=== PATIENT | male | born 1930 | race Caucasian/White ===

== ENCOUNTER → 2016-08-22 | Outpatient (CLI) | payer BC ==
[~2016-08-22] MED LIST: AMLO-114 PO; ANT25 PO; ASPCH81 PO; CARB0.5D28 OPB; CHOL100010 PO; HYDUNK PO; LPT40 PO; METO25TA56 PO; MULT-506 PO; NAPR1TAB9 PO; OMEG10007 PO; ONDA4TAB7 SL; SYNUNK PO
== END | disposition home or self-care (01) ==
LOC: C.LABSPEC 11:11
PROVIDERS: ATTEND Nurse Practitioner Family
DX: R39.9 Unspecified symptoms and signs involving the genitourinary system (principal)

== ENCOUNTER → 2016-10-19 | Outpatient (CLI) | payer BC ==
--- NOTE | 2016-10-19 15:29 | DIAGNOSTIC IMAGING REPORT ---
CHEST 2 VIEWS ROUTINE CLINICAL HISTORY: R05 COUGH COMPARISON STUDY: 12/14/2014 FINDINGS: The heart is enlarged. There is no failure. There is no focal pulmonary consolidation. There are no pleural effusions.[ IMPRESSION: Cardiomegaly. No acute findings. Electronically signed by: Eagle Gandara M.D. 10/19/2016 3:28 PM Dictated Date/Time: 10/19/2016 3:27 PM
== END | disposition home or self-care (01) ==
LOC: C.RAD 15:06
PROVIDERS: ATTEND Internal Medicine Cardiovascular Disease
DX: R05 Cough (principal); I51.7 Cardiomegaly

== ENCOUNTER → 2017-05-09 | Outpatient (CLI) | payer BC ==
--- NOTE | 2017-05-09 13:55 | DIAGNOSTIC IMAGING REPORT ---
R KNEE 3 VIEWS CLINICAL HISTORY: 87 years-old Male presenting with RIGHT KNEE INSTABILITY. TECHNIQUE: Bilateral frontal views of the knees in standing position as well as crosstable lateral and sunrise views of the right knee were obtained. COMPARISON: Plain radiographs of the left knee from 04/22/2007. FINDINGS: Degenerative changes of the bilateral knees, left greater than right. The left knee demonstrates interval increase in osteophytosis, chondrocalcinosis, and medial joint space loss. Subchondral sclerosis noted in the medial compartment. The right knee demonstrates less severe medial joint space loss and less severe osteophytosis. The right knee demonstrates primarily medial and patellofemoral compartment degenerative change. Small knee joint effusion present. Minimal lateral subluxation of the patella. No acute fracture. IMPRESSION: 1. Medial joint space loss in the bilateral knees, left greater than right. 2. Medial and patellofemoral compartment degenerative change in the right knee with effusion. Electronically signed by: Tree Cisse M.D. 05/09/2017 1:54 PM Dictated Date/Time: 05/09/2017 1:51 PM
== END | disposition home or self-care (01) ==
LOC: C.RDSM 13:25
PROVIDERS: ATTEND Family Medicine
DX: M25.361 Other instability, right knee (principal)

== ENCOUNTER 2017-06-12 09:39 | Emergency (ER) | payer BC ==
[~2017-06-12] VITALS: Ht 177.8 cm; Wt 93.0 kg
[2017-06-12 09:48] VITALS: TEMP 36.9; Ht 177.8 cm; Wt 93.0 kg
--- NOTE | 2017-06-12 10:23 | DIAGNOSTIC IMAGING REPORT ---
CT HEAD WITHOUT CONTRAST (CT) CLINICAL HISTORY: Head pain status post trauma COMPARISON STUDY: 12/14/2014 TECHNIQUE: Axial CT of the brain is performed from the vertex to the skull base. IV contrast was not administered for this examination. A dose lowering technique was utilized adhering to the principles of ALARA. CT DOSE: 614.27 mGy.cm FINDINGS: There is a focus of subtle increased attenuation along the posterior falx adjacent to the cerebellar vermis. This finding was reviewed with a fellow radiologist. It was felt that this finding was unlikely to be secondary to acute hemorrhage. A mass is a meningioma cannot be excluded. There is no evidence of acute intraparenchymal hemorrhage. There is no evidence of subarachnoid hemorrhage. There is no midline shift. There are patchy white matter hypodensities likely on a small vessel basis. There is no evidence of pathologic ventricular dilatation. There is no evidence of acute sinusitis. There is a right frontal scalp hematoma. IMPRESSION: 1. Right frontal scalp hematoma 2. White matter hypodensities, likely a small vessel basis 3. Subtle focus of increased attenuation along the posterior falx adjacent the cerebellar vermis. As stated above, it is felt that this finding is unlikely to be secondary to acute hemorrhage Electronically signed by: Eagle Gandara M.D. 06/12/2017 10:22 AM Dictated Date/Time: 06/12/2017 10:16 AM
[2017-06-12] MEDS ORDERED: NRV/5 PO (10:32)
[2017-06-12] MEDS ORDERED: ISOS30TA35 PO (10:32)
[2017-06-12] MEDS ORDERED: PRVC/20 PO (10:32)
[2017-06-12] MEDS ORDERED: SYN75 PO (10:32)
[2017-06-12] MEDS ORDERED: CHOL1000 PO (10:32)
[2017-06-12] MEDS ORDERED: ASPI81TA28 PO (10:32)
[2017-06-12] MEDS ORDERED: POTA20TA13 PO (10:32)
[2017-06-12] MEDS ORDERED: HYDR25TA4 PO (10:32)
[2017-06-12] MEDS ORDERED: VALS-59 PO (10:32)
--- NOTE | 2017-06-12 10:43 | EMERGENCY ROOM VISIT NOTE ---
History Report prepared by Trey: Anne Mendoza Under the Supervision of: Dr. Henrique Mendez D.O. First contact with patient: 09:56 Chief Complaint: FALL Stated Complaint: FELL ONTO CEMENT FLOOR/BACKWARDS-LACERATION History of Present Illness The patient is an 87 year old male who presents to the Emergency Room with complaints of a sudden fall that occurred just prior to arrival. He currently rates his discomfort as a 2/10 in severity. The patient states that he was working on a step ladder and states that he fell backwards somewhat slowly injuring his head. He states that he is unsure why he fell. The patient states that he does not feel like he broke any bones. He denies any back pain or pain to his buttocks. The patient states that he feels his teeth are all intact. Source of History: patient Onset: prior to arrival Position: other (global) Symptom Intensity: 2/10 Quality: other (fall) Timing: other (sudden) Associated Symptoms: No back pain Note: Associated Symptoms: head injury Review of Systems See HPI for pertinent positives & negatives. A total of 10 systems reviewed and were otherwise negative.+ Past Medical & Surgical Medical Problems: (1) Hypertension Nos (2) Hypothyroidism Nos (3) Myoclonus (4) Pure Hypercholesterolem (5) Silent myocardial infarction Surgical Problems: (1) History of appendectomy (2) History of hip replacement Family History FH: alcoholism Social History Smoking Status: Former Smoker Drug Use: none Marital Status: Housing Status: lives with significant other Occupation Status: retired Current/Historical Medications Scheduled Amlodipine Besylate (Amlodipine Besylate), 1 TAB PO DAILY Aspirin (Aspirin Ec), 81 MG PO DAILY Carboxymethylcellulose Sodium (Refresh Tears), 1-2 DROP OPB PRN Cholecalciferol (Vitamin D3), 1 TAB PO DAILY Fish Oil ([place]-3), 1 CAP PO DAILY Hydrochlorothiazide (Hctz), 25 MG PO DAILY Isosorbide Mononitrate Ext Rel (Imdur Ext Rel), 1 TAB PO QAM Levothyroxine Sodium (Synthroid), 1 TAB PO DAILYBB Multivitamin (Multivitamin), 1 TAB PO DAILY Naproxen (Aleve), 440 MG PO HS Potassium Chloride Microencaps (Potassium Chloride Er), 1 TAB PO DAILY Pravastatin Sod (Pravastatin Sodium), 1 TAB PO QPM Valsartan (Valsartan), 1 TAB PO DAILY Allergies Coded Allergies: Latex1 -Allergic Contact Dermititis (Verified Allergy, Unknown, HIVES - red itchy skin, 06/12/17) Morphine (Verified Allergy, Unknown, UNKNOWN, 06/12/17) Penicillins (Verified Allergy, Unknown, OK TO GIVE ANCEF PER SHANITA, ) Physical Exam Vital Signs Date Time Temp Pulse Resp B/P (MAP) Pulse Ox O2 Delivery O2 Flow Rate FiO2 06/12/17 09:48 36.9 59 20 155/68 98 Room Air Physical Exam CONSTITUTIONAL/VITAL SIGNS: Reviewed / noted above. GENERAL: Non-toxic in appearance. INTEGUMENTARY: Warm, dry, and [place]. HEAD: Hematoma and a skin tear/abrasion to the right forehead. EYES: without scleral icterus or trauma. ENT/OROPHARYNX: small laceration to the right lower lip LYMPHADENOPATHY/NECK: Is supple without lymphadenopathy or meningismus. RESPIRATORY: Lungs clear and equal. CARDIOVASCULAR: Regular rate and rhythm. GI/ABDOMEN: Soft and nontender. No organomegaly or pulsatile mass. No rebound or guarding. Normal bowel sounds. EXTREMITIES: Warm and well perfused. BACK: No CVA tenderness. NEUROLOGICAL: Intact without focal deficits. PSYCHIATRIC: normal affect. MUSCULOSKELETAL: Normally developed with good muscle tone. Medical Decision & Procedures ER Provider Diagnostic Interpretation: CT results as stated below per my review and radiologist interpretation: CT HEAD WITHOUT CONTRAST (CT) CLINICAL HISTORY: Head pain status post trauma COMPARISON STUDY: 12/14/2014 TECHNIQUE: Axial CT of the brain is performed from the vertex to the skull base. IV contrast was not administered for this examination. A dose lowering technique was utilized adhering to the principles of ALARA. CT DOSE: 614.27 mGy.cm FINDINGS: There is a focus of subtle increased attenuation along the posterior falx adjacent to the cerebellar vermis. This finding was reviewed with a fellow radiologist. It was felt that this finding was unlikely to be secondary to acute hemorrhage. A mass is a meningioma cannot be excluded. There is no evidence of acute intraparenchymal hemorrhage. There is no evidence of subarachnoid hemorrhage. There is no midline shift. There are patchy white matter hypodensities likely on a small vessel basis. There is no evidence of pathologic ventricular dilatation. There is no evidence of acute sinusitis. There is a right frontal scalp hematoma. IMPRESSION: 1. Right frontal scalp hematoma 2. White matter hypodensities, likely a small vessel basis 3. Subtle focus of increased attenuation along the posterior falx adjacent the cerebellar vermis. As stated above, it is felt that this finding is unlikely to be secondary to acute hemorrhage. Electronically signed by: Eagle Gandara M.D. 06/12/2017 10:22 AM Dictated Date/Time: 06/12/2017 10:16 AM ED Course 0958: Previous medical records were reviewed. The patient was evaluated in room A2. A complete history and physical examination was performed. 1045: I reevaluated the patient and he is resting comfortably. I discussed the exam findings with him and I discussed the treatment plan. He verbalized complete understanding and agreement. He is ready for discharge. Medical Decision Differentials include: Close head injury, intracranial bleed, facial trauma, cervical spine trauma, chest and thoracic trauma, abdominal and intra-abdominal trauma, spine neurologic trauma, and extremity trauma. This is an 87-year-old male who presents to the ED with a chief complaint of a fall and head injury. The patient states that he was stepping onto a stepladder when he lost his balance and fell backwards. He took several steps backwards and then fell landing on his buttocks and then fell striking the right side of his head. He came in for evaluation of this. He has a hematoma/ abrasion/skin tear to the right temporal region. There is also a small laceration/abrasion to his right lower lip. There was bleeding initially but he is currently not bleeding. There is no contamination to the wounds. Skin was replaced over the right temporal wound and there is no need for approximation as the wound/skin tear comes together nicely. The laceration the lip is very small and will not require suture as it is approximated well. The CT scan of the brain did not show acute process. The patient was felt to be stable for discharge and outpatient follow-up. He denied any neck or back pain. No buttock pain. No extremity pain. He is able to relate without difficulty. Denies other injuries or symptoms. Medication Reconcilliation Current Medication List: was personally reviewed by me Blood Pressure Screening Patient's blood pressure: Elevated blood pressure Blood pressure disposition: Elevated BP felt to be situational, Did not require urgent referral Impression Primary Impression: Fall Additional Impressions: Contusion of multiple sites Multiple abrasions Scribe Attestation The scribe's documentation has been prepared under my direction and personally reviewed by me in its entirety. I confirm that the note above accurately reflects all work, treatment, procedures, and medical decision making performed by me. Departure Information Dispostion Home / Self-Care Referrals Bud España M.D. (PCP) Forms HOME CARE DOCUMENTATION FORM, IMPORTANT VISIT INFORMATION Patient Instructions My [facility] Additional Instructions The head scan did not show any acute brain injury. Watch wounds for infection (redness, increasing swelling, increasing pain, fevers). Follow-up with your doctor for further care and evaluation in 5 -7 days for recheck. Return to the emergency department for worsening or new symptoms or any concerns. You have been examined and treated today on an emergency basis only. This is not a substitute for, or an effort to provide, complete comprehensive medical care. It is impossible to recognize and treat all injuries or illnesses in a single emergency department visit. It is therefore important that you follow up closely with your doctor. Call as soon as possible for an appointment. Problem Qualifiers
[2017-06-12 11:09] VITALS: BP 170/70; PULSE 50; O2SAT 98
== END 2017-06-12 11:10 | disposition home or self-care (01) ==
LOC: C.EDB 09:42 → C.EDA 11:10
DX: T14.8XXA Other injury of unspecified body region, initial encounter (principal); W11.XXXA Fall on and from ladder, initial encounter; I10 Essential (primary) hypertension; E03.9 Hypothyroidism, unspecified; G25.3 Myoclonus; E78.00 Pure hypercholesterolemia, unspecified; Z87.891 Personal history of nicotine dependence; Z79.82 Long term (current) use of aspirin

== ENCOUNTER → 2017-08-08 | Outpatient (CLI) | payer BC ==
[~2017-08-08] MED LIST changes: -AMLO-114 PO; -ANT25 PO; -ASPCH81 PO; +ASPI81TA28 PO; +CHOL1000 PO; -CHOL100010 PO; +HYDR25TA4 PO; -HYDUNK PO; +ISOS30TA35 PO; -LPT40 PO; -METO25TA56 PO; +NRV/5 PO; -ONDA4TAB7 SL; +POTA20TA13 PO; +PRVC/20 PO; +SYN75 PO; -SYNUNK PO; +VALS-59 PO
--- NOTE | 2017-08-08 10:08 | DIAGNOSTIC IMAGING REPORT ---
HEAD WITHOUT CONTRAST (CT) CT DOSE: 823.94 mGycm HISTORY: Mental status change IMPAIRED MOTOR CONTROL TECHNIQUE: Multiaxial CT images of the head were performed without the use of intravenous contrast. A dose lowering technique was utilized adhering to the principles of ALARA. Comparison: 06/12/2017 Findings: The paranasal sinuses and mastoid air cells are clear. Interval development of a left posterior frontal mixed density subdural hematoma. This measures 9 mm maximum thickness. Bulk of the subdural is of low density with a linear focus of hyperdensity. This may indicate a partial re-bleed with all findings not present on the prior exam. No significant midline shift. No evidence for a true parenchymal hemorrhage. Ventricular system is midline. Impression: 1. Interval development of a 9 mm thick mixed density left subdural hematoma. 2. No significant mass effect or midline shift although there is mild impact upon the left posterior frontal lobe sulci. 3. The mixed density indicates the majority of the subdural is subacute with only a small linear focus of acute hemorrhage within the subcutaneous component. 4. This finding was not present on the prior study dated 06/12/2017 The above report was generated using voice recognition software. It may contain grammatical, syntax or spelling errors. Electronically signed by: Micah Lincoln M.D. 08/08/2017 10:07 AM Dictated Date/Time: 08/08/2017 10:00 AM
== END | disposition home or self-care (01) ==
LOC: C.CTS 09:36
PROVIDERS: ATTEND Family Medicine
DX: Z78.9 Other specified health status (principal); I62.00 Nontraumatic subdural hemorrhage, unspecified

== ENCOUNTER → 2017-08-27 | Outpatient (CLI) | payer BC ==
--- NOTE | 2017-08-27 09:26 | DIAGNOSTIC IMAGING REPORT ---
CT OF THE HEAD WITHOUT CONTRAST CLINICAL HISTORY: Impaired motor control. Follow-up subdural hematoma. COMPARISON STUDY: Head CT August 08, 2017. CT DOSE: 614.27 mGy.cm TECHNIQUE: Helical axial images of the head were obtained without IV contrast. Automated exposure control was utilized for the study. A dose lowering technique was utilized adhering to the principles of ALARA. FINDINGS: A small mixed attenuation left subdural hematoma overlying the left frontal lobe has slightly decreased in size and attenuation since exam of July 31, 2017. The subdural hematoma measures 1 cm in thickness. Minimal associated mass effect is noted. There is no significant midline shift. Ventricular system is stable. Basilar cisterns are patent. White matter hypodensity suggests small vessel disease. There is an old lacunar infarct within the right external capsule. There are no findings to suggest acute dural sinus thrombosis or acute territorial infarct. There is no calvarial fracture. There is trace fluid within the left mastoid air cells. IMPRESSION: Slight decrease in size and attenuation of the left subdural hematoma since head CT of August 08, 2017. This represents expected evolution of a subacute left subdural hematoma. Electronically signed by: Butch Souza M.D. 08/27/2017 9:25 AM Dictated Date/Time: 08/27/2017 9:18 AM
== END | disposition home or self-care (01) ==
LOC: C.CTS 08:58
PROVIDERS: ATTEND Family Medicine
DX: I62.02 Nontraumatic subacute subdural hemorrhage (principal); Z78.9 Other specified health status

== ENCOUNTER 2018-07-18 17:15 | Inpatient (IN) ==
[2018-07-18] MEDS ORDERED: POLYETHYLENE (MIRALAX) 17 GM PACK PO PRN (18:04)
[2018-07-18] MEDS ORDERED: PATIENT'S HEIGHT AND/OR WEIGHT NEEDED SCH (18:30)
--- NOTE | 2018-07-18 18:59 | History & Physical Report ---
Date of Service July 18, 2018 Assessment & Plan (1) Leg edema, right: 88-year-old male was a direct admit from his family medicine clinic on 18 July 2018 with concerns for right lower leg cellulitis and a failure of outpatient treatment for the same. Right lower extremity edema and erythema: Apparently began around mid June and has been progressively worsening. Has not responded to multiple courses of different antibiotics. Is not painful, no known fevers, and no known rashes elsewhere. Atraumatic as far as patient knows. No focal deficits on leg/ankle/ toe movement. Differential includes cellulitis, DVT, superficial vein thrombosis, abscess, and undifferentiated dermopathy. - We will check an admission a CBC with differential, BMP, superficial ultrasound of the local tissue, ultrasound looking for DVT, as well as a CT of his lower leg. - Given history of some CKD, will hydrate with 1 L normal saline prior to CT scan with contrast. - We will not start any antibiotics as it is unclear if this is an ongoing bacterial process. Ongoing medical history: - Hypertension: Continue home Coreg. Lasix as needed. - Hyperlipidemia: Continue home rosuvastatin. - Hypothyroidism: TSH on 27 June was 1.23. On home levothyroxine. - Chronic systolic CHF: TTE on 26 June 2018 noted moderate to severe reduced systolic function with EF of 30-35% and associated akinesis. - CAD and PMH NSTEMI: See discharge summary on 29 June 2018 for specific recent details. On last admission, recommend spironolactone, Coreg, Entresto, Lasix as needed, and aspirin. Consider AICD placement in the future. - GERD: Does not take anything for this at home. - Anemia: Hemoglobin trended around 11 in June 2018. - Left bundle branch block: Seen on previous EKG, likely related to NSTEMI. - CKD stage III: Last recorded creatinine was 1.37, though previous was around 1.07. Code status: DO NOT RESUSCITATE Diet: Heart healthy DVT prophy: Lovenox PT/OT: Deferred Disbo: Admit for observation to MedSur floor. (2) Leg erythema: (3) Hypertension: (4) Hyperlipidemia: (5) Hypothyroidism: (6) Chronic systolic CHF (congestive heart failure): (7) CAD (coronary artery disease): (8) GERD (gastroesophageal reflux disease): (9) Anemia: (10) LBBB (left bundle branch block): (11) CKD (chronic kidney disease) stage 3, GFR 30-59 ml/min: History of Present Illness Primary Care Provider: Bud España MD 80-year-old male was transferred from his primary care office with concerns for ongoing cellulitis. Patient says he first noticed a small rash on his right lower leg around mid June during his hospitalization for an IN. Since that time he says the area has slowly and progressively increased in size and erythema. He also says the underlying edema has similarly slowly increased. He does not think the area is particularly painful, including with directly touching or movement of his ankle. He denies any previous history of the same. He denies any known fevers, bites, numbness or tingling in the area, similar rashes elsewhere, or requiring any gsgp-yje-rjjyupk meds to treat it. He says that he routinely sees dermatology about every 6 months, last similar visit 6 months ago, due to his family history of melanoma. Says that last visit was unremarkable. Of note, during his mid June 2018 hospitalization he is found to have pansensitive group G strep in his blood. Since that time he has been on multiple antibiotics to include Keflex, ceftriaxone, doxycycline, and possibly most recently clindamycin. The patient is unsure which antibiotics and over time he has been on them. He also had a right lower extremity venous Doppler study in July was noted no DVT. A 15 July right ankle x-ray noted some mild soft tissue edema without acute bony abnormalities. Allergies Allergy/AdvReac Type Severity Reaction Status Date / Time latex Allergy Intermediate HIVES - Verified 06/25/18 16:07 red itchy skin morphine Allergy Intermediate Itchiness Verified 07/15/18 16:20 Penicillins Allergy Unknown Unknown Verified 07/15/18 16:20 Home Medications Home Medications Medication Instructions Recorded Confirmed Type Nigella Sativa Oil 2,000 mg PO DIRECTED 06/25/18 07/15/18 History Pectasol Detox Formula 1 dose PO DIRECTED 06/25/18 07/15/18 History isosorbide mononitrate 30 mg PO QAM 06/25/18 07/15/18 History levothyroxine 75 mcg PO QAM 06/25/18 07/15/18 History aspirin 81 mg PO QAM #30 tab 06/29/18 07/15/18 Rx carvedilol 6.25 mg PO BID #60 tab 06/29/18 07/15/18 Rx clopidogrel 75 mg PO QAM #30 tab 06/29/18 07/15/18 Rx rosuvastatin [Crestor] 10 mg PO QAM #30 tab 06/29/18 07/15/18 Rx sacubitril-valsartan [Entresto] 1 tab PO BID #60 tab 06/29/18 07/15/18 Rx clindamycin HCl 300 mg PO TID 10 Days #30 cap 07/15/18 Rx doxycycline hyclate 100 mg PO BID 07/15/18 07/15/18 History furosemide [Lasix] 20 mg PO DAILY PRN 07/15/18 07/15/18 History spironolactone 12.5 mg PO 3XWK 07/15/18 07/15/18 History Past Med/Surg History Social History Current Living Situation: Spouse Current Living Situation Comment: [facility] for home care. Other Information That Helps Us Care for You: No Feels Safe at Home: Yes Safety Concerns: Feels Safe At This Time Smoking Status: Former smoker Tobacco Type: cigarettes Do You Dip or Chew Tobacco: No Second Hand Exposure: No Tobacco Cessation Education Requested by Patient: No Hx Alcohol Use: Yes Alcohol type: beer Alcohol Intake Frequency: 0-2 drinks per day Hx Substance Use: No Beliefs That Will Affect Care: None Preferred Language: [place] Communication Ability: Effective Boarding House Cook Required: No Review of Systems Past medical history includes allergic rhinitis, arthritis, NSTEMI, hypertension , hyperlipidemia, hypothyroidism, myoclonus, leg edema, chronic systolic congestive heart failure, bilateral rotator cuff tears, biceps tendon repair, GERD. Past surgical history includes left total hip replacement in October 2012, lumbar discectomy, appendectomy, and tonsil and adenoidectomy. Allergies: Latex, tape, morphine, penicillin Family history: Brother had a heart attack as well as CAD and melanoma. Mother with history of hypertension and stroke. Father with history of hypertension. Social history: Quit smoking over 50 years ago. Drinks a single 12 ounce of beer with lunch for years. 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 Lives at home with his spouse. Review of systems Constitutional: Denies fevers, chills, focal weakness Eyes: Denies any visual loss or diplopia ENT: Denies any ear/nose/throat pain or difficulty speaking or swallowing Respiratory: Denies any dyspnea, cough, hemoptysis Cardiovascular: Denies any chest pain. Positive edema only around the rash on his leg. Gastrointestinal: Denies any abdominal pain, nausea/vomiting/diarrhea Musculoskeletal: Denies any acute extremity pains, myalgias, or focal weakness Skin: See HPI. Neuro: Denies any headache, acute focal weakness or numbness, or difficulties with speech or swallow. Psych: Denies any recent depression or anxiety Endocrine: Denies any heat or cold intolerance, changes in urination. Hematologic: Denies any easy bleeding or bruising Physical Exam 2 Vital Signs (Past 24 Hours): Last Vital Signs Temp 36.4 C L 07/18/18 17:55 Pulse 70 07/18/18 17:55 Resp 20 07/18/18 17:55 BP 161/70 H 07/18/18 17:55 Pulse Ox 100 07/18/18 17:55 Physical Exam: General Appearance: Awake, alert & oriented, comfortable in general, NAD. CV: +S1S2 RRR, no murmur. 2+ dorsalis pedis and posterior tibial pulse on the right. Pulm: Clear to auscultation throughout. Abdomen: +BS, soft, non-tender, non-distended. Extremities: Moving all extremities naturally and easily, including his right ankle. There is an approximately 21 x 14 x 15 cm area of uneven erythema over the distal right mast and wrapping medially towards the calf. It is not circumferential. The area easily blanches. It is not tender but the underlying tissue is notably 2+ edematous. No obvious breaks in the skin or weeping. Neuro: No gross neuro deficits. Code Status & VTE Plan Code Status DO NOT RESUSCITATE VTE Prophylaxis Plan VTE Prophylaxis will be ordered: Yes Supervising Physician Co-Signing Physician Notes Patient seen and examined with Dr. Poe. Agree with exam findings, assessment and plan of care as outlined by Dr. Mcallister. In brief, Mr. Munson is an 88 year old male with history if CAD, hypothyroidism , CKD and previous group G strep bacteremia who presents as a direct admission from the [facility] family medicine office for erythematous and spreading right leg lesion unresponsive to multiple outpatient antibiotic courses. The leg is becoming more erythematous and the redness is spreading to the posterior distal calf from the anterior distal mast. It is swollen compared to the left. No fevers, chills malaise, drainage or weeping from the area. Prior dopplers negative for DVT. Xray negative for osteomyelitis. On exam, he is well appearing. Afbrile. Hemodynamically stable. There is a blanching well demarcated erythematous area of the distal mast to the posterior calf. Minimal warmth. Mildly tender, especially in the posterior calf. Negative Nicolette's. No palpable cord. +2 pitting edema of the erythematous area only. +2 pedal pulses. 1. Leg lesion, ddx cellulitis with abscess (failed outpatient therapy) vs superficial thrombophlebitis vs subQ fat necrosis. No systemic symptoms. Check CBC with diff. Check Doppler again to rule out new DVT formation. Check CT leg with contrast to assess for any underlying bony or soft tissue pathology. Hold off abx for now. Other chronic conditions stable. Continue home medications. Dispo: pending clinical improvement. Resident Activity Tracking Resident Involvement: Resident Care Provided Care Provided: [facility] _ (1) Hypertension Hypertension type: essential hypertension Qualified Code(s): I10 - Essential (primary) hypertension
[2018-07-18] MEDS: SODIUM CHLORIDE 0.9% 1000ML 1,000 ML IV SCH (19:35)
[2018-07-18] MEDS: ENOXAPARIN INJ 30 MG/0.3 ML SYR SQ SCH (20:15)
[2018-07-18] MEDS: CARVEDILOL 12.5 MG TAB PO SCH (20:15)
[2018-07-18] MEDS: SACUBITRIL-VALSARTAN 24-26 MG TAB PO SCH (20:15)
--- NOTE | 2018-07-18 22:12 | Ultrasound Report ---
VENOUS DOPPLER ULTRASOUND THE RIGHT LOWER EXTREMITY CLINICAL HISTORY: Right lower extremity edema COMPARISON STUDY: 07/14/2018 FINDINGS: Real-time and color flow Doppler imaging were performed. Flow was seen within the femoral, popliteal and calf veins with no intraluminal thrombus demonstrated. The saphenous vein is patent. IMPRESSION: No evidence of right lower extremity DVT Electronically signed by: Eagle Gandara M.D. 07/18/2018 10:11 PM
--- NOTE | 2018-07-18 22:13 | Ultrasound Report ---
RIGHT LOWER EXTREMITY SOFT TISSUE ULTRASOUND CLINICAL HISTORY: Right lower extremity edema and swelling. Evaluate for abscess. COMPARISON STUDY: None FINDINGS: There is prominent soft tissue edema involving the right medial calf. There are no focal fl uid collections to indicate an abscess. IMPRESSION: 1. Prominent soft tissue edema 2. No ultrasonographic evidence of an abscess Electronically signed by: Eagle Gandara M.D. 07/18/2018 10:12 PM
[2018-07-19] MEDS: ACETAMINOPHEN 325 MG TAB PO PRN ×2 (01:44→21:24)
[2018-07-19] MEDS ORDERED: IOVERSOL 100ml IV PRN (04:21)
[2018-07-19] MEDS: SODIUM CHLORIDE 0.9% 1000ML 1,000 ML IV SCH ×3 (04:40→20:25)
[2018-07-19] MEDS: LEVOTHYROXINE SODIUM 75 MCG TABLET PO SCH (05:41)
--- NOTE | 2018-07-19 06:14 | CT Scan Report ---
CT lower leg RT w con CLINICAL HISTORY: Eval for mass vs abscess pain. Edema. TECHNIQUE: Transaxial CT acquisition with multi axial reformatted images. COMPARISON STUDY: None FINDINGS: Generalized soft tissue edematous change. Degenerative change of the knee with evidence for a small joint effusion. Moderate reactive osteophytic changes throughout. Generalized soft tissue edematous change primarily involving the subcutaneous fat through the lower l eg. No well-defined acute bony abnormality. No drainable abscess or collection. No evidence for significant myositis. IMPRESSION: 1. Generalized soft tissue edema primarily involving the subcutaneous fat throughout the right lower leg. 2. Degenerative change right knee with a small joint effusion. 3. No evidence for drainable abscess or collection. The above report was generated using voice recognition software. It may contain grammatical, syntax or spelling errors. Electronically signed by: Micah Lincoln M.D. 07/19/2018 6:13 AM
[2018-07-19 07:49] LABS: Basophils # (auto) 0.03 K/uL (0-0.2); Basophils % (auto) 0.6 %; Eosinophils # (auto) 0.24 K/uL (0-0.5); Eosinophils % (auto) 4.7 %; Hemoglobin 10.1 g/dL (14.0-18.0); Immature Granulocytes # (auto) 0.02 K/uL (0.00-0.02); Immature Granulocytes % (auto) 0.4 %; Lymphocytes # (auto) 1.42 K/uL (1.2-3.4); Mean Corpuscular Hgb Conc 31.6 g/dL (32-36); Mean Corpuscular Volume 88.6 fL (80-100); Mean Platelet Volume 10.2 fL (7.4-10.4); Monocytes # (auto) 0.42 K/uL (0.11-0.59); Monocytes % (auto) 8.3 %; Neutrophils # (auto) 2.95 K/uL (1.4-6.5); Platelet Count 126 K/uL (130-400); RDW Coefficient of Variation 14.7 % (11.5-14.5); RDW Standard Deviation 47.7 fL (36.4-46.3); Red Blood Count 3.61 M/uL (4.7-6.1); White Blood Count 5.08 K/uL (4.8-10.8)
[2018-07-19 08:15] LABS: BUN Creatinine Ratio 17.9 (10-20); Calcium 7.8 mg/dl (8.5-10.1); Creatinine Clr Calc Pharmacy 40.2 ml/min; Est GFR (African American) 55.9; Est GFR (Non-African American) 48.3; Potassium 4.2 mmol/L (3.5-5.1)
[2018-07-19] MEDS: CLOPIDOGREL BISULFATE 75 MG TAB PO SCH (08:58)
[2018-07-19] MEDS: CARVEDILOL 12.5 MG TAB PO SCH ×2 (08:58→20:30)
[2018-07-19] MEDS: ROSUVASTATIN CALCIUM 10 MG TAB PO SCH (08:59)
[2018-07-19] MEDS: ASPIRIN 81 MG ECTAB PO SCH (08:59)
[2018-07-19] MEDS: ISOSORBIDE MONO EXTENDED REL 30 MG TABCR PO SCH (08:59)
[2018-07-19] MEDS: SACUBITRIL-VALSARTAN 24-26 MG TAB PO SCH ×2 (09:55→20:30)
[2018-07-19] MEDS ORDERED: PIPERACILL/TAZOBAC CONSULT ACTIVE PRN (13:12)
[2018-07-19] MEDS ORDERED: VANCOMYCIN CONSULT ACTIVE PRN (13:12)
[2018-07-19] MEDS ORDERED: VANCOMYCIN HCL 2,000 MG in SODIUM CHLORIDE 0.9% 500 ML IV ONE (14:00)
[2018-07-19] MEDS ORDERED: PIPERACILLIN/TAZOBACTAM 3.375 GM in DEXTROSE 5% 100 ML IV ONE (14:00)
--- NOTE | 2018-07-19 15:12 | Pharmacy Report ---
Pharmacy Abx Initial Consult - Date of Service July 19, 2018 - Pharmacy Dosing Scope Date of Consult: 07/19/18 Consultation requested by: Dr. Kenney Pharmacy is consulted to initiate Vancomycin and Zosyn IV dosing therapy, order appropriate labs and adjust drug dose/frequency. - Subjective The patient is a 88 year old M admitted on 07/18/18 17:52. - Objective Height: 5 ft 10 in Weight: 86.4 kg Vital Signs (Past 12hrs): Vital Signs Temp Pulse Resp BP Pulse Ox 07/19/18 07:47 36.4 C L 61 17 131/68 97 Lab Results (24hrs): Laboratory Tests (24 Hours) 07/19/18 07/19/18 07:21 07:21 WBC 5.08 Neut # (Auto) 2.95 Creatinine 1.31 Est Cr Clr Drug Dosing 40.2 - Risk Factors for Resistance * Hospitalization for 48 hours or more within the past 90 days (06/25 - for acute resp. failure with hypoxia) * History of infection with a multidrug-resistant organism: 06/29 blood cultures babb sensitive group G beta strep * Antimicrobial use within the last 90 days; doses and durations unknown but therapies include: Keflex, Rocephin, Doxy, and Clindamycin. - Assessment & Plan Assessment 88 year old M direct admit from [facility] medicine clinic with concerns for right lower leg cellulitis. Several oupt regimens have been implemented with no improvement. However, duration of these courses is unknown. Plan Vancomycin and Zosyn for treatment of right lower leg cellulitis. Vancomycin IV * Estimated PK Parameters: Vd 0.7 L/kg, Josef 0.04 hr-1, t1/2 18 hr * Loading dose: 2000 mg (25 mg/kg) * Maintenance dose: 1250 mg IV (~15 mg/kg) every 24 hours * Goal trough level : 10 to 15 mcg/mL * Trough/Random level not currently ordered; will a obtained at appropriate time if patient is still using this therapy. Piperacillin/tazobactam * 3.375 g bolus administered over 30 minutes, then 3.375 g IV extended infusion every 8 hours for CrCl greater than 20 mL/min. Pharmacy will continue to follow and will adjust dose/frequency as necessary. Thank you.
[2018-07-19] MEDS: PIPERACILLIN/TAZOBACTAM 3.375 GM in DEXTROSE 5% 100 ML IV SCH (20:25)
[2018-07-19] MEDS: ENOXAPARIN INJ 30 MG/0.3 ML SYR SQ SCH (20:26)
--- NOTE | 2018-07-19 20:44 | Family Medicine Progress Note ---
Date of Service July 19, 2018 Assessment & Plan (1) Leg edema, right: 88-year-old male was a direct admit from his family medicine clinic on 18 July 2018 with concerns for right lower leg cellulitis and a failure of outpatient treatment for the same. Right lower extremity edema and erythema: Apparently began around mid June and has been progressively worsening. Has not responded to multiple courses of different antibiotics. Is not painful, no known fevers, and no known rashes elsewhere. Atraumatic as far as patient knows. No focal deficits on leg/ankle/ toe movement. Differential includes cellulitis, DVT, superficial vein thrombosis, abscess, and undifferentiated dermopathy. - CBC- no significant leukocytosis - LE US and Doppler: No Abscess or DVT - CT RLE: Soft tissue eded of subcutaneous fat, no abscess - Based on longstanding erythema and above imaging will treat as cellulitis with failure of outpatient antibiotics (Keflex, Rocephin, Doxycyclin, Clindamycin) - Start IV Vancomycin and Zosyn - Discontinue IV NS at this time, tolerating PO Intake Ongoing medical history: - Hypertension: Continue home Coreg. Lasix as needed. - Hyperlipidemia: Continue home rosuvastatin. - Hypothyroidism: TSH on 27 June was 1.23. On home levothyroxine. - Chronic systolic CHF: TTE on 26 June 2018 noted moderate to severe reduced systolic function with EF of 30-35% and associated akinesis. - CAD and PMH NSTEMI: See discharge summary on 29 June 2018 for specific recent details. On last admission, recommend spironolactone, Coreg, Entresto, Lasix as needed, and aspirin. Consider AICD placement in the future. - GERD: Does not take anything for this at home. - Anemia: Hemoglobin trended around 11 in June 2018. - Left bundle branch block: Seen on previous EKG, likely related to NSTEMI. - CKD stage III: Last recorded creatinine was 1.37, though previous was around 1.07. Code status: DO NOT RESUSCITATE Diet: Heart healthy DVT prophy: Lovenox PT/OT: Deferred Disbo: Admit for observation to MedSur floor. (2) Leg erythema: (3) Hypertension: (4) Hyperlipidemia: (5) Hypothyroidism: (6) Chronic systolic CHF (congestive heart failure): (7) CAD (coronary artery disease): (8) GERD (gastroesophageal reflux disease): (9) Anemia: (10) LBBB (left bundle branch block): (11) CKD (chronic kidney disease) stage 3, GFR 30-59 ml/min: Supervising Physician Co-Signing Physician Notes Patient seen and examined with Dr. Kenney. Agree with exam findings, assessment and plan of care as outlined by Dr. Kenney. In brief, Mr. Munson is an 88 year old male with history if CAD, hypothyroidism , CKD and previous group G strep bacteremia who presented as a direct admission from the [facility] family medicine office for erythematous and spreading right leg lesion unresponsive to multiple outpatient antibiotic courses. No fevers, chills malaise, drainage or weeping from the area. Prior dopplers negative for DVT. Xray negative for osteomyelitis. On exam, he is well appearing. Afebrile. Hemodynamically stable. There is a blanching well demarcated erythematous area of the distal mast to the posterior calf. Minimal warmth. Mildly tender, especially in the posterior calf. Negative Nicolette's. No palpable cord. +2 pitting edema of the erythematous area only. +2 pedal pulses. 1. Leg lesion, ddx cellulitis with abscess (failed outpatient therapy) vs superficial thrombophlebitis vs subQ fat necrosis. No systemic symptoms. Doppler negative for DVT. CT with subcutaneous fat inflammation. No absces. Start vanc and zosyn. If no improvement in erythema with abx, consider ID consult. Other chronic conditions stable. Continue home medications. Dispo: pending clinical improvement. Subjective Patient resting comfortably in bed this morning in no acute distress. Denies any pain in his leg, numbness, tingling, fevers, chills, sweats, or any other acute complaints. Review of Systems All systems reviewed & are unremarkable except as noted in HPI & below Physical Exam 2 Vital Signs (Past 24 Hours): Last Vital Signs Temp 36.3 C L 07/19/18 15:20 Pulse 70 07/19/18 20:22 Resp 18 07/19/18 15:20 BP 129/53 L 07/19/18 20:22 Pulse Ox 95 07/19/18 20:22 Constitutional: WD/WN, vitals as above Eyes: + anicteric sclerae Neck: trachea midline, no thyromegaly Respiratory: normal respiratory effort, lungs clear to auscultation Cardiovascular: RRR, no murmur, no edema Gastrointestinal (Abdomen): normal bowel sounds, soft, nontender, no hepatosplenomegaly Skin: RLE Erythema with 2+ Pitting edema up to the right knee. Erythema has not extended beyond the margins drawn on admission. Erythema extends from the distal right lower extremity above the foot to the mid mast. No significant tenderness to palpation. 1+ PT and DP pulses. Sensation over the lower extremity grossly intact. No discharge, bleeding, or ceeping from the wound. Results & Data Laboratory Results Abnormal lab results 07/19/18 07/19/18 Range/Units 07:21 07:21 RBC 3.61 L (4.7-6.1) M/uL Hgb 10.1 L (14.0-18.0) g/dL Hct 32.0 L (42-52) % MCHC 31.6 L (32-36) g/dL RDW Std Deviation 47.7 H (36.4-46.3) fL RDW Coeff of Jeremiah 14.7 H (11.5-14.5) % Plt Count 126 L (130-400) K/uL Chloride 112 H (98-107) mmol/L BUN 24 H (7-18) mg/dl Calcium 7.8 L (8.5-10.1) mg/dl Resident Activity Tracking Resident Involvement: Resident Care Provided Care Provided: Adult [facility] _ (1) Hypertension Hypertension type: essential hypertension Qualified Code(s): I10 - Essential (primary) hypertension
[2018-07-20] MEDS: PIPERACILLIN/TAZOBACTAM 3.375 GM in DEXTROSE 5% 100 ML IV SCH ×3 (03:17→19:40)
[2018-07-20] MEDS: LEVOTHYROXINE SODIUM 75 MCG TABLET PO SCH (05:43)
[2018-07-20 06:30] LABS: Creatinine Clr Calc Pharmacy 41.8 ml/min; Est GFR (African American) 58.6; Est GFR (Non-African American) 50.6
[2018-07-20] MEDS: SACUBITRIL-VALSARTAN 24-26 MG TAB PO SCH ×2 (08:16→21:18)
[2018-07-20] MEDS: ROSUVASTATIN CALCIUM 10 MG TAB PO SCH (08:16)
[2018-07-20] MEDS: ISOSORBIDE MONO EXTENDED REL 30 MG TABCR PO SCH (08:16)
[2018-07-20] MEDS: CLOPIDOGREL BISULFATE 75 MG TAB PO SCH (08:16)
[2018-07-20] MEDS: ASPIRIN 81 MG ECTAB PO SCH (08:16)
[2018-07-20] MEDS: CARVEDILOL 12.5 MG TAB PO SCH ×2 (08:16→21:18)
[2018-07-20 08:40] LABS: Basophils # (auto) 0.03 K/uL (0-0.2); Basophils % (auto) 0.7 %; Eosinophils % (auto) 4.7 %; Hematocrit (blood only) 28.8 % (42-52); Hemoglobin 9.4 g/dL (14.0-18.0); Immature Granulocytes # (auto) 0.01 K/uL (0.00-0.02); Immature Granulocytes % (auto) 0.2 %; Lymphocytes # (auto) 1.11 K/uL (1.2-3.4); Lymphocytes % (auto) 26.1 %; Mean Corpuscular Volume 88.9 fL (80-100); Mean Platelet Volume 10.1 fL (7.4-10.4); Monocytes # (auto) 0.39 K/uL (0.11-0.59); Monocytes % (auto) 9.2 %; Neutrophils # (auto) 2.51 K/uL (1.4-6.5); Neutrophils % (auto) 59.1 %; Platelet Count 115 K/uL (130-400); RDW Coefficient of Variation 14.8 % (11.5-14.5); RDW Standard Deviation 48.1 fL (36.4-46.3); Red Blood Count 3.24 M/uL (4.7-6.1); White Blood Count 4.25 K/uL (4.8-10.8)
[2018-07-20 08:48] LABS: Mean Corpuscular Hgb Conc 32.6 g/dL (32-36)
[2018-07-20 08:53] LABS: BUN Creatinine Ratio 13.8 (10-20); Calcium 7.1 mg/dl (8.5-10.1); Creatinine Clr Calc Pharmacy 39.6 ml/min; Est GFR (African American) 54.9; Est GFR (Non-African American) 47.4; Potassium 3.9 mmol/L (3.5-5.1)
[2018-07-20] MEDS: VANCOMYCIN HCL 1,250 MG in SODIUM CHLORIDE 0.9% 250 ML IV SCH (14:00)
--- NOTE | 2018-07-20 16:21 | Family Medicine Progress Note ---
Date of Service July 20, 2018 Assessment & Plan (1) Leg edema, right: 88-year-old male was a direct admit from his family medicine clinic on 18 July 2018 with concerns for right lower leg cellulitis and a failure of outpatient treatment for the same. Right lower extremity edema and erythema: Apparently began around mid June and has been progressively worsening. Has not responded to multiple courses of different antibiotics. Is not painful, no known fevers, and no known rashes elsewhere. Atraumatic as far as patient knows. No focal deficits on leg/ankle/ toe movement. Differential includes cellulitis, DVT, superficial vein thrombosis, abscess, and undifferentiated dermopathy. - CBC- no significant leukocytosis - LE US and Doppler: No Abscess or DVT - CT RLE: Soft tissue edema of subcutaneous fat, no abscess - Based on longstanding erythema and above imaging will treat as cellulitis with failure of outpatient antibiotics (Keflex, Rocephin, Doxycyclin, Clindamycin) - Day 2 IV Vancomycin and Zosyn - Discontinue IV NS at this time, tolerating PO Intake - Due to limited improvement in erythema and tenderness, will consult ID Ongoing medical history: - Hypertension: Continue home Coreg. Lasix as needed. - Hyperlipidemia: Continue home rosuvastatin. - Hypothyroidism: TSH on 27 June was 1.23. On home levothyroxine. - Chronic systolic CHF: TTE on 26 June 2018 noted moderate to severe reduced systolic function with EF of 30-35% and associated akinesis. - CAD and PMH NSTEMI: See discharge summary on 29 June 2018 for specific recent details. On last admission, recommend spironolactone, Coreg, Entresto, Lasix as needed, and aspirin. Consider AICD placement in the future. - GERD: Does not take anything for this at home. - Anemia: Hemoglobin trended around 11 in June 2018. - Left bundle branch block: Seen on previous EKG, likely related to NSTEMI. - CKD stage III: Last recorded creatinine was 1.37, though previous was around 1.07. Code status: DO NOT RESUSCITATE Diet: Heart healthy DVT prophy: Lovenox PT/OT: Deferred Disbo: Admit for observation to Medr floor. (2) Leg erythema: (3) Hypertension: (4) Hyperlipidemia: (5) Hypothyroidism: (6) Chronic systolic CHF (congestive heart failure): (7) CAD (coronary artery disease): (8) GERD (gastroesophageal reflux disease): (9) Anemia: (10) LBBB (left bundle branch block): (11) CKD (chronic kidney disease) stage 3, GFR 30-59 ml/min: Supervising Physician Co-Signing Physician Notes Patient seen and examined independently of Dr. Kenney. Agree with exam findings , assessment and plan of care as outlined by Dr. Kenney. In brief, Mr. Munson is an 88 year old male with history if CAD, hypothyroidism , CKD and previous group G strep bacteremia who presented as a direct admission from the [facility] family medicine office for erythematous and spreading right leg lesion unresponsive to multiple outpatient antibiotic courses. No fevers, chills malaise, drainage or weeping from the area. Prior dopplers negative for DVT. Xray negative for osteomyelitis. On exam, he is well appearing. Afebrile. Hemodynamically stable. There is a blanching well demarcated erythematous area of the distal mast to the posterior calf with erythema of the anterior mast improving, but no improvement on the posterior aspect. Minimal warmth. Very tender, especially in the posterior calf. Negative Nicolette's. No palpable cord. +2 pitting edema of the erythematous area only. +2 pedal pulses. 1. Leg lesion, ddx cellulitis vs subQ fat necrosis vs vasculitis. No systemic symptoms. Doppler negative for DVT. CT with subcutaneous fat inflammation. No absces. Started vanc and zosyn yesterday with minimal improvement. Consult ID for assistance. Other chronic conditions stable. Continue home medications. Dispo: pending clinical improvement. Subjective Patient is renting comfortably in bed this morning in no acute distress. He states that he has not noticed any significant changes in the appearance of his leg and continues to have mild pain in the leg. Denies any fevers, chills, sweats, loss of sensation, or any other acute complaints. Review of Systems All systems reviewed & are unremarkable except as noted in HPI & below Physical Exam 2 Vital Signs (Past 24 Hours): Last Vital Signs Temp 36.4 C L 07/20/18 15:29 Pulse 68 07/20/18 15:29 Resp 17 07/20/18 15:29 BP 133/64 07/20/18 15:29 Pulse Ox 99 07/20/18 15:29 Constitutional: WD/WN, vitals as above Eyes: + anicteric sclerae Neck: trachea midline, no thyromegaly Respiratory: normal respiratory effort, lungs clear to auscultation Cardiovascular: RRR, no murmur, no edema Gastrointestinal (Abdomen): normal bowel sounds, soft, nontender, no hepatosplenomegaly Skin: RLE Erythema with 2+ Pitting edema up to the right knee. Erythema over the anterior mast appears to have improved mildly from yesterday. Erythema continues to extend from the distal right lower extremity above the foot to the mid mast. Patient today complains of mild tenderness to palpation over the posterior calf. 1+ PT and DP pulses. Sensation over the lower extremity grossly intact. No discharge, bleeding, or ceeping from the wound. Resident Activity Tracking Resident Involvement: Resident Care Provided Care Provided: [facility] Medicine _ (1) Hypertension Hypertension type: essential hypertension Qualified Code(s): I10 - Essential (primary) hypertension
[2018-07-20] MEDS: ACETAMINOPHEN 325 MG TAB PO PRN (16:47)
[2018-07-20] MEDS: ENOXAPARIN INJ 30 MG/0.3 ML SYR SQ SCH (19:45)
[2018-07-21] MEDS: PIPERACILLIN/TAZOBACTAM 3.375 GM in DEXTROSE 5% 100 ML IV SCH ×3 (03:02→13:50)
[2018-07-21] MEDS: ACETAMINOPHEN 325 MG TAB PO PRN (03:29)
[2018-07-21] MEDS: LEVOTHYROXINE SODIUM 75 MCG TABLET PO SCH (05:36)
[2018-07-21 05:40] LABS: Basophils # (auto) 0.03 K/uL (0-0.2); Basophils % (auto) 0.6 %; Eosinophils # (auto) 0.25 K/uL (0-0.5); Eosinophils % (auto) 5.2 %; Hematocrit (blood only) 30.1 % (42-52); Hemoglobin 9.5 g/dL (14.0-18.0); Immature Granulocytes # (auto) 0.01 K/uL (0.00-0.02); Immature Granulocytes % (auto) 0.2 %; Lymphocytes # (auto) 1.23 K/uL (1.2-3.4); Lymphocytes % (auto) 25.6 %; Mean Corpuscular Hgb Conc 31.6 g/dL (32-36); Mean Corpuscular Volume 88.3 fL (80-100); Mean Platelet Volume 9.6 fL (7.4-10.4); Monocytes # (auto) 0.35 K/uL (0.11-0.59); Monocytes % (auto) 7.3 %; Neutrophils # (auto) 2.94 K/uL (1.4-6.5); Neutrophils % (auto) 61.1 %; Platelet Count 116 K/uL (130-400); RDW Standard Deviation 48.3 fL (36.4-46.3); Red Blood Count 3.41 M/uL (4.7-6.1); White Blood Count 4.81 K/uL (4.8-10.8)
[2018-07-21 06:13] LABS: BUN Creatinine Ratio 10.1 (10-20); Calcium 7.1 mg/dl (8.5-10.1); Creatinine Clr Calc Pharmacy 37.7 ml/min; Est GFR (African American) 51.6; Est GFR (Non-African American) 44.5; Potassium 3.9 mmol/L (3.5-5.1)
[2018-07-21] MEDS: CLOPIDOGREL BISULFATE 75 MG TAB PO SCH (08:33)
[2018-07-21] MEDS: ROSUVASTATIN CALCIUM 10 MG TAB PO SCH (08:34)
[2018-07-21] MEDS: SACUBITRIL-VALSARTAN 24-26 MG TAB PO SCH ×2 (08:34→22:09)
[2018-07-21] MEDS: ISOSORBIDE MONO EXTENDED REL 30 MG TABCR PO SCH (08:34)
[2018-07-21] MEDS: ASPIRIN 81 MG ECTAB PO SCH (08:35)
[2018-07-21] MEDS: CARVEDILOL 12.5 MG TAB PO SCH ×2 (08:35→21:56)
[2018-07-21] MEDS ORDERED: SPIRONOLACTONE 25 MG TAB PO SCH (09:00)
--- NOTE | 2018-07-21 10:41 | Infectious Disease Consult ---
Date of Consultation July 21, 2018 Assessment & Plan (1) Cellulitis: appears to be improving. can continue IV abx. would suggest transition to po abx upon d/c. states he has been on several - may require prolonged course. would suggest zyvox 600mg po bid x 4 weeks. alternative would be keflex if zyvox too expensive. If no improvment would suggest derm eval/biopsy. no contraindication to d/c when otherwise stable. History of Present Illness Attending Physician: Bladimir Bar DO pt admitted from pcp office due to right ankle cellulitis. was seen in June for ggs bsi (pansensitive) was treated with abx. since d/c he states erythema has remained with occansional pain, no f/c at home. no open wounds, drainage or trauma to area. able to ambulate without difficulty. now on vanco and zoysn, ID consulted to do limitied improvement. blood cultures done on 07/15 - negative and final. tolerating abx. no n/v/d/abd pain, still with swelling in leg, ct and dopplers negative this admission. wbc nml. no fevers or leukocytosis this admission. no cp, sob,cough. Allergies Allergy/AdvReac Type Severity Reaction Status Date / Time latex Allergy Intermediate HIVES - Verified 06/25/18 16:07 red itchy skin morphine Allergy Intermediate Itchiness Verified 07/15/18 16:20 Penicillins Allergy Unknown Unknown Verified 07/15/18 16:20 Home Medications Home Medications Medication Instructions Recorded Confirmed Type Nigella Sativa Oil 2,000 mg PO DIRECTED 06/25/18 07/15/18 History Pectasol Detox Formula 1 dose PO DIRECTED 06/25/18 07/15/18 History isosorbide mononitrate 30 mg PO QAM 06/25/18 07/15/18 History levothyroxine 75 mcg PO QAM 06/25/18 07/15/18 History aspirin 81 mg PO QAM #30 tab 06/29/18 07/15/18 Rx carvedilol 6.25 mg PO BID #60 tab 06/29/18 07/15/18 Rx clopidogrel 75 mg PO QAM #30 tab 06/29/18 07/15/18 Rx rosuvastatin [Crestor] 10 mg PO QAM #30 tab 06/29/18 07/15/18 Rx sacubitril-valsartan [Entresto] 1 tab PO BID #60 tab 06/29/18 07/15/18 Rx clindamycin HCl 300 mg PO TID 10 Days #30 cap 07/15/18 Rx doxycycline hyclate 100 mg PO BID 07/15/18 07/15/18 History furosemide [Lasix] 20 mg PO DAILY PRN 07/15/18 07/15/18 History spironolactone 12.5 mg PO 3XWK 07/15/18 07/15/18 History Patient History Medical History Acid reflux (Acute 07/20/14) Hypothyroidism LV dysfunction Silent myocardial infarction Systolic CHF Surgical History History of appendectomy History of hip replacement Social History Current Living Situation: Spouse Current Living Situation Comment: [facility] and [facility] for home care. Other Information That Helps Us Care for You: No Feels Safe at Home: Yes Safety Concerns: Feels Safe At This Time Smoking Status: Former smoker Tobacco Type: cigarettes Do You Dip or Chew Tobacco: No Second Hand Exposure: No Tobacco Cessation Education Requested by Patient: No Hx Alcohol Use: Yes Alcohol type: beer Alcohol Intake Frequency: 0-2 drinks per day Hx Substance Use: No Beliefs That Will Affect Care: None Preferred Language: Georgian Communication Ability: Effective Community Engagement Manager Required: No Review of Systems all remaining ros reviewed and are negative Physical Exam 2 Vital Signs (Past 24 Hours): Last Vital Signs Temp 36.7 C 07/21/18 07:20 Pulse 79 07/21/18 07:20 Resp 20 07/21/18 07:20 BP 167/66 H 07/21/18 07:20 Pulse Ox 90 07/21/18 07:20 Constitutional: WD/WN, vitals as above Eyes: PERRL, conjunctivae normal, anicteric sclerae ENMT: external ear and nose normal, oropharynx normal Neck: normal visual inspection Respiratory: normal respiratory effort, lungs clear to auscultation Cardiovascular: RRR, no murmur, no edema Gastrointestinal (Abdomen): normal bowel sounds, soft, nontender, no hepatosplenomegaly Musculoskeletal: no cyanosis or clubbing, extremities motor strength 5/5 Skin: no rashes, warm and dry right posterior ankle with min eryhtema, nontendern, no warmth, min edema, improved from line drawn on leg. no open wounds Psychiatric: A+Ox3, euthymic affect
[2018-07-21] MEDS: VANCOMYCIN HCL 1,250 MG in SODIUM CHLORIDE 0.9% 250 ML IV SCH (14:14)
--- NOTE | 2018-07-21 14:21 | Discharge Summary ---
Date of Service July 21, 2018 Admission HPI Per Admitting Provider 80-year-old male was transferred from his primary care office with concerns for ongoing cellulitis. Patient says he first noticed a small rash on his right lower leg around mid June during his hospitalization for an VT. Since that time he says the area has slowly and progressively increased in size and erythema. He also says the underlying edema has similarly slowly increased. He does not think the area is particularly painful, including with directly touching or movement of his ankle. He denies any previous history of the same. He denies any known fevers, bites, numbness or tingling in the area, similar rashes elsewhere, or requiring any itvt-khl-zptodjy meds to treat it. He says that he routinely sees dermatology about every 6 months, last similar visit 6 months ago, due to his family history of melanoma. Says that last visit was unremarkable. Of note, during his June 2018 hospitalization he is found to have pansensitive group G strep in his blood. Since that time he has been on multiple antibiotics to include Keflex, ceftriaxone, doxycycline, and possibly most recently clindamycin. The patient is unsure which antibiotics and over time he has been on them. He also had a right lower extremity venous Doppler study in July was noted no DVT. A 15 July right ankle x-ray noted some mild soft tissue edema without acute bony abnormalities. Admission Exam Per Admitting Provider General Appearance: Awake, alert & oriented, comfortable in general, NAD. CV: +S1S2 RRR, no murmur. 2+ dorsalis pedis and posterior tibial pulse on the right. Pulm: Clear to auscultation throughout. Abdomen: +BS, soft, non-tender, non-distended. Extremities: Moving all extremities naturally and easily, including his right ankle. There is an approximately 21 x 14 x 15 cm area of uneven erythema over the distal right mast and wrapping medially towards the calf. It is not circumferential. The area easily blanches. It is not tender but the underlying tissue is notably 2+ edematous. No obvious breaks in the skin or weeping. Neuro: No gross neuro deficits. Principal Diagnosis Right leg erythema and edema Discharge Exam General Appearance: Awake, alert & oriented, comfortable in general, NAD. CV: +S1S2 RRR, no murmur. 2+ dorsalis pedis and posterior tibial pulse on the right. Pulm: Clear to auscultation throughout. Abdomen: +BS, soft, non-tender, non-distended. Extremities: Moving all extremities naturally and easily, including his right ankle. There is an approximately 21 x 14 x 15 cm area of uneven erythema over the distal right mast and wrapping medially towards the calf. It is not circumferential. The area easily blanches. Overall it has not spread outside of the pen marker line placed on admission. It is currenly tender distally and warm to touch. The underlying tissue is notably 2+ edematous. No obvious breaks in the skin or weeping. Neuro: No gross neuro deficits. Discharge Data Allergies Allergy/AdvReac Type Severity Reaction Status Date / Time latex Allergy Intermediate HIVES - Verified 06/25/18 16:07 red itchy skin morphine Allergy Intermediate Itchiness Verified 07/15/18 16:20 Penicillins Allergy Unknown Unknown Verified 07/15/18 16:20 Consultations Infectious disease assessment and plan on 21 July 2018 (1) Cellulitis: appears to be improving. can continue IV abx. would suggest transition to po abx upon d/c. states he has been on several - may require prolonged course. would suggest zyvox 600mg po bid x 4 weeks. alternative would be keflex if zyvox too expensive. If no improvement would suggest derm eval/biopsy. no contraindication to d/c when otherwise stable. Ordered Studies Right lower extremity soft tissue ultrasound on 18 July 2018 IMPRESSION: 1. Prominent soft tissue edema 2. No ultrasonographic evidence of an abscess CT scan of the right lower leg with contrast on 18 July 2018 IMPRESSION: 1. Generalized soft tissue edema primarily involving the subcutaneous fat throughout the right lower leg. 2. Degenerative change right knee with a small joint effusion. 3. No evidence for drainable abscess or collection. Venous Doppler of the right lower extremity on 18 July 2018 IMPRESSION: No evidence of right lower extremity DVT Hospital Course (1) Leg edema, right: Discharge summary on 21 July 2018 88-year-old male was a direct admit from his family medicine clinic on 18 July 2018 with concerns for right lower leg cellulitis and a failure of outpatient treatment for the same. Right lower extremity edema and erythema: Apparently began around mid June and has been progressively worsening. Has not responded to multiple courses of different antibiotics. Atraumatic as far as patient knows. Can be painful to palpation. No known fevers throughout this time and he denies rashes elsewhere. Can ambulate unassisted but with his walker. Denies difficulty with movement of his ankle/foot or distal neurovascular deficits. Differential includes an ongoing cellulitis, venous thrombosis, or an undifferentiated dermopathy. His lack of leukocytosis and fever is somewhat reassuring against ongoing infectious issue. Infectious disease was consulted as a precaution ( see related discussion). Multiple local imaging tests revealed soft tissue edema without other evidence of source. - We will send home on Keflex for a 4-week course. - Recommended he follow-up with dermatology for further evaluation and possible biopsy. - Recommend he follow-up with his primary care provider as well for ongoing continuity of care. Ongoing medical history (no acute changes made during this hospitalization): - Hypertension: Continue home Coreg. Lasix as needed. - Hyperlipidemia: Continue home rosuvastatin. - Hypothyroidism: TSH on 27 June was 1.23. On home levothyroxine. - Chronic systolic CHF: TTE on 26 June 2018 noted moderate to severe reduced systolic function with EF of 30-35% and associated akinesis. - CAD and PMH NSTEMI: See discharge summary on 29 June 2018 for specific recent details. On last admission, recommend spironolactone, Coreg, Entresto, Lasix as needed, and aspirin. Consider AICD placement in the future. - GERD: Does not take anything for this at home. - Anemia: Hemoglobin trended around 11 in June 2018. As inpatient, around 9.4-10.5. - Left bundle branch block: Seen on previous EKG, likely related to history of NSTEMI. - CKD stage III: Last recorded creatinine was 1.37, though previous was around 1.07. Here was between 1.26-1.40. Code status: DO NOT RESUSCITATE (2) Leg erythema: (3) Hypertension: (4) Hyperlipidemia: (5) Hypothyroidism: (6) Chronic systolic CHF (congestive heart failure): (7) CAD (coronary artery disease): (8) GERD (gastroesophageal reflux disease): (9) Anemia: (10) LBBB (left bundle branch block): (11) CKD (chronic kidney disease) stage 3, GFR 30-59 ml/min: Total Time Total Time Spent Total Time Spent (In Minutes): > 30 min Discharge Plan Discharge Items Reason For Visit: RT LEG CELLULITIS Discharge Diagnosis: Right leg erythema and edema Discharge Goals: Decrease discomfort and Improve function Activity: Resume your previous activity Non-emergency contact: Primary Care Provider Call non-emergency contact if: you have any medication questions and your symptoms worsen Follow-up/Referrals: Bud España MD [Primary Care Provider] - Diet: Heart Healthy Addtl Provider Instructions: You were admitted to the hospital on 18 July 2018 for evaluation of your swelling and redness. While in the hospital we evaluated the following issues: Right lower extremity edema and erythema: It is unclear if the ongoing cause of your leg swelling and redness is related to cellulitis or another skin bacterial infection. We had the infectious disease doctors speak with you and they mentioned that may be improving on strong IV antibiotics. The recommended to go home on a prolonged course of antibiotics. Both the infectious disease doctors and your hospital doctors recommended that you be seen by a hide trimmer as soon as possible for their evaluation and possible skin biopsy. - We ordered a prescription for an antibiotic called Keflex that you take twice a day for the next 4 weeks. You have a history of multiple other medical issues. No these were acutely changed were addressed while you are in the hospital. We do not recommend any change in your ongoing home medications other than the addition of the Keflex antibiotic as above. Please follow-up with both dermatology and your primary care provider for ongoing evaluation of your leg. Please return to the nearest emergency department if you develop any fever, chills, uncontrolled pain, if you can no longer walk or bear weight on that leg, or with any other emergent concerns. Prescriptions: New carvedilol 12.5 mg Tablet 12.5 mg PO BID 30 Days Qty: 60 RF: 0 cephalexin 500 mg capsule 500 mg PO BID 28 Days Qty: 56 RF: 0 cephalexin 500 mg Capsule 500 mg PO BID 28 Days Qty: 56 RF: 0 Continue isosorbide mononitrate 30 mg Tablet Extended Release 24 Hr 30 mg PO QAM RF: 0 levothyroxine 75 mcg Tablet 75 mcg PO QAM RF: 0 Nigella Sativa Oil 2,000 mg PO DIRECTED RF: 0 Pectasol Detox Formula 1 dose PO DIRECTED RF: 0 clopidogrel 75 mg Tablet 75 mg PO QAM Qty: 30 RF: 0 rosuvastatin [Crestor] 10 mg Tablet 10 mg PO QAM Qty: 30 RF: 0 sacubitril-valsartan [Entresto] 24-26 mg Tablet 1 tab PO BID Qty: 60 RF: 0 aspirin 81 mg Tablet,Chewable 81 mg PO QAM Qty: 30 RF: 0 spironolactone 25 mg tablet 12.5 mg PO 3XWK RF: 0 furosemide [Lasix] 20 mg tablet 20 mg PO DAILY PRN (Reason: Fluid Retention) RF: 0 Discontinued carvedilol 6.25 mg Tablet 6.25 mg PO BID Qty: 60 RF: 0 doxycycline hyclate 100 mg capsule 100 mg PO BID RF: 0 clindamycin HCl 300 mg capsule 300 mg PO TID 10 Days Qty: 30 RF: 0 Visit Report Forms: [facility] Portal Admission Data Admit Date/Time: 07/21/18 17:26 Attending Provider: Bladimir Bar Admit Provider: Ruthie Hare Primary Care Provider: Bud España Other Providers: Ruthie Hare ; Gregorio Fairchild ; Leana Post ; Bud Salas ; Huber Flaherty Service: Telemetry Resident Activity Tracking Resident Involvement: Resident Care Provided Care Provided: Adult Hospital Medicine
[2018-07-21] MEDS ORDERED: MoRPHine SULFATE 2 MG/ML CARP ONE (16:08)
[2018-07-21] MEDS ORDERED: NITROGLYCERIN 2% OINTMENT 30GM TUBE EXT ONE (16:10)
--- NOTE | 2018-07-21 16:49 | XRay Report ---
XR chest 1V portable CLINICAL HISTORY: hypoxia COMPARISON STUDY: 06/26/2018 FINDINGS: The heart is enlarged. There are bilateral pulmonary airspace opacities, likely secondary t o pulmonary edema. A bilateral pneumonitis could appear similar but is statistically less likely. The re are no cystic or pleural effusions.[ IMPRESSION: Worsening pulmonary edema pattern. Electronically signed by: Eagle Gandara M.D. 07/21/2018 4:47 PM
--- NOTE | 2018-07-21 17:09 | Family Medicine Progress Note ---
Date of Service July 21, 2018 Assessment & Plan (1) Flash pulmonary edema: 88-year-old male was a direct admit from his family medicine clinic on 18 July 2018 with concerns for right lower leg cellulitis and a failure of outpatient treatment for the same. Right lower extremity edema and erythema: Apparently began around mid June and has been progressively worsening. Has not responded to multiple courses of different antibiotics. Atraumatic as far as patient knows. Can be painful to palpation. No known fevers throughout this time and he denies rashes elsewhere. Can ambulate unassisted but with his walker. Denies difficulty with movement of his ankle/foot or distal neurovascular deficits. Differential includes an ongoing cellulitis, venous thrombosis, or an undifferentiated dermopathy. His lack of leukocytosis and fever is somewhat reassuring against ongoing infectious issue. Infectious disease was consulted as a precaution ( see related discussion). Multiple local imaging tests revealed soft tissue edema without other evidence of source. - We will send home on Keflex for a 4-week course. - Recommended he follow-up with dermatology for further evaluation and possible biopsy. - Recommend he follow-up with his primary care provider as well for ongoing continuity of care. Flash pulmonary edema: As suggested by his acute shortness of breath, diffuse rales, hypoxia, and diffuse edema seen on portable chest x-ray. Was acutely treated with Lasix 40 mg IV x2, nitroglycerin paste 1/2 inch to chest, and BiPAP. Winslow catheter placed. We will transfer to ICU for further care. Patient remains DNR/DNI. This may have been caused by some increased salt load from his Zosyn, though exact cause is unclear acutely. Ongoing medical history: - Hypertension: Continue home Coreg. Lasix as needed. - Hyperlipidemia: Continue home rosuvastatin. - Hypothyroidism: TSH on 27 June was 1.23. On home levothyroxine. - Chronic systolic CHF: TTE on 26 June 2018 noted moderate to severe reduced systolic function with EF of 30-35% and associated akinesis. - CAD and PMH NSTEMI: See discharge summary on 29 June 2018 for specific recent details. On last admission, recommend spironolactone, Coreg, Entresto, Lasix as needed, and aspirin. Consider AICD placement in the future. - GERD: Does not take anything for this at home. - Anemia: Hemoglobin trended around 11 in June 2018. As inpatient, around 9.4-10.5. - Left bundle branch block: Seen on previous EKG, likely related to history of NSTEMI. - CKD stage III: Last recorded creatinine was 1.37, though previous was around 1.07. Here was between 1.26-1.40. Code status: DO NOT RESUSCITATE Diet: Heart healthy DVT prophy: Lovenox PT/OT: Deferred Disbo: Discharged home held. Transferred to the ICU. (2) Leg edema, right: (3) Leg erythema: (4) Hypertension: (5) Hyperlipidemia: (6) Hypothyroidism: (7) Chronic systolic CHF (congestive heart failure): (8) CAD (coronary artery disease): (9) GERD (gastroesophageal reflux disease): (10) Anemia: (11) LBBB (left bundle branch block): (12) CKD (chronic kidney disease) stage 3, GFR 30-59 ml/min: Supervising Physician Co-Signing Physician Notes I personally examined the patient and verified all no points of history and exam, discussed case, and agree with decision making with Dr Mcallister. First seen earlier today, he was feeling good overall, wanted to go home, and noted no change better or worse in his right lower extremity. Of note he had 0 respiratory symptoms at the time. Later he became a code purple due to rapid and severe oxygen desaturation and severe dyspnea. As outlined in Dr. Mcallister' s notes his situation appeared consistent with flash pulmonary edema. After he was stabilized and transferred to the ICU, I have updated his family as well. Vitals noted his lungs were very coarse on the second visit his breathing was unlabored on the first. On the second visit he was very anxious and dyspneic on the first he was very calm pleasant and talkative. His right lower extremity showed a small area of erythema that was moderately tender, but he noted almost entirely unchanged since weeks ago. Pulmonary edemathis occurred suddenly and without any clear provocation or warning. While it may have been due to the salt load and Zosyn, certainly with his coronary disease and recent track record, we do need to rule out new ischemia. He is being transferred to the ICU will have serial EKGs, exams, and troponins. He has been given 80 of Lasix, half inch of Nitropaste, BiPAP, and supportive care to allow him to relax and breathe with the BiPAP more. Leg erythemait is really not clear if there is some sort of inflammatory process that is noninfectious, versus residual inflammation or prior infection. Certainly with no fevers no proximal tracking of the erythema, no white count , no subcutaneous abscess, and the fact that he is been on about 4 different courses of antibiotics including the current Zosyn and vancomycin, it seems exceedingly unlikely that there is still active infection at play. Prior to the sudden onset of the pulmonary edema, the plan was to discharge him to home on Keflex with close PCP and dermatology follow-up. He may need a biopsy of the area if it continues to be diagnostically uncertain DVT prophylaxisLovenox Greater than 30 minutes spent in critical care time during his episode of pulmonary edema, at this point the time in the room was about 4:05 PM, time out of the room about 4:45 PM. This was separate from his visit earlier when he had no such symptoms or process at play Subjective Initially met with patient earlier this morning. He stated that his leg felt no better no worse than prior. He says that at times it is tender but not overtly painful. Continues to deny any acute concerns. We discussed on re-rounding that he would benefit from ongoing outpatient management to include a dermatology evaluation and possible skin biopsy. He was to be transitioned to p.o. antibiotics and discharged home. Lee ozuna was called roughly around 1600 today. Patient was found to be in acute respiratory distress. He denies any chest pain but said it was hard for him to breathe. Physical Exam 2 Vital Signs (Past 24 Hours): Last Vital Signs Temp 36.7 C 07/21/18 15:45 Pulse 112 H 07/21/18 16:50 Resp 40 H 07/21/18 16:50 BP 144/63 H 07/21/18 15:45 Pulse Ox 86 L 07/21/18 16:50 Physical Exam: Exam at time of lee ozuna: General Appearance: Awake, alert, in acute respiratory distress, speaking 1-2 words at a time. CV: +S1S2 RRR, no murmur. Pulm: CDiffuse rales and rhonchi throughout. Abdomen: +BS, soft, non-tender, non-distended. Extremities (from this morning's exam): Moving all extremities naturally and easily, including his right ankle. There is an approximately 21 x 14 x 15 cm area of uneven erythema over the distal right mast and wrapping medially towards the calf. It is not circumferential. The area easily blanches. Overall it has not spread outside of the pen marker line placed on admission. It is currenly tender distally and warm to touch. The underlying tissue is notably 2+ edematous. No obvious breaks in the skin or weeping. Neuro: No gross neuro deficits. Results & Data Laboratory Results 07/21/18 07/21/18 07/21/18 Range/Units 16:22 05:29 05:29 WBC 4.81 (4.8-10.8) K/uL RBC 3.41 L (4.7-6.1) M/uL Hgb 9.5 L (14.0-18.0) g/dL Hct 30.1 L (42-52) % MCV 88.3 (80-100) fL MCH 27.9 (25-34) pg MCHC 31.6 L (32-36) g/dL RDW Std Deviation 48.3 H (36.4-46.3) fL RDW Coeff of Jeremiah 15.0 H (11.5-14.5) % Plt Count 116 L (130-400) K/uL MPV 9.6 (7.4-10.4) fL Immature Gran % (Auto) 0.2 % Neut % (Auto) 61.1 % Lymph % (Auto) 25.6 % [place] % (Auto) 7.3 % Eos % (Auto) 5.2 % Baso % (Auto) 0.6 % Immature Gran # (Auto) 0.01 (0.00-0.02) K/uL Neut # (Auto) 2.94 (1.4-6.5) K/uL Lymph # (Auto) 1.23 (1.2-3.4) K/uL [place] # (Auto) 0.35 (0.11-0.59) K/uL Eos # (Auto) 0.25 (0-0.5) K/uL Baso # (Auto) 0.03 (0-0.2) K/uL Sodium 146 H (136-145) mmol/L Potassium 3.9 (3.5-5.1) mmol/L Chloride 114 H (98-107) mmol/L Carbon Dioxide 24 (21-32) mmol/L Anion Gap 8.0 (3-11) BUN 14 (7-18) mg/dl Creatinine 1.40 (0.6-1.4) mg/dl Est Cr Clr Drug Dosing 37.7 ml/min Est GFR ( Amer) 51.6 Est GFR (Non-Af Amer) 44.5 BUN/Creatinine Ratio 10.1 (10-20) Glucose 88 (70-99) mg/dl Calcium 7.1 L (8.5-10.1) mg/dl Troponin I 0.050 H* (0-0.045) ng/ml Medications Administered Current Inpatient Medications Acetaminophen (Tylenol) 650 mg PO Q4H PRN PRN Reason: pain/fever Stop: 08/17/18 18:03 Last Admin: 07/21/18 03:29 Dose: 650 mg Aspirin (Ecotrin) 81 mg PO [facility] Stop: 08/18/18 08:59 Last Admin: 07/21/18 08:35 Dose: 81 mg Carvedilol (Coreg) 12.5 mg PO BID [facility] Stop: 08/17/18 20:59 Last Admin: 07/21/18 08:35 Dose: 12.5 mg Clopidogrel Bisulfate (Plavix) 75 mg PO [facility] Stop: 08/18/18 08:59 Last Admin: 07/21/18 08:33 Dose: 75 mg Enoxaparin Sodium (Lovenox) 30 mg SQ Q24H [facility] Stop: 08/17/18 19:59 Last Admin: 07/20/18 19:45 Dose: 30 mg Isosorbide Mononitrate (Imdur Extended Rel) 30 mg PO [facility] Stop: 08/18/18 08:59 Last Admin: 07/21/18 08:34 Dose: 30 mg Levothyroxine [facility] ([facility]) [facility] Stop: 08/18/18 06:29 Last Admin: 07/21/18 05:36 Dose: 75 mcg Polyethylene Glycol (Miralax Powder Packet) 17 gm PO DAILY PRN PRN Reason: Constipation Stop: 08/17/18 18:03 Rosuvastatin Calcium (Crestor) 10 mg PO [facility] Stop: 08/18/18 08:59 Last Admin: 07/21/18 08:34 Dose: 10 mg Sacubitril/Valsartan (Entresto 24/26mg) 1 tab PO BID [facility] Stop: 08/17/18 20:59 Last Admin: 07/21/18 08:34 Dose: 1 tab Spironolactone (Aldactone) 12.5 mg PO DAILY [facility] Stop: 08/20/18 08:59 Last Admin: 07/21/18 08:35 Dose: 12.5 mg Resident Activity Tracking Resident Involvement: Resident Care Provided Care Provided: [facility] Medicine _ (1) Hypothyroidism Hypothyroidism type: acquired Qualified Code(s): E03.9 - Hypothyroidism, unspecified (2) Hypertension Hypertension type: essential hypertension Qualified Code(s): I10 - Essential (primary) hypertension
[2018-07-21] MEDS: DEXMEDETOMIDINE HCL 200 MCG in SODIUM CHLORIDE 0.9% 48 ML IV SCH ×2 (17:22→19:52)
--- NOTE | 2018-07-21 18:46 | Critical Care Consultation ---
Date of Consultation July 21, 2018 Assessment & Plan (1) Flash pulmonary edema: 88-year-old male with hx of HTN, HLD, chronic diastolic CHF (EF 30-35% 06/2018) , CAD and NSTEMI, CKDIII, anemia, GERD, hypothyroidism who was a direct admit PCP on 18 July 2018 with concerns of right lower leg cellulitis and failure of outpatient treatment. Admitted to the ICU for concern of flash pulmonary edema likely in the setting of Diastolic CHF with EF of 230-35% and receiving a salt load from zosyn. NEURO: Agitated in the setting of severe respiratory distress 2/2 flash pulmonary edema CAM ICU: positive Started on Precedex CARDIAC/PULM: HD stable Hx of HTN, HLD, chronic diastolic CHF (EF 30-35% 06/2018), CAD and hx of NSTEMI EKG during respiratory failure episode: Sinus tach 112 with PVCs, LBBB (chronic ) QTc 556 ECHO in Jun 2018: moderate to severe reduced systolic function with EF of 30-35 % and associated akinesis. Troponin 0.050 likely due to demand ischemia during acute hypoxic episode Continue home aspirin, plavix, Imdur, Entresto, Aldactone, Coreg and Crestor Trend troponin x 3 PULM: Acute respiratory distress from flash pulmonary edema likely secondary to salt load from Zosyn in the setting of diastolic CHF On Bipap with peep of 6 ISTAT: Ph 7.16, CO2 59.5, pO2 54, HCO3 21.5 CXR: Bilateral pulmonary edema GI: NPO while on bipap RENAL/LYTES: Hx of CKD 3 baseline Cr 1.26-1.40. Received Lasix 40mg IV x 2 UOP 725cc today Is/Os: net +4L Mild hypernatremia 146 Continue to monitor BMP : Has earl ENDO: Hx of hypothyroidism On Synthroid HEME: Hx of anemia likely anemia of chronic disease H/H stable at 9.5. Around 11 in June 2018. As inpatient, around 9.4-10.5. Mild thrombocytopenia 116 Monitor CBC ID: RLE inflammation vs. prior infection Per ID recommendation on Keflex x 4 week BCX x 2 on / NGTD LINES: PIVx2 DVT prop: Lovenox Code: DNR/DNI Dispo: pending clinical improvement (2) Cellulitis: (3) GERD (gastroesophageal reflux disease): (4) Chronic systolic CHF (congestive heart failure): (5) CAD (coronary artery disease): (6) Hypothyroidism: (7) Hyperlipidemia: (8) CKD (chronic kidney disease) stage 3, GFR 30-59 ml/min: (9) Anemia: (10) Hypertension: Supervising Physician Co-Signing Physician Notes I saw and evalated the patient with Dr. Daniels and I agree with the stated findings and plan History of Present Illness Attending Physician: Bladimir Bar DO 88-year-old male with hx of HTN, HLD, chronic diastolic CHF (EF 30-35% 06/2018) , CAD and NSTEMI, CKDIII, anemia, GERD, hypothyroidism who was a direct admit PCP on 18 July 2018 with concerns of right lower leg cellulitis and failure of outpatient treatment. Right lower extremity edema and erythema: started around mid June and has been progressively worsening. Has not responded to multiple courses of different antibiotics. Atraumatic as far as patient knows. Can be painful to palpation. No known fevers throughout this time and he denies rashes elsewhere. Can ambulate unassisted but with his walker. Denies difficulty with movement of his ankle/foot or distal neurovascular deficits. Differential includes an ongoing cellulitis, venous thrombosis, or an undifferentiated dermopathy. His lack of leukocytosis and fever is somewhat reassuring against ongoing infectious issue. Infectious disease was consulted as a precaution ( see related discussion). Multiple local imaging tests revealed soft tissue edema without other evidence of source. Plan was to send him home on Keflex for a 4-week course today with dermatology follow up for biopsy and PCP follow up. Prior to discharge, pt had flash pulmonary edema which triggered code purple: Acute shortness of breath, diffuse crackles, hypoxia, and edema seen on portable chest x-ray. Was acutely treated with Lasix 40 mg IV x2, nitroglycerin paste 1/2 inch to chest, and BiPAP. Winslow catheter placed and transfered to ICU for further care. Patient remains DNR/DNI. This may have been caused by some increased salt load from his Zosyn, though exact cause is unclear acutely. Allergies Allergy/AdvReac Type Severity Reaction Status Date / Time latex Allergy Intermediate HIVES - Verified 06/25/18 16:07 red itchy skin morphine Allergy Intermediate Itchiness Verified 07/15/18 16:20 Penicillins Allergy Unknown Unknown Verified 07/15/18 16:20 Home Medications Home Medications Medication Instructions Recorded Confirmed Type Nigella Sativa Oil 2,000 mg PO DIRECTED 06/25/18 07/15/18 History Pectasol Detox Formula 1 dose PO DIRECTED 06/25/18 07/15/18 History isosorbide mononitrate 30 mg PO QAM 06/25/18 07/15/18 History levothyroxine 75 mcg PO QAM 06/25/18 07/15/18 History aspirin 81 mg PO QAM #30 tab 06/29/18 07/15/18 Rx clopidogrel 75 mg PO QAM #30 tab 06/29/18 07/15/18 Rx rosuvastatin [Crestor] 10 mg PO QAM #30 tab 06/29/18 07/15/18 Rx sacubitril-valsartan [Entresto] 1 tab PO BID #60 tab 06/29/18 07/15/18 Rx furosemide [Lasix] 20 mg PO DAILY PRN 07/15/18 07/15/18 History spironolactone 12.5 mg PO 3XWK 07/15/18 07/15/18 History carvedilol 12.5 mg PO BID 30 Days #60 tab 07/21/18 Rx cephalexin 500 mg PO BID 28 Days #56 cap 07/21/18 Rx Patient History Medical History Acid reflux (Acute 07/20/14) Hypothyroidism LV dysfunction Silent myocardial infarction Systolic CHF Surgical History History of appendectomy History of hip replacement Social History Current Living Situation: Spouse Current Living Situation Comment: Home and [facility] for home care. Other Information That Helps Us Care for You: No Feels Safe at Home: Yes Safety Concerns: Feels Safe At This Time Smoking Status: Former smoker Tobacco Type: cigarettes Do You Dip or Chew Tobacco: No Second Hand Exposure: No Tobacco Cessation Education Requested by Patient: No Hx Alcohol Use: Yes Alcohol type: beer Alcohol Intake Frequency: 0-2 drinks per day Hx Substance Use: No Beliefs That Will Affect Care: None Communication Ability: Effective Review of Systems Limited due to patient agitation in the setting of respiratory distress and being on Bipap Physical Exam 2 Vital Signs (Past 24 Hours): Last Vital Signs Temp 36.7 C 07/21/18 15:45 Pulse 111 H 07/21/18 18:07 Resp 25 H 07/21/18 18:07 BP 158/87 H 07/21/18 18:01 Pulse Ox 85 L 07/21/18 18:07 Physical Exam: General: Pt on Bipap when examined and agitated Neuro: alert but disoriented and agitated CV: RRR, no m/r/g Pulm: Diffuse crackles with coarse but equal breath sounds bilaterally on bipap Abdomen: +BS, non-distended, nontender to palpation in all quadrants Extremities: 2+ RLE edema with mild pretibial erythema, 1+LLE edema Results & Data Laboratory Results Abnormal lab results 07/21/18 07/21/18 07/21/18 Range/Units 05:29 05:29 16:22 RBC 3.41 L (4.7-6.1) M/uL Hgb 9.5 L (14.0-18.0) g/dL Hct 30.1 L (42-52) % MCHC 31.6 L (32-36) g/dL RDW Std Deviation 48.3 H (36.4-46.3) fL RDW Coeff of Jeremiah 15.0 H (11.5-14.5) % Plt Count 116 L (130-400) K/uL Sodium 146 H (136-145) mmol/L Chloride 114 H (98-107) mmol/L POC Glucose (70-99) Calcium 7.1 L (8.5-10.1) mg/dl Troponin I 0.050 H* (0-0.045) ng/ml 07/21/18 Range/Units 17:57 RBC (4.7-6.1) M/uL Hgb (14.0-18.0) g/dL Hct (42-52) % MCHC (32-36) g/dL RDW Std Deviation (36.4-46.3) fL RDW Coeff of Jeremiah (11.5-14.5) % Plt Count (130-400) K/uL Sodium (136-145) mmol/L Chloride (98-107) mmol/L POC Glucose 166 H (70-99) Calcium (8.5-10.1) mg/dl Troponin I (0-0.045) ng/ml Diagnostic Findings XR chest 1V portable CLINICAL HISTORY: hypoxia COMPARISON STUDY: 06/26/2018 FINDINGS: The heart is enlarged. There are bilateral pulmonary airspace opacities, likely secondary to pulmonary edema. A bilateral pneumonitis could appear similar but is statistically less likely. There are no cystic or pleural effusions.[ IMPRESSION: Worsening pulmonary edema pattern. Medications Administered Current Inpatient Medications Acetaminophen (Tylenol) 650 mg PO Q4H PRN PRN Reason: pain/fever Stop: 08/17/18 18:03 Last Admin: 07/21/18 03:29 Dose: 650 mg Aspirin (Ecotrin) 81 mg PO [facility] Stop: 08/18/18 08:59 Last Admin: 07/21/18 08:35 Dose: 81 mg Carvedilol (Coreg) 12.5 mg PO BID [facility] Stop: 08/17/18 20:59 Last Admin: 07/21/18 08:35 Dose: 12.5 mg Clopidogrel Bisulfate (Plavix) 75 mg PO [facility] Stop: 08/18/18 08:59 Last Admin: 07/21/18 08:33 Dose: 75 mg Enoxaparin Sodium (Lovenox) 30 mg SQ Q24H [facility] Stop: 08/17/18 19:59 Last Admin: 07/20/18 19:45 Dose: 30 mg Dexmedetomidine HCl 200 mcg/ (Sodium Chloride) 50 mls @ 17.28 mls/hr IV .Q2H54M [facility]; Protocol Stop: 07/25/18 17:14 Last Titration: 07/21/18 18:20 Dose: 0.8 mcg/kg/hr, 17.3 mls/hr Isosorbide Mononitrate (Imdur Extended Rel) 30 mg PO [facility] Stop: 08/18/18 08:59 Last Admin: 07/21/18 08:34 Dose: 30 mg [facility]othyroxine [facility]) [facility] Stop: 08/18/18 06:29 Last Admin: 07/21/18 05:36 Dose: 75 mcg Polyethylene Glycol (Miralax Powder Packet) 17 gm PO DAILY PRN PRN Reason: Constipation Stop: 08/17/18 18:03 Rosuvastatin Calcium (Crestor) 10 mg PO [facility] Stop: 08/18/18 08:59 Last Admin: 07/21/18 08:34 Dose: 10 mg Sacubitril/Valsartan (Entresto 24/26mg) 1 tab PO BID [facility] Stop: 08/17/18 20:59 Last Admin: 07/21/18 08:34 Dose: 1 tab Spironolactone (Aldactone) 12.5 mg PO DAILY [facility] Stop: 08/20/18 08:59 Last Admin: 07/21/18 08:35 Dose: 12.5 mg Resident Activity Tracking Resident Involvement: Resident Care Provided Care Provided: [facility] Medicine _ (1) Hypertension Hypertension type: essential hypertension Qualified Code(s): I10 - Essential (primary) hypertension
[2018-07-21] MEDS: ENOXAPARIN INJ 30 MG/0.3 ML SYR SQ SCH (21:55)
[2018-07-21] MEDS: cephALEXin 500 MG CAP PO SCH ×2 (22:06→22:18)
[2018-07-22] MEDS: DEXMEDETOMIDINE HCL 200 MCG in SODIUM CHLORIDE 0.9% 48 ML IV SCH ×2 (01:23→08:28)
[2018-07-22 04:40] LABS: Basophils # (auto) 0.02 K/uL (0-0.2); Basophils % (auto) 0.2 %; Eosinophils # (auto) 0.04 K/uL (0-0.5); Eosinophils % (auto) 0.5 %; Hematocrit (blood only) 35.2 % (42-52); Hemoglobin 11.3 g/dL (14.0-18.0); Immature Granulocytes # (auto) 0.02 K/uL (0.00-0.02); Immature Granulocytes % (auto) 0.2 %; Lymphocytes # (auto) 1.05 K/uL (1.2-3.4); Lymphocytes % (auto) 12.6 %; Mean Corpuscular Hgb Conc 32.1 g/dL (32-36); Mean Corpuscular Volume 89.3 fL (80-100); Mean Platelet Volume 10.5 fL (7.4-10.4); Monocytes # (auto) 0.56 K/uL (0.11-0.59); Monocytes % (auto) 6.7 %; Neutrophils # (auto) 6.67 K/uL (1.4-6.5); Neutrophils % (auto) 79.8 %; Platelet Count 124 K/uL (130-400); RDW Coefficient of Variation 14.9 % (11.5-14.5); RDW Standard Deviation 48.7 fL (36.4-46.3); Red Blood Count 3.94 M/uL (4.7-6.1); White Blood Count 8.36 K/uL (4.8-10.8)
[2018-07-22 05:05] LABS: Calcium 7.6 mg/dl (8.5-10.1); Creatinine Clr Calc Pharmacy 30.8 ml/min; Est GFR (African American) 40.5; Magnesium 2.2 mg/dl (1.8-2.4); Potassium 4.1 mmol/L (3.5-5.1)
[2018-07-22 05:17] LABS: Phosphorus 3.2 mg/dl (2.5-4.9); Troponin I 10.5 ng/ml (0-0.045)
[2018-07-22] MEDS: LEVOTHYROXINE SODIUM 75 MCG TABLET PO SCH (07:16)
[2018-07-22] MEDS: ROSUVASTATIN CALCIUM 10 MG TAB PO SCH (08:35)
[2018-07-22] MEDS: SACUBITRIL-VALSARTAN 24-26 MG TAB PO SCH ×2 (08:35→21:17)
[2018-07-22] MEDS: ISOSORBIDE MONO EXTENDED REL 30 MG TABCR PO SCH (08:35)
[2018-07-22] MEDS: cephALEXin 500 MG CAP PO SCH ×2 (08:35→21:18)
[2018-07-22] MEDS: CLOPIDOGREL BISULFATE 75 MG TAB PO SCH (08:35)
[2018-07-22] MEDS: ASPIRIN 81 MG ECTAB PO SCH (08:35)
[2018-07-22] MEDS: CARVEDILOL 12.5 MG TAB PO SCH ×3 (08:36→21:20)
--- NOTE | 2018-07-22 08:42 | XRay Report ---
XR chest 1V portable HISTORY: 88 years-old Male Flash Pulmonary edema/respiratory insufficiency acute shortness of breath with pulmonary edema COMPARISON: Chest radiograph 07/21/2018 TECHNIQUE: Portable AP view of the chest FINDINGS: Cardiac silhouette is enlarged, unchanged. Calcification of the thoracic aortic. Trace left pleural e ffusion. No pneumothorax. Pulmonary vascular congestion with interstitial coarsening. Asymmetric alve olar opacities within the left upper lung and left perihilar distribution. There is otherwise slightl y improved aeration of the lungs from comparison study. Degenerative changes of the shoulders and spi ne. IMPRESSION: Alveolar opacities of the left upper lung suggest asymmetric pulmonary edema or pneumonitis. The lung s otherwise demonstrate slightly improved aeration from comparison. The above report was generated using voice recognition software. It may contain grammatical, syntax o r spelling errors. Electronically signed by: Shorty Celaya M.D. 07/22/2018 8:40 AM
--- NOTE | 2018-07-22 09:06 | Clinical Documentation Query ---
CLINICAL DOCUMENTATION QUERY 88 yo male admitted with lower extremity cellulitis is documented as experiencing "flash pulmonary edema in the setting of diastolic CHF and severe respiratory distress". Patient was treated acutely with Lasix IV x2 and BiPap In your clinical opinion is this patient being managed for: ( ) Acute pulmonary edema in the setting of acute diastolic CHF and receiving a salt load from Zosyn and acute respiratory failure ( X ) Not Agree - updated note, more likely related to an acute ischemic event ( ) Other explanation of clinical findings (No explanation is considered a No Response) ( ) Unable to determine ( ) Need to Discuss (Phone CDS or qliq) (No discussion is considered a No Response) The medical record reflects the following clinical findings, treatment, and risk factors. Clinical Indicators:As above Treatment: As above, ICU, I&O, serial BMP, CXR Risk Factors: Age, chronic diastolic CHF, Zosyn IV Please clarify and document your clinical opinion in the progress notes and discharge summary. Terms such as "probable", "suspected", "likely", "questionable", "possible", or "still to be ruled out" are acceptable. IF IN AGREEMENT, YOU MUST DOCUMENT ABOVE DIAGNOSTIC STATEMENT IN DAILY PROGRESS NOTES AND DISCHARGE SUMMARY. This document is not part of the patient' s record. Thank You, Yoon Blanchard RN, MSN [id number] [facility]
[2018-07-22] MEDS ORDERED: VANCOMYCIN TROUGH ONE (13:30)
--- NOTE | 2018-07-22 16:37 | Family Medicine Progress Note ---
Date of Service July 22, 2018 Assessment & Plan (1) Leg edema, right: 88-year-old male was a direct admit from his family medicine clinic on 18 July 2018 with concerns for right lower leg cellulitis and a failure of outpatient treatment for the same. Right lower extremity edema and erythema: Apparently began around mid June and has been progressively worsening. Has not responded to multiple courses of different antibiotics. Atraumatic as far as patient knows. Can be painful to palpation. No known fevers throughout this time and he denies rashes elsewhere. Can ambulate unassisted but with his walker. Denies difficulty with movement of his ankle/foot or distal neurovascular deficits. Differential includes an ongoing cellulitis, venous thrombosis, or an undifferentiated dermopathy. His lack of leukocytosis and fever is somewhat reassuring against ongoing infectious issue. Infectious disease was consulted as a precaution ( see related discussion). Multiple local imaging tests revealed soft tissue edema without other evidence of source. - Started on (plan for home on) Keflex for a 4-week course. Prescription to his pharmacy already sent. - Recommended he follow-up with dermatology for further evaluation and possible biopsy. - Recommend he follow-up with his primary care provider as well for ongoing continuity of care. Flash pulmonary edema: As suggested by his acute shortness of breath, diffuse rales, hypoxia, and diffuse edema seen on portable chest x-ray the evening of 10Dec. Was acutely treated with Lasix 40 mg IV x2, nitroglycerin paste 1/2 inch to chest, and BiPAP. Winslow catheter placed. In the ICU overnight with resolution of symptoms. CXR notes improved aeration. - May have been caused by relative salt load from zosyn, since discontinued. NSTEMI: Around time of his flash pulmonary edema, his TnI acutely karen to 10.5. Since improved to 5.9. - Cardiology consulted. CKD stage III: Last recorded creatinine was 1.37, though previous was around 1.07. Here s/p flash pulm edema Cr increased to 1.7, likely related to required lasix dosing. Monitoring. Ongoing medical history: - Hypertension: Continue home Coreg. Lasix as needed. - Hyperlipidemia: Continue home rosuvastatin. - Hypothyroidism: TSH on 27 June was 1.23. On home levothyroxine. - Chronic systolic CHF: TTE on 26 June 2018 noted moderate to severe reduced systolic function with EF of 30-35% and associated akinesis. - CAD and PMH NSTEMI: See discharge summary on 29 June 2018 for specific recent details. On last admission, recommend spironolactone, Coreg, Entresto, Lasix as needed, and aspirin. Consider AICD placement in the future. - GERD: Does not take anything for this at home. - Anemia: Hemoglobin trended around 11 in June 2018. As inpatient, around 9.4-10.5. - Left bundle branch block: Seen on previous EKG, likely related to history of NSTEMI. Code status: DO NOT RESUSCITATE Diet: Heart healthy DVT prophy: Lovenox PT/OT: Ordered. Disbo: Stable for transfer out of the ICU to telemetry. (2) Leg erythema: (3) Flash pulmonary edema: (4) NSTEMI (non-ST elevated myocardial infarction): (5) CKD (chronic kidney disease) stage 3, GFR 30-59 ml/min: (6) Hypertension: (7) Hyperlipidemia: (8) Hypothyroidism: (9) Chronic systolic CHF (congestive heart failure): (10) CAD (coronary artery disease): (11) GERD (gastroesophageal reflux disease): (12) Anemia: (13) LBBB (left bundle branch block): Supervising Physician Co-Signing Physician Notes I personally examined the patient and verified all no points of history and exam, discussed case, and agree with decision making with Dr Mcallister. No new problems, case discussed with ICU, case discussed with family Vitals noted lungs clear no rales rhonchi or wheezes with good effort. No distress Pulmonary edemathis occurred suddenly and without any clear provocation or warning. While it may have been due to the salt load and Zosyn, certainly with his coronary disease and recent track record, we do need to rule out new ischemia. His troponin elevation is a bit unclear, as he does appear to heartburn of coronary disease this could be severe demand ischemia from the pulmonary edema, however it could also be that new ischemia led to a depressed EF that created the pulmonary edema. Awaiting cardiology input on this NSTEMI-as above, given that he had a rather large MD last month and now this event, it does open revisiting the question of risks and benefits of a more invasive approach versus ongoing med management. Leg erythemanot clear if it is resolving inflammation from infection or noninfectious etiology altogether, but simply continue Keflex for now, outpatient Derm follow-up. DVT prophylaxisLovenox Subjective Met with patient earlier this morning in ICU. He says that his breathing difficulties have completely resolved at present. I asked him many times if he had any chest pain or discomfort. He never directly answered, instead stating, "I need to listen to my body". 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 He says that his right lower leg is sore a bit this morning but overall he denied any particular pains or acute concerns. Physical Exam 2 Vital Signs (Past 24 Hours): Last Vital Signs Temp 37.0 C 07/22/18 15:31 Pulse 93 H 07/22/18 15:31 Resp 20 07/22/18 15:31 BP 155/69 H 07/22/18 15:31 Pulse Ox 98 07/22/18 15:31 Physical Exam: General Appearance: Awake, alert & oriented, comfortable in general, NAD. CV: +S1S2 RRR, no murmur. 2+ dorsalis pedis and posterior tibial pulse on the right. Pulm: Clear to auscultation throughout. Abdomen: +BS, soft, non-tender, non-distended. Extremities: Moving all extremities naturally and easily, including his right ankle. There is an approximately 21 x 14 x 15 cm area of uneven erythema over the distal right mast and wrapping medially towards the calf. It is not circumferential. The area easily blanches. Overall it has not spread outside of the pen marker line placed on admission. It is currenly still operator brandy distally and warm to touch. The underlying tissue is notably 2+ edematous. No obvious breaks in the skin or weeping. Neuro: No gross neuro deficits. Results & Data Laboratory Results 07/22/18 07/22/18 07/22/18 Range/Units 09:58 04:18 04:18 WBC 8.36 (4.8-10.8) K/uL RBC 3.94 L (4.7-6.1) M/uL Hgb 11.3 L (14.0-18.0) g/dL Hct 35.2 L (42-52) % MCV 89.3 (80-100) fL MCH 28.7 (25-34) pg MCHC 32.1 (32-36) g/dL RDW Std Deviation 48.7 H (36.4-46.3) fL RDW Coeff of Jeremiah 14.9 H (11.5-14.5) % Plt Count 124 L (130-400) K/uL MPV 10.5 H (7.4-10.4) fL Immature Gran % (Auto) 0.2 % Neut % (Auto) 79.8 % Lymph % (Auto) 12.6 % Da[place]hin % (Auto) 6.7 % Eos % (Auto) 0.5 % Baso % (Auto) 0.2 % Immature Gran # (Auto) 0.02 (0.00-0.02) K/uL Neut # (Auto) 6.67 H (1.4-6.5) K/uL Lymph # (Auto) 1.05 L (1.2-3.4) K/uL [place]hin # (Auto) 0.56 (0.11-0.59) K/uL Eos # (Auto) 0.04 (0-0.5) K/uL Baso # (Auto) 0.02 (0-0.2) K/uL Sodium 144 (136-145) mmol/L Potassium 4.1 (3.5-5.1) mmol/L Chloride 113 H (98-107) mmol/L Carbon Dioxide 25 (21-32) mmol/L Anion Gap 6.0 (3-11) BUN 17 (7-18) mg/dl Creatinine 1.71 H D (0.6-1.4) mg/dl Est Cr Clr Drug Dosing 30.8 ml/min Est GFR ( Amer) 40.5 Est GFR (Non-Af Amer) 35.0 BUN/Creatinine Ratio 10.0 (10-20) Glucose 116 H (70-99) mg/dl POC Glucose (70-99) Calcium 7.6 L (8.5-10.1) mg/dl Phosphorus 3.2 (2.5-4.9) mg/dl Magnesium 2.2 (1.8-2.4) mg/dl Troponin I 5.910 H* 10.500 H* (0-0.045) ng/ml 07/22/18 07/21/18 07/21/18 Range/Units 00:26 23:03 17:57 WBC (4.8-10.8) K/uL RBC (4.7-6.1) M/uL Hgb (14.0-18.0) g/dL Hct (42-52) % MCV (80-100) fL MCH (25-34) pg MCHC (32-36) g/dL RDW Std Deviation (36.4-46.3) fL RDW Coeff of Jeremiah (11.5-14.5) % Plt Count (130-400) K/uL MPV (7.4-10.4) fL Immature Gran % (Auto) % Neut % (Auto) % Lymph % (Auto) % [place] % (Auto) % Eos % (Auto) % Baso % (Auto) % Immature Gran # (Auto) (0.00-0.02) K/uL Neut # (Auto) (1.4-6.5) K/uL Lymph # (Auto) (1.2-3.4) K/uL [place]hin # (Auto) (0.11-0.59) K/uL Eos # (Auto) (0-0.5) K/uL Baso # (Auto) (0-0.2) K/uL Sodium (136-145) mmol/L Potassium (3.5-5.1) mmol/L Chloride (98-107) mmol/L Carbon Dioxide (21-32) mmol/L Anion Gap (3-11) BUN (7-18) mg/dl Creatinine (0.6-1.4) mg/dl Est Cr Clr Drug Dosing ml/min Est GFR ( Amer) Est GFR (Non-Af Amer) BUN/Creatinine Ratio (10-20) Glucose (70-99) mg/dl POC Glucose 117 H 166 H (70-99) Calcium (8.5-10.1) mg/dl Phosphorus (2.5-4.9) mg/dl Magnesium (1.8-2.4) mg/dl Troponin I 10.400 H* (0-0.045) ng/ml 07/21/18 Range/Units 16:22 WBC (4.8-10.8) K/uL RBC (4.7-6.1) M/uL Hgb (14.0-18.0) g/dL Hct (42-52) % MCV (80-100) fL MCH (25-34) pg MCHC (32-36) g/dL RDW Std Deviation (36.4-46.3) fL RDW Coeff of Jeremiah (11.5-14.5) % Plt Count (130-400) K/uL MPV (7.4-10.4) fL Immature Gran % (Auto) % Neut % (Auto) % Lymph % (Auto) % [place] % (Auto) % Eos % (Auto) % Baso % (Auto) % Immature Gran # (Auto) (0.00-0.02) K/uL Neut # (Auto) (1.4-6.5) K/uL Lymph # (Auto) (1.2-3.4) K/uL [place] # (Auto) (0.11-0.59) K/uL Eos # (Auto) (0-0.5) K/uL Baso # (Auto) (0-0.2) K/uL Sodium (136-145) mmol/L Potassium (3.5-5.1) mmol/L Chloride (98-107) mmol/L Carbon Dioxide (21-32) mmol/L Anion Gap (3-11) BUN (7-18) mg/dl Creatinine (0.6-1.4) mg/dl Est Cr Clr Drug Dosing ml/min Est GFR ( Amer) Est GFR (Non-Af Amer) BUN/Creatinine Ratio (10-20) Glucose (70-99) mg/dl POC Glucose (70-99) Calcium (8.5-10.1) mg/dl Phosphorus (2.5-4.9) mg/dl Magnesium (1.8-2.4) mg/dl Troponin I 0.050 H* (0-0.045) ng/ml Medications Administered Current Inpatient Medications Acetaminophen (Tylenol) 650 mg PO Q4H PRN PRN Reason: pain/fever Stop: 08/17/18 18:03 Last Admin: 07/21/18 03:29 Dose: 650 mg Aspirin (Ecotrin) 81 mg PO QAM [facility] Stop: 08/18/18 08:59 Last Admin: 07/22/18 08:35 Dose: 81 mg Carvedilol (Coreg) 12.5 mg PO BID [facility] Stop: 08/17/18 20:59 Last Admin: 07/22/18 08:57 Dose: 12.5 mg Cephalexin HCl (Keflex) 500 mg PO BID [facility] Stop: 07/31/18 20:59 Last Admin: 07/22/18 08:35 Dose: 500 mg Clopidogrel Bisulfate (Plavix) 75 mg PO QAM [facility] Stop: 08/18/18 08:59 Last Admin: 07/22/18 08:35 Dose: 75 mg Enoxaparin Sodium (Lovenox) 30 mg SQ Q24H [facility] Stop: 08/17/18 19:59 Last Admin: 07/21/18 21:55 Dose: 30 mg Isosorbide Mononitrate (Imdur Extended Rel) [facility] Stop: 08/18/18 08:59 Last Admin: 07/22/18 08:35 Dose: 30 mg Levothyroxine Sodium (Synthroid) 75 mcg PO DAILYBB [facility] Stop: 08/18/18 06:29 Last Admin: 07/22/18 07:16 Dose: 75 mcg Polyethylene Glycol (Miralax Powder Packet) 17 gm PO DAILY PRN PRN Reason: Constipation Stop: 08/17/18 18:03 Rosuvastatin Calcium (Crestor) 10 mg PO QAM [facility] Stop: 08/18/18 08:59 Last Admin: 07/22/18 08:35 Dose: 10 mg Sacubitril/Valsartan (Entresto 24/26mg) 1 tab PO BID [facility] Stop: 08/17/18 20:59 Last Admin: 07/22/18 08:35 Dose: 1 tab Spironolactone (Aldactone) 12.5 mg PO [id number] [facility] Stop: 08/22/18 08:59 Resident Activity Tracking Resident Involvement: Resident Care Provided Care Provided: [facility] _ (1) Hypothyroidism Hypothyroidism type: acquired Qualified Code(s): E03.9 - Hypothyroidism, unspecified (2) Hypertension Hypertension type: essential hypertension Qualified Code(s): I10 - Essential (primary) hypertension
[2018-07-22] MEDS: ENOXAPARIN INJ 30 MG/0.3 ML SYR SQ SCH (21:18)
[2018-07-23] MEDS ORDERED: ZOLPIDEM TARTRATE 5 MG TAB PO STA (01:41)
[2018-07-23] MEDS: LEVOTHYROXINE SODIUM 75 MCG TABLET PO SCH (06:01)
[2018-07-23 07:35] LABS: Basophils # (auto) 0.02 K/uL (0-0.2); Basophils % (auto) 0.2 %; Eosinophils # (auto) 0.06 K/uL (0-0.5); Eosinophils % (auto) 0.6 %; Hematocrit (blood only) 34.1 % (42-52); Hemoglobin 10.9 g/dL (14.0-18.0); Immature Granulocytes # (auto) 0.02 K/uL (0.00-0.02); Immature Granulocytes % (auto) 0.2 %; Lymphocytes # (auto) 1.08 K/uL (1.2-3.4); Lymphocytes % (auto) 10.9 %; Mean Corpuscular Volume 88.6 fL (80-100); Mean Platelet Volume 10.5 fL (7.4-10.4); Monocytes # (auto) 0.86 K/uL (0.11-0.59); Monocytes % (auto) 8.7 %; Neutrophils % (auto) 79.4 %; Platelet Count 151 K/uL (130-400); RDW Coefficient of Variation 15.5 % (11.5-14.5); RDW Standard Deviation 49.6 fL (36.4-46.3); Red Blood Count 3.85 M/uL (4.7-6.1); White Blood Count 9.94 K/uL (4.8-10.8)
[2018-07-23] MEDS ORDERED: FUROSEMIDE 40 MG in SYRINGE 0 ML IV ONE ×2 (07:45→09:15)
[2018-07-23] MEDS: cephALEXin 500 MG CAP PO SCH ×2 (08:03→20:47)
[2018-07-23] MEDS: ROSUVASTATIN CALCIUM 10 MG TAB PO SCH (08:03)
[2018-07-23] MEDS: ISOSORBIDE MONO EXTENDED REL 30 MG TABCR PO SCH ×2 (08:04→20:48)
[2018-07-23] MEDS: SACUBITRIL-VALSARTAN 24-26 MG TAB PO SCH (08:04)
[2018-07-23] MEDS: ASPIRIN 81 MG ECTAB PO SCH (08:04)
[2018-07-23] MEDS: CLOPIDOGREL BISULFATE 75 MG TAB PO SCH (08:04)
[2018-07-23] MEDS: CARVEDILOL 12.5 MG TAB PO SCH ×2 (08:04→20:47)
[2018-07-23 08:05] LABS: BUN Creatinine Ratio 14.5 (10-20); Creatinine Clr Calc Pharmacy 43.1 ml/min; Est GFR (African American) 53.9; Est GFR (Non-African American) 46.5; Potassium 3.7 mmol/L (3.5-5.1)
[2018-07-23 08:13] LABS: Troponin I 2.09 ng/ml (0-0.045)
--- NOTE | 2018-07-23 08:13 | XRay Report ---
XR chest 2V routine CLINICAL HISTORY: eval edema status pain. Dyspnea. COMPARISON STUDY: 07/22/2018 FINDINGS: Findings of mildly progressive components of pulmonary edema. The left perihilar infiltrati ve process is stable. Interstitial edematous change of both lung bases is somewhat progressive. IMPRESSION: Mildly progressive pulmonary edema. The above report was generated using voice recognition software. It may contain grammatical, syntax or spelling errors. Electronically signed by: Micah Lincoln M.D. 07/23/2018 8:12 AM
[2018-07-23] MEDS ORDERED: SODIUM CHLORIDE 0.9% 10ML FLUSH IV ONE (08:25)
[2018-07-23] MEDS ORDERED: FUROSEMIDE 10 MG/ML 10 ML VIAL IV ONE (08:25)
[2018-07-23] MEDS ORDERED: NITROGLYCERIN SL 0.4 MG/TAB TAB ONE (08:51)
[2018-07-23] MEDS ORDERED: SPIRONOLACTONE 25 MG TAB PO SCH (09:00)
--- NOTE | 2018-07-23 11:30 | Consultation Report ---
DATE OF CONSULTATION: 07/23/2018 REQUESTING PHYSICIAN: Bladimir Bar DO [employer] CLERK: Huber Flaherty DO, [facility]. REASON FOR CONSULTATION: Acute on chronic systolic heart failure and flash pulmonary edema. Dear Bladimir: Thank you for requesting a cardiology consultation on Christian. As you know, he was admitted with swelling of his right lower extremity and erythema concerning for a cellulitis. He had failed outpatient therapy and was brought in for IV antibiotics. He had done well until the evening of 07/21/2018 when he went into flash pulmonary edema and required BiPAP overnight. He was given 80 mg of diuretics and Lasix and diuresed very nicely. Of note as an outpatient, he had been relatively stable since his discharge on 06/29/2018. As an outpatient, he did not have any significant pulmonary edema nor anginal symptoms. This morning, he is again tachycardic and describes being short of breath. He describes some mild to moderate chest heaviness what he describes as a monkey jumping on his chest. He denies any lightheadedness or dizziness. He does appear dyspneic talking in sentences. He was lying flat at the time I first saw him, and with sitting him up, his dyspnea did improve. He denies any palpitations or fluttering, although we know, he is having PVCs on the patient monitor. He denies any increased abdominal distention. He notes his right lower extremity is much improved since he came into the hospital. He has no edema of the left leg. At home, he has been following a low salt diet and has had a significant help from his family. He has had no anginal symptoms at home that he is aware of. He denies any presyncope or syncope, cough, fevers, chills or night sweats. The rest of review of system is otherwise negative. PAST MEDICAL HISTORY: 1. Non-ST elevation myocardial infarction 06/2018 with an extensive LAD infarct. 2. Moderate to severe left ventricular dysfunction with an EF in the range of 30-35% with an extensive LAD wall motion abnormality. 3. History of a previous periop MA involving the inferior and inferolateral king in 2012. 4. Anemia. 5. Chronic kidney disease stage III. 6. Cellulitis of his right lower extremity. 7. Hypertension. 8. Hyperlipidemia. 9. Hypothyroidism. 10. Acute on chronic systolic heart failure. 11. Left bundle branch block. SOCIAL HISTORY: He lives with his who has significant medical problems. 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 He denies any tobacco use. He occasionally drinks alcohol. FAMILY HISTORY: Noncontributory. OUTPATIENT MEDICATIONS: Reviewed in detail. ALLERGIES: TO LATEX, MORPHINE AND PENICILLIN. PHYSICAL EXAMINATION: GENERAL: He is awake, alert, oriented x3. He does appear moderately dyspneic. VITAL SIGNS: His heart rate is 107, his blood pressure is 132/84, respirations 22, his sats 96% on 4 liters. Of note, his normal resting heart rate is in the 60s. HEENT: I could not appreciate his carotid upstrokes given his tachycardia. His sclerae are anicteric. There were no carotid bruits. His jugular venous pressure appeared elevated. LUNGS: Coarse breath sounds bilaterally, especially in the bottom half of each lung field. No rhonchi or wheezing. HEART: Regular, but tachycardic with occasional ectopy. I could not appreciate a murmur of mitral regurgitation. ABDOMEN: Soft, mildly distended. Positive bowel sounds, nontender. EXTREMITIES: No clubbing or cyanosis. No edema of the left leg. Mild lower tibial edema of the right leg. PSYCHIATRIC: Appeared normal for him. IMAGING DATA: EKG was reviewed. Chest x-ray this morning, mild worsening heart failure. LABORATORY STUDIES: Hemoglobin 10.9, platelet count of 151, BUN of 20, creatinine 1.35. Sodium of 143, potassium 3.7. His troponin was 10.4 at 2300 on 07/21 and has trended down to 2.09 this morning. IMPRESSION: 1. Acute on chronic systolic heart failure. 2. Acute respiratory distress with a history of flash pulmonary edema this admission. 3. Extensive LAD wall motion abnormality with anterior myocardial infarction 06/2018. 4. Prior inferior and inferolateral myocardial infarction. 5. Chronic kidney disease. 6. Left bundle-branch block. We did give him 1 sublingual nitroglycerin under his tongue this morning. In addition, his Imdur, we increased to 30 mg b.i.d. I also gave him an additional 40 mg of Lasix for a total of 80 mg of IV Lasix this morning. He will remain on the rest of his medications. I recommended an echocardiogram to assess whether his LV function has declined further or his right heart is starting to fail or he has significant mitral regurgitation. As was discussed with Christian with his heart attack in June, the plan at that point was medical therapy. I would not be surprised if he has left main or triple vessel disease given his previous infarcts many years ago. The challenge is at 88, he is not going to be a very good surgical candidate and the LAD territory at this point is infarcted. In addition, given his respiratory status, cardiac catheterization currently is difficult. I will discuss this further with you by phone. Hopefully, we can stabilize him as he was not having heart failure symptoms as an outpatient. I note that in your note, you had suggested possibly his antibiotics and volume of fluid he received may be contributing to his heart failure. His echo today will be helpful in determining his prospects for improvement.
--- NOTE | 2018-07-23 16:03 | Family Medicine Progress Note ---
Date of Service July 23, 2018 Assessment & Plan (1) Leg edema, right: 88-year-old male was a direct admit from his family medicine clinic on 18 July 2018 with concerns for right lower leg cellulitis and a failure of outpatient treatment for the same. Right lower extremity edema and erythema: Rather unchanged in past couple days. Infectious disease was consulted as a precaution (see related discussion). Remains on keflex with plan for outpatient derm eval. Flash pulmonary edema: Evening of 10Dec. Improved with lasix, but some acute worsening overnight (11-12Dec). Redosing lasix and NTG. Leading causes include cardiac ischemia vs relative salt load from Zosyn. NSTEMI: Around time of his flash pulmonary edema, his TnI acutely karen to 10.5 ( since improved). Cardiology consulted (see related notes). Repeat echo today ( 12Dec) notes worsening EF of 25-30% and multiple areas of akinesis. Overall recommends medical therapy. His home imdur was increased to 30 mg twice daily. CKD stage III: Last recorded creatinine was 1.37, though previous was around 1.07. Here s/p flash pulm edema Cr increased to 1.7, likely related to required lasix dosing. Ongoing monitoring. Ongoing medical history: - Hypertension: Continue home Coreg. - Hyperlipidemia: Continue home rosuvastatin. - Hypothyroidism: TSH on 27 June was 1.23. On home levothyroxine. - Chronic systolic CHF: TTE on 26 June 2018 noted moderate to severe reduced systolic function with EF of 30-35% and associated akinesis. See above discussion as well. - CAD and PMH NSTEMI: Including extensive LAD infarct. See discharge summary on 29 June 2018 for specific prior details. On last admission, recommend spironolactone, Coreg, Entresto, Lasix as needed, and aspirin. Consider AICD placement in the future. - GERD: Does not take anything for this at home. - Anemia: Hemoglobin trended around 11 in June 2018. As inpatient, around 9.4-10.9. - Left bundle branch block: Seen on previous EKG, likely related to history of NSTEMI. Code status: DO NOT RESUSCITATE Diet: Heart healthy DVT prophy: Lovenox PT/OT: In progress. Disbo: Admitted to telemetry. Lives at home with . (2) Leg erythema: (3) Flash pulmonary edema: (4) NSTEMI (non-ST elevated myocardial infarction): (5) CKD (chronic kidney disease) stage 3, GFR 30-59 ml/min: (6) Hypertension: (7) Hyperlipidemia: (8) Hypothyroidism: (9) Chronic systolic CHF (congestive heart failure): (10) CAD (coronary artery disease): (11) GERD (gastroesophageal reflux disease): (12) Anemia: (13) LBBB (left bundle branch block): Supervising Physician Co-Signing Physician Notes I personally examined the patient and verified all no points of history and exam, discussed case, and agree with decision making with Dr Mcallister. Patient seen multiple times today. This morning he was more short of breath sitting up and leaning forward. He noted it was not as severe as the other day , but felt like it was headed in that direction. Later I followed up and he was lying in bed comfortably reading a book noting his breathing felt much better. Case discussed with cardiology, input greatly appreciated. Vitals noted lungs this morning showed bibasilar rales, good air entry good effort Pulmonary edemarecurrent yet again this morning. Does beg the question if he has critical stenoses, and with any hypoxic or ischemic insult he loses some percentage of ejection fraction. Currently what his situation is temporized with more Lasix, and after discussion with cardiology increasing nitrates and Entresto, will have to discuss heart cath, especially if his creatinine allows. The problem would be more than likely we would see illness that it would only be surgical, for which he would be a fairly poor candidate. However if there was something amenable to percutaneous intervention, it could be helpful to NSTEMI-see above Leg erythema continue Keflex for now, outpatient Derm follow-up. DVT prophylaxisLovenox Subjective Spoke with patient early this morning after being notified by the nurse that the patient had some increased difficulty breathing. Patient said that overnight his breathing has progressively worsened. He also says that he has a "monkey" and not an "elephant" on his chest over the past couple hours. He denies any outright pain or nausea/vomiting. Otherwise he denies any other acute concerns. Physical Exam 2 Vital Signs (Past 24 Hours): Last Vital Signs Temp 36.7 C 07/23/18 15:04 Pulse 81 07/23/18 15:19 Resp 18 07/23/18 15:04 BP 153/69 H 07/23/18 15:04 Pulse Ox 94 07/23/18 15:04 Physical Exam: General Appearance: Awake, alert & oriented, some mild dyspnea but not in overt distress. CV: +S1S2 RRR, no murmur. Pulm: Mild rales at bases. Abdomen: +BS, soft, non-tender, non-distended. Extremities: Moving all extremities naturally and easily, including his right ankle. There is an approximately 21 x 14 x 15 cm area of uneven erythema over the distal right mast and wrapping medially towards the calf. It is not circumferential. The area easily blanches. Overall it has not spread outside of the pen marker line placed on admission. It is currenly finishing machine tender distally and warm to touch. The underlying tissue is notably 2+ edematous. No obvious breaks in the skin or weeping. Neuro: No gross neuro deficits. Results & Data Laboratory Results 07/23/18 07/23/18 Range/Units 07:11 07:11 WBC 9.94 (4.8-10.8) K/uL RBC 3.85 L (4.7-6.1) M/uL Hgb 10.9 L (14.0-18.0) g/dL Hct 34.1 L (42-52) % MCV 88.6 (80-100) fL MCH 28.3 (25-34) pg MCHC 32.0 (32-36) g/dL RDW Std Deviation 49.6 H (36.4-46.3) fL RDW Coeff of Jeremiah 15.5 H (11.5-14.5) % Plt Count 151 (130-400) K/uL MPV 10.5 H (7.4-10.4) fL Immature Gran % (Auto) 0.2 % Neut % (Auto) 79.4 % Lymph % (Auto) 10.9 % [place] % (Auto) 8.7 % Eos % (Auto) 0.6 % Baso % (Auto) 0.2 % Immature Gran # (Auto) 0.02 (0.00-0.02) K/uL Neut # (Auto) 7.90 H (1.4-6.5) K/uL Lymph # (Auto) 1.08 L (1.2-3.4) K/uL [place] # (Auto) 0.86 H (0.11-0.59) K/uL Eos # (Auto) 0.06 (0-0.5) K/uL Baso # (Auto) 0.02 (0-0.2) K/uL Sodium 143 (136-145) mmol/L Potassium 3.7 (3.5-5.1) mmol/L Chloride 112 H (98-107) mmol/L Carbon Dioxide 21 (21-32) mmol/L Anion Gap 11.0 (3-11) BUN 20 H (7-18) mg/dl Creatinine 1.35 D (0.6-1.4) mg/dl Est Cr Clr Drug Dosing 43.1 ml/min Est GFR ( Amer) 53.9 Est GFR (Non-Af Amer) 46.5 BUN/Creatinine Ratio 14.5 (10-20) Glucose 117 H (70-99) mg/dl Calcium 8.0 L (8.5-10.1) mg/dl Troponin I 2.090 H* (0-0.045) ng/ml Medications Administered Current Inpatient Medications Acetaminophen (Tylenol) 650 mg PO Q4H PRN PRN Reason: pain/fever Stop: 08/17/18 18:03 Last Admin: 07/21/18 03:29 Dose: 650 mg Aspirin (Ecotrin) 81 mg PO QAM [facility] Stop: 08/18/18 08:59 Last Admin: 07/23/18 08:04 Dose: 81 mg Carvedilol (Coreg) 12.5 mg PO BID [facility] Stop: 08/17/18 20:59 Last Admin: 07/23/18 08:04 Dose: 12.5 mg Cephalexin HCl (Keflex) 500 mg PO BID [facility] Stop: 07/31/18 20:59 Last Admin: 07/23/18 08:03 Dose: 500 mg Clopidogrel Bisulfate (Plavix) 75 mg PO QAM [facility] Stop: 08/18/18 08:59 Last Admin: 07/23/18 08:04 Dose: 75 mg Enoxaparin Sodium (Lovenox) 30 mg SQ Q24H [facility] Stop: 08/17/18 19:59 Last Admin: 07/22/18 21:18 Dose: 30 mg Isosorbide Mononitrate (Imdur Extended Rel) 30 mg PO BID [facility] Stop: 08/22/18 20:59 Levothyroxine Sodium (Synthroid) 75 mcg PO DAILYBB [facility] Stop: 08/18/18 06:29 Last Admin: 07/23/18 06:01 Dose: 75 mcg Polyethylene Glycol (Miralax Powder Packet) 17 gm PO DAILY PRN PRN Reason: Constipation Stop: 08/17/18 18:03 Rosuvastatin Calcium (Crestor) 10 mg PO QAM [facility] Stop: 08/18/18 08:59 Last Admin: 07/23/18 08:03 Dose: 10 mg Sacubitril/Valsartan (Entresto 24/26mg) 1 tab PO BID [facility] Stop: 08/17/18 20:59 Last Admin: 07/23/18 08:04 Dose: 1 tab Spironolactone (Aldactone) 12.5 mg PO [id number] [facility] Stop: 08/22/18 08:59 Last Admin: 07/23/18 08:04 Dose: 12.5 mg Resident Activity Tracking Resident Involvement: Resident Care Provided Care Provided: [facility] Medicine _ (1) Hypothyroidism Hypothyroidism type: acquired Qualified Code(s): E03.9 - Hypothyroidism, unspecified (2) Hypertension Hypertension type: essential hypertension Qualified Code(s): I10 - Essential (primary) hypertension
[2018-07-23] MEDS: ENOXAPARIN INJ 30 MG/0.3 ML SYR SQ SCH (20:47)
[2018-07-23] MEDS: SACUBITRIL-VALSARTAN 49/51 MG TAB PO SCH (20:48)
[2018-07-24 03:27] LABS: Basophils # (auto) 0.02 K/uL (0-0.2); Basophils % (auto) 0.3 %; Eosinophils # (auto) 0.21 K/uL (0-0.5); Eosinophils % (auto) 3.6 %; Hematocrit (blood only) 30.9 % (42-52); Hemoglobin 9.9 g/dL (14.0-18.0); Immature Granulocytes # (auto) 0.01 K/uL (0.00-0.02); Immature Granulocytes % (auto) 0.2 %; Lymphocytes # (auto) 1.34 K/uL (1.2-3.4); Lymphocytes % (auto) 23.1 %; Mean Corpuscular Volume 88.8 fL (80-100); Mean Platelet Volume 10.1 fL (7.4-10.4); Monocytes # (auto) 0.63 K/uL (0.11-0.59); Monocytes % (auto) 10.8 %; Platelet Count 119 K/uL (130-400); RDW Coefficient of Variation 15.3 % (11.5-14.5); RDW Standard Deviation 50.1 fL (36.4-46.3); Red Blood Count 3.48 M/uL (4.7-6.1); White Blood Count 5.81 K/uL (4.8-10.8)
[2018-07-24 03:34] LABS: BUN Creatinine Ratio 15.5 (10-20); Calcium 8.1 mg/dl (8.5-10.1); Creatinine Clr Calc Pharmacy 46.5 ml/min; Est GFR (African American) 59.2; Est GFR (Non-African American) 51.1; Potassium 3.3 mmol/L (3.5-5.1)
[2018-07-24] MEDS: LEVOTHYROXINE SODIUM 75 MCG TABLET PO SCH (06:16)
[2018-07-24] MEDS: CARVEDILOL 12.5 MG TAB PO SCH ×2 (07:53→21:06)
[2018-07-24] MEDS: cephALEXin 500 MG CAP PO SCH ×2 (07:53→21:07)
[2018-07-24] MEDS: SACUBITRIL-VALSARTAN 49/51 MG TAB PO SCH ×2 (07:54→21:08)
[2018-07-24] MEDS: ROSUVASTATIN CALCIUM 10 MG TAB PO SCH (07:54)
[2018-07-24] MEDS: ISOSORBIDE MONO EXTENDED REL 30 MG TABCR PO SCH ×2 (07:54→21:06)
[2018-07-24] MEDS: CLOPIDOGREL BISULFATE 75 MG TAB PO SCH (07:55)
[2018-07-24] MEDS: ASPIRIN 81 MG ECTAB PO SCH (07:55)
[2018-07-24] MEDS ORDERED: POTASSIUM CHLORIDE 20 MEQ TABCR PO STA (08:26)
--- NOTE | 2018-07-24 09:25 | Cardiology Progress Note ---
Date of Service July 24, 2018 He feels better this morning. He appears less short of breath. He denies any chest pain or chest pressure. He looks comfortable. Unfortunately last evening he became confused and pulled his Winslow catheter all the way out with the balloon up. He is having significant hematuria this morning. He denies any lightheadedness or dizziness presyncope or syncope. The erythema on his right leg continues to improve. We had a long discussion with regards to his options in addition to medical therapy. Ultimately he notes he does not wish to have surgery including bypass surgery and even cardiac catheterization. He does understand that if he has progressive symptoms he would consider a catheterization. Assessment & Plan (1) Flash pulmonary edema: (2) NSTEMI (non-ST elevated myocardial infarction): (3) Hypertension: (4) CAD (coronary artery disease): (5) LBBB (left bundle branch block): Physical Exam 2 Vital Signs (Past 24 Hours): Last Vital Signs Temp 36.4 C L 07/24/18 07:05 Pulse 76 07/24/18 07:05 Resp 18 07/24/18 07:05 BP 143/62 H 07/24/18 07:05 Pulse Ox 100 07/24/18 07:05 PHYSICAL EXAMINATION: GENERAL: He is awake, alert, oriented x3. He appears at his baseline. HEENT: Severely reduced carotid upstrokes His sclerae are anicteric. There were no carotid bruits. LUNGS: Clear to auscultation bilaterally no rales rhonchi or wheezing HEART: Regular, rate, and rhythm. No appreciable murmurs, rubs, or gallops ABDOMEN: Soft, mildly distended. Positive bowel sounds, nontender. EXTREMITIES: No clubbing or cyanosis. No edema of the left leg. Mild lower tibial edema of the right leg. PSYCHIATRIC: Appeared normal for him. IMPRESSION: 1. Acute on chronic systolic heart failure. 2. Acute respiratory distress with a history of flash pulmonary edema this admission. 3. Extensive LAD wall motion abnormality with anterior myocardial infarction 06/2018. 4. Prior inferior and inferolateral myocardial infarction. 5. Chronic kidney disease. 6. Left bundle-branch block. He looks much better this morning. I would continue to uptitrate his medications at this point. His echocardiogram was reviewed and his EF is unchanged from 3 weeks ago. In addition there is no significant RV dysfunction nor progression of his mitral regurgitation as a cause for his flash pulmonary edema. We had a long discussion with regards to options including medical therapy, cardiac catheterization, and even the potential need for open heart surgery. I also discussed the case with Dr. Eli of interventional cardiology today. Unfortunately given the extent of his wall motion abnormalities I would not be surprised if he has triple-vessel disease or left main disease. At I would not send him for bypass surgery. The only option from a percutaneous standpoint would be if he had a lesion that was easily amenable to angioplasty and stenting which is less likely given his advanced age. In addition he pulled his Winslow catheter out this morning and has gross hematuria which would limit our ability to use dual antiplatelet therapy currently. In light of that I would continue to up titrate his medications. His Entresto was doubled yesterday. I would increase his Imdur And up titrate his Coreg as his heart rate and blood pressure allow. We will continue to follow with you . _ (1) Hypertension Hypertension type: essential hypertension Qualified Code(s): I10 - Essential (primary) hypertension
[2018-07-24] MEDS ORDERED: ISOSORBIDE MONO EXTENDED REL 30 MG TABCR PO ONE (09:29)
[2018-07-24] MEDS ORDERED: FUROSEMIDE 40 MG in SYRINGE 0 ML IV SCH (09:30)
[2018-07-24] MEDS ORDERED: SACUBITRIL-VALSARTAN 49/51 MG TAB PO SCH (09:30)
[2018-07-24] MEDS: SPIRONOLACTONE 25 MG TAB PO SCH ×2 (09:51→10:16)
[2018-07-24] MEDS: FUROSEMIDE 40 MG in SYRINGE 0 ML IV SCH (09:55)
--- NOTE | 2018-07-24 13:53 | Family Medicine Progress Note ---
Date of Service July 24, 2018 Assessment & Plan (1) Leg edema, right: 88-year-old male was a direct admit from his family medicine clinic on 18 July 2018 with concerns for right lower leg cellulitis and a failure of outpatient treatment for the same. Right lower extremity edema and erythema: Appears like it is improving, perhaps in part to the relative constant elevation he has had spending more time in his bed. ID was consulted as a precaution (see related discussion). Remains on keflex with plan for outpatient derm eval. BCx showed no growth (final). Flash pulmonary edema: Evening of 10Dec. Improved with lasix, but some acute worsening overnight (11-12Dec). Redosing lasix and NTG. Leading causes include cardiac ischemia vs relative salt load from Zosyn. NSTEMI: Around time of his flash pulmonary edema, his TnI acutely karen to 10.5 ( since improved). Cardiology consulted (see related notes). 12Dec repeat echo notes worsening EF of 25-30% and multiple areas of akinesis. Ongoing discussions on management options. Likely has surgical-level disease but would not tolerate such an operation. May still benefit from a cath. - On increased doses of aldactone, imdur, crestor, and entresto. Continuing ASA , plavix, coreg as well. Hematuria: S/p pulling elliott 12-13Dec overnight during period of delirium. Elliott replaced, monitoring. Will watch for evidence of elliott clots that may require irrigation. CKD stage III: Last recorded creatinine was 1.37, though previous was around 1.07. Here s/p flash pulm edema Cr increased to 1.7, likely related to required lasix dosing. Improving again. Ongoing monitoring. Ongoing medical history: - Hypertension: Continue home Coreg. - Hyperlipidemia: Continue home rosuvastatin. - Hypothyroidism: TSH on 27 June was 1.23. On home levothyroxine. - Chronic systolic CHF: TTE on 26 June 2018 noted moderate to severe reduced systolic function with EF of 30-35% and associated akinesis. See above discussion as well. - CAD and PMH NSTEMI: Including extensive LAD infarct. See discharge summary on 29 June 2018 for specific prior details. Consider AICD placement in the future. - GERD: Does not take anything for this at home. - Anemia: Hemoglobin trended around 11 in June 2018. As inpatient, around 9.4-10.9. - Left bundle branch block: Seen on previous EKG, likely related to history of NSTEMI. Code status: DO NOT RESUSCITATE Diet: Heart healthy DVT prophy: Lovenox PT/OT: OT early on recommended skilled care at time of d/c. Disbo: Admitted to telemetry. Lives at home with . (2) Leg erythema: (3) Flash pulmonary edema: (4) NSTEMI (non-ST elevated myocardial infarction): (5) Hematuria: (6) CKD (chronic kidney disease) stage 3, GFR 30-59 ml/min: (7) Hypertension: (8) Hyperlipidemia: (9) Hypothyroidism: (10) Chronic systolic CHF (congestive heart failure): (11) CAD (coronary artery disease): (12) GERD (gastroesophageal reflux disease): (13) Anemia: (14) LBBB (left bundle branch block): Supervising Physician Co-Signing Physician Notes I personally examined the patient and verified all no points of history and exam, discussed case, and agree with decision making with Dr Mcallister. Patient seen multiple times today. breathing has been doing ok returned and discussed w family as well Vitals noted lungs unlabored no accessory muscles good effort. skin shows no pallor or icterus. Pulmonary edemarecurrent yet again this morning. Does beg the question if he has critical stenoses, and with any hypoxic or ischemic insult he loses some percentage of ejection fraction. pt considering cath now. NSTEMI-see above Leg erythema continue Keflex for now, outpatient Derm follow-up. hematuria - from elliott. unless severe, need to continue antiplatelets, can transiently hold lovenox DVT prophylaxisLovenox Subjective Found patient resting comfortably in his bed. He recounted how he felt a bit confused overnight, getting out of bed and forgetting that he had a elliott in. He says it "bled a lot" when it came out but isn't so painful after re- placement of another elliott. Overall says his breathing feels okay this morning. No CP or leg pain. Overall he also thinks his leg pain is improving as well. Says he would be interested in getting a cath at this point if it was advised. No other acute concerns. Physical Exam 2 Vital Signs (Past 24 Hours): Last Vital Signs Temp 36.6 C 07/24/18 11:35 Pulse 64 07/24/18 11:35 Resp 20 07/24/18 11:35 BP 116/61 07/24/18 11:35 Pulse Ox 98 07/24/18 11:35 Physical Exam: General Appearance: Awake, alert & oriented, no present dyspnea, in NAD. CV: +S1S2 RRR, no murmur. Pulm: Very mild rales at bases. On 5 liters humidified [place] oxygen. Abdomen: +BS, soft, non-tender, non-distended. Extremities: Moving all extremities naturally and easily, including his right ankle. There is an approximately 21 x 14 x 15 cm area of uneven erythema over the distal right mast and wrapping medially towards the calf. It is not circumferential. The area easily blanches. The underlying tissue is notably 2 + edematous. No obvious breaks in the skin or weeping. - Overall the intensity of the erythema has significantly improved. Neuro: No gross neuro deficits. Results & Data Laboratory Results 07/24/18 07/24/18 Range/Units 03:06 03:06 WBC 5.81 (4.8-10.8) K/uL RBC 3.48 L (4.7-6.1) M/uL Hgb 9.9 L (14.0-18.0) g/dL Hct 30.9 L (42-52) % MCV 88.8 (80-100) fL MCH 28.4 (25-34) pg MCHC 32.0 (32-36) g/dL RDW Std Deviation 50.1 H (36.4-46.3) fL RDW Coeff of Jeremiah 15.3 H (11.5-14.5) % Plt Count 119 L (130-400) K/uL MPV 10.1 (7.4-10.4) fL Immature Gran % (Auto) 0.2 % Neut % (Auto) 62.0 % Lymph % (Auto) 23.1 % [place] % (Auto) 10.8 % Eos % (Auto) 3.6 % Baso % (Auto) 0.3 % Immature Gran # (Auto) 0.01 (0.00-0.02) K/uL Neut # (Auto) 3.60 (1.4-6.5) K/uL Lymph # (Auto) 1.34 (1.2-3.4) K/uL [place] # (Auto) 0.63 H (0.11-0.59) K/uL Eos # (Auto) 0.21 (0-0.5) K/uL Baso # (Auto) 0.02 (0-0.2) K/uL Sodium 144 (136-145) mmol/L Potassium 3.3 L (3.5-5.1) mmol/L Chloride 111 H (98-107) mmol/L Carbon Dioxide 27 (21-32) mmol/L Anion Gap 6.0 (3-11) BUN 19 H (7-18) mg/dl Creatinine 1.25 (0.6-1.4) mg/dl Est Cr Clr Drug Dosing 46.5 ml/min Est GFR ( Amer) 59.2 Est GFR (Non-Af Amer) 51.1 BUN/Creatinine Ratio 15.5 (10-20) Glucose 110 H (70-99) mg/dl Calcium 8.1 L (8.5-10.1) mg/dl Medications Administered Current Inpatient Medications Acetaminophen (Tylenol) 650 mg PO Q4H PRN PRN Reason: pain/fever Stop: 08/17/18 18:03 Last Admin: 07/21/18 03:29 Dose: 650 mg Aspirin (Ecotrin) 81 mg PO QAM [facility] Stop: 08/18/18 08:59 Last Admin: 07/24/18 07:55 Dose: Not Given Carvedilol (Coreg) 12.5 mg PO BID [facility] Stop: 08/17/18 20:59 Last Admin: 07/24/18 07:53 Dose: 12.5 mg Cephalexin HCl (Keflex) 500 mg PO BID [facility] Stop: 07/31/18 20:59 Last Admin: 07/24/18 07:53 Dose: 500 mg Clopidogrel Bisulfate (Plavix) 75 mg PO QAM [facility] Stop: 08/18/18 08:59 Last Admin: 07/24/18 07:55 Dose: Not Given Enoxaparin Sodium (Lovenox) 30 mg SQ Q24H [facility] Stop: 08/17/18 19:59 Last Admin: 07/23/18 20:47 Dose: 30 mg Furosemide 40 mg/ Syringe 4 mls @ 4 mls/min IV DAILY [facility] Stop: 08/23/18 08:59 Last Admin: 07/24/18 09:55 Dose: 4 mls/min Isosorbide Mononitrate (Imdur Extended Rel) 30 mg PO QPM [facility] Stop: 08/23/18 20:59 Isosorbide Mononitrate (Imdur Extended Rel) 60 mg PO QAM [facility] Stop: 08/24/18 08:59 Levothyroxine Sodium (Synthroid) 75 mcg PO DAILYBB [facility] Stop: 08/18/18 06:29 Last Admin: 07/24/18 06:16 Dose: 75 mcg Polyethylene Glycol (Miralax Powder Packet) 17 gm PO DAILY PRN PRN Reason: Constipation Stop: 08/17/18 18:03 Rosuvastatin Calcium (Crestor) 20 mg PO QAM [facility] Stop: 08/24/18 08:59 Sacubitril/Valsartan (Entresto 49/51mg) 1 tab PO BID [facility] Stop: 08/22/18 20:59 Last Admin: 07/24/18 07:54 Dose: 1 tab Spironolactone (Aldactone) 25 mg PO DAILY [facility] Stop: 08/23/18 08:29 Last Admin: 07/24/18 10:16 Dose: 25 mg Resident Activity Tracking Resident Involvement: Resident Care Provided Care Provided: [facility] Medicine _ (1) Hypothyroidism Hypothyroidism type: acquired Qualified Code(s): E03.9 - Hypothyroidism, unspecified (2) Hypertension Hypertension type: essential hypertension Qualified Code(s): I10 - Essential (primary) hypertension
[2018-07-24] MEDS: ENOXAPARIN INJ 30 MG/0.3 ML SYR SQ SCH (15:22)
[2018-07-25] MEDS: ACETAMINOPHEN 325 MG TAB PO PRN (02:34)
[2018-07-25] MEDS ORDERED: IBUPROFEN 600 MG TAB PO STA (03:15)
[2018-07-25] MEDS: LEVOTHYROXINE SODIUM 75 MCG TABLET PO SCH (05:43)
[2018-07-25 07:24] LABS: BUN Creatinine Ratio 15.7 (10-20); Calcium 8.1 mg/dl (8.5-10.1); Creatinine Clr Calc Pharmacy 51.7 ml/min; Est GFR (African American) 67.6; Est GFR (Non-African American) 58.3; Potassium 3.7 mmol/L (3.5-5.1)
[2018-07-25] MEDS: FUROSEMIDE 40 MG in SYRINGE 0 ML IV SCH (07:38)
[2018-07-25] MEDS: ISOSORBIDE MONO EXTENDED REL 60 MG TABCR PO SCH (07:38)
[2018-07-25] MEDS: CARVEDILOL 12.5 MG TAB PO SCH ×2 (07:38→20:39)
[2018-07-25] MEDS: CLOPIDOGREL BISULFATE 75 MG TAB PO SCH (07:38)
[2018-07-25] MEDS: SACUBITRIL-VALSARTAN 49/51 MG TAB PO SCH ×2 (07:39→20:39)
[2018-07-25] MEDS: ASPIRIN 81 MG ECTAB PO SCH (07:39)
[2018-07-25] MEDS: cephALEXin 500 MG CAP PO SCH ×2 (07:39→20:39)
[2018-07-25] MEDS: ROSUVASTATIN CALCIUM 20 MG TAB PO SCH (07:40)
[2018-07-25] MEDS: SPIRONOLACTONE 25 MG TAB PO SCH (07:40)
--- NOTE | 2018-07-25 09:17 | Cardiology Progress Note ---
Date of Service July 25, 2018 He feels better this morning. He denies any chest pain or chest pressure. He does not appear short of breath talking in sentences or sitting up in bed. He has no lower extremity edema. Denies any palpitations. He denies any lightheadedness dizziness presyncope or syncope. He he feels better overall. He still has some hematuria Assessment & Plan (1) Flash pulmonary edema: (2) NSTEMI (non-ST elevated myocardial infarction): (3) Hypertension: (4) Hyperlipidemia: (5) LBBB (left bundle branch block): Physical Exam 2 Vital Signs (Past 24 Hours): Last Vital Signs Temp 36.6 C 07/25/18 07:29 Pulse 69 07/25/18 07:29 Resp 20 07/25/18 07:29 BP 145/78 H 07/25/18 07:29 Pulse Ox 98 07/25/18 07:29 PHYSICAL EXAMINATION: GENERAL: He is awake, alert, oriented x3. He appears at his baseline. HEENT: Severely reduced carotid upstrokes His sclerae are anicteric. There were no carotid bruits. LUNGS: Clear to auscultation bilaterally no rales rhonchi or wheezing HEART: Regular, rate, and rhythm. No appreciable murmurs, rubs, or gallops ABDOMEN: Soft, mildly distended. Positive bowel sounds, nontender. EXTREMITIES: No clubbing or cyanosis. No edema of the left leg. Mild lower tibial edema of the right leg. PSYCHIATRIC: Appeared normal for him. IMPRESSION: 1. Acute on chronic systolic heart failure. 2. Acute respiratory distress with a history of flash pulmonary edema this admission. 3. Extensive LAD wall motion abnormality with anterior myocardial infarction 06/2018. 4. Prior inferior and inferolateral myocardial infarction. 5. Chronic kidney disease. 6. Left bundle-branch block. 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 He is negative approximately 1 L yesterday. I would continue with IV furosemide. As his blood pressure allow we will up titrate his Imdur, Coreg, and Entresto. In discussion with Dr. Bar, the family and Christian wish to consider cardiac catheterization to define his coronary anatomy. They understand that he is at high risk for catheterization. They also understand that there is a good chance he will have left main disease or triple vessel disease that is not amenable to angioplasty and stenting. Given his age I would not consider him a candidate for bypass surgery. On the outside chance that he has a lesion that is easily amenable to angioplasty and stenting we could proceed. I also discussed with him if we find severe left main or triple vessel disease at that point he will know his only option is ongoing. From a social standpoint the challenge is with his advanced age and coronary disease and cardiomyopathy and heart failure is he capable of taking care of his who has advanced dementia at home. The plan over the weekend is to optimize his medical therapy and his volume status and proceed with catheterization on Saturday. Christian and his family understand that he is at higher risk and there is a possibility with contrast infusion that he could have flash pulmonary edema on the table which can even lead to cardiac . _ (1) Hypertension Hypertension type: essential hypertension Qualified Code(s): I10 - Essential (primary) hypertension
[2018-07-25 11:38] LABS: Hematocrit (blood only) 29.2 % (42-52); Hemoglobin 9.2 g/dL (14.0-18.0)
--- NOTE | 2018-07-25 13:49 | Family Medicine Progress Note ---
Date of Service July 25, 2018 Assessment & Plan (1) Leg edema, right: 88-year-old male was a direct admit from his family medicine clinic on 18 July 2018 with concerns for right lower leg cellulitis and a failure of outpatient treatment for the same. Right lower extremity edema and erythema: Continues to appear improved, perhaps in part to the relative constant elevation he has had spending more time in his bed. ID was consulted as a precaution (see related discussion). Remains on keflex with plan for outpatient derm eval. BCx showed no growth (final). Flash pulmonary edema: Evening of 10Dec. Improved with lasix, but some acute worsening overnight (11-12Dec). Redosing lasix and NTG as needed. Leading causes include cardiac ischemia vs relative salt load from Zosyn. NSTEMI: Around time of his flash pulmonary edema, his TnI acutely karen to 10.5 ( since improved). Cardiology consulted (see related notes). 12Dec repeat echo notes worsening EF of 25-30% and multiple areas of akinesis. Ongoing discussions on management options. Likely has surgical-level disease but would not tolerate such an operation. May still benefit from a cath. - On increased doses of aldactone, imdur, crestor, and entresto. Continuing ASA , plavix, coreg as well. - Overall plan for continued optimization of his medical management / volume status over the weekend and to undergo cath on 17Dec. - Rechecking TnI today due to reports of left arm pain discomfort. Hematuria: S/p pulling elliott 12-13Dec overnight during period of delirium. Elliott replaced, monitoring. Will watch for evidence of elliott clots that may require irrigation. Left arm petechiae: Noticed sometime overnight. No similar rash elsewhere on his body. Do not janet, non-tender, and no noted erythema/edema. Do not suspect a systemic source at present. Perhaps was related to repeated BP cuff measurements just superior to this last night. Monitoring. CKD stage III: Last recorded creatinine was 1.37, though previous was around 1.07. Here s/p flash pulm edema Cr increased to 1.7, likely related to required lasix dosing. Improving again. Ongoing monitoring. Ongoing medical history: - Hypertension: Continue home Coreg. - Hyperlipidemia: Continue rosuvastatin (higher dose). - Hypothyroidism: TSH on 27 June was 1.23. On home levothyroxine. - Chronic systolic CHF: See above discussion. - CAD and PMH NSTEMI: Including extensive LAD infarct. See discharge summary on 29 June 2018 for specific prior details. Consider AICD placement in the future. - GERD: Does not take anything for this at home. - Anemia: Hemoglobin trended around 11 in June 2018. As inpatient, around 9.4-10.9. - Left bundle branch block: Seen on previous EKG, likely related to history of NSTEMI. Code status: DO NOT RESUSCITATE Diet: Heart healthy DVT prophy: Lovenox PT/OT: OT early on recommended skilled care at time of d/c. Disbo: Admitted to telemetry. Lives at home with . (2) Leg erythema: (3) Flash pulmonary edema: (4) NSTEMI (non-ST elevated myocardial infarction): (5) Hematuria: (6) Petechiae: (7) CKD (chronic kidney disease) stage 3, GFR 30-59 ml/min: (8) Hypertension: (9) Hyperlipidemia: (10) Hypothyroidism: (11) Chronic systolic CHF (congestive heart failure): (12) CAD (coronary artery disease): (13) GERD (gastroesophageal reflux disease): (14) Anemia: (15) LBBB (left bundle branch block): Supervising Physician Co-Signing Physician Notes I personally examined the patient and verified all no points of history and exam, discussed case, and agree with decision making with Dr Mcallister. He had left shoulder pain through the night that radiated down the side of his arm. He notes it actually felt more like whenever he was throwing a ball too much in the past, and after discussion and exam he does note that he has a bad rotator cuff that obviously he is choosing to do nothing more than supportive care right now with. During the time that his arm was hurting he had no chest pain pressure or shortness of breath. His breathing feels stable Vitals noted lungs unlabored no accessory muscles good effort. skin shows no pallor or icterus. He does have a degree of petechiae a progressively more dense only on his left arm and only from the elbow down to the hand. Absolutely none anywhere else. He may be has a degree of palpable tenderness at the top and lateral margin of the shoulder, and has a lot of weakness with abduction and internal rotation. Pulmonary edemavery brittlemore than likely he has an ischemic focus leading to myocardial stunning. He will have a cath on Saturday, sooner if needed. NSTEMI-see above, his left arm pain does appear to be rotator cuff related, but obviously with his heart we will be checking troponins to be safe. His EKG was nondiagnostic last night. Leg erythema continue Keflex for now, outpatient Derm follow-up. His leg seems to be getting better. hematuria - from elliott. Clearing DVT prophylaxisLovenox Subjective Found patient resting comfortably earlier this morning, reading his newspaper. Initially said he had no particular acute chest pain, SOB, or other new concerns. However on questioning (after reading the overnight nursing notes) he said that the left upper portion of his left arm hurt a bit overnight. He described it as a soreness similar to his if he had been throwing a baseball. Says the soreness has improved since last night but has not completely resolved. He denies any known recent abnormal movements or potential causes. At present he also denies any chest pain, shortness of breath, or other acute concerns. Physical Exam 2 Vital Signs (Past 24 Hours): Last Vital Signs Temp 36.2 C L 07/25/18 11:04 Pulse 63 07/25/18 11:04 Resp 20 07/25/18 11:04 BP 114/62 07/25/18 11:04 Pulse Ox 97 07/25/18 11:04 Physical Exam: General Appearance: Awake, alert & oriented, no present dyspnea, in NAD. CV: +S1S2 RRR, no murmur. Pulm: CTA (B). On 4 liters humidified [place] oxygen. Abdomen: +BS, soft, non-tender, non-distended. Extremities: Moving all extremities naturally and easily, including his right ankle. He does have some weakness in the bilateral shoulder, though. Right lower leg: There is an approximately 21 x 14 x 15 cm area of uneven erythema over the distal right mast and wrapping medially towards the calf. It is not circumferential. The area easily blanches. The underlying tissue is notably 2+ edematous. No obvious breaks in the skin or weeping. - Overall the intensity of the erythema has significantly improved. Neuro: No gross neuro deficits. Skin: From just distal to the left forearm extending to the hand (dorsal side only) are multiple petechiae. No associated tenderness, blanching, erythema, or underlying edema. No gross difficulty with movement of the elbow or wrist. No similar petechiae seen on the left upper arm, right upper extremity, bilateral lower extremities, chest or abdomen. Results & Data Laboratory Results 07/25/18 07/25/18 07/25/18 Range/Units 11:05 11:05 06:34 Hgb 9.2 L (14.0-18.0) g/dL Hct 29.2 L (42-52) % Sodium 145 (136-145) mmol/L Potassium 3.7 (3.5-5.1) mmol/L Chloride 111 H (98-107) mmol/L Carbon Dioxide 27 (21-32) mmol/L Anion Gap 7.0 (3-11) BUN 18 (7-18) mg/dl Creatinine 1.12 (0.6-1.4) mg/dl Est Cr Clr Drug Dosing 51.7 ml/min Est GFR ( Amer) 67.6 Est GFR (Non-Af Amer) 58.3 BUN/Creatinine Ratio 15.7 (10-20) Glucose 99 (70-99) mg/dl Calcium 8.1 L (8.5-10.1) mg/dl Troponin I 1.610 H* (0-0.045) ng/ml Medications Administered Current Inpatient Medications Acetaminophen (Tylenol) 650 mg PO Q4H PRN PRN Reason: pain/fever Stop: 08/17/18 18:03 Last Admin: 07/25/18 02:34 Dose: 650 mg Aspirin (Ecotrin) 81 mg PO QAM [facility] Stop: 08/18/18 08:59 Last Admin: 07/25/18 07:39 Dose: 81 mg Carvedilol (Coreg) 12.5 mg PO BID [facility] Stop: 08/17/18 20:59 Last Admin: 07/25/18 07:38 Dose: 12.5 mg Cephalexin HCl (Keflex) 500 mg PO BID [facility] Stop: 07/31/18 20:59 Last Admin: 07/25/18 07:39 Dose: 500 mg Clopidogrel Bisulfate (Plavix) 75 mg PO QAM [facility] Stop: 08/18/18 08:59 Last Admin: 07/25/18 07:38 Dose: 75 mg Enoxaparin Sodium (Lovenox) 30 mg SQ Q24H [facility] Stop: 08/17/18 19:59 Last Admin: 07/24/18 15:22 Dose: Not Given Furosemide 40 mg/ Syringe 4 mls @ 4 mls/min IV DAILY [facility] Stop: 08/23/18 08:59 Last Admin: 07/25/18 07:38 Dose: 4 mls/min Isosorbide Mononitrate (Imdur Extended Rel) 30 mg PO QPM [facility] Stop: 08/23/18 20:59 Last Admin: 07/24/18 21:06 Dose: 30 mg Isosorbide Mononitrate (Imdur Extended Rel) 60 mg PO QAM [facility] Stop: 08/24/18 08:59 Last Admin: 07/25/18 07:38 Dose: 60 mg Levothyroxine Sodium (Synthroid) 75 mcg PO DAILYBB [facility] Stop: 08/18/18 06:29 Last Admin: 07/25/18 05:43 Dose: 75 mcg Polyethylene Glycol (Miralax Powder Packet) 17 gm PO DAILY PRN PRN Reason: Constipation Stop: 08/17/18 18:03 Rosuvastatin Calcium (Crestor) 20 mg PO QAM [facility] Stop: 08/24/18 08:59 Last Admin: 07/25/18 07:40 Dose: 20 mg Sacubitril/Valsartan (Entresto 49/51mg) 1 tab PO BID [facility] Stop: 08/22/18 20:59 Last Admin: 07/25/18 07:39 Dose: 1 tab Spironolactone (Aldactone) 25 mg PO DAILY [facility] Stop: 08/23/18 08:29 Last Admin: 07/25/18 07:40 Dose: 25 mg Resident Activity Tracking Resident Involvement: Resident Care Provided Care Provided: [facility] Medicine _ (1) Hypothyroidism Hypothyroidism type: acquired Qualified Code(s): E03.9 - Hypothyroidism, unspecified (2) Hypertension Hypertension type: essential hypertension Qualified Code(s): I10 - Essential (primary) hypertension
[2018-07-25] MEDS: ISOSORBIDE MONO EXTENDED REL 30 MG TABCR PO SCH (20:38)
[2018-07-26] MEDS: LEVOTHYROXINE SODIUM 75 MCG TABLET PO SCH (05:48)
[2018-07-26 06:46] LABS: Basophils # (auto) 0.03 K/uL (0-0.2); Basophils % (auto) 0.5 %; Eosinophils # (auto) 0.28 K/uL (0-0.5); Hematocrit (blood only) 29.6 % (42-52); Hemoglobin 9.3 g/dL (14.0-18.0); Immature Granulocytes # (auto) 0.02 K/uL (0.00-0.02); Immature Granulocytes % (auto) 0.4 %; Lymphocytes # (auto) 1.27 K/uL (1.2-3.4); Lymphocytes % (auto) 22.8 %; Mean Corpuscular Hgb Conc 31.4 g/dL (32-36); Mean Corpuscular Volume 89.2 fL (80-100); Mean Platelet Volume 10.2 fL (7.4-10.4); Monocytes # (auto) 0.49 K/uL (0.11-0.59); Monocytes % (auto) 8.8 %; Neutrophils # (auto) 3.49 K/uL (1.4-6.5); Neutrophils % (auto) 62.5 %; Platelet Count 120 K/uL (130-400); RDW Standard Deviation 49.2 fL (36.4-46.3); Red Blood Count 3.32 M/uL (4.7-6.1); White Blood Count 5.58 K/uL (4.8-10.8)
[2018-07-26 07:17] LABS: Creatinine Clr Calc Pharmacy 46.7 ml/min; Est GFR (African American) 66.9; Est GFR (Non-African American) 57.7; Potassium 3.6 mmol/L (3.5-5.1)
[2018-07-26] MEDS: SACUBITRIL-VALSARTAN 49/51 MG TAB PO SCH ×2 (08:20→20:18)
[2018-07-26] MEDS: CARVEDILOL 12.5 MG TAB PO SCH ×2 (08:23→20:18)
[2018-07-26] MEDS: cephALEXin 500 MG CAP PO SCH ×2 (08:23→20:18)
[2018-07-26] MEDS: ROSUVASTATIN CALCIUM 20 MG TAB PO SCH (08:24)
[2018-07-26] MEDS: ASPIRIN 81 MG ECTAB PO SCH (08:24)
[2018-07-26] MEDS: ISOSORBIDE MONO EXTENDED REL 60 MG TABCR PO SCH (08:24)
[2018-07-26] MEDS: CLOPIDOGREL BISULFATE 75 MG TAB PO SCH (08:24)
[2018-07-26] MEDS: SPIRONOLACTONE 25 MG TAB PO SCH (08:25)
[2018-07-26] MEDS: FUROSEMIDE 40 MG in SYRINGE 0 ML IV SCH (08:25)
[2018-07-26] MEDS ORDERED: ENOXAPARIN INJ 40 MG/0.4 ML SYR SQ ONE (10:27)
--- NOTE | 2018-07-26 10:50 | Family Medicine Progress Note ---
Date of Service July 26, 2018 Assessment & Plan (1) Leg erythema: 88yo M direct admit for Right LE cellulitis s/p failure of outpatient treatment, developing acute elevation in troponin with flash pulmonary edema, currently stablized with diuresis - RLE edema/erythema: possible secondary to cellulitis versus , venous stasis vs , dermatitis , appears to be improving per patient - Remains on Keflex x 4 weeks as recommended by ID - Blood cx NGTD - Dermatology outpatient evaluation on discharge for possible biopsy if needed (2) Flash pulmonary edema: acute decompensated HF /flash pulmonary edema occurring 07/21 - improved with IV Lasix, diuresing well, adequate UO - LE edema improved - Weight is lowest since arrival - Continue IV diuresis - Continue entresto Spironolactone - appreciate recommendation from Cardiology (3) NSTEMI (non-ST elevated myocardial infarction): history of NSTEMI with new LBBB seen 06/29, reduced EF 30-35%, pt declined cardiac catth at time denies chest pain, troponin peaked 08/02 and subsequently trended down 07/25 Per Cardiology, planning diagnostic cath on 07/28, patient agrees Continue aldactone, imdur, crestor, and entresto. Continuing ASA, plavix, coreg (4) CKD (chronic kidney disease) stage 3, GFR 30-59 ml/min: Cr at baseline peaked at 1.71 on 07/22 MERISSA on CKD improved with diuresis (5) Hypertension: Continue anti-hypertensives as above (6) Hyperlipidemia: Continue Crestor (7) Hypothyroidism: Continue Synthroid (8) Chronic systolic CHF (congestive heart failure): Management as above Continue IV Diuresis as above, Spironlactone, Coreg NItrate (9) CAD (coronary artery disease): Admitted 06/26- eith NSTEMI, LBBB, found to have LAD infarct, no cath performed Cardiology reccs appreciated Diagnostic Cath planned for Saturday 07/28 to evaluate extent of disease Continue antihypertensives , Continue statin, ASA, nitrate, Plavix (10) Anemia: chronic , though below baseline 9.4-12 Stable 9.2-->9.3 Continue to monitor no evidence of active bleed (11) DVT prophylaxis: Lovenox Supervising Physician Co-Signing Physician Notes I personally examined the patient and verified all no points of history and exam, discussed case, and agree with decision making with Dr Hutchinson. Seen twice today. His breathing is good, his right ankle erythema is fading, and the skin is thickening and hardening a little bit. I am asked to revisit to discuss a polst form, which we do in depth. Patient and family appreciates the efforts. Vitals noted lungs unlabored no accessory muscles good effort. skin shows no pallor or icterus. He does have a degree of petechiae a progressively more dense only on his left arm and only from the elbow down to the hand, this appears to be absolutely worse than yesterday in distribution, and appears to be fading in intensity/quality. Pulmonary edemavery brittlemore than likely he has an ischemic focus leading to myocardial stunning. He will have a cath on Saturday, sooner if needed. Fortunately is stable in this regard right now. NSTEMI-see above, he is now stable again, for cath on Saturday Leg erythema continue Keflex for now, outpatient Derm follow-up. His leg seems to be getting better. My biggest suspicion is this is mostly resolving inflammation that is slow to change due to his venous stasis. hematuria - from elliott. Cleared DVT prophylaxisLovenox He emphasized he wanted to be a DNR during this hospitalization, and we filled out a pulsed form in detail together with detailed discussions, as well as input /corroboration from his daughters. Subjective No acute events overnight, Patient reports improvement in RLE erythema. He denies chest pain,sob, palpitation Constitutional: no fever, no chills, no fatigue and no weakness Respiratory: no cough, no dyspnea and no wheezing Cardiovascular: no chest pain, no palpitations, no edema and no calf pain Gastrointestinal: no abdominal pain, no nausea, no vomiting and no change in stools Genitourinary (Male): no dysuria and no urinary frequency Integumentary: as per Subjective / HPI Neurologic: no localized weakness and no numbness Physical Exam 2 Vital Signs (Past 24 Hours): Last Vital Signs Temp 36.3 C L 07/26/18 07:00 Pulse 69 07/26/18 07:00 Resp 18 07/26/18 07:00 BP 152/61 H 07/26/18 07:00 Pulse Ox 99 07/26/18 07:00 Physical Exam: GENERAL APPEARANCE: alert and cooperative, and appears to be in no acute distress. HEAD: normocephalic. EYES: PERRL, EOMI. Fundi normal, vision is grossly intact. EARS: External auditory canals and tympanic membranes clear, hearing grossly intact. NOSE: No nasal discharge. NECK: Neck supple, non-tender without lymphadenopathy CARDIAC: Normal S1 and S2. No S3, S4 or murmurs. Rhythm is regular LUNGS: Clear to auscultation and percussion without rales, rhonchi, wheezing or diminished breath sounds. ABDOMEN: Positive bowel sounds. Soft, nondistended, nontender. No guarding or rebound. No masses. EXTREMITIES: RLE path of erythema medial , non-tender NEUROLOGICAL: CN II-XII intact grossly . Strength and sensation symmetric and intact throughout Results & Data Laboratory Results Laboratory Results WBC 5.58 K/uL (4.8-10.8) 07/26/18 06:16 RBC 3.32 M/uL (4.7-6.1) L 07/26/18 06:16 Hgb 9.3 g/dL (14.0-18.0) L 07/26/18 06:16 Hct 29.6 % (42-52) L 07/26/18 06:16 MCV 89.2 fL (80-100) 07/26/18 06:16 MCH 28.0 pg (25-34) 07/26/18 06:16 MCHC 31.4 g/dL (32-36) L 07/26/18 06:16 RDW Std Deviation 49.2 fL (36.4-46.3) H 07/26/18 06:16 RDW Coeff of Jeremiah 15.0 % (11.5-14.5) H 07/26/18 06:16 Plt Count 120 K/uL (130-400) L 07/26/18 06:16 MPV 10.2 fL (7.4-10.4) 07/26/18 06:16 Immature Gran % (Auto) 0.4 % 07/26/18 06:16 Neut % (Auto) 62.5 % 07/26/18 06:16 Lymph % (Auto) 22.8 % 07/26/18 06:16 [place] % (Auto) 8.8 % 07/26/18 06:16 Eos % (Auto) 5.0 % 07/26/18 06:16 Baso % (Auto) 0.5 % 07/26/18 06:16 Immature Gran # (Auto) 0.02 K/uL (0.00-0.02) 07/26/18 06:16 Neut # (Auto) 3.49 K/uL (1.4-6.5) 07/26/18 06:16 Lymph # (Auto) 1.27 K/uL (1.2-3.4) 07/26/18 06:16 [place] # (Auto) 0.49 K/uL (0.11-0.59) 07/26/18 06:16 Eos # (Auto) 0.28 K/uL (0-0.5) 07/26/18 06:16 Baso # (Auto) 0.03 K/uL (0-0.2) 07/26/18 06:16 Sodium 144 mmol/L (136-145) 07/26/18 06:16 Potassium 3.6 mmol/L (3.5-5.1) 07/26/18 06:16 Chloride 110 mmol/L (98-107) H 07/26/18 06:16 Carbon Dioxide 28 mmol/L (21-32) 07/26/18 06:16 Anion Gap 7.0 (3-11) 07/26/18 06:16 BUN 17 mg/dl (7-18) 07/26/18 06:16 Creatinine 1.13 mg/dl (0.6-1.4) 07/26/18 06:16 Est Cr Clr Drug Dosing 46.7 ml/min 07/26/18 06:16 Est GFR ( Amer) 66.9 07/26/18 06:16 Est GFR (Non-Af Amer) 57.7 07/26/18 06:16 BUN/Creatinine Ratio 15.0 (10-20) 07/26/18 06:16 Glucose 100 mg/dl (70-99) H 07/26/18 06:16 POC Glucose 117 (70-99) H 07/22/18 00:26 Calcium 8.0 mg/dl (8.5-10.1) L 07/26/18 06:16 Phosphorus 3.2 mg/dl (2.5-4.9) 07/22/18 04:18 Magnesium 2.2 mg/dl (1.8-2.4) 07/22/18 04:18 Troponin I 1.490 ng/ml (0-0.045) H* 07/25/18 16:56 Medications Administered Current Inpatient Medications Acetaminophen (Tylenol) 650 mg PO Q4H PRN PRN Reason: pain/fever Stop: 08/17/18 18:03 Last Admin: 07/26/18 17:43 Dose: 650 mg Aspirin (Ecotrin) 81 mg PO QAM [facility] Stop: 08/18/18 08:59 Last Admin: 07/26/18 08:24 Dose: 81 mg Carvedilol (Coreg) 12.5 mg PO BID [facility] Stop: 08/17/18 20:59 Last Admin: 07/26/18 08:23 Dose: 12.5 mg Cephalexin HCl (Keflex) 500 mg PO BID [facility] Stop: 07/31/18 20:59 Last Admin: 07/26/18 08:23 Dose: 500 mg Clopidogrel Bisulfate (Plavix) 75 mg PO QAM [facility] Stop: 08/18/18 08:59 Last Admin: 07/26/18 08:24 Dose: 75 mg Enoxaparin Sodium (Lovenox) 30 mg SQ Q24H [facility] Stop: 08/17/18 19:59 Last Admin: 07/24/18 15:22 Dose: Not Given Furosemide 40 mg/ Syringe 4 mls @ 4 mls/min IV DAILY [facility] Stop: 08/23/18 08:59 Last Admin: 07/26/18 08:25 Dose: 4 mls/min Isosorbide Mononitrate (Imdur Extended Rel) 30 mg PO QPM [facility] Stop: 08/23/18 20:59 Last Admin: 07/25/18 20:38 Dose: 30 mg Isosorbide Mononitrate (Imdur Extended Rel) 60 mg PO QAM [facility] Stop: 08/24/18 08:59 Last Admin: 07/26/18 08:24 Dose: 60 mg Levothyroxine Sodium (Synthroid) 75 mcg PO DAILYBB [facility] Stop: 08/18/18 06:29 Last Admin: 07/26/18 05:48 Dose: 75 mcg Polyethylene Glycol (Miralax Powder Packet) 17 gm PO DAILY PRN PRN Reason: Constipation Stop: 08/17/18 18:03 Rosuvastatin Calcium (Crestor) 20 mg PO QAM [facility] Stop: 08/24/18 08:59 Last Admin: 07/26/18 08:24 Dose: 20 mg Sacubitril/Valsartan (Entresto 49/51mg) 1 tab PO BID [facility] Stop: 08/22/18 20:59 Last Admin: 07/26/18 08:20 Dose: 1 tab Spironolactone (Aldactone) 25 mg PO DAILY [facility] Stop: 08/23/18 08:29 Last Admin: 07/26/18 08:25 Dose: 25 mg Resident Activity Tracking Resident Involvement: Resident Care Provided Care Provided: Adult [facility] Medicine _ (1) Hypertension Hypertension type: essential hypertension Qualified Code(s): I10 - Essential (primary) hypertension
--- NOTE | 2018-07-26 11:11 | Cardiology Progress Note ---
Date of Service July 26, 2018 He is feeling well this morning. He denies any chest pain chest pressure chest heaviness. He denies any dyspnea this morning. He denies any light his dizziness presyncope syncope. His appetite has been good his weight is down he weighed 187 pounds today. His home weight is usually 189 pounds. His abdomen is less distended. He has no lower extremity edema. He denies any palpitations or fluttering. Assessment & Plan (1) Flash pulmonary edema: (2) NSTEMI (non-ST elevated myocardial infarction): (3) CKD (chronic kidney disease) stage 3, GFR 30-59 ml/min: (4) Hypertension: (5) Hyperlipidemia: (6) Chronic systolic CHF (congestive heart failure): (7) LBBB (left bundle branch block): Physical Exam 2 Vital Signs (Past 24 Hours): Last Vital Signs Temp 36.6 C 07/26/18 11:02 Pulse 67 07/26/18 11:02 Resp 19 07/26/18 11:02 BP 109/59 L 07/26/18 11:02 Pulse Ox 99 07/26/18 11:02 PHYSICAL EXAMINATION: GENERAL: He is awake, alert, oriented x3. He appears at his baseline. HEENT: Severely reduced carotid upstrokes His sclerae are anicteric. There were no carotid bruits. LUNGS: Clear to auscultation bilaterally no rales rhonchi or wheezing HEART: Regular, rate, and rhythm. No appreciable murmurs, rubs, or gallops ABDOMEN: Soft, mildly distended. Positive bowel sounds, nontender. EXTREMITIES: No clubbing or cyanosis. No edema of the left leg. Mild lower tibial edema of the right leg. PSYCHIATRIC: Appeared normal for him. IMPRESSION: 1. Acute on chronic systolic heart failure. 2. Acute respiratory distress with a history of flash pulmonary edema this admission. 3. Extensive LAD wall motion abnormality with anterior myocardial infarction 06/2018. 4. Prior inferior and inferolateral myocardial infarction. 5. Chronic kidney disease. 6. Left bundle-branch block.His heart rate and blood pressure well controlled. His creatinine has normalized. He is negative approximately 4-1/2 L since his admission. I would continue with IV diuretics until we see a bump in his creatinine. The plan is to proceed with cardiac catheterization on Saturday. At that point we can define his anatomy if he has left main or triple vessel disease at that point his only option is medical therapy. If he Has a lesion that is easily amenable to angioplasty and stenting in a territory that does not appear to be on his echocardiogram we would proceed with intervention. Depending on his blood pressure as an outpatient we can continue to increase his Entresto to the maximum dose especially given the reduction in heart failure admissions and cardiac . The risks and benefits of cardiac catheterization were discussed with the primary service as well as Christian. He is at higher risk given his severe cardiomyopathy and flash pulmonary edema. There is a concern with contrast he could have flash pulmonary edema on the table during the procedure. We will continue to follow him with you. _ (1) Hypertension Hypertension type: essential hypertension Qualified Code(s): I10 - Essential (primary) hypertension
[2018-07-26] MEDS: ACETAMINOPHEN 325 MG TAB PO PRN (17:43)
[2018-07-26] MEDS: ISOSORBIDE MONO EXTENDED REL 30 MG TABCR PO SCH (20:18)
[2018-07-27] MEDS: ACETAMINOPHEN 325 MG TAB PO PRN (04:43)
[2018-07-27] MEDS: LEVOTHYROXINE SODIUM 75 MCG TABLET PO SCH (05:37)
[2018-07-27 07:16] LABS: Basophils # (auto) 0.03 K/uL (0-0.2); Basophils % (auto) 0.5 %; Eosinophils # (auto) 0.28 K/uL (0-0.5); Eosinophils % (auto) 4.8 %; Immature Granulocytes # (auto) 0.01 K/uL (0.00-0.02); Immature Granulocytes % (auto) 0.2 %; Lymphocytes # (auto) 1.25 K/uL (1.2-3.4); Lymphocytes % (auto) 21.2 %; Mean Corpuscular Hgb Conc 32.3 g/dL (32-36); Mean Corpuscular Volume 87.6 fL (80-100); Mean Platelet Volume 9.6 fL (7.4-10.4); Monocytes # (auto) 0.58 K/uL (0.11-0.59); Monocytes % (auto) 9.8 %; Neutrophils # (auto) 3.74 K/uL (1.4-6.5); Neutrophils % (auto) 63.5 %; Platelet Count 125 K/uL (130-400); Red Blood Count 3.54 M/uL (4.7-6.1); White Blood Count 5.89 K/uL (4.8-10.8)
--- NOTE | 2018-07-27 07:38 | Family Medicine Progress Note ---
Date of Service July 27, 2018 Assessment & Plan (1) Leg erythema: 88yo M direct admit for Right LE cellulitis s/p failure of outpatient treatment, developing acute elevation in troponin with flash pulmonary edema, currently stablized with diuresis - RLE edema/erythema: possible secondary to cellulitis versus , venous stasis vs , dermatitis , appears to be improving per patient - Remains on Keflex x 4 weeks as recommended by ID - Blood cx NGTD - Dermatology outpatient evaluation on discharge for possible biopsy if needed (2) Flash pulmonary edema: acute decompensated HF /flash pulmonary edema occurring 07/21 - improved with IV Lasix, diuresing well, improved UO - LE edema improved - Weight continue to trend down - Continue IV diuresis - Continue entresto Spironolactone - appreciate recommendation from Cardiology (3) NSTEMI (non-ST elevated myocardial infarction): history of NSTEMI with new LBBB seen 06/29, reduced EF 30-35%, pt declined cardiac cath at time denies chest pain, troponin peaked 08/02 and subsequently trended down 07/25 Per Cardiology, planning diagnostic cath on 07/28, patient agrees Continue Aldactone, Imdur, Crestor, and Entresto. Continuing ASA, plavix, coreg (4) CKD (chronic kidney disease) stage 3, GFR 30-59 ml/min: Cr within baseline range peaked at 1.71 on 07/22 MERISSA on CKD improved with diuresis (5) Hypertension: Continue anti-hypertensives as above (6) Hyperlipidemia: Continue Crestor (7) Hypothyroidism: Continue Synthroid (8) Chronic systolic CHF (congestive heart failure): Management as above (9) CAD (coronary artery disease): Admitted 06/26- eith NSTEMI, LBBB, found to have LAD infarct, no cath performed Cardiology reccs appreciated Diagnostic Cath planned for Saturday 07/28 to evaluate extent of disease Continue antihypertensives , Continue statin, ASA, nitrate, Plavix (10) Anemia: chronic , within baseline 9.4-12 Stable Continue to monitor (11) DVT prophylaxis: Lovenox Supervising Physician Co-Signing Physician Notes I personally examined the patient and verified all no points of history and exam, discussed case, and agree with decision making with Dr Hutchinson. Feeling better. No shortness of breath. No new complaints at all. He is for heart cath tomorrow. Vitals noted lungs unlabored no accessory muscles good effort. skin shows no pallor or icterus. He does have a degree of petechiae a progressively more dense only on his left arm and only from the elbow down to the hand, identical in distribution to yesterday, fading in intensity. His right leg erythema is fading to a dull almost venous stasis dermatitis type of pattern Pulmonary edemavery brittlemore than likely he has an ischemic focus leading to myocardial stunning. Appears as optimized as possible for cath tomorrow NSTEMI-see above, cath tomorrow Leg erythema continue Keflex for now, outpatient Derm follow-up. My biggest suspicion is this is mostly resolving inflammation that is slow to change due to his venous stasis. Continue to follow hematuria - from [facility]. Cleared DVT prophylaxisLovenox DNR, polst completed yesterday Subjective No acute events overnight, Patient denies Right lower extremity pain, pruritus, worsening edema. She denies chest pain, sob , Constitutional: no fever, no chills, no fatigue and no weakness Respiratory: no cough, no dyspnea and no wheezing Cardiovascular: no chest pain, no palpitations, no edema and no calf pain Gastrointestinal: no abdominal pain, no nausea, no vomiting and no change in stools Genitourinary (Male): no dysuria and no urinary frequency Integumentary: no rash, no lesions and no change in skin color Neurologic: no localized weakness, no tingling and no numbness Physical Exam 2 Vital Signs (Past 24 Hours): Last Vital Signs Temp 36.8 C 07/27/18 04:07 Pulse 66 07/27/18 04:07 Resp 16 07/27/18 04:07 BP 142/64 H 07/27/18 04:07 Pulse Ox 95 07/27/18 04:07 Physical Exam: GENERAL APPEARANCE: alert and cooperative, and appears to be in no acute distress. HEAD: normocephalic. EYES: PERRL, EOMI. Fundi normal, vision is grossly intact. EARS: External auditory canals and tympanic membranes clear, hearing grossly intact. NOSE: No nasal discharge. NECK: Neck supple, non-tender without lymphadenopathy CARDIAC: Normal S1 and S2. No S3, S4 or murmurs. Rhythm is regular LUNGS: decreased breath sounds,Clear to auscultation and percussion without rales, rhonchi, wheezing ABDOMEN: Positive bowel sounds. Soft, nondistended, nontender. No guarding or rebound. No masses. EXTREMITIES: RLE path of erythema medial distal to knee , non-tender NEUROLOGICAL: CN II-XII intact grossly . Strength and sensation symmetric and intact throughout Results & Data Laboratory Results Laboratory Results WBC 5.89 K/uL (4.8-10.8) 07/27/18 07:06 RBC 3.54 M/uL (4.7-6.1) L 07/27/18 07:06 Hgb 10.0 g/dL (14.0-18.0) L 07/27/18 07:06 Hct 31.0 % (42-52) L 07/27/18 07:06 MCV 87.6 fL (80-100) 07/27/18 07:06 MCH 28.2 pg (25-34) 07/27/18 07:06 MCHC 32.3 g/dL (32-36) 07/27/18 07:06 RDW Std Deviation 48.0 fL (36.4-46.3) H 07/27/18 07:06 RDW Coeff of Jeremiah 15.0 % (11.5-14.5) H 07/27/18 07:06 Plt Count 125 K/uL (130-400) L 07/27/18 07:06 MPV 9.6 fL (7.4-10.4) 07/27/18 07:06 Immature Gran % (Auto) 0.2 % 07/27/18 07:06 Neut % (Auto) 63.5 % 07/27/18 07:06 Lymph % (Auto) 21.2 % 07/27/18 07:06 Fajardo % (Auto) 9.8 % 07/27/18 07:06 Eos % (Auto) 4.8 % 07/27/18 07:06 Baso % (Auto) 0.5 % 07/27/18 07:06 Immature Gran # (Auto) 0.01 K/uL (0.00-0.02) 07/27/18 07:06 Neut # (Auto) 3.74 K/uL (1.4-6.5) 07/27/18 07:06 Lymph # (Auto) 1.25 K/uL (1.2-3.4) 07/27/18 07:06 Fajardo # (Auto) 0.58 K/uL (0.11-0.59) 07/27/18 07:06 Eos # (Auto) 0.28 K/uL (0-0.5) 07/27/18 07:06 Baso # (Auto) 0.03 K/uL (0-0.2) 07/27/18 07:06 Sodium 142 mmol/L (136-145) 07/27/18 07:06 Potassium 3.6 mmol/L (3.5-5.1) 07/27/18 07:06 Chloride 106 mmol/L (98-107) 07/27/18 07:06 Carbon Dioxide 28 mmol/L (21-32) 07/27/18 07:06 Anion Gap 8.0 (3-11) 07/27/18 07:06 BUN 19 mg/dl (7-18) H 07/27/18 07:06 Creatinine 1.19 mg/dl (0.6-1.4) 07/27/18 07:06 Est Cr Clr Drug Dosing 44.3 ml/min 07/27/18 07:06 Est GFR ( Amer) 62.8 07/27/18 07:06 Est GFR (Non-Af Amer) 54.2 07/27/18 07:06 BUN/Creatinine Ratio 15.9 (10-20) 07/27/18 07:06 Glucose 110 mg/dl (70-99) H 07/27/18 07:06 POC Glucose 117 (70-99) H 07/22/18 00:26 Calcium 8.4 mg/dl (8.5-10.1) L 07/27/18 07:06 Phosphorus 3.2 mg/dl (2.5-4.9) 07/22/18 04:18 Magnesium 2.2 mg/dl (1.8-2.4) 07/22/18 04:18 Troponin I 1.490 ng/ml (0-0.045) H* 07/25/18 16:56 Medications Administered Current Inpatient Medications Acetaminophen (Tylenol) 650 mg PO Q4H PRN PRN Reason: pain/fever Stop: 08/17/18 18:03 Last Admin: 07/27/18 04:43 Dose: 650 mg Aspirin (Ecotrin) 81 mg PO QAM GA[facility] Stop: 08/18/18 08:59 Last Admin: 07/27/18 08:19 Dose: 81 mg Carvedilol (Coreg) 12.5 mg PO BID [facility] Stop: 08/17/18 20:59 Last Admin: 07/27/18 08:18 Dose: 12.5 mg Cephalexin HCl (Keflex) 500 mg PO BID [facility] Stop: 07/31/18 20:59 Last Admin: 07/27/18 08:20 Dose: 500 mg [facility]opidogrel [facility] ([facility]ix) [facility] Stop: 08/18/18 08:59 Last Admin: 07/27/18 08:18 Dose: 75 mg Enoxaparin Sodium (Lovenox) 30 mg SQ Q24H [facility] Stop: 08/17/18 19:59 Last Admin: 07/24/18 15:22 Dose: Not Given Isosorbide Mononitrate (Imdur Extended Rel) 30 mg PO QPM [facility] Stop: 08/23/18 20:59 Last Admin: 07/26/18 20:18 Dose: 30 mg Isosorbide Mononitrate (Imdur Extended Rel) [facility] Stop: 08/24/18 08:59 Last Admin: 07/27/18 08:17 Dose: 60 mg [facility]othyroxine [facility]: 08/18/18 06:29 Last Admin: 07/27/18 05:37 Dose: 75 mcg Polyethylene Glycol (Miralax Powder Packet) 17 gm PO DAILY PRN PRN Reason: Constipation Stop: 08/17/18 18:03 Rosuvastatin Calcium (Crestor) [facility] Stop: 08/24/18 08:59 Last Admin: 07/27/18 08:19 Dose: 20 mg Sacubitril/Valsartan (Entresto 49/51mg) 1 tab PO BID [facility] Stop: 08/22/18 20:59 Last Admin: 07/27/18 08:18 Dose: 1 tab Spironolactone (Aldactone) 25 mg PO DAILY [facility] Stop: 08/23/18 08:29 Last Admin: 07/27/18 08:20 Dose: 25 mg _ (1) Hypertension Hypertension type: essential hypertension Qualified Code(s): I10 - Essential (primary) hypertension
[2018-07-27 07:44] LABS: BUN Creatinine Ratio 15.9 (10-20); Calcium 8.4 mg/dl (8.5-10.1); Creatinine Clr Calc Pharmacy 44.3 ml/min; Est GFR (African American) 62.8; Est GFR (Non-African American) 54.2; Potassium 3.6 mmol/L (3.5-5.1)
[2018-07-27] MEDS: ISOSORBIDE MONO EXTENDED REL 60 MG TABCR PO SCH (08:17)
[2018-07-27] MEDS: CARVEDILOL 12.5 MG TAB PO SCH ×2 (08:18→20:25)
[2018-07-27] MEDS: SACUBITRIL-VALSARTAN 49/51 MG TAB PO SCH ×2 (08:18→20:25)
[2018-07-27] MEDS: FUROSEMIDE 40 MG in SYRINGE 0 ML IV SCH (08:18)
[2018-07-27] MEDS: CLOPIDOGREL BISULFATE 75 MG TAB PO SCH (08:18)
[2018-07-27] MEDS: ROSUVASTATIN CALCIUM 20 MG TAB PO SCH (08:19)
[2018-07-27] MEDS: ASPIRIN 81 MG ECTAB PO SCH (08:19)
[2018-07-27] MEDS: SPIRONOLACTONE 25 MG TAB PO SCH (08:20)
[2018-07-27] MEDS: cephALEXin 500 MG CAP PO SCH ×2 (08:20→20:25)
--- NOTE | 2018-07-27 12:14 | Cardiology Progress Note ---
Date of Service July 27, 2018 He continues to feel better. He denies any chest pain chest pressure chest heaviness. Denies any shortness of breath. He was out of bed yesterday to the chair without significant lightheadedness, dizziness, or shortness of breath. Overall he is feeling better his appetite is improved. He has no lower extremity edema and his abdominal distention is improved as well. Assessment & Plan (1) Flash pulmonary edema: acute decompensated HF /flash pulmonary edema occurring 07/21 - improved with IV Lasix, diuresing well, adequate UO - LE edema improved - Weight is lowest since arrival - Continue IV diuresis - Continue entresto Spironolactone - appreciate recommendation from Cardiology (2) NSTEMI (non-ST elevated myocardial infarction): history of NSTEMI with new LBBB seen 06/29, reduced EF 30-35%, pt declined cardiac catth at time denies chest pain, troponin peaked 08/02 and subsequently trended down 07/25 Per Cardiology, planning diagnostic cath on 07/28, patient agrees Continue aldactone, imdur, crestor, and entresto. Continuing ASA, plavix, coreg (3) CKD (chronic kidney disease) stage 3, GFR 30-59 ml/min: Cr at baseline peaked at 1.71 on 07/22 MERISSA on CKD improved with diuresis (4) Hypertension: Continue anti-hypertensives as above (5) Chronic systolic CHF (congestive heart failure): Management as above Continue IV Diuresis as above, Spironlactone, Coreg NItrate (6) CAD (coronary artery disease): Admitted 06/26- eith NSTEMI, LBBB, found to have LAD infarct, no cath performed Cardiology reccs appreciated Diagnostic Cath planned for Saturday 07/28 to evaluate extent of disease Continue antihypertensives , Continue statin, ASA, nitrate, Plavix Physical Exam 2 Vital Signs (Past 24 Hours): Last Vital Signs Temp 36.3 C L 07/27/18 10:56 Pulse 64 07/27/18 10:56 Resp 19 07/27/18 10:56 BP 106/53 L 07/27/18 10:56 Pulse Ox 93 07/27/18 10:56 PHYSICAL EXAMINATION: GENERAL: He is awake, alert, oriented x3. He looks significantly better since his admission HEENT: Severely reduced carotid upstrokes His sclerae are anicteric. There were no carotid bruits. LUNGS: Clear to auscultation bilaterally no rales rhonchi or wheezing HEART: Regular, rate, and rhythm. No appreciable murmurs, rubs, or gallops ABDOMEN: Soft, mildly distended. Positive bowel sounds, nontender. EXTREMITIES: No clubbing or cyanosis. No edema of the left leg. Mild lower tibial edema of the right leg. PSYCHIATRIC: Appeared normal for him. IMPRESSION: 1. Acute on chronic systolic heart failure. 2. Acute respiratory distress with a history of flash pulmonary edema this admission. 3. Extensive LAD wall motion abnormality with anterior myocardial infarction 06/2018. 4. Prior inferior and inferolateral myocardial infarction. 5. Chronic kidney disease. 6. Left bundle-branch block. In discussion with interventional cardiology the plan tomorrow is for cardiac catheterization. I discussed the risks and benefits of cardiac catheterization. Risks including but not limited to bleeding or infection at the puncture site, damage to his femoral or radial artery, and one in the thousand risk of heart attack stroke or dying with the procedure. We also discussed the risk of acute renal failure. We also discussed the risk of flash pulmonary edema with the use of contrast. He wishes to consider catheterization to define his coronary anatomy and help with further treatment options. He likely will have left main or triple vessel disease. As previously discussed he is not a bypass surgery candidate. If there is not a lesion that is easily amenable to angioplasty and stenting we will continue with medical therapy. He diuresed a liter again over the last 24 hours. We will hold his morning diuretics before the catheterization. We will then transition him to oral diuretics. His creatinine is stable this morning and is back to normal. As an outpatient the plan will be to up titrate his Entresto as his blood pressure allows. He will be n.p.o. after midnight with the exception of his medications and sips of ice chips. _ (1) Hypertension Hypertension type: essential hypertension Qualified Code(s): I10 - Essential (primary) hypertension
[2018-07-27] MEDS ORDERED: ENOXAPARIN INJ 40 MG/0.4 ML SYR SQ ONE (13:15)
[2018-07-27] MEDS: ISOSORBIDE MONO EXTENDED REL 30 MG TABCR PO SCH (20:26)
[2018-07-28] MEDS: LEVOTHYROXINE SODIUM 75 MCG TABLET PO SCH (05:47)
[2018-07-28 06:33] LABS: BUN Creatinine Ratio 15.4 (10-20); Calcium 8.3 mg/dl (8.5-10.1); Creatinine Clr Calc Pharmacy 41.5 ml/min; Est GFR (African American) 58.1; Est GFR (Non-African American) 50.1; Magnesium 2.2 mg/dl (1.8-2.4)
--- NOTE | 2018-07-28 08:48 | Cardiology Progress Note ---
Date of Service July 28, 2018 He feels well this morning. He denies any chest pain, chest pressure, or shortness of breath. He has been up to the bathroom without any dyspnea. He has no lower extremity edema this morning. He is able to take a deep breath without feeling any tightness in his chest. There is no heaviness or pressure. He did watch a video with regards to the cardiac catheterization. He had additional questions this morning which I answered in detail. He is negative approximately another liter of fluid. We are starting to see a bump in his creatinine. Assessment & Plan (1) Flash pulmonary edema: acute decompensated HF /flash pulmonary edema occurring 07/21 - improved with IV Lasix, diuresing well, improved UO - LE edema improved - Weight continue to trend down - Continue IV diuresis - Continue entresto Spironolactone - appreciate recommendation from Cardiology (2) NSTEMI (non-ST elevated myocardial infarction): history of NSTEMI with new LBBB seen 06/29, reduced EF 30-35%, pt declined cardiac cath at time denies chest pain, troponin peaked 08/02 and subsequently trended down 07/25 Per Cardiology, planning diagnostic cath on 07/28, patient agrees Continue Aldactone, Imdur, Crestor, and Entresto. Continuing ASA, plavix, coreg (3) CKD (chronic kidney disease) stage 3, GFR 30-59 ml/min: Cr within baseline range peaked at 1.71 on 07/22 MERISSA on CKD improved with diuresis (4) Chronic systolic CHF (congestive heart failure): Management as above (5) CAD (coronary artery disease): Admitted 06/26- eith NSTEMI, LBBB, found to have LAD infarct, no cath performed Cardiology reccs appreciated Diagnostic Cath planned for Saturday 07/28 to evaluate extent of disease Continue antihypertensives , Continue statin, ASA, nitrate, Plavix Physical Exam 2 Vital Signs (Past 24 Hours): Last Vital Signs Temp 36.6 C 07/28/18 07:49 Pulse 65 07/28/18 07:49 Resp 20 07/28/18 07:49 BP 136/62 07/28/18 07:49 Pulse Ox 94 07/28/18 07:49 PHYSICAL EXAMINATION: GENERAL: He is awake, alert, oriented x3. He looks significantly better since his admission HEENT: Severely reduced carotid upstrokes His sclerae are anicteric. There were no carotid bruits. LUNGS: Clear to auscultation bilaterally no rales rhonchi or wheezing HEART: Regular, rate, and rhythm. No appreciable murmurs, rubs, or gallops ABDOMEN: Soft, mildly distended. Positive bowel sounds, nontender. EXTREMITIES: No clubbing or cyanosis. No edema of the left leg. Mild lower tibial edema of the right leg. PSYCHIATRIC: Appeared normal for him. IMPRESSION: 1. Acute on chronic systolic heart failure. 2. Acute respiratory distress with a history of flash pulmonary edema this admission. 3. Extensive LAD wall motion abnormality with anterior myocardial infarction 06/2018. 4. Prior inferior and inferolateral myocardial infarction. 5. Chronic kidney disease. 6. Left bundle-branch block. The plan today is for cardiac catheterization. The risks and benefits of the procedure were discussed with Christian and his daughter. I would hold off on diuretics today given the dye will receive for the catheterization. Tomorrow I would start furosemide 40 mg p.o. daily. He has enough blood pressure room as an outpatient up titrate his Entresto as well as his Imdur. Given his heart rate there is not a lot of room to increase his beta-blockers. Based on the results of the catheterization will determine whether medical therapy is his only option. As previously discussed I would not recommend bypass surgery at his age.
[2018-07-28] MEDS: ISOSORBIDE MONO EXTENDED REL 60 MG TABCR PO SCH (09:02)
[2018-07-28] MEDS: CLOPIDOGREL BISULFATE 75 MG TAB PO SCH (09:02)
[2018-07-28] MEDS: ROSUVASTATIN CALCIUM 20 MG TAB PO SCH (09:02)
[2018-07-28] MEDS: ASPIRIN 81 MG ECTAB PO SCH (09:03)
[2018-07-28] MEDS: SPIRONOLACTONE 25 MG TAB PO SCH (09:03)
[2018-07-28] MEDS: CARVEDILOL 12.5 MG TAB PO SCH ×2 (09:03→20:21)
[2018-07-28] MEDS: SACUBITRIL-VALSARTAN 49/51 MG TAB PO SCH ×2 (09:03→20:22)
[2018-07-28] MEDS: cephALEXin 500 MG CAP PO SCH ×2 (09:03→20:22)
[2018-07-28] MEDS ORDERED: HEPARIN (PORCINE) 1000 UNIT/ML 10 ML (CATH LAB USE ONLY) ONE (10:55)
[2018-07-28] MEDS ORDERED: NiCARDipine HCL INJ 2.5 MG/ML 10 ML AMP ONE (10:55)
[2018-07-28] MEDS ORDERED: MIDAZOLAM HCL 1 MG/ML 2ML VIAL ONE (10:55)
[2018-07-28] MEDS ORDERED: LIDOCAINE HCL 1% 20 ML VIAL ONE (10:55)
[2018-07-28] MEDS ORDERED: fentaNYL citrate 100 MCG/2 ML VIAL ONE (10:55)
[2018-07-28] MEDS ORDERED: NITROGLYCERIN/D5W 100MCG/ML 20ML SYR ONE (10:55)
[2018-07-28] MEDS ORDERED: ONDANSETRON INJ 2 MG/ML 2 ML VIAL IV PRN (13:32)
[2018-07-28] MEDS ORDERED: SODIUM CHLORIDE 0.9% 1000ML 1,000 ML IV SCH (13:45)
--- NOTE | 2018-07-28 16:39 | Pre Anesthesia Assessment ---
Date of Service July 28, 2018 Pre Sedation Assessment Vital Signs Temp Pulse Pulse Pulse Resp BP BP 07/28/18 16:00 36.8 C 72 18 147/58 H 07/28/18 15:48 36.8 C 65 16 147/85 H 07/28/18 14:48 64 16 148/85 H 07/28/18 14:18 60 16 151/92 H 07/28/18 13:48 61 16 151/87 H 07/28/18 12:45 59 L 16 143/72 H 07/28/18 12:30 58 L 16 157/93 H 07/28/18 12:15 36.8 C 60 16 153/94 H 07/28/18 08:00 68 07/28/18 07:49 36.6 C 65 20 136/62 07/28/18 06:37 37.0 C 66 18 151/66 H 07/28/18 05:09 36.7 C 67 18 161/72 H 07/28/18 00:00 67 07/27/18 23:50 36.9 C 67 16 134/50 L 07/27/18 19:53 36.7 C 64 18 130/57 L Pulse Ox 07/28/18 16:00 97 07/28/18 15:48 07/28/18 14:48 07/28/18 14:18 96 07/28/18 13:48 96 07/28/18 12:45 94 07/28/18 12:30 07/28/18 12:15 93 07/28/18 08:00 07/28/18 07:49 94 07/28/18 06:37 95 07/28/18 05:09 95 07/28/18 00:00 07/27/18 23:50 96 07/27/18 19:53 97 Cardiovascular RRR, no murmur, no edema Respiratory normal respiratory effort, lungs clear to auscultation Pre-Sedation Airway Assessment Smoking Status: Former smoker Hx Sleep Apnea: No Short, Thick Neck: No Thyromental Distance: > or= 3.5 Finger Breadths Oral Cavity: + WNL Mallampati Class: III ASA: ASA3 NPO Status Date of Last Intake of Fluids: 07/28/18 Time of Last Intake of Fluids: 08:00 Last Oral Intake of Fluids Comment: sips with meds Date of Last Intake of Solid Food: 07/27/18 Procedure Planning Contraindications for Sedation: none Current Medications Reviewed: Yes Notes The planned sedation has been discussed with the patient. Informed Consent was obtained. I have identified the patient, determined the appropriateness of sedation and have assessed the patient immediately prior to the procedure. All medicine(s) and interventions are by my order.
--- NOTE | 2018-07-28 16:40 | Post Anesthesia Assessment ---
Date of Service July 28, 2018 Post Sedation Assessment Vital Signs Temp Pulse Pulse Pulse Resp BP BP 07/28/18 16:00 36.8 C 72 18 147/58 H 07/28/18 15:48 36.8 C 65 16 147/85 H 07/28/18 14:48 64 16 148/85 H 07/28/18 14:18 60 16 151/92 H 07/28/18 13:48 61 16 151/87 H 07/28/18 12:45 59 L 16 143/72 H 07/28/18 12:30 58 L 16 157/93 H 07/28/18 12:15 36.8 C 60 16 153/94 H 07/28/18 08:00 68 07/28/18 07:49 36.6 C 65 20 136/62 07/28/18 06:37 37.0 C 66 18 151/66 H 07/28/18 05:09 36.7 C 67 18 161/72 H 07/28/18 00:00 67 07/27/18 23:50 36.9 C 67 16 134/50 L 07/27/18 19:53 36.7 C 64 18 130/57 L Pulse Ox 07/28/18 16:00 97 07/28/18 15:48 07/28/18 14:48 07/28/18 14:18 96 07/28/18 13:48 96 07/28/18 12:45 94 07/28/18 12:30 07/28/18 12:15 93 07/28/18 08:00 07/28/18 07:49 94 07/28/18 06:37 95 07/28/18 05:09 95 07/28/18 00:00 07/27/18 23:50 96 07/27/18 19:53 97 Recovery Score Activity: Moves 4 extremities Respiration: Deep Breath/Cough Circulation: +/-20% PreAnes Value Consciousness: Fully Awake Oxygen Saturation: O2 needed for >90% Discharge Sedation Level of Care: Fast Track Phase II Post Sedation Plan On clinical assessment, the patient appears to have tolerated the sedation without complications. Patient is recovering as anticipated. Patient will continue to be monitored by nursing and may be discharged when sedation discharge criteria are met per below protocol. Upon Completions of procedure and additional 15 minutes continue every 5 minute vital signs and the P.A.R. score; then discharge to a Phase I or Fast Track to Phase II per the following guidelines: * Discharge Patient to appropriate Phase II area if PAR is 8 or greater or return to pre- procedure baseline. The post - procedure orders will be as directed. * If PAR score is less than 8 or not return to pre-procedure baseline then patient will follow Phase I monitoring till PAR is reached for Phase II. The Phase I may be done in procedure room or may call to secure a Phase I area. * If naloxone or flumazenil are used for reversal, hold in Phase I for continued monitoring from when last reversal dose was given for a minimum of 60 minutes or longer pending the nurse and/or physician discretion of patient condition before discharge to Phase II. Please call the Sedation Physician to re-evaluate and complete post-note for discharge to Phase II area. Do NOT discharge from procedure sedation or Phase 1 until post- sedation evaluation note is complete by procedure /sedation MD Sedation Discharge Instructions to be given to the patient at discharge to home.
--- NOTE | 2018-07-28 16:41 | Cardiac Catheterization ---
Cardiac Cath Procedure Full Procedure Date July 28, 2018 Pre-Procedure Diagnosis Pre-Procedure Diagnosis: Non STEMI and Cardiomyopathy AUC Score AUC Score: 7 Post-Procedure Diagnosis Post-Procedure Diagnosis: Severe CAD and Normal Intracardiac Pressures Procedure(s) Performed Procedure(s) Performed: Coronary Angiography and Left Heart Cath Receptionist Nurse Nathaniel Eli MD Office Helper(s) Cecelia Estimated Blood Loss Estimated Blood Loss: 5 Medication(s) Medication(s): Fentanyl, Heparin, Lidocaine 1%, Nicardipine, Nitroglycerin and Versed Summary of Findings Indication: Heart failure, cardiomyopathy, elevated troponin Access: 6 Serbian right radial artery Catheters: Sidney, JL 3.5 Findings: LM -left main heavily calcified, 20% ostial stenosis with waveform dampening with catheter engagement, 30% distal stenosis at bifurcation. LAD -40-50% ostial stenosis, diffuse mild calcified proximal to mid disease, moderate caliber first diagonal occluded proximally (potentially acute). Mid to distal LAD with mild diffuse disease. Circumflex -large caliber vessel with 30% ostial stenosis, 40-50% mid segment stenosis prior to takeoff of large OM 2. High OM1 and OM 2 without significant disease RCA -dominant vessel, diffuse proximal through mid moderate severe disease, 95% distal RCA stenosis with SONG I flow antegrade flow. Distal vessels also filled via left to right collaterals LVEDP -14 Arterial Closure: TR band Summary: 1. Severe multi vessel coronary artery disease -Moderate to severe diffuse proximal to mid RCA with 95% distal stenosis. PDA/ PLB's filled via left to right collaterals 40-50% ostial LAD. Moderate caliber first diagonal occluded (potential acute culprit). 40-50% mid circumflex 2. Normal intracardiac filling pressure Recommendations: Patient does have severe RCA disease but with potentially infarcted inferior wall and now left to right collaterals. No other discrete focal lesions except for branch vessel disease involving diagonal. Any potential intervention would be elevated risk for limited potential benefit and recommend continued medical management of his coronary artery disease per Dr. Flaherty. Hemodynamics Rest Ao:: 122/36/71 Final Ao: 139/46/79 LV: 129/14 Recommendations Recommendations: Medical Therapy and/or Counseling Specimens Specimens: None Radiation Exposure (mGy) 1468 Contrast (mls) 70 Fluids (cc crystalloids) Fluids (cc crystalloids): 12 Drains Drains: None Anesthesia Moderate Procedural Complication(s) None Disposition PCU ACC Data: [employer] Cardiac Status Clinical evaluation leading to the procedure CAD Presenation: Non STEMI Anginal Classification: CCS IV Heart Failure: NYHA Class: CCS IV Cardiogenic Shock within 24 Hours: No Cardiac Arrest within 24 Hours: No Imaging Studies Past 6 Months: Yes Stress Studies Past 6 Months: No Diagnostic Physicians Name: Nathaniel Eli MD Status: Elective Closure Device Percutaneous Entry Location: Radial Closure Device: Radial Band Recommendations: Medical Therapy and/or Counseling Intraprocedure Events Significant Disection: No Perforation: No
--- NOTE | 2018-07-28 16:52 | Cardiology Consultation ---
Date of Consultation July 28, 2018 Assessment & Plan (1) NSTEMI (non-ST elevated myocardial infarction): Patient with severe LV dysfunction and recurrent acute on chronic heart failure, now euvolemic post diuresis. Patient had endorsed some intermittent chest discomfort and troponin again elevated to 10 during admission. During prior admission in June troponin to greater than 120s. With recurrent heart failure admissions concern for high-grade lesions prompting decompensation. Discussed with Dr. Flaherty and reasonable to proceed with cardiac catheterization to evaluate for high risk disease potentially amenable to PCI. No apparent contraindications to proceeding with procedure. Plan to perform via right radial artery. History of Present Illness Attending Physician: Bladimir Bar, History of Present Illness Mr. Munson is a very pleasant 88-year-old man with a history of ischemic heart myopathy, EF 30-35% with extensive LAD wall motion abnormality, prior NSTEMI managed medically in June 2018, stage III chronic kidney disease, hypertension, dyslipidemia, left bundle branch block who was admitted 5 days ago in the setting of acute on chronic systolic heart failure. Patient endorsed some mild chest heaviness intermittently and troponin peaked at 10.5. Of note during admission in June 2018 troponin up to 128. During current admission patient's been treated with IV diuretics and is -4 L, down 7 kg. Respiratory status improved. Renal function stable. Repeat echocardiogram again showed severe LV dysfunction with EF of 25-30% with akinesis mid to distal inferior mid inferolateral wall and akinetic distal anterior distal anterior lateral limits. Patient followed by Dr. Flaherty for his cardiac care. Interventional cardiology consulted for cardiac catheterization assessment. Allergies Allergy/AdvReac Type Severity Reaction Status Date / Time latex Allergy Intermediate HIVES - Verified 06/25/18 16:07 red itchy skin morphine Allergy Intermediate Itchiness Verified 07/15/18 16:20 Penicillins Allergy Unknown Unknown Verified 07/15/18 16:20 Home Medications Home Medications Medication Instructions Recorded Confirmed Type Nigella Sativa Oil 2,000 mg PO DIRECTED 06/25/18 07/15/18 History Pectasol Detox Formula 1 dose PO DIRECTED 06/25/18 07/15/18 History isosorbide mononitrate 30 mg PO QAM 06/25/18 07/15/18 History levothyroxine 75 mcg PO QAM 06/25/18 07/15/18 History aspirin 81 mg PO QAM #30 tab 06/29/18 07/15/18 Rx clopidogrel 75 mg PO QAM #30 tab 06/29/18 07/15/18 Rx rosuvastatin [Crestor] 10 mg PO QAM #30 tab 06/29/18 07/15/18 Rx sacubitril-valsartan [Entresto] 1 tab PO BID #60 tab 06/29/18 07/15/18 Rx furosemide [Lasix] 20 mg PO DAILY PRN 07/15/18 07/15/18 History spironolactone 12.5 mg PO 3XWK 07/15/18 07/15/18 History carvedilol 12.5 mg PO BID 30 Days #60 tab 07/21/18 Rx cephalexin 500 mg PO BID 28 Days #56 cap 07/21/18 Rx cephalexin 500 mg PO BID 28 Days #56 cap 07/22/18 Rx Patient History Medical History Acid reflux (Acute 07/20/14) Hypothyroidism LV dysfunction Silent myocardial infarction Systolic CHF Surgical History History of appendectomy History of hip replacement Social History Current Living Situation: Spouse Current Living Situation Comment: [facility] for home care. Other Information That Helps Us Care for You: No Feels Safe at Home: Yes Safety Concerns: Feels Safe At This Time Smoking Status: Former smoker Tobacco Type: cigarettes Do You Dip or Chew Tobacco: No Second Hand Exposure: No Tobacco Cessation Education Requested by Patient: No Hx Alcohol Use: Yes Alcohol type: beer Alcohol Intake Frequency: 0-2 drinks per day Hx Substance Use: No Beliefs That Will Affect Care: None Communication Ability: Effective Physical Exam 2 Vital Signs (Past 24 Hours): Last Vital Signs Temp 36.8 C 07/28/18 16:00 Pulse 72 07/28/18 16:00 Resp 18 07/28/18 16:00 BP 147/58 H 07/28/18 16:00 Pulse Ox 97 07/28/18 16:00 Physical Exam: General: Comfortable, no acute distress Eyes: Sclerae anicteric, extraocular movements intact HENT: Oropharynx clear mucous membranes moist Neck: Normal carotid upstrokes, no bruits. No JVD. Lungs: Clear to auscultation bilaterally, no rhonchi or wheezes Cardiac: Regular rate and rhythm, no murmurs, rubs or gallops. Vascular: 2+ radial, DP and PT pulses. No varicosities. Abdomen: Soft, nontender, nondistended, positive bowel sounds. Extremities: Well perfused, no peripheral edema Skin: No rashes or lesions. Neuro: Nonfocal Psych: Alert orient x3, normal affect and mood
[2018-07-28] MEDS: ISOSORBIDE MONO EXTENDED REL 30 MG TABCR PO SCH (20:21)
--- NOTE | 2018-07-28 22:14 | Hospitalist Progress Note ---
Date of Service July 28, 2018 Assessment & Plan (1) Leg erythema: Most likely residual inflammation from cellulitis which has resolved. She continues on Keflex which can be continued for a short period. Outpatient dermatology follow-up in case a biopsy is needed. (2) Flash pulmonary edema: This appears to be related to his coronary artery disease. Ongoing med management He has been clear for almost a week now We will increase his activity, and follow for tolerance, certainly given how brittle his pulmonary edema was, we want to see a good deal of activity for several days before it is clear he would be safe to go home. Even then will definitely want to have plans for acute intervention and management should he decompensate. (3) NSTEMI (non-ST elevated myocardial infarction): Continue medication management as above otherwise. (4) CKD (chronic kidney disease) stage 3, GFR 30-59 ml/min: Cr at baseline peaked at 1.71 on 07/22 MERISSA on CKD improved with diuresis Continue to follow (5) Hypertension: Continue current medications (6) Hyperlipidemia: Continue Crestor (7) Hypothyroidism: Continue Synthroid (8) Chronic systolic CHF (congestive heart failure): See above under pulmonary edema (9) CAD (coronary artery disease): Admitted 06/26- eith NSTEMI, LBBB, found to have LAD infarct, no cath performed Cardiology reccs appreciated Diagnostic Cath planned for Saturday 07/28 to evaluate extent of disease Continue antihypertensives , Continue statin, ASA, nitrate, Plavix Otherwise as above (10) Anemia: Follow no evidence of active bleed (11) DVT prophylaxis: Lovenox (12) Hematuria: Resolved Subjective Patient seen post cath. He is feeling well, but he seems to be a bit giddy, as he is happy about what he was told of the results of his cast, and still seems to be a bit under the influence of the sedation. He denies any chest pain or shortness of breath, full HPI somewhat difficult to ascertain, but appears to be that there is no other meaningful HPI or review of systems Review of Systems All systems reviewed & are unremarkable except as noted in HPI & below Physical Exam 2 Vital Signs (Past 24 Hours): Last Vital Signs Temp 36.5 C 07/28/18 20:00 Pulse 67 07/28/18 20:00 Resp 18 07/28/18 20:00 BP 146/62 H 07/28/18 20:00 Pulse Ox 95 07/28/18 20:00 Physical Exam: In general he is awake and alert but somewhat giddy appearing to be a little bit "under the influence" of his sedation. HEENT normocephalic atraumatic mucous membranes are moist. Lungs are unlabored no accessory muscle use he is off of oxygen, good effort. Skin shows no rashes, no pallor, no icterus. Results & Data Diagnostic Findings Cardiac catheter results noted. _ (1) Hypertension Hypertension type: essential hypertension Qualified Code(s): I10 - Essential (primary) hypertension
[2018-07-29] MEDS: LEVOTHYROXINE SODIUM 75 MCG TABLET PO SCH (06:00)
[2018-07-29 06:49] LABS: BUN Creatinine Ratio 15.5 (10-20); Calcium 8.5 mg/dl (8.5-10.1); Creatinine Clr Calc Pharmacy 47.9 ml/min; Est GFR (African American) 69.1; Est GFR (Non-African American) 59.6; Magnesium 2.1 mg/dl (1.8-2.4); Potassium 3.8 mmol/L (3.5-5.1)
--- NOTE | 2018-07-29 08:55 | Cardiology Progress Note ---
Date of Service July 29, 2018 Physical Exam 2 Vital Signs (Past 24 Hours): Last Vital Signs Temp 36.8 C 07/29/18 08:00 Pulse 76 07/29/18 08:00 Resp 18 07/29/18 08:00 BP 146/63 H 07/29/18 08:00 Pulse Ox 98 07/29/18 08:00 PHYSICAL EXAMINATION: GENERAL: He is awake, alert, oriented x3. He looks significantly better since his admission HEENT: Severely reduced carotid upstrokes His sclerae are anicteric. There were no carotid bruits. LUNGS: Clear to auscultation bilaterally no rales rhonchi or wheezing HEART: Regular, rate, and rhythm. No appreciable murmurs, rubs, or gallops ABDOMEN: Soft, mildly distended. Positive bowel sounds, nontender. EXTREMITIES: No clubbing or cyanosis. brisk right radial pulse, hand warm to touch PSYCHIATRIC: Appeared normal for him. Cath Findings: LM -left main heavily calcified, 20% ostial stenosis with waveform dampening with catheter engagement, 30% distal stenosis at bifurcation. LAD -40-50% ostial stenosis, diffuse mild calcified proximal to mid disease, moderate caliber first diagonal occluded proximally (potentially acute). Mid to distal LAD with mild diffuse disease. Circumflex -large caliber vessel with 30% ostial stenosis, 40-50% mid segment stenosis prior to takeoff of large OM 2. High OM1 and OM 2 without significant disease RCA -dominant vessel, diffuse proximal through mid moderate severe disease, 95% distal RCA stenosis with SONG I flow antegrade flow. Distal vessels also filled via left to right collaterals LVEDP -14 IMPRESSION: 1. Acute on chronic systolic heart failure. 2. Acute respiratory distress with a history of flash pulmonary edema this admission. 3. Extensive LAD wall motion abnormality with anterior myocardial infarction 06/2018. 4. Prior inferior and inferolateral myocardial infarction. 5. Chronic kidney disease. 6. Left bundle-branch block. 7. Cardiac catheterization 07/28, totally occluded distal RCA with occlusion of a moderate size diagonal branch which is likely the culprit with moderate LAD and circumflex disease for medical therapy From my standpoint he can be discharged home. I would increase his Imdur to 60 mg twice daily. We will see him in the office in a week to 10 days. At that point if his creatinine is stable we can double his Entresto to the max dose. We will restart his Lasix 40 mg daily. He will need a BMP in a week. I did explain to him in detail that the coronary disease he has we will treat with medicine. His LAD and circumflex disease is not significant enough to consider angioplasty and stenting especially in the fact that he has diffuse disease. He will need to follow a low-salt diet and daily weights.
[2018-07-29] MEDS: cephALEXin 500 MG CAP PO SCH ×2 (09:33→20:55)
[2018-07-29] MEDS: SACUBITRIL-VALSARTAN 49/51 MG TAB PO SCH ×2 (09:35→20:54)
[2018-07-29] MEDS: ISOSORBIDE MONO EXTENDED REL 60 MG TABCR PO SCH (09:35)
[2018-07-29] MEDS: CLOPIDOGREL BISULFATE 75 MG TAB PO SCH (09:35)
[2018-07-29] MEDS: ASPIRIN 81 MG ECTAB PO SCH (09:35)
[2018-07-29] MEDS: ROSUVASTATIN CALCIUM 20 MG TAB PO SCH (09:36)
[2018-07-29] MEDS: CARVEDILOL 12.5 MG TAB PO SCH ×2 (09:36→20:54)
[2018-07-29] MEDS: SPIRONOLACTONE 25 MG TAB PO SCH (09:40)
[2018-07-29] MEDS ORDERED: CONSULT PHARMACY STA (16:43)
--- NOTE | 2018-07-29 18:06 | Hospitalist Progress Note ---
Date of Service July 29, 2018 Assessment & Plan (1) Leg erythema: Most likely residual inflammation from cellulitis which has resolved. he continues on Keflex which can be continued for a short period, the complexity being that it took a long time for the erythema resolved, however it may not involve an infectious. Probably treat for another 3-5 days and then stop with close follow-up. Outpatient dermatology follow-up in case a biopsy is needed. (2) Flash pulmonary edema: This appears to be related to his coronary artery disease and underlying cardiomyopathy. Fortunately his coronary disease is not as end-stage is suspected. Ongoing med management including escalating Entresto to maximum dosing, follow his BUN and creatinine. He has been clear for almost a week now We will increase his activity, and follow for tolerance, if he is able to walk around well hopefully we can get him home with close outpatient follow-up tomorrow. Even then will definitely want to have plans for acute intervention and management should he decompensate. (3) NSTEMI (non-ST elevated myocardial infarction): Continue medication management as above otherwise. (4) CKD (chronic kidney disease) stage 3, GFR 30-59 ml/min: Cr at baseline peaked at 1.71 on 07/22 MERISSA on CKD improved with diuresis Continue to follow, but this has been stable. (5) Hypertension: Continue current medications numbers overall acceptable. (6) Hyperlipidemia: Continue Crestor (7) Hypothyroidism: Continue Synthroid (8) Chronic systolic CHF (congestive heart failure): See above under pulmonary edema (9) CAD (coronary artery disease): See above. (10) Anemia: Follow no evidence of active bleed (11) DVT prophylaxis: Lovenox (12) Hematuria: Resolved (13) Discharge planning issues: Subjective He continues to feel well. He has no shortness of breath. No chest pain. His leg overall feels better He has no current complaints otherwise Review of Systems All systems reviewed & are unremarkable except as noted in HPI & below Physical Exam 2 Vital Signs (Past 24 Hours): Last Vital Signs Temp 36.5 C 07/29/18 15:40 Pulse 66 07/29/18 16:00 Resp 18 07/29/18 15:40 BP 147/73 H 07/29/18 15:40 Pulse Ox 97 07/29/18 15:40 Physical Exam: General he is awake alert oriented x3, no acute distress. HEENT normal cephalic atraumatic mucous members are moist. Cardio is regular without rubs murmurs or gallops. Lungs clear to auscultation bilaterally no rales rhonchi or wheezes with good effort. No accessory muscle use. Skin shows no rashes no pallor or icterus. His right lower extremity erythema is all but resolved. There is a bit of a chronic venous stasis-like change and thickening to the skin. _ (1) Hypertension Hypertension type: essential hypertension Qualified Code(s): I10 - Essential (primary) hypertension
[2018-07-29] MEDS: SACUBITRIL-VALSARTAN 24-26 MG TAB PO SCH (20:54)
[2018-07-29] MEDS ORDERED: ISOSORBIDE MONO EXTENDED REL 60 MG TABCR PO SCH (21:00)
[2018-07-29] MEDS: ENOXAPARIN INJ 30 MG/0.3 ML SYR SQ SCH (22:28)
[2018-07-30] MEDS: LEVOTHYROXINE SODIUM 75 MCG TABLET PO SCH (04:51)
[2018-07-30 07:44] LABS: BUN Creatinine Ratio 18.3 (10-20); Calcium 8.4 mg/dl (8.5-10.1); Creatinine Clr Calc Pharmacy 40.6 ml/min; Est GFR (African American) 56.5; Est GFR (Non-African American) 48.7; Potassium 4.2 mmol/L (3.5-5.1)
[2018-07-30] MEDS: SACUBITRIL-VALSARTAN 49/51 MG TAB PO SCH (07:50)
[2018-07-30] MEDS: ISOSORBIDE MONO EXTENDED REL 60 MG TABCR PO SCH (07:50)
[2018-07-30] MEDS: cephALEXin 500 MG CAP PO SCH (07:50)
[2018-07-30] MEDS: SACUBITRIL-VALSARTAN 24-26 MG TAB PO SCH (07:50)
[2018-07-30] MEDS: SPIRONOLACTONE 25 MG TAB PO SCH (07:50)
[2018-07-30] MEDS: ROSUVASTATIN CALCIUM 20 MG TAB PO SCH (07:51)
[2018-07-30] MEDS: ASPIRIN 81 MG ECTAB PO SCH (07:51)
[2018-07-30] MEDS: CARVEDILOL 12.5 MG TAB PO SCH (07:51)
[2018-07-30] MEDS: CLOPIDOGREL BISULFATE 75 MG TAB PO SCH (07:51)
--- NOTE | 2018-07-30 14:43 | Discharge Summary ---
Date of Service July 30, 2018 Admission HPI Per Admitting Provider 80-year-old male was transferred from his primary care office with concerns for ongoing cellulitis. Patient says he first noticed a small rash on his right lower leg around mid June during his hospitalization for an ME. Since that time he says the area has slowly and progressively increased in size and erythema. He also says the underlying edema has similarly slowly increased. He does not think the area is particularly painful, including with directly touching or movement of his ankle. He denies any previous history of the same. He denies any known fevers, bites, numbness or tingling in the area, similar rashes elsewhere, or requiring any [id number] meds to treat it. He says that he routinely sees dermatology about every 6 months, last similar visit 6 months ago, due to his family history of melanoma. Says that last visit was unremarkable. Of note, during his June 2018 hospitalization he is found to have pansensitive group G strep in his blood. Since that time he has been on multiple antibiotics to include Keflex, ceftriaxone, doxycycline, and possibly most recently clindamycin. The patient is unsure which antibiotics and over time he has been on them. He also had a right lower extremity venous Doppler study in July was noted no DVT. A 15 July right ankle x-ray noted some mild soft tissue edema without acute bony abnormalities. Principal Diagnosis NSTEMI Discharge Exam Constitutional WD/WN, vitals as above Eyes EOM intact bilaterally; no conjunctival abnormality ENMT external ear and nose normal, oropharynx normal Neck trachea midline, no thyromegaly normal visual inspection Respiratory normal respiratory effort, lungs clear to auscultation no respiratory distress Cardiovascular RRR, no murmur, no edema Gastrointestinal (Abdomen) Inspection/Auscultation: abdomen normal to inspection; abdomen not distended Musculoskeletal no cyanosis or clubbing, extremities motor strength 5/5 Skin + mottling (Mild pinkness to posterior left heel) Neurologic moves all extremities and awake Psychiatric Orientation: alert, oriented to person and cooperative Discharge Data Allergies Allergy/AdvReac Type Severity Reaction Status Date / Time latex Allergy Intermediate HIVES - Verified 06/25/18 16:07 red itchy skin morphine Allergy Intermediate Itchiness Verified 07/15/18 16:20 Penicillins Allergy Unknown Unknown Verified 07/15/18 16:20 Consultations 07/20/18 16:51 Consult Infectious Diseases Routine 12/10/18 17:26 Consult Network/Telecom Engineer Routine 07/22/18 08:10 Consult Cardiology Routine 07/22/18 10:20 Consult Cardiology Routine 07/23/18 08:37 Consult Cardiology Routine 07/27/18 12:07 Consult Cardiac Catheterization Routine Procedures Performed Operation Date: 07/28/18 11:00 Actual Procedures p Cath, Left with Cors and Vent - Nathaniel Eli MD s Cineradiography w/Routine Exam(Not Applicable) - Nathaniel Eli MD Ordered Studies 07/18/18 18:36 US extremity nonvascular Routine 07/18/18 18:39 CT lower leg RT w con Routine 07/18/18 21:19 US venous doppler LE RT Stat 07/28/18 07:11 CL Cath Imgs for PACS use only Routine Hospital Course (1) Leg erythema: Most likely residual inflammation from cellulitis which has resolved. H was given 1 week of Keflex on discharge as ID had recommended a prolonged course. Outpatient dermatology follow-up in case a biopsy is needed. (2) Flash pulmonary edema: This appears to be related to his coronary artery disease and underlying cardiomyopathy. Fortunately his coronary disease is not as end-stage is suspected. Ongoing med management including increasing his Imdur to BID. His outpatient manager operational, Dr. Flaherty will increase Entresto as able. He has been clear for almost a week now. - By discharge, he was walking well with PT in the hallway with his walker. (3) NSTEMI (non-ST elevated myocardial infarction): Heart cath on 07/28 showed diffuse disease not amenable to stenting. Continue medication management as above. (4) CKD (chronic kidney disease) stage 3, GFR 30-59 ml/min: On discharge, Cr was 1.3; at baseline. Peaked at 1.71 on 07/22. Improved with diuresis. (5) Hypertension: Continue current medications numbers overall acceptable. (6) Hyperlipidemia: Continue Crestor (7) Hypothyroidism: Continue Synthroid (8) Chronic systolic CHF (congestive heart failure): See above under pulmonary edema (9) CAD (coronary artery disease): See above. (10) Anemia: Follow no evidence of active bleed (11) Hematuria: Possibly due to [place]. Will need re-testing of urine in 2-3 weeks to be sure it has resolved. If he continues to have hematuria, should see urology. Total Time Total Time Spent Total Time Spent (In Minutes): 40 Discharge Plan Discharge Items Patient Disposition: Home - Home Health Services Reason For Visit: RT LEG CELLULITIS Discharge Diagnosis: Right leg erythema and edema Discharge Goals: Decrease discomfort and Improve function Activity: Resume your previous activity Non-emergency contact: Primary Care Provider Call non-emergency contact if: you have any medication questions and your symptoms worsen Follow-up/Referrals: Bud España MD [Primary Care Provider] - 08/07/18 9:10 am (Please, follow up at Dr. España's office with his associate, Radha BERNAL , on August 07 at 9:10 am. *If you need to change this appointment, call the office at [phone].) Huber Flaherty DO [Physician] - 07/31/18 10:10 am (Please, follow up with Dr. Flaherty on July 31 at 10:10 am. *If you need to change this appointment, call the office at [phone].) Diet: Heart Healthy Addtl Provider Instructions: You were admitted to the hospital on 18 July 2018 for evaluation of your swelling and redness of your right leg. While in the hospital we evaluated the following issues: Right lower extremity edema and erythema: This was likely caused by cellulitis ( a skin bacterial infection). We had the infectious disease doctors speak with you and they recommended to go home on a prolonged course of antibiotics. Both the infectious disease doctors and your hospital doctors recommended that you be seen by a hydraulic rock drill operator as soon as possible for their evaluation and possible skin biopsy. - We ordered a prescription for an antibiotic called Keflex that you take twice a day for the next week. Heart attack: You also had evidence of a heart attack while you were in the hospital. You had a heart catheterization which showed plaques in the arteries of your heart, but they were spread out, and we were not able to treat the plaques with a stent because it was too widespread. With Dr. Flaherty's help, we adjusted your medication to try to prevent any more "angina" symptoms. You will need to see him in his office tomorrow to be sure you're doing well. Please follow-up with both dermatology and your primary care provider for ongoing evaluation of your leg. Please return to the nearest emergency department if you develop any fever, chills, uncontrolled pain, if you can no longer walk or bear weight on that leg, or with any other emergent concerns. Prescriptions: New carvedilol 12.5 mg Tablet 12.5 mg PO BID 30 Days Qty: 60 RF: 0 clopidogrel 75 mg Tablet 75 mg PO QAM Qty: 30 RF: 0 aspirin [Ecotrin Low Strength] 81 mg Tablet,Delayed Release (Dr/Ec) 81 mg PO QAM Qty: 0 RF: 0 spironolactone 25 mg Tablet 50 mg PO DAILY Qty: 30 RF: 0 levothyroxine [Synthroid] 75 mcg Tablet 75 mcg PO DAILYBB Qty: 30 RF: 0 isosorbide mononitrate 60 mg Tablet Extended Release 24 Hr 60 mg PO BID Qty: 60 RF: 0 sacubitril-valsartan [Entresto] 49-51 mg Tablet 1 tab PO BID Qty: 60 RF: 0 rosuvastatin [Crestor] 20 mg Tablet 20 mg PO QAM Qty: 30 RF: 0 cephalexin 500 mg capsule 500 mg PO BID Qty: 14 RF: 0 furosemide [Lasix] 20 mg tablet 20 mg PO DAILY PRN (Reason: Leg edema or weight gain > 3 pounds) Qty: 30 RF: 0 Continue isosorbide mononitrate 30 mg Tablet Extended Release 24 Hr 30 mg PO QAM RF: 0 levothyroxine 75 mcg Tablet 75 mcg PO QAM RF: 0 Nigella Sativa Oil 2,000 mg PO DIRECTED RF: 0 Pectasol Detox Formula 1 dose PO DIRECTED RF: 0 clopidogrel 75 mg Tablet 75 mg PO QAM Qty: 30 RF: 0 rosuvastatin [Crestor] 10 mg Tablet 10 mg PO QAM Qty: 30 RF: 0 sacubitril-valsartan [Entresto] 24-26 mg Tablet 1 tab PO BID Qty: 60 RF: 0 aspirin 81 mg Tablet,Chewable 81 mg PO QAM Qty: 30 RF: 0 spironolactone 25 mg tablet 12.5 mg PO 3XWK RF: 0 furosemide [Lasix] 20 mg tablet 20 mg PO DAILY PRN (Reason: Fluid Retention) RF: 0 Discontinued carvedilol 6.25 mg Tablet 6.25 mg PO BID Qty: 60 RF: 0 doxycycline hyclate 100 mg capsule 100 mg PO BID RF: 0 clindamycin HCl 300 mg capsule 300 mg PO TID 10 Days Qty: 30 RF: 0 Visit Report Forms: [facility] Stand-Alone Forms: [facility] Discharge Orders: Discharge Order (Routine); Ordered 07/30/18 Ordered By: William Andres Admission Data Admit Date/Time: 07/21/18 17:26 Attending Provider: William Andres Admit Provider: Ruthie Hare Primary Care Provider: Bud España Other Providers: Ruthie Hare ; Huber Flaherty ; Gregorio Fairchild ; Leana Post ; Bud Salas ; Nathaniel Eli Service: Medical Other Interventions: Discharge Summary Assessment (RN) Last Done: 07/30/18 12:36
== END 2018-07-30 16:22 | disposition home health service (06) | DRG 280 ==
LOC: SUATTDRO 17:52 → 3N 17:52 → INTOOBSV 17:52 → 1E 07-21 16:18 → SUATTDRO 07-21 17:26 → 2S 07-22 11:23 → 2W 07-29 19:24

== ENCOUNTER 2018-10-03 19:33 | Inpatient (IN) ==
--- NOTE | 2018-10-03 20:26 | XRay Report ---
XR chest 1V portable CLINICAL HISTORY: 88 years-old Male presenting with Dyspnea. TECHNIQUE: Portable semiupright AP view of the chest was obtained. COMPARISON: 07/23/2018. FINDINGS: Atherosclerosis of the aortic arch. Cardiac silhouette enlarged. Pulmonary vessel prominence. Central predominant hazy opacity with prominence of interstitial lung markings and bronchial wall cuffing. N o large effusion or pneumothorax. Degenerative changes of the thoracic spine. Degenerative changes of the glenohumeral joints. IMPRESSION: 1. Cardiomegaly with volume overload and mild to moderate pulmonary edema. Electronically signed by: Tree Cisse M.D. 10/03/2018 8:25 PM
--- NOTE | 2018-10-03 21:44 | Emergency Department Note ---
Entered by Cookie Frazier acting as a scribe for History of Present Illness General Chief complaint: Respiratory Distress Stated complaint: CAN'T BREATH Source: patient History of Present Illness Onset (ago): hour(s) 1 Location: chest Severity: similar to prior episodes Pain Consistency: + other (persistent ) Quality: + other (shortness of breath) Associated symptoms: + diaphoresis and + other (positive left arm pain; negative abdominal pain; negative leg swelling; ); no chest pain Treatments prior to arrival: other (nitro) The patient is a 88 year old male who presents to the Emergency Room with complaints of persistent shortness of breath that began about 1 hour prior to arrival. The patient states that he has pain down his left arm, but denies chest pain. The patient states that these symptoms are similar to prior episodes. The patient denies abdominal pain and leg swelling. The patient states that he is currently sweating. The patient states that he was not doing any strenuous exercise prior to the beginning of his symptoms. The patient denies feeling sick recently. The patient states that he is not on oxygen normally. The patient states that he took Nitro 1 hour prior to arrival. Per the patient's daughter, the patient had flash pulmonary edema 2 months ago. Home Medications Home Medications Medication Instructions Recorded Confirmed Type Nigella Sativa Oil 2,000 mg PO DIRECTED 06/25/18 10/03/18 History Pectasol Detox Formula 1 dose PO DIRECTED 06/25/18 10/03/18 History aspirin 81 mg PO QAM 10/03/18 10/03/18 History carvedilol 12.5 mg PO BID 10/03/18 10/03/18 History clopidogrel 75 mg PO QAM 10/03/18 10/03/18 History furosemide 20 mg PO DAILY PRN 10/03/18 10/03/18 History isosorbide mononitrate 60 mg PO BID 10/03/18 10/03/18 History levothyroxine 75 mcg PO QAM 10/03/18 10/03/18 History ykxlukvu-rga-DC-lycopen-lutein 1 tab PO QAM 10/03/18 10/03/18 History [Centrum Silver] nitroglycerin 0.6 mg SUBLINGUAL DIRECTED PRN 10/03/18 10/03/18 History rosuvastatin 20 mg PO QAM 10/03/18 10/03/18 History sacubitril-valsartan [Entresto] 1 tab PO BID 10/03/18 10/03/18 History Allergies Allergy/AdvReac Type Severity Reaction Status Date / Time latex Allergy Intermediate HIVES - Verified 06/25/18 16:07 red itchy skin morphine Allergy Intermediate Itchiness Verified 07/15/18 16:20 Penicillins Allergy Unknown Unknown Verified 07/15/18 16:20 Past Med/Surg History Social History Current Living Situation: Spouse Current Living Situation Comment: [facility] for home care. 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 and A total of 10 systems reviewed and were otherwise negative Physical Exam Vital Signs Vital Signs - 24 hr 10/03/18 19:39 10/03/18 20:11 10/03/18 20:27 Temperature Temperature Source Sepsis Recent Fever Within 48 Hours No Sepsis New/Unexplained Change in Mental Status No Sepsis Action Taken by Nursing No Action Required End-Tidal CO2 End Tidal CO2 (18-54mmHg) Pulse Rate 100 H 104 H 108 H Pulse Rate [Apical] 104 H Pulse Rate from SpO2 Sensor Pulse Rhythm Regular Pulse Strength Normal Respiratory Rate 30 H 30 H 28 H Respiratory Effort / Characteristics Labored Labored Spontaneous Accessory Muscle Use Labored Moaning Short of Breath Respiratory Depth Shallow Shallow Respiratory Pattern Rapid/Deep Rapid/Shallow Tachypnea Blood Pressure 133/76 Blood Pressure [Left Arm] Blood Pressure [Right Arm] Blood Pressure Mean 95 Blood Pressure Mean [Left Arm] Blood Pressure Mean [Right Arm] Blood Pressure Position Sitting Pulse Oximetry 79 L 92 94 Oxygen Delivery Method Room Air Oxymask Oxygen Flow Rate 6 Fraction of Inspired Oxygen 50 SaO2/FiO2 Ratio 10/03/18 21:50 10/03/18 21:58 10/03/18 22:00 Temperature Temperature Source Sepsis Recent Fever Within 48 Hours Sepsis New/Unexplained Change in Mental Status Sepsis Action Taken by Nursing End-Tidal CO2 43 42 End Tidal CO2 (18-54mmHg) Pulse Rate 98 H 97 H Pulse Rate [Apical] 111 H Pulse Rate from SpO2 Sensor 97 H Pulse Rhythm Pulse Strength Respiratory Rate 35 H 14 Respiratory Effort / Characteristics Respiratory Depth Respiratory Pattern Blood Pressure Blood Pressure [Left Arm] Blood Pressure [Right Arm] 136/98 Blood Pressure Mean Blood Pressure Mean [Left Arm] Blood Pressure Mean [Right Arm] 110 Blood Pressure Position Pulse Oximetry 87 L 95 95 Oxygen Delivery Method Oxymask Mechanical Vent Oxygen Flow Rate 15 Fraction of Inspired Oxygen 80 80 SaO2/FiO2 Ratio 10/03/18 22:03 10/03/18 22:10 10/03/18 22:14 Temperature Temperature Source Sepsis Recent Fever Within 48 Hours Sepsis New/Unexplained Change in Mental Status Sepsis Action Taken by Nursing End-Tidal CO2 43 36 42 End Tidal CO2 (18-54mmHg) 43 Pulse Rate 97 H 95 H 105 H Pulse Rate [Apical] 97 H Pulse Rate from SpO2 Sensor 97 H 96 H 107 H Pulse Rhythm Pulse Strength Respiratory Rate 14 Respiratory Effort / Characteristics Respiratory Depth Respiratory Pattern Blood Pressure 145/78 H 150/83 H Blood Pressure [Left Arm] Blood Pressure [Right Arm] 145/78 H Blood Pressure Mean 100 105 Blood Pressure Mean [Left Arm] Blood Pressure Mean [Right Arm] 100 Blood Pressure Position Pulse Oximetry 97 96 98 Oxygen Delivery Method Mechanical Vent Mechanical Vent Mechanical Vent Oxygen Flow Rate Fraction of Inspired Oxygen 80 80 80 SaO2/FiO2 Ratio 121 10/03/18 22:15 10/03/18 22:16 10/03/18 22:20 Temperature Temperature Source Sepsis Recent Fever Within 48 Hours Sepsis New/Unexplained Change in Mental Status Sepsis Action Taken by Nursing End-Tidal CO2 41 38 End Tidal CO2 (18-54mmHg) Pulse Rate 102 H 102 H 99 H Pulse Rate [Apical] Pulse Rate from SpO2 Sensor 102 H 100 H Pulse Rhythm Pulse Strength Respiratory Rate Respiratory Effort / Characteristics Respiratory Depth Respiratory Pattern Blood Pressure 142/79 H Blood Pressure [Left Arm] Blood Pressure [Right Arm] Blood Pressure Mean 100 Blood Pressure Mean [Left Arm] Blood Pressure Mean [Right Arm] Blood Pressure Position Pulse Oximetry 100 100 97 Oxygen Delivery Method Mechanical Vent Mechanical Vent Oxygen Flow Rate Fraction of Inspired Oxygen 50 80 80 SaO2/FiO2 Ratio 10/03/18 22:30 10/03/18 22:31 10/03/18 22:32 Temperature Temperature Source Sepsis Recent Fever Within 48 Hours Sepsis New/Unexplained Change in Mental Status Sepsis Action Taken by Nursing End-Tidal CO2 31 39 40 End Tidal CO2 (18-54mmHg) Pulse Rate 99 H 99 H 98 H Pulse Rate [Apical] Pulse Rate from SpO2 Sensor 99 H 101 H 99 H Pulse Rhythm Pulse Strength Respiratory Rate Respiratory Effort / Characteristics Respiratory Depth Respiratory Pattern Blood Pressure 126/68 Blood Pressure [Left Arm] Blood Pressure [Right Arm] Blood Pressure Mean 87 Blood Pressure Mean [Left Arm] Blood Pressure Mean [Right Arm] Blood Pressure Position Pulse Oximetry 88 L 88 L 87 L Oxygen Delivery Method Mechanical Vent Oxygen Flow Rate Fraction of Inspired Oxygen 80 SaO2/FiO2 Ratio 10/03/18 22:40 10/03/18 23:02 10/03/18 23:03 Temperature Temperature Source Sepsis Recent Fever Within 48 Hours Sepsis New/Unexplained Change in Mental Status Sepsis Action Taken by Nursing End-Tidal CO2 35 End Tidal CO2 (18-54mmHg) Pulse Rate Pulse Rate [Apical] Pulse Rate from SpO2 Sensor 96 H 93 H 91 H Pulse Rhythm Pulse Strength Respiratory Rate Respiratory Effort / Characteristics Respiratory Depth Respiratory Pattern Blood Pressure 131/72 Blood Pressure [Left Arm] Blood Pressure [Right Arm] Blood Pressure Mean 91 Blood Pressure Mean [Left Arm] Blood Pressure Mean [Right Arm] Blood Pressure Position Pulse Oximetry 97 97 97 Oxygen Delivery Method Mechanical Vent Mechanical Vent Oxygen Flow Rate Fraction of Inspired Oxygen 80 80 SaO2/FiO2 Ratio 10/03/18 23:04 10/03/18 23:10 10/03/18 23:16 Temperature Temperature Source Sepsis Recent Fever Within 48 Hours Sepsis New/Unexplained Change in Mental Status Sepsis Action Taken by Nursing End-Tidal CO2 End Tidal CO2 (18-54mmHg) Pulse Rate 91 H 90 Pulse Rate [Apical] 92 H Pulse Rate from SpO2 Sensor 91 H 90 Pulse Rhythm Pulse Strength Respiratory Rate Respiratory Effort / Characteristics Respiratory Depth Respiratory Pattern Blood Pressure 111/67 Blood Pressure [Left Arm] Blood Pressure [Right Arm] 131/72 Blood Pressure Mean 81 Blood Pressure Mean [Left Arm] Blood Pressure Mean [Right Arm] 91 Blood Pressure Position Pulse Oximetry 98 99 100 Oxygen Delivery Method Mechanical Vent Oxygen Flow Rate Fraction of Inspired Oxygen 80 SaO2/FiO2 Ratio 122 10/03/18 23:20 10/03/18 23:35 10/03/18 23:40 Temperature 36.4 C L Temperature Source Oral Sepsis Recent Fever Within 48 Hours Sepsis New/Unexplained Change in Mental Status Sepsis Action Taken by Nursing End-Tidal CO2 End Tidal CO2 (18-54mmHg) Pulse Rate 90 91 H Pulse Rate [Apical] 85 Pulse Rate from SpO2 Sensor 91 H 87 Pulse Rhythm Pulse Strength Respiratory Rate 16 Respiratory Effort / Characteristics Mechanically Ventilated Respiratory Depth Respiratory Pattern Blood Pressure 115/89 Blood Pressure [Left Arm] 115/89 Blood Pressure [Right Arm] Blood Pressure Mean 97 Blood Pressure Mean [Left Arm] 97 Blood Pressure Mean [Right Arm] Blood Pressure Position Pulse Oximetry 98 94 88 L Oxygen Delivery Method Mechanical Vent Mechanical Vent Oxygen Flow Rate Fraction of Inspired Oxygen 40 50 SaO2/FiO2 Ratio 235 10/03/18 23:52 10/04/18 00:00 10/04/18 00:16 Temperature Temperature Source Sepsis Recent Fever Within 48 Hours Sepsis New/Unexplained Change in Mental Status Sepsis Action Taken by Nursing End-Tidal CO2 34 35 End Tidal CO2 (18-54mmHg) Pulse Rate 103 H 81 81 Pulse Rate [Apical] Pulse Rate from SpO2 Sensor 81 81 Pulse Rhythm Pulse Strength Respiratory Rate 14 Respiratory Effort / Characteristics Respiratory Depth Respiratory Pattern Blood Pressure 96/52 L 126/69 Blood Pressure [Left Arm] Blood Pressure [Right Arm] Blood Pressure Mean 66 88 Blood Pressure Mean [Left Arm] Blood Pressure Mean [Right Arm] Blood Pressure Position Pulse Oximetry 98 93 99 Oxygen Delivery Method Mechanical Vent Mechanical Vent Oxygen Flow Rate Fraction of Inspired Oxygen 50 50 50 SaO2/FiO2 Ratio 10/04/18 00:27 10/04/18 00:28 10/04/18 00:30 Temperature Temperature Source Sepsis Recent Fever Within 48 Hours Sepsis New/Unexplained Change in Mental Status Sepsis Action Taken by Nursing End-Tidal CO2 35 36 End Tidal CO2 (18-54mmHg) Pulse Rate 103 H 83 Pulse Rate [Apical] Pulse Rate from SpO2 Sensor 84 Pulse Rhythm Pulse Strength Respiratory Rate 14 Respiratory Effort / Characteristics Mechanically Ventilated Respiratory Depth Normal Respiratory Pattern Regular Blood Pressure 111/67 127/70 Blood Pressure [Left Arm] Blood Pressure [Right Arm] Blood Pressure Mean 81 89 Blood Pressure Mean [Left Arm] Blood Pressure Mean [Right Arm] Blood Pressure Position Pulse Oximetry 100 Oxygen Delivery Method Mechanical Vent Mechanical Vent Mechanical Vent Oxygen Flow Rate Fraction of Inspired Oxygen 50 SaO2/FiO2 Ratio 10/04/18 00:45 Temperature Temperature Source Sepsis Recent Fever Within 48 Hours Sepsis New/Unexplained Change in Mental Status Sepsis Action Taken by Nursing End-Tidal CO2 34 End Tidal CO2 (18-54mmHg) Pulse Rate 81 Pulse Rate [Apical] Pulse Rate from SpO2 Sensor 80 Pulse Rhythm Pulse Strength Respiratory Rate Respiratory Effort / Characteristics Respiratory Depth Respiratory Pattern Blood Pressure 111/63 Blood Pressure [Left Arm] Blood Pressure [Right Arm] Blood Pressure Mean 79 Blood Pressure Mean [Left Arm] Blood Pressure Mean [Right Arm] Blood Pressure Position Pulse Oximetry 99 Oxygen Delivery Method Mechanical Vent Oxygen Flow Rate Fraction of Inspired Oxygen 45 SaO2/FiO2 Ratio GENERAL: Awake, alert, anxious-appearing HENT: Normocephalic, atraumatic. EYES: Normal conjunctiva. Sclera non-icteric. NECK: Supple. No nuchal rigidity. RESPIRATORY: Increased work of breathing. Diffuse crackles. CARDIAC: Tachycardic rate. Normal rhythm. Extremities warm and well perfused. GI: Soft, non-distended. No tenderness to palpation. No rebound or guarding. RECTAL: Deferred. MUSCULOSKELETAL: Atraumatic. Chest examination reveals no tenderness. LOWER EXTREMITIES: Calves are equal size bilaterally and non-tender. 1+ bilateral lower extremity edema. NEURO: Normal sensorium. No sensory or motor deficits noted. No facial droop. SKIN: Warm and dry. No jaundice noted. Slight mottling of the abdomen. Procedures Free Text Procedures Endotracheal Intubation Indication: respiratory failure The patient was on 100% oxygen via NRB prior to the procedure. Suction, airway equipment, RSI drugs, respiratory equipment, and appropriate personnel were prepared prior to the initiation of the procedure. A time out was taken. Induction was performed with 20 mg etomidate and succinylcholine 150 mg . After observing the clinical benefit of the medications, the airway was easily visualized utilizing a 4 glidescope. A 7.5 size ETT tube was placed atraumatically to 24 cm using standard technique. The cuff inflated without signs of malfunction. There were bilateral breath sounds, positive colormetric change, no gastric sounds, a good capnography waveform, and post procedure pulse oximetry was 90%. Post intubation sedation and paralysis was administered using propofol. There were no complications. Course 1953: Past medical records reviewed. The patient was evaluated in room B8, and a complete history and physical examination were performed. 2143: I discussed the case with Dr. Mayo[facility] Hospitalist who states that he will further evaluate the patient. Consultations Consultation #1: I discussed the case with Dr. Mayo-[facility] Hospitalist who states that he will further evaluate the patient. Time: 21:44 Administered Medications Propofol (Diprivan) 1,000 mg in 100 mls @ 2.64 mls/hr IV .Q24H PRN; Protocol PRN Reason: TITRATE Stop: 10/07/18 00:10 Last Admin: 10/04/18 01:50 Dose: 30 mcg/kg/min, 15.8 mls/hr Discontinued Medications Etomidate (Amidate) 20 mg IV NOW ONE Stop: 10/03/18 21:45 Last Admin: 10/03/18 21:59 Dose: Not Given Fentanyl Citrate (Fentanyl Citrate) 25 mcg IV NOW ONE Stop: 10/03/18 21:13 Last Admin: 10/03/18 21:30 Dose: 25 mcg Furosemide (Lasix) 40 mg IV NOW STA Stop: 10/03/18 20:02 Last Admin: 10/03/18 20:30 Dose: 40 mg Levofloxacin/Dextrose (Levaquin/D5w) 750 mg in 150 mls @ 100 mls/hr IV NOW STA Stop: 10/03/18 22:41 Last Infusion: 10/03/18 23:08 Dose: 0 mls/hr Admin: 10/03/18 21:38 Dose: 100 mls/hr Imipenem/Cilastatin Sodium 500 (mg/ Dextrose) 110 mls @ 100 mls/hr IV NOW STA Stop: 10/03/18 22:47 Last Infusion: 10/04/18 01:51 Dose: 0 mls/hr Admin: 10/03/18 23:08 Dose: 100 mls/hr Vancomycin HCl 1,750 mg/ (Sodium Chloride) 535 mls @ 200 mls/hr IV NOW ONE Stop: 10/04/18 00:22 Last Admin: 10/04/18 01:49 Dose: 200 mls/hr Miscellaneous () Confirm Administered Dose 1 ea .ROUTE .STK-MED ONE Stop: 10/03/18 21:39 Last Admin: 10/03/18 21:58 Dose: 1 ea Nitroglycerin (Nitrostat) 0.4 mg SL NOW STA Stop: 10/03/18 20:02 Last Admin: 10/03/18 22:02 Dose: Not Given Ondansetron HCl (Zofran) 4 mg IV NOW STA Stop: 10/03/18 21:09 Last Admin: 10/03/18 21:30 Dose: 4 mg Propofol (Diprivan) Confirm Administered Dose 1,000 mg IV .STK-MED ONE Stop: 10/03/18 21:58 Last Admin: 10/03/18 22:15 Dose: 10 mg Succinylcholine Chloride (Quelicin) 150 mg IV NOW STA Stop: 10/03/18 21:45 Last Admin: 10/03/18 21:59 Dose: Not Given Medical Decision Making Differential Diagnosis Differential diagnosis: Etiologies such as infections, reactive airway disease, COPD, pneumonia, pleural effusion, pulmonary edema, ARDS, pneumothorax, CHF, cardiac ischemia, cardiac tamponade, dysrhythmia, anemia, pulmonary embolism, musculoskeletal, gastrointestinal process, as well as others were entertained. Medical Records Attestation: I reviewed the patient's medical records. Home Medications Current Medication List: was personally reviewed by me Laboratory Data Attestation: I reviewed the patient's lab results. Result diagrams: 10/03/18 20:09 10/03/18 20:09 Lab Results 10/03/18 10/03/18 10/03/18 Range/Units 20:09 20:09 20:09 WBC 15.51 H (4.8-10.8) K/uL RBC 4.19 L (4.7-6.1) M/uL Hgb 12.2 L (14.0-18.0) g/dL Hct 37.8 L (42-52) % MCV 90.2 (80-100) fL MCH 29.1 (25-34) pg MCHC 32.3 (32-36) g/dL RDW Std Deviation 51.1 H (36.4-46.3) fL RDW Coeff of Jeremiah 15.6 H (11.5-14.5) % Plt Count 193 (130-400) K/uL MPV 10.7 H (7.4-10.4) fL Immature Gran % (Auto) 0.2 % Neut % (Auto) 62.6 % Lymph % (Auto) 24.2 % [place] % (Auto) 7.7 % Eos % (Auto) 4.7 % Baso % (Auto) 0.6 % Immature Gran # (Auto) 0.03 H (0.00-0.02) K/uL Neut # (Auto) 9.72 H (1.4-6.5) K/uL Lymph # (Auto) 3.75 H (1.2-3.4) K/uL [place] # (Auto) 1.19 H (0.11-0.59) K/uL Eos # (Auto) 0.73 H (0-0.5) K/uL Baso # (Auto) 0.09 (0-0.2) K/uL PT 10.2 (9.0-12.0) Seconds INR 1.0 (0.9-1.1) APTT 23.8 (21.0-31.0) Seconds PTT Ratio 0.9 ABG pH (7.35-7.45) ABG pCO2 (35-46) mmHg ABG pO2 (80-95) mm/Hg ABG HCO3 (19-24) mmol/L ABG O2 Saturation (90-95) % ABG Base Excess (-9-1.8) mEq/L Hernando Test (Pos) Barometric Pressure mm/Hg Oxygen Given Sodium 141 (136-145) mmol/L Potassium 4.7 (3.5-5.1) mmol/L Chloride 109 H (98-107) mmol/L Carbon Dioxide 24 (21-32) mmol/L Anion Gap 7.0 (3-11) BUN 27 H (7-18) mg/dl Creatinine 1.50 H (0.6-1.4) mg/dl Est Cr Clr Drug Dosing Not Reportable Est GFR ( Amer) 47.5 Est GFR (Non-Af Amer) 41.0 BUN/Creatinine Ratio 18.1 (10-20) Glucose 200 H (70-99) mg/dl Lactate (0.4-2.0) mmol/L Calcium 8.5 (8.5-10.1) mg/dl Magnesium 2.2 (1.8-2.4) mg/dl Total Bilirubin 0.3 (0.2-1) mg/dl AST 32 (15-37) U/L ALT 35 (12-78) U/L Alkaline Phosphatase 73 (45-117) U/L POC Troponin I (0-0.045) ng/ml Troponin I 0.949 H* (0-0.045) ng/ml NT-Pro-B Natriuret Pep 5424 H (0-1800) pg/ml Total Protein 7.9 (6.4-8.2) gm/dl Albumin 3.6 (3.4-5.0) gm/dl Globulin 4.3 H (2.5-4.0) gm/dl Albumin/Globulin Ratio 0.8 L (0.9-2) Urine Color Urine Appearance (Clear) Urine pH (4.5-7.5) Ur Specific [place] [address] (1.000-1.030) Urine Protein (Negative) Urine Glucose (UA) (Negative) Urine Ketones (Negative) Urine Blood (Negative) Urine Nitrite (Negative) Urine Bilirubin (Negative) Urine Urobilinogen (Negative) Ur Leukocyte Esterase (Negative) Urine WBC (Auto) (0-5) /hpf Urine RBC (Auto) (0-4) /hpf U Hyaline Cast (Auto) (0-5) /lpf U Epithel Cells (Auto) (0-5) /lpf Urine Bacteria (Auto) (Negative) Urine Yeast (None Prsent) Nasal Screen MRSA (PCR) (Negative) 10/03/18 10/03/18 10/03/18 Range/Units 20:17 20:24 22:00 WBC (4.8-10.8) K/uL RBC (4.7-6.1) M/uL Hgb (14.0-18.0) g/dL Hct (42-52) % MCV (80-100) fL MCH (25-34) pg MCHC (32-36) g/dL RDW Std Deviation (36.4-46.3) fL RDW Coeff of Jeremiah (11.5-14.5) % Plt Count (130-400) K/uL MPV (7.4-10.4) fL Immature Gran % (Auto) % Neut % (Auto) % Lymph % (Auto) % [place] % (Auto) % Eos % (Auto) % Baso % (Auto) % Immature Gran # (Auto) (0.00-0.02) K/uL Neut # (Auto) (1.4-6.5) K/uL Lymph # (Auto) (1.2-3.4) K/uL [place] # (Auto) (0.11-0.59) K/uL Eos # (Auto) (0-0.5) K/uL Baso # (Auto) (0-0.2) K/uL PT (9.0-12.0) Seconds INR (0.9-1.1) APTT (21.0-31.0) Seconds PTT Ratio ABG pH 7.20 L (7.35-7.45) ABG pCO2 62 H (35-46) mmHg ABG pO2 102 H (80-95) mm/Hg ABG HCO3 24 (19-24) mmol/L ABG O2 Saturation 96.7 H (90-95) % ABG Base Excess -5.3 (-9-1.8) mEq/L Hernanod Test Pos (Pos) Barometric Pressure 740.8 mm/Hg Oxygen Given 100% Sodium (136-145) mmol/L Potassium (3.5-5.1) mmol/L Chloride (98-107) mmol/L Carbon Dioxide (21-32) mmol/L Anion Gap (3-11) BUN (7-18) mg/dl Creatinine (0.6-1.4) mg/dl Est Cr Clr Drug Dosing Est GFR ( Amer) Est GFR (Non-Af Amer) BUN/Creatinine Ratio (10-20) Glucose (70-99) mg/dl Lactate 2.1 H* (0.4-2.0) mmol/L Calcium (8.5-10.1) mg/dl Magnesium (1.8-2.4) mg/dl Total Bilirubin (0.2-1) mg/dl AST (15-37) U/L ALT (12-78) U/L Alkaline Phosphatase (45-117) U/L POC Troponin I 0.76 H (0-0.045) ng/ml Troponin I (0-0.045) ng/ml NT-Pro-B Natriuret Pep (0-1800) pg/ml Total Protein (6.4-8.2) gm/dl Albumin (3.4-5.0) gm/dl Globulin (2.5-4.0) gm/dl Albumin/Globulin Ratio (0.9-2) Urine Color Urine Appearance (Clear) Urine pH (4.5-7.5) Ur Specific [place] [address] (1.000-1.030) Urine Protein (Negative) Urine Glucose (UA) (Negative) Urine Ketones (Negative) Urine Blood (Negative) Urine Nitrite (Negative) Urine Bilirubin (Negative) Urine Urobilinogen (Negative) Ur Leukocyte Esterase (Negative) Urine WBC (Auto) (0-5) /hpf Urine RBC (Auto) (0-4) /hpf U Hyaline Cast (Auto) (0-5) /lpf U Epithel Cells (Auto) (0-5) /lpf Urine Bacteria (Auto) (Negative) Urine Yeast (None Prsent) Nasal Screen MRSA (PCR) (Negative) 10/03/18 10/03/18 Range/Units 22:30 23:40 WBC (4.8-10.8) K/uL RBC (4.7-6.1) M/uL Hgb (14.0-18.0) g/dL Hct (42-52) % MCV (80-100) fL MCH (25-34) pg MCHC (32-36) g/dL RDW Std Deviation (36.4-46.3) fL RDW Coeff of Jeremiah (11.5-14.5) % Plt Count (130-400) K/uL MPV (7.4-10.4) fL Immature Gran % (Auto) % Neut % (Auto) % Lymph % (Auto) % [place] % (Auto) % Eos % (Auto) % Baso % (Auto) % Immature Gran # (Auto) (0.00-0.02) K/uL Neut # (Auto) (1.4-6.5) K/uL Lymph # (Auto) (1.2-3.4) K/uL [place] # (Auto) (0.11-0.59) K/uL Eos # (Auto) (0-0.5) K/uL Baso # (Auto) (0-0.2) K/uL PT (9.0-12.0) Seconds INR (0.9-1.1) APTT (21.0-31.0) Seconds PTT Ratio ABG pH (7.35-7.45) ABG pCO2 (35-46) mmHg ABG pO2 (80-95) mm/Hg ABG HCO3 (19-24) mmol/L ABG O2 Saturation (90-95) % ABG Base Excess (-9-1.8) mEq/L Hernando Test (Pos) Barometric Pressure mm/Hg Oxygen Given Sodium (136-145) mmol/L Potassium (3.5-5.1) mmol/L Chloride (98-107) mmol/L Carbon Dioxide (21-32) mmol/L Anion Gap (3-11) BUN (7-18) mg/dl Creatinine (0.6-1.4) mg/dl Est Cr Clr Drug Dosing Est GFR ( Amer) Est GFR (Non-Af Amer) BUN/Creatinine Ratio (10-20) Glucose (70-99) mg/dl Lactate (0.4-2.0) mmol/L Calcium (8.5-10.1) mg/dl Magnesium (1.8-2.4) mg/dl Total Bilirubin (0.2-1) mg/dl AST (15-37) U/L ALT (12-78) U/L Alkaline Phosphatase (45-117) U/L POC Troponin I (0-0.045) ng/ml Troponin I (0-0.045) ng/ml NT-Pro-B Natriuret Pep (0-1800) pg/ml Total Protein (6.4-8.2) gm/dl Albumin (3.4-5.0) gm/dl Globulin (2.5-4.0) gm/dl Albumin/Globulin Ratio (0.9-2) Urine Color Yellow Urine Appearance Cloudy H (Clear) Urine pH 5.0 (4.5-7.5) Ur Specific [address] 1.015 (1.000-1.030) Urine Protein Trace H (Negative) Urine Glucose (UA) Negative (Negative) Urine Ketones Negative (Negative) Urine Blood 1+ H (Negative) Urine Nitrite Negative (Negative) Urine Bilirubin Negative (Negative) Urine Urobilinogen Negative (Negative) Ur Leukocyte Esterase 2+ H (Negative) Urine WBC (Auto) >30 H (0-5) /hpf Urine RBC (Auto) 0-4 (0-4) /hpf U Hyaline Cast (Auto) 10-30 H (0-5) /lpf U Epithel Cells (Auto) 0-5 (0-5) /lpf Urine Bacteria (Auto) Negative (Negative) Urine Yeast Budding H (None Prsent) Nasal Screen MRSA (PCR) Negative (Negative) Imaging Data Radiologist's Impression: Radiology results as stated below per my review and the radiologist's interpretation: XR chest 1V portable CLINICAL HISTORY: 88 years-old Male presenting with Dyspnea. TECHNIQUE: Portable semiupright AP view of the chest was obtained. COMPARISON: 07/23/2018. FINDINGS: Atherosclerosis of the aortic arch. Cardiac silhouette enlarged. Pulmonary vessel prominence. Central predominant hazy opacity with prominence of interstitial lung markings and bronchial wall cuffing. No large effusion or pneumothorax. Degenerative changes of the thoracic spine. Degenerative changes of the glenohumeral joints. IMPRESSION: 1. Cardiomegaly with volume overload and mild to moderate pulmonary edema. Electronically signed by: Tree Cisse M.D. 10/03/2018 8:[address] chest wo con CLINICAL HISTORY: 88 years-old Male presenting with eval for evidence of aspiration, edema status. TECHNIQUE: Multidetector CT imaging of the chest was performed without the use of intravenous contrast. IV contrast: None. One or more dose lowering techniques were used consistent with the principles of ALARA (as low as reasonably achievable), including automatic exposure control, mA or kV adjustment to individual patient size, and/or use of iterative reconstruction. COMPARISON: Chest x-ray from earlier today. CT DOSE (mGy.cm): The estimated cumulative dose is 662.40 mGy.cm. FINDINGS: Rfid Analyst topogram: Extensive central predominant opacities, left greater than right. Soft tissues: Endotracheal tube terminates in the mid thoracic trachea. Thyroid normal. No axillary, supraclavicular, or mediastinal lymphadenopathy. Scattered subcentimeter mediastinal lymph nodes, likely reactive. Evaluation of the stanley limited without intravenous contrast. Atherosclerosis of the aorta. Mild multichamber enlargement of the heart. Coronary artery, aortic valve, and mitral annular calcification. Small to moderate bilateral pleural effusions. These are simple appearing. Upper abdomen normal. Lungs and airways: No pneumothorax. Layering debris in the left mainstem bronchus. Diffuse bronchial wall thickening. Prominent interlobular septal thickening. Patchy groundglass and more solid consolidation primarily in a peribronchovascular/central and dependent distribution. Musculoskeletal: Degenerative changes of the spine. IMPRESSION: 1. Cardiomegaly with extensive congestive change and moderate pulmonary edema, left greater than right. A component of aspiration is difficult to exclude, especially in the presence of layering debris in the left mainstem bronchus. 2. Small moderate bilateral pleural effusions, also reflective of volume overload. 3. Appropriately positioned endotracheal tube. Electronically signed by: Tree Cisse M.D. 10/03/2018 11:02 PM XR chest 1V portable CLINICAL HISTORY: 88 years-old Male presenting with intubation. TECHNIQUE: Portable semiupright AP view of the chest was obtained. COMPARISON: 10/03/2018 at 8:07 PM. FINDINGS: Endotracheal tube now in place, terminating over 4 cm from the betito. Atherosclerosis of the aortic arch. Cardiac silhouette enlarged. Pronounced bronchial wall thickening and pulmonary vascular prominence. Interval increase in patchy central predominant opacities. No large effusion or pneumothorax. Degenerative changes of the thoracic spine. Upper abdomen normal. IMPRESSION: 1. Appropriately positioned endotracheal tube. 2. Cardiomegaly with worsening pulmonary edema. Electronically signed by: Tree Cisse M.D. 10/03/2018 10:22 PM ECG Data Attestation: I personally reviewed and interpreted this ECG as follows: Indication: SOB/dyspnea Rate (beats per minute): 102 Rhythm: sinus tachycardia Findings: + other (non-specific T-wave changes), + LBBB and + PVC Comparison ECG Date: from (07/25/2018) Change: the following changes noted (T-wave changes increased) Blood Pressure Blood Pressure Findings: Normal blood pressure MDM Narrative 88-year-old gentleman with a history of CAD/CHF/CKD and flash pulmonary presented with onset of respiratory distress and diaphoresis about an hour prior to arrival. Now endorsing a bit of left arm pain. Crackles diffusely. Concern for recurrent pulm edema. Given Lasix nitroglycerin BiPAP was initiated. Hypoxic on room air in 70s. EKG difficult to interpret given the left bundle branch block but no clear ischemic changes. Troponin was sent. Do not believe this represents acute dissection or pneumonia. Chest x-ray consistent with edema. Patient had some improvement with BiPAP. Received Lasix. Troponin elevated but appears to be always elevated it actually lower than the last previous. Recent cardiac cath in July reviewed. States also a cardiology this past month with EF of 50% on repeat echocardiogram. ABG with BiPAP show some acidosis. Leukocytosis of 15 I believe is more likely reactive. Patient had some improvement. Patient then did vomit on his BiPAP and had respiratory decline - likely aspirated. Attempted to BiPAP again without improvement and increased respiratory distress. Discussed with patient and daughter who are agreeable to a trial of intubation. Does not want CPR but would be okay with short-term trial of intubation. Patient intubated without complication. Broadened antibiotics to vancomycin and imipenem. Discussed with hospitalist and ICU. Admitted. Urinalysis pending. Impression & Plan Acute respiratory failure with hypoxia, Aspiration into airway, Pulmonary edema Critical Care Time I have personally spent greater than 45 minutes of critical care time in the direct management of this patient. This includes bedside care, interpretation of diagnostic studies, and testing, discussion with consultants, patient, and family members, and other required patient management activities. This 45 minutes is in excess of all separately billable procedures. Critical Care Time: Yes Total Critical Care Time: 45 Discharge Plan Visit Data *Final* Discharge Date/Time: 10/03/18 23:26 Chief Complaint: Respiratory Distress Stated Complaint: CAN'T BREATH ED Provider: Gregory Blanca Discharge Problem: Acute respiratory failure with hypoxia, Aspiration into airway, Pulmonary edema Patient Disposition: Admitted As Inpatient Discharge Instructions Interventions: ED Discharge Assessment Last Done: 10/03/18 23:26 The scribe's documentation has been prepared under my direction and personally reviewed by me in its entirety. I confirm that the note above accurately reflects all work, treatment, procedures, and medical decision making performed by me.
--- NOTE | 2018-10-03 22:24 | XRay Report ---
XR chest 1V portable CLINICAL HISTORY: 88 years-old Male presenting with intubation. TECHNIQUE: Portable semiupright AP view of the chest was obtained. COMPARISON: 10/03/2018 at 8:07 PM. FINDINGS: Endotracheal tube now in place, terminating over 4 cm from the betito. Atherosclerosis of the aortic arch. Cardiac silhouette enlarged. Pronounced bronchial wall thickening and pulmonary vascular promin ence. Interval increase in patchy central predominant opacities. No large effusion or pneumothorax. D egenerative changes of the thoracic spine. Upper abdomen normal. IMPRESSION: 1. Appropriately positioned endotracheal tube. 2. Cardiomegaly with worsening pulmonary edema. Electronically signed by: Tree Cisse M.D. 10/03/2018 10:22 PM
--- NOTE | 2018-10-03 23:03 | CT Scan Report ---
CT chest wo con CLINICAL HISTORY: 88 years-old Male presenting with eval for evidence of aspiration, edema status. TECHNIQUE: Multidetector CT imaging of the chest was performed without the use of intravenous contras t. IV contrast: None. One or more dose lowering techniques were used consistent with the principles o f ALARA (as low as reasonably achievable), including automatic exposure control, mA or kV adjustment to individual patient size, and/or use of iterative reconstruction. COMPARISON: Chest x-ray from earlier today. CT DOSE (mGy.cm): The estimated cumulative dose is 662.40 mGy.cm. FINDINGS: Management Rep topogram: Extensive central predominant opacities, left greater than right. Soft tissues: Endotracheal tube terminates in the mid thoracic trachea. Thyroid normal. No axillary, supraclavicular, or mediastinal lymphadenopathy. Scattered subcentimeter mediastinal lymph nodes, lik randa reactive. Evaluation of the stanley limited without intravenous contrast. Atherosclerosis of the aor ta. Mild multichamber enlargement of the heart. Coronary artery, aortic valve, and mitral annular john cification. Small to moderate bilateral pleural effusions. These are simple appearing. Upper abdomen normal. Lungs and airways: No pneumothorax. Layering debris in the left mainstem bronchus. Diffuse bronchial wall thickening. Prominent interlobular septal thickening. Patchy groundglass and more solid consolid ation primarily in a peribronchovascular/central and dependent distribution. Musculoskeletal: Degenerative changes of the spine. IMPRESSION: 1. Cardiomegaly with extensive congestive change and moderate pulmonary edema, left greater than rig ht. A component of aspiration is difficult to exclude, especially in the presence of layering debris in the left mainstem bronchus. 2. Small moderate bilateral pleural effusions, also reflective of volume overload. 3. Appropriately positioned endotracheal tube. Electronically signed by: Tree Cisse M.D. 10/03/2018 11:02 PM
--- NOTE | 2018-10-03 23:21 | History & Physical Report ---
Date of Service October 03, 2018 Assessment & Plan (1) Acute respiratory failure with hypoxia: 88-year-old male was admitted on 03 October 2018 for acute shortness of breath and left arm pain. Acute hypoxic respiratory failure, pulmonary edema, aspiration: By report patient presents with acute SOB. On ED arrival patient was tachycardic, tachypneic, with SpO2 87% on 15L oxymask. WBC 15. Pre-aspiration ABG ph 7.2, pCO2 62, pO2 102 and pCXR with mild to moderate pulmonary edema. Given Lasix. Placed on BiPAP in the ED but unfortunately he had a witnessed aspiration event leading to his emergent intubation. Sent blood cultures. - Given a dose of Levaquin and started on vancomycin and Primaxin. - Began sedation with propofol. - Will obtain CT chest non-con en route to ICU to evaluate for severity of likely aspiration. - Further orders and vent management per ICU team (discussed with them at time of admission). Elevated troponin: PMH left BBB as well as chronic systolic heart failure and a (most recently) anterior IA in Jun 2018. See cardiac cath report on [id number]. Echo on Dec noted EF 25-30% and multiple areas of akinesis. Followed by Dr. Flaherty as outpatient and apparently a repeat echo in August was much improved with EF in 50�s%. Here, admit TnI 0.949 and BNP 5424. - Will trend troponin. MERISSA: PMH CKD stage 3, baseline Cr around 1.1�s. Admit Cr 1.5 with mildly elevated BUN. Recheck in AM. Anemia: PMH same around 10�s on last admit. Presently Hb 12.2. No reports of acute blood loss. Monitoring. Hyperglycemia: Admit glucose 200. No noted history of DM. May be stress- induced. - Ordered Hb A1c. Ongoing medical issues: - HTN, HLD, CAD: At home is normally on aspirin, Plavix, Crestor, Entresto, Lasix, Spironolactone, and Imdur. - GERD: Does not take anything for this at home. - Hypothyroidism: At home is normally on Synthroid. Code status: Full code (reportedly per patient�s and daughter�s direct wishes at time of intubation). Was DNR on prior admissions. Diet: NPO while intubated. DVT prophy: Lovenox 30 mg SC q 24 hours. PT/OT: Deferred. Disbo: Admit to ICU. (2) Flash pulmonary edema: (3) Aspiration into airway: (4) Aspiration into airway: (5) Elevated troponin I level: (6) Acute kidney injury: (7) CKD (chronic kidney disease) stage 3, GFR 30-59 ml/min: (8) Anemia: (9) Hyperglycemia: (10) Hypertension: (11) Hyperlipidemia: (12) CAD (coronary artery disease): (13) Chronic systolic CHF (congestive heart failure): (14) NSTEMI (non-ST elevated myocardial infarction): (15) GERD (gastroesophageal reflux disease): (16) Hypothyroidism: History of Present Illness Primary Care Provider: Bud España MD 88-year-old male presented to the emergency department with acute shortness of breath about 1 hour prior to arrival. At the time of this H&P, the patient had been intubated, therefore the history is based upon discussions with the ED staff, daughter, and the notes. From discussion with the daughter, she was notified around 7 PM that the patient had some acute difficulty breathing. He had apparently been doing quite well prior to this, including recent cardiology outpatient appointment noting improved cardiac function. Per the medical notes, the patient has a history of flash pulmonary edema about two months ago. No known acute physical stressors or recent illness. However, he may have had some pain down his left arm this evening. He took some nitroglycerin prior to arrival. Allergies Allergy/AdvReac Type Severity Reaction Status Date / Time latex Allergy Intermediate HIVES - Verified 06/25/18 16:07 red itchy skin morphine Allergy Intermediate Itchiness Verified 07/15/18 16:20 Penicillins Allergy Unknown Unknown Verified 07/15/18 16:20 Home Medications Home Medications Medication Instructions Recorded Confirmed Type Nigella Sativa Oil 2,000 mg PO DIRECTED 06/25/18 10/03/18 History Pectasol Detox Formula 1 dose PO DIRECTED 06/25/18 10/03/18 History aspirin 81 mg PO QAM 10/03/18 10/03/18 History clopidogrel 75 mg PO QAM 10/03/18 10/03/18 History levothyroxine 75 mcg PO QAM 10/03/18 10/03/18 History shgmuqcu-wqa-XZ-lycopen-lutein 1 tab PO QAM 10/03/18 10/03/18 History [Centrum Silver] nitroglycerin 0.6 mg SUBLINGUAL DIRECTED PRN 10/03/18 10/03/18 History rosuvastatin 20 mg PO QAM 10/03/18 10/03/18 History sacubitril-valsartan 1 tab PO BID 10/03/18 10/03/18 History bumetanide 1 mg PO QAM #30 tab 10/07/18 Rx carvedilol 6.25 mg PO BID #0 tab 10/07/18 10/03/18 Rx cefdinir 300 mg PO BID #6 cap 10/07/18 Rx metronidazole 500 mg PO TID #9 tab 10/07/18 Rx pantoprazole 40 mg PO QAM #30 tab 10/07/18 Rx Past Med/Surg History Medical History Acid reflux (Acute 07/20/14) Hypothyroidism LV dysfunction Silent myocardial infarction Systolic CHF Surgical History History of appendectomy History of hip replacement Social History Preferred Language: Micronesian Beliefs That Will Affect Care: None Current Living Situation: Spouse Current Living Situation Comment: Home and [facility] for home care. Other Information That Helps Us Care for You: No Feels Safe at Home: Yes Safety Concerns: Feels Safe At This Time Smoking Status: Former smoker Hx Alcohol Use: Yes Hx Substance Use: No Review of Systems Unable to obtain ROS due to being intubated. Physical Exam Vital Signs (Past 24 Hours): Last Vital Signs Pulse 99 H 10/03/18 22:31 Resp 14 10/03/18 22:03 BP 126/68 10/03/18 22:31 Pulse Ox 88 L 10/03/18 22:31 Physical Exam: GENERAL: Intubated and sedated. HENT: Normocephalic, atraumatic. EYES: Normal conjunctiva. Sclera non-icteric. NECK: Inspection normal. CARDIAC: +S1S2 RRR, no murmurs. RESPIRATORY: Diffuse rales throughout. Intubated. GI: +BS, soft, non-distended. EXTREMITIES: No pedal edema or calf tenderness. NEURO: Unable to assess post-intubation due to sedation. Results & Data Laboratory Results Laboratory Results WBC 15.51 K/uL (4.8-10.8) H 10/03/18 20:09 RBC 4.19 M/uL (4.7-6.1) L 10/03/18 20:09 Hgb 12.2 g/dL (14.0-18.0) L 10/03/18 20:09 Hct 37.8 % (42-52) L 10/03/18 20:09 MCV 90.2 fL (80-100) 10/03/18 20:09 MCH 29.1 pg (25-34) 10/03/18 20:09 MCHC 32.3 g/dL (32-36) 10/03/18 20:09 RDW Std Deviation 51.1 fL (36.4-46.3) H 10/03/18 20:09 RDW Coeff of Jeremiah 15.6 % (11.5-14.5) H 10/03/18 20:09 Plt Count 193 K/uL (130-400) 10/03/18 20:09 MPV 10.7 fL (7.4-10.4) H 10/03/18 20:09 Immature Gran % (Auto) 0.2 % 10/03/18 20:09 Neut % (Auto) 62.6 % 10/03/18 20:09 Lymph % (Auto) 24.2 % 10/03/18 20:09 Canadian % (Auto) 7.7 % 10/03/18 20:09 Eos % (Auto) 4.7 % 10/03/18 20:09 Baso % (Auto) 0.6 % 10/03/18 20:09 Immature Gran # (Auto) 0.03 K/uL (0.00-0.02) H 10/03/18 20:09 Neut # (Auto) 9.72 K/uL (1.4-6.5) H 10/03/18 20:09 Lymph # (Auto) 3.75 K/uL (1.2-3.4) H 10/03/18 20:09 [place] # (Auto) 1.19 K/uL (0.11-0.59) H 10/03/18 20:09 Eos # (Auto) 0.73 K/uL (0-0.5) H 10/03/18 20:09 Baso # (Auto) 0.09 K/uL (0-0.2) 10/03/18 20:09 PT 10.2 Seconds (9.0-12.0) 10/03/18 20:09 INR 1.0 (0.9-1.1) 10/03/18 20:09 APTT 23.8 Seconds (21.0-31.0) 10/03/18 20:09 PTT Ratio 0.9 10/03/18 20:09 ABG pH 7.20 (7.35-7.45) L 10/03/18 20:17 ABG pCO2 62 mmHg (35-46) H 10/03/18 20:17 ABG pO2 102 mm/Hg (80-95) H 10/03/18 20:17 ABG HCO3 24 mmol/L (19-24) 10/03/18 20:17 ABG O2 Saturation 96.7 % (90-95) H 10/03/18 20:17 ABG Base Excess -5.3 mEq/L (-9-1.8) 10/03/18 20:17 Hernando Test Pos (Pos) 10/03/18 20:17 Barometric Pressure 740.8 mm/Hg 10/03/18 20:17 Oxygen Given 100% 10/03/18 20:17 Sodium 141 mmol/L (136-145) 10/03/18 20:09 Potassium 4.7 mmol/L (3.5-5.1) 10/03/18 20:09 Chloride 109 mmol/L (98-107) H 10/03/18 20:09 Carbon Dioxide 24 mmol/L (21-32) 10/03/18 20:09 Anion Gap 7.0 (3-11) 10/03/18 20:09 BUN 27 mg/dl (7-18) H 10/03/18 20:09 Creatinine 1.50 mg/dl (0.6-1.4) H 10/03/18 20:09 Est Cr Clr Drug Dosing Not Reportable 10/03/18 20:09 Est GFR ( Amer) 47.5 10/03/18 20:09 Est GFR (Non-Af Amer) 41.0 10/03/18 20:09 BUN/Creatinine Ratio 18.1 (10-20) 10/03/18 20:09 Glucose 200 mg/dl (70-99) H 10/03/18 20:09 Lactate 2.1 mmol/L (0.4-2.0) H* 10/03/18 22:00 Calcium 8.5 mg/dl (8.5-10.1) 10/03/18 20:09 Magnesium 2.2 mg/dl (1.8-2.4) 10/03/18 20:09 Total Bilirubin 0.3 mg/dl (0.2-1) 10/03/18 20:09 AST 32 U/L (15-37) 10/03/18 20:09 ALT 35 U/L (12-78) 10/03/18 20:09 Alkaline Phosphatase 73 U/L (45-117) 10/03/18 20:09 POC Troponin I 0.76 ng/ml (0-0.045) H 10/03/18 20:24 Troponin I 0.949 ng/ml (0-0.045) H* 10/03/18 20:09 NT-Pro-B Natriuret Pep 5424 pg/ml (0-1800) H 10/03/18 20:09 Total Protein 7.9 gm/dl (6.4-8.2) 10/03/18 20:09 Albumin 3.6 gm/dl (3.4-5.0) 10/03/18 20:09 Globulin 4.3 gm/dl (2.5-4.0) H 10/03/18 20:09 Albumin/Globulin Ratio 0.8 (0.9-2) L 10/03/18 20:09 Urine Color Yellow 10/03/18:30 Urine Appearance Cloudy (Clear) H 10/03/18 22:30 Urine pH 5.0 (4.5-7.5) 10/03/18 22:30 Ur Specific [place] 1.015 (1.000-1.030) 10/03/18 22:30 Urine Protein Trace (Negative) H 10/03/18 22:30 Urine Glucose (UA) Negative (Negative) 10/03/18: Urine Ketones Negative (Negative) 10/03/18 22: Urine Blood 1+ (Negative) H 10/03/18 22: Urine Nitrite Negative (Negative) 10/03/18:30 Urine Bilirubin Negative (Negative) 10/03/18 22:30 Urine Urobilinogen Negative (Negative) 10/03/18 22:30 Ur Leukocyte Esterase 2+ (Negative) H 10/03/18 22:30 Urine WBC (Auto) >30 /hpf (0-5) H 10/03/18 22:30 Urine RBC (Auto) 0-4 /hpf (0-4) 10/03/18 22:30 U Hyaline Cast (Auto) 10-30 /lpf (0-5) H 10/03/18 22:30 U Epithel Cells (Auto) 0-5 /lpf (0-5) 10/03/18 22:30 Urine Bacteria (Auto) Negative (Negative) 10/03/18 22:30 Urine Yeast Budding (None Prsent) H 10/03/18 22:30 Diagnostic Findings XR chest 1V portable CLINICAL HISTORY: 88 years-old Male presenting with intubation. TECHNIQUE: Portable semiupright AP view of the chest was obtained. COMPARISON: 10/03/2018 at 8:07 PM. FINDINGS: Endotracheal tube now in place, terminating over 4 cm from the betito. Atherosclerosis of the aortic arch. Cardiac silhouette enlarged. Pronounced bronchial wall thickening and pulmonary vascular prominence. Interval increase in patchy central predominant opacities. No large effusion or pneumothorax. Degenerative changes of the thoracic spine. Upper abdomen normal. IMPRESSION: 1. Appropriately positioned endotracheal tube. 2. Cardiomegaly with worsening pulmonary edema. Medications Administered Current Inpatient Medications Vancomycin HCl 1,750 mg/ (Sodium Chloride) 535 mls @ 200 mls/hr IV NOW ONE Stop: 10/04/18 00:22 Propofol (Diprivan) 1,000 mg in 100 mls @ IV .Q0M [facility]; Protocol Stop: 10/06/18 21:44 Miscellaneous Information (Consult) 1 ea N/A UD PRN PRN Reason: Consult Stop: 11/02/18 21:41 Code Status & VTE Plan Code Status At present, patient is full code. Had a brief discussion with the daughter post-intubation (as did the emergency department provider pre-intubation per separate discussion). Per the daughter, they previously completed paperwork for him to be a DNR patient. However, both patient and daughter wished for him to be intubated this evening in hopes that he can recover from his current illness. Critical Care Time Total critical care time was 40 minutes Critical Care Time: Yes Total Critical Care Time: 40 Supervising Physician Co-Signing Physician Notes Attending addendum: I have physically seen this patient, have supervised the medical residents activities, and agree with the H&P unless as otherwise noted. Assessment and Plan: Acute respiratory failure with hypoxia-- Admit to ICU. Continue current vent settings and repeat ABG in 30 minutes. Vancomycin IV per pharmacokinetic monitoring. Primaxin 500 mg IV every 6 hours. Levaquin 750 mg IV given in the ED. Duo nebs 4 times daily and every 2 hours as needed. Follow serial chest x-rays and ABGs every morning. Sputum Gram stain and culture to event with suction. CT of chest in route to ICU for further assess. Consult bar staff and staff. Remainder of orders and notations as noted. Resident Activity Tracking Resident Involvement: Resident Care Provided Care Provided: Adult Hospital Medicine (1) Hypertension Hypertension type: essential hypertension Qualified Code(s): I10 - Essential (primary) hypertension
--- NOTE | 2018-10-04 00:42 | Critical Care Consultation ---
Addendum entered and electronically signed by Ken Clinton PA-C 10/04/18 06:08 : Addendum (Blank) Addendum October 04, 2018 06:00 On evaluation of AM labs, the patient's troponin was found to have climed from 0.9 to nearly 40. Given this substantial change and patient's known history of underlying severe CAD, I did elect to treat the patient with Heparin bolus and gtt in the event of progressive coronary event. Standard coagulation labs were placed prior to initiation of therapy. I did independently reevaluate the patient who remains sedated and intubated requiring minimal FiO2 and ventilator settings. Consult to cardiology was placed. Original Note: Date of Consultation October 04, 2018 Assessment & Plan (1) Admitted to intensive care unit: Reason Critically Ill: 88-year-old male in acute hypoxic respiratory failure with hypercapnia in the setting of acute pulmonary edema secondary to congestive heart failure. Patient with presumed aspiration event requiring endotracheal intubation for airway protection and aggressive pulmonary toilet. NEURO - * CAM ICU: POSITIVE * Sedation: Propofol gtt * Pain: Fentanyl PRN CARDIAC/VASCULAR - * CHF Exacerbation w/ moderate pulmonary edema: * Initially placed on BiPAP in the ED --> intubation 2/2 worsening state and aspiration event. * Continue w/ Positive pressure to help lung interstitium. * Consider addition of nitro, but patient w/ labile blood pressures while on sedation. * Continue w/ aggressive diuresis --> Scheduled Lasix 40 mg IV BID. * NSTEMI: * Likely combination of demand in the setting of CHF exacerbation w/ subsequent respiratory failure. * Trend Troponins. * EKG w/o significant ST changes to suggest underlying ACS. * Patient with recent cath (07/28) suggesting severe proximal to mid RCA lesion w/ 95% stenosis in addition to 40-50% ostial LAD and 40-50% Mid Circ lesions. * [place] best for medical management at that time. Will further defer to cardiology. * EKG: NSR w/ LBBB. ST depressions noted laterally. QTc 511 ms. * Avoid further QTc prolonging agents. * Monitor on telemetry. RESPIRATORY - * Acute Hypoxic Respiratory Failure w/ Hypercapnia: * Likely 2/2 acute "flash" pulmonary edema. * Worsened by aspiration event. * Failed BiPAP in the ED --> intubated. * Settings: AC/12/550/5/50% * Will titrate down FiO2 as tolerated. * Consider increasing PEEP if patient not showing adequate improvement. * CT Chest concerning for significant volume overload w/ ??superimposed PNA - likely aspiration. * Aggressive diuresis. * Positive Pressure ventilatory techniques. * May require bronch if not showing great improvement on vent settings. * w/o wheezing on exam. Question utility of bronchodilators/steroids at this point. * Covered w/ appropriate antibiotics. GI/NUTRITION - * NPO * OG in place. * Prophylaxis: Protonix RENAL/LYTES - * MERISSA on CKD III: * Will hold on IVF at this time 2/2 volume overload. * Monitor lytes closely for disturbances in the setting of aggressive diuresis. - * Winslow in place - Strict I&Os. ENDO - * Hyperglycemia: * Likley 2/2 stress. * Hyperglycemia protocol in place. * BSGs per unit protocol. ISS --> gtt per unit policy. * Hypothyroidism: * Levothyroxine - convert to IV in the interim. HEME - * Stable H&H: * Monitor closely as patient has had hematuria during previous admission. ID - * Aspiration event w/ concerns of aspiration pneumonia: * Blood cultures x2 pending. * Received Levaquin, Primaxin, Vanc in the ED. * Will hold on Levaquin 2/2 QTc prolongation. Will substitute Doxy for atypical coverage. * Agree with Primaxin in the Penicillin allergic patient. * Continue Vanc for now pending nasal MRSA results. * Latctate >2 - will trend. * Will add AM Procal LINES/IV ACCESS - * PIVs x2 * Winslow * ET Tube * OG Tube DVT PROPHYLAXIS - * Lovenox * SCDs I have personally spent 60 minutes of critical care time in the direct management of this patient. This is a life/limb threatening event. This includes time spent evaluating patient, direct bedside care, chart review, placing orders, interpretation of diagnostic studies, discussion with consultants, patient, and family members, as well as other required patient management activities. This time is exclusive of all separately billable procedures, and teaching time and separate from and in addition to any other critical care service time. Thank you for allowing us to participate in the care of this patient. Please refer to my attending physician's documentation for any further recommendations. The patient was seen, examined independently, this is 88-year-old gentleman with history of coronary artery disease, congestive heart failure, cardiomyopathy, chronic kidney disease, GERD, recurrent admission to the hospital due to pulmonary edema, he underwent PCI recently with significant stenosis of RCA, the patient has been managed medically, presented to the hospital with increasing shortness of breath and found to be in pulmonary edema. The patient responded to BiPAP initially however he developed aerophagia due to dilated esophagus, the patient and the been retching and then vomiting where he was sustaining aspiration episode. Patient was intubated and transferred to the ICU. Patient was started on the heparin drip due to troponin in the range of 39, cardiology evaluated the patient and agreed with medical management. When I interviewed the patient, the patient was already intubated but he was able to answer questions with nodding his head, he denies any chest pain, he was bothered with a ET tube, no significant shortness of breath, no dizziness, no nausea, no heartburn, no abdominal pain, he did not have diarrhea overnight, swelling in his lower extremities was noted. The rest of his review of system was limited due to the patient being intubated. His past medical history as mentioned above. Family history is not obtainable at this point. The patient is not reported to be smoker by records. Impression: 1. Non-ST elevation MD, positive troponin, although the patient has left bundle branch block, but appears to be old. 2. Acute respiratory failure secondary to pulmonary edema, 3. Chemical aspiration. 4. Dilated esophagus noted on the CAT scan which put the patient at risk of aerophagia with BiPAP. 5. History of coronary artery disease status post PCI recently with 95% occluded RCA. Plan: 1. Continue with aggressive diuresis. 2. Bronchoscopy was done with removal of aspirated material from the trachea as well as the right main bronchus. 3. Specimen was sent for culture. 4. The patient was sedated with propofol and as needed. Fentanyl. Will discontinue after attempt of extubation. 5. Spontaneous breathing trial with progression to extubation. 6. I would discontinue antibiotics, change antibiotic only to ceftriaxone once daily. This is a witnessed aspiration. Antibiotic can be discontinued also after 2-3 days if there is no pathogen from the bronchoscopy specimen. 7. Glucose control. 8. The patient succeeded with extubation without any event. 9. Agree with heparin drip. 10. Cardiology input appreciated. 11. The patient urine output was 1250 mL in negative balance. We will continue to monitor closely. 12. The patient is already on GI prophylaxis. 13. I will start the patient on oral medications and oral intake is tolerated. 14. If the patient passed swallow eval, heart healthy diet will be started. 15. I will change Protonix and levothyroxine to p.o. 16. Discussed in details with cardiology and with the staff on rounds. Critical care time spent with the patient was 45 minutes excluding procedures time. (2) Acute respiratory failure with hypoxia and hypercapnia: (3) Aspiration into airway: (4) Pulmonary edema: (5) Hyperglycemia: (6) Acute kidney injury superimposed on CKD: (7) NSTEMI (non-ST elevated myocardial infarction): (8) CAD (coronary artery disease): (9) Hypothyroidism: (10) Hyperlipidemia: History of Present Illness Attending Physician: Augustin Mayo MD History of present illness limited secondary to patient's current state of intubation with sedation. Patient is an 88-year-old male with significant past medical history of ischemic cardiomyopathy presumed likely to chronic severely stenosed RCA as well as other LAD and mid circumflex lesions resulting in an ejection fraction of 25-30% on echocardiogram performed on 07/23/2018. Patient has had episodes of acute pulmonary edema presumed to be related to the above. 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 Most recently, he did have a repeat echocardiogram which was suggestive of ejection fraction of approximately 50% per the patient's daughter. These records are unable to be obtained at this time. Apparently, the patient had developed an acute onset of shortness of breath. While in the emergency department, the patient was placed on BiPAP. During this , the patient did have an episode of emesis resulting in worsening oxygen saturation and increasing requirements for positive pressure ventilatory techniques. Eventually, it was felt best the patient be intubated for airway protection and continued oxygenation with the need for aggressive pulmonary toilet. Patient was found to have a moderate leukocytosis. He has an acute on chronic kidney injury. His troponin was elevated as well as BNP. Chest x-ray concerning for progressive pulmonary edema. The patient received IV Lasix. After intubation, the patient did receive Levaquin, Primaxin, vancomycin. He is currently sedated with Diprovan. Allergies Allergy/AdvReac Type Severity Reaction Status Date / Time latex Allergy Intermediate HIVES - Verified 06/25/18 16:07 red itchy skin morphine Allergy Intermediate Itchiness Verified 07/15/18 16:20 Penicillins Allergy Unknown Unknown Verified 07/15/18 16:20 Home Medications Home Medications Medication Instructions Recorded Confirmed Type Nigella Sativa Oil 2,000 mg PO DIRECTED 06/25/18 10/03/18 History Pectasol Detox Formula 1 dose PO DIRECTED 06/25/18 10/03/18 History aspirin 81 mg PO QAM 10/03/18 10/03/18 History carvedilol 12.5 mg PO BID 10/03/18 10/03/18 History clopidogrel 75 mg PO QAM 10/03/18 10/03/18 History furosemide 20 mg PO DAILY PRN 10/03/18 10/03/18 History isosorbide mononitrate 60 mg PO BID 10/03/18 10/03/18 History levothyroxine 75 mcg PO QAM 10/03/18 10/03/18 History hunrvrqm-rnp-HO-lycopen-lutein 1 tab PO QAM 10/03/18 10/03/18 History [Centrum Silver] nitroglycerin 0.6 mg SUBLINGUAL DIRECTED PRN 10/03/18 10/03/18 History rosuvastatin 20 mg PO QAM 10/03/18 10/03/18 History sacubitril-valsartan [Entresto] 1 tab PO BID 10/03/18 10/03/18 History Patient History Medical History Acid reflux (Acute 07/20/14) Hypothyroidism LV dysfunction Silent myocardial infarction Systolic CHF Surgical History History of appendectomy History of hip replacement Social History Current Living Situation: Spouse Current Living Situation Comment: [facility] for home care. Other Information That Helps Us Care for You: No Feels Safe at Home: Yes Safety Concerns: Feels Safe At This Time Smoking Status: Former smoker Do You Dip or Chew Tobacco: No Second Hand Exposure: No Tobacco Cessation Education Requested by Patient: No Hx Alcohol Use: Yes Alcohol type: beer Alcohol Intake Frequency: 0-2 drinks per day Hx Substance Use: No Beliefs That Will Affect Care: None Preferred Language: Egyptian Communication Ability: Impaired Mobile Device Developer Required: No Review of Systems Unable to obtain review of systems secondary to patient's current state of sedation. Physical Exam 2 Vital Signs (Past 24 Hours): Last Vital Signs Pulse 103 H 10/03/18 23:52 Resp 14 10/03/18 23:52 BP 111/67 10/03/18 23:16 Pulse Ox 98 10/03/18 23:52 Physical Exam: Vital signs remained stable, O2 saturation 98%, S1-S2 regular rate and rhythm, wide-complex rhythm was noted, due to left bundle branch block , positive JVP, lungs with bilateral rhonchi, abdomen is benign, edema in the periphery, neurologically is nonfocal, no skin changes, oral mucosa is normal and ET tube in good position. Results & Data Laboratory Results Labs were reviewed personally, showing elevated troponin, normal WBC, hematocrit is 32 borderline, platelets is 106. ABG also was reviewed and acceptable. BNP also was noted. Improved hypercarbia. BNP is 5400. Diagnostic Findings Imaging was reviewed personally which showed pulmonary edema on the first chest x-ray, ET tube in good position, reviewed also the CAT scan of the chest which showed bilateral infiltrate consistent with aspiration and small pleural effusion also bilaterally. _ (1) Aspiration into airway Encounter type: initial encounter Qualified Code(s): T17.908A - Unspecified foreign body in respiratory tract, part unspecified causing other injury, initial encounter (2) Pulmonary edema Chronicity: acute Qualified Code(s): J81.0 - Acute pulmonary edema
--- NOTE | 2018-10-04 07:43 | XRay Report ---
XR chest 1V portable HISTORY: 88 years-old Male f/u acute respiratory failure COMPARISON: Chest radiograph and chest CT 10/03/2018 TECHNIQUE: Portable AP view of the chest FINDINGS: Cardiac silhouette is enlarged, unchanged. Pulmonary vascular congestion with mild persistent interst itial coarsening. There is improved aeration of the bilateral lungs. Small left and trace right pleur al effusions with persistent bibasilar opacities. Calcification the thoracic aortic arch. Degenerativ e changes of the shoulders and spine. Endotracheal tube overlies the midline, 3.0 cm superior to the betito. Enteric tube is noted coursing into the region of the gastric lumen, distal tip outside the f [id number]. IMPRESSION: 1. Endotracheal tube as above. 2. Cardiomegaly with decreased pulmonary edema. 3. Small left and trace right pleural effusions with persistent bibasilar opacities. The above report was generated using voice recognition software. It may contain grammatical, syntax o r spelling errors. Electronically signed by: Shorty Celaya M.D. 10/04/2018 7:42 AM
--- NOTE | 2018-10-04 08:49 | Cardiology Consultation ---
Date of Consultation October 04, 2018 Assessment & Plan (1) Acute on chronic congestive heart failure: The etiology of his dyspnea appears to have been pulmonary edema. He is known to have an element of left ventricular dysfunction due to ischemic heart disease. According to the outpatient record his overall LV systolic function had improved recently. The etiology of his decompensation is unclear. Possible that this was related to arrhythmia, hypertension or possibly an acute ischemic event. He does appear to have affected some diuresis and his oxygenation is much improved even on low oxygen concentrations. He is not requiring much ventilatory support currently. From a cardiac standpoint the acute management involves aggressive diuresis. Kidney function appears to be normal. We will need to monitor his outputs and response to to diuresis. Continue current dose of Lasix monitoring outputs and adjust as necessary Present on Admission?: Yes (2) NSTEMI (non-ST elevated myocardial infarction): Cardiac troponin currently elevated. The timing of this elevation coincides with his presentation. It is unclear if an acute ischemic event resulted in his decompensation or if the elevated biomarkers are related to his hypoxia and tachycardia in the setting of known obstructive coronary disease. Unfortunately, his presenting EKG is not helpful as he has a chronic left bundle branch block. There were no Scarbossa criteria present at the time of admission. I agree with initiation of heparin. In the absence of bleeding I will continue this for 48 hours. His hemodynamics appear to be stabilizing and I would recommend administration of his standard beta-nicky regimen at the soonest opportunity. He should continue on dual anti-platelet therapy as well. It is unclear whether he would benefit from repeat angiography. I think we will have to monitor his clinical course once he is extubated. A repeat echocardiogram may also be helpful determining whether there is benefit to re peat angiography. It is very likely that with clinical improvement in the absence of angina or persistent heart failure, repeat angiography will not be required. Present on Admission?: Yes (3) CAD (coronary artery disease): He is known to have occlusion of the right coronary artery and a large diagonal branch. Certainly will have ischemia with any form stress such as his presenting tachycardia, hypoxia and relative anemia. Continuation of his outpatient regimen to include beta blockade and nitrates as well as dual anti- platelet therapy is recommended. High-dose rosuvastatin could also be re- initiated once he is taking oral medications. Currently on heparin infusion was seems appropriate given his presentation. Present on Admission?: Yes (4) Ischemic cardiomyopathy: Reportedly this was improving on his current medical therapy to include beta blockade and Entresto. Depending on his degree of LV dysfunction initiation of spironolactone could also be considered. He is currently decompensated and attempts at diuresis are being made. Previously he was maintained on a low dose of diuretic. Present on Admission?: Yes (5) LBBB (left bundle branch block): Chronic. No findings consistent with an acute infarct, but given the baseline rhythm interpretation of an acute event would be difficult. QTC was Long on 1 EKG but currently in the normal range given his known conduction disease. Present on Admission?: Yes History of Present Illness Reason for Consultation: Pulmonary edema, NSTEMI Requesting Physician: Oz Attending Physician: Augustin Mayo MD History of Present Illness Patient is an 80-year-old gentleman with a history of an ischemic cardiomyopathy he admitted in June of 2018 and again in July of 2018 with acute on chronic left ventricular failure. Patient is also known to have an element of coronary disease that is currently being treated medically. Patient is currently intubated and sedated. History was obtained from the record and other providers. It seems that the patient had been feeling well recently but yesterday evening developed the relatively acute onset of severe dyspnea. There was some report of some mild left arm discomfort as well. The patient did take a nitroglycerin at home without significant relief and either symptom and eventually presented to [facility] Emergency Room. There he was discovered to be tachypneic, tachycardic and hypoxic. The initial etiology was felt to involve pulmonary edema and he was placed on BiPAP. Seems that the patient suffered an episode of vomiting and likely aspiration as his respiratory status declined acutely at that point and he required intubation. Over the course of the evening patient pulmonary status appeared to stabilize. Serial cardiac biomarkers were noted to become markedly elevated. Allergies Allergy/AdvReac Type Severity Reaction Status Date / Time latex Allergy Intermediate HIVES - Verified 06/25/18 16:07 red itchy skin morphine Allergy Intermediate Itchiness Verified 07/15/18 16:20 Penicillins Allergy Unknown Unknown Verified 07/15/18 16:20 Home Medications Home Medications Medication Instructions Recorded Confirmed Type Nigella Sativa Oil 2,000 mg PO DIRECTED 06/25/18 10/03/18 History Pectasol Detox Formula 1 dose PO DIRECTED 06/25/18 10/03/18 History aspirin 81 mg PO QAM 10/03/18 10/03/18 History carvedilol 12.5 mg PO BID 10/03/18 10/03/18 History clopidogrel 75 mg PO QAM 10/03/18 10/03/18 History furosemide 20 mg PO DAILY PRN 10/03/18 10/03/18 History isosorbide mononitrate 60 mg PO BID 10/03/18 10/03/18 History levothyroxine 75 mcg PO QAM 10/03/18 10/03/18 History hbhkbzpc-sqe-CZ-lycopen-lutein 1 tab PO QAM 10/03/18 10/03/18 History [Centrum Silver] nitroglycerin 0.6 mg SUBLINGUAL DIRECTED PRN 10/03/18 10/03/18 History rosuvastatin 20 mg PO QAM 10/03/18 10/03/18 History sacubitril-valsartan [Entresto] 1 tab PO BID 10/03/18 10/03/18 History Patient History Medical History Acid reflux (Acute 07/20/14) Hypothyroidism LV dysfunction Silent myocardial infarction Systolic CHF Surgical History History of appendectomy History of hip replacement Social History Current Living Situation: Spouse Current Living Situation Comment: [facility] for home care. Other Information That Helps Us Care for You: No Feels Safe at Home: Yes Safety Concerns: Feels Safe At This Time Smoking Status: Former smoker Do You Dip or Chew Tobacco: No Second Hand Exposure: No Tobacco Cessation Education Requested by Patient: No Hx Alcohol Use: Yes Alcohol type: beer Alcohol Intake Frequency: 0-2 drinks per day Hx Substance Use: No Beliefs That Will Affect Care: None Preferred Language: Swazi Communication Ability: Impaired Government Gauger Required: No Review of Systems This could not be obtained as the patient is currently intubated and sedated Physical Exam Vital Signs (Past 24 Hours): Last Vital Signs Temp 36.4 C L 10/04/18 02:00 Pulse 63 10/04/18 07:29 Resp 14 10/04/18 07:29 BP 113/56 L 10/04/18 07:15 Pulse Ox 98 10/04/18 07:29 Physical Exam: Intubated and sedated. He did not follow commands. HEENT: The sclerae are anicteric. Neuro: Sedated Neck: Patient's neck is supple. He has palpable carotid pulses bilaterally without bruits on auscultation. The thyroid is not enlarged. Lungs: Some coarse upper airway sounds. No expiratory wheezing. No rales. Cardiac: Heart demonstrates a regular rate and rhythm. Normal S1 and S2. No murmurs on examination. Pulses: The patient has palpable radial pulses bilaterally that are equal in intensity Extremities: There was no evidence of hypoperfusion. There is no cyanosis or clubbing. He has mild bilateral lower extremity edema.. Skin: I did not appreciate any rashes on examination today. There is an ulcerated lesion on the right heel currently bandaged. Results & Data Laboratory Results Abnormal Lab Results 10/03/18 10/03/18 10/03/18 20:09 20:09 20:09 WBC 15.51 H RBC 4.19 L Hgb 12.2 L Hct 37.8 L MCV 90.2 MCH 29.1 MCHC 32.3 RDW Std Deviation 51.1 H RDW Coeff of Jeremiah 15.6 H Plt Count 193 MPV 10.7 H Immature Gran % (Auto) 0.2 Neut % (Auto) 62.6 Lymph % (Auto) 24.2 [place] % (Auto) 7.7 Eos % (Auto) 4.7 Baso % (Auto) 0.6 Immature Gran # (Auto) 0.03 H Neut # (Auto) 9.72 H Lymph # (Auto) 3.75 H [place] # (Auto) 1.19 H Eos # (Auto) 0.73 H Baso # (Auto) 0.09 PT 10.2 INR 1.0 APTT 23.8 PTT Ratio 0.9 Sample Site POC pH POC pCO2 POC pO2 POC HCO3 POC Total CO2 POC Base Excess ABG pH ABG pCO2 ABG pO2 ABG HCO3 POC ABG O2 Sat ABG O2 Saturation ABG Base Excess Hern[place] Test Barometric Pressure Oxygen Given O2 Delivery Device POC O2 Rate Minute Ventilation POC FiO2 Tidal Volume PEEP Sodium 141 Potassium 4.7 Chloride 109 H Carbon Dioxide 24 Anion Gap 7.0 BUN 27 H Creatinine 1.50 H Est Cr Clr Drug Dosing Not Reportable Est GFR ( Amer) 47.5 Est GFR (Non-Af Amer) 41.0 BUN/Creatinine Ratio 18.1 Glucose 200 H POC Glucose Estimat Average Glucose Hemoglobin A1c Lactate Calcium 8.5 Phosphorus Magnesium 2.2 Total Bilirubin 0.3 AST 32 ALT 35 Alkaline Phosphatase 73 POC Troponin I Troponin I 0.949 H* NT-Pro-B Natriuret Pep 5424 H Total Protein 7.9 Albumin 3.6 Globulin 4.3 H Albumin/Globulin Ratio 0.8 L Procalcitonin Urine Color Urine Appearance Urine pH Ur Specific [place] Urine Protein Urine Glucose (UA) Urine Ketones Urine Blood Urine Nitrite Urine Bilirubin Urine Urobilinogen Ur Leukocyte Esterase Urine WBC (Auto) Urine RBC (Auto) U Hyaline Cast (Auto) U Epithel Cells (Auto) Urine Bacteria (Auto) Urine Yeast Nasal Screen MRSA (PCR) 10/03/18 10/03/18 10/03/18 20:17 20:24 22:00 WBC RBC Hgb Hct MCV MCH MCHC RDW Std Deviation RDW Coeff of Jeremiah Plt Count MPV Immature Gran % (Auto) Neut % (Auto) Lymph % (Auto) [place] % (Auto) Eos % (Auto) Baso % (Auto) Immature Gran # (Auto) Neut # (Auto) Lymph # (Auto) [place] # (Auto) Eos # (Auto) Baso # (Auto) PT INR APTT PTT Ratio Sample Site POC pH POC pCO2 POC pO2 POC HCO3 POC Total CO2 POC Base Excess ABG pH 7.20 L ABG pCO2 62 H ABG pO2 102 H ABG HCO3 24 POC ABG O2 Sat ABG O2 Saturation 96.7 H ABG Base Excess -5.3 Hernando Test Pos Barometric Pressure 740.8 Oxygen Given 100% O2 Delivery Device POC O2 Rate Minute Ventilation POC FiO2 Tidal Volume PEEP Sodium Potassium Chloride Carbon Dioxide Anion Gap BUN Creatinine Est Cr Clr Drug Dosing Est GFR ( Amer) Est GFR (Non-Af Amer) BUN/Creatinine Ratio Glucose POC Glucose Estimat Average Glucose Hemoglobin A1c Lactate 2.1 H* Calcium Phosphorus Magnesium Total Bilirubin AST ALT Alkaline Phosphatase POC Troponin I 0.76 H Troponin I NT-Pro-B Natriuret Pep Total Protein Albumin Globulin Albumin/Globulin Ratio Procalcitonin Urine Color Urine Appearance Urine pH Ur Specific [place] Urine Protein Urine Glucose (UA) Urine Ketones Urine Blood Urine Nitrite Urine Bilirubin Urine Urobilinogen Ur Leukocyte Esterase Urine WBC (Auto) Urine RBC (Auto) U Hyaline Cast (Auto) U Epithel Cells (Auto) Urine Bacteria (Auto) Urine Yeast Nasal Screen MRSA (PCR) 10/03/18 10/03/18 10/04/18 22:30 23:40 04:08 WBC RBC Hgb Hct MCV MCH MCHC RDW Std Deviation RDW Coeff of Jeremiah Plt Count MPV Immature Gran % (Auto) Neut % (Auto) Lymph % (Auto) [place] % (Auto) Eos % (Auto) Baso % (Auto) Immature Gran # (Auto) Neut # (Auto) Lymph # (Auto) [place] # (Auto) Eos # (Auto) Baso # (Auto) PT INR APTT PTT Ratio Sample Site POC pH POC pCO2 POC pO2 POC HCO3 POC Total CO2 POC Base Excess ABG pH ABG pCO2 ABG pO2 ABG HCO3 POC ABG O2 Sat ABG O2 Saturation ABG Base Excess [place] Test Barometric Pressure Oxygen Given O2 Delivery Device POC O2 Rate Minute Ventilation POC FiO2 Tidal Volume PEEP Sodium 142 Potassium 4.0 Chloride 111 H Carbon Dioxide 25 Anion Gap 6.0 BUN 26 H Creatinine 1.36 Est Cr Clr Drug Dosing 42.0 Est GFR ( Amer) 53.5 Est GFR (Non-Af Amer) 46.1 BUN/Creatinine Ratio 18.9 Glucose 101 H POC Glucose Estimat Average Glucose Hemoglobin A1c Lactate Calcium 7.8 L Phosphorus 4.4 Magnesium 1.9 Total Bilirubin 0.4 AST 147 H ALT 41 Alkaline Phosphatase 55 POC Troponin I Troponin I 37.100 H* NT-Pro-B Natriuret Pep Total Protein 6.3 L D Albumin 2.8 L Globulin 3.5 Albumin/Globulin Ratio 0.8 L Procalcitonin Urine Color Yellow Urine Appearance Cloudy H Urine pH 5.0 Ur Specific [place] 1.015 Urine Protein Trace H Urine Glucose (UA) Negative Urine Ketones Negative Urine Blood 1+ H Urine Nitrite Negative Urine Bilirubin Negative Urine Urobilinogen Negative Ur Leukocyte Esterase 2+ H Urine WBC (Auto) >30 H Urine RBC (Auto) 0-4 U Hyaline Cast (Auto) 10-30 H U Epithel Cells (Auto) 0-5 Urine Bacteria (Auto) Negative Urine Yeast Budding H Nasal Screen MRSA (PCR) Negative 10/04/18 10/04/18 10/04/18 04:17 04:17 04:17 WBC 8.91 RBC 3.63 L Hgb 10.3 L Hct 32.2 L MCV 88.7 MCH 28.4 MCHC 32.0 RDW Std Deviation 50.0 H RDW Coeff of Jeremiah 15.3 H Plt Count 106 L MPV 10.2 Immature Gran % (Auto) 0.1 Neut % (Auto) 80.1 Lymph % (Auto) 10.3 [place] % (Auto) 8.6 Eos % (Auto) 0.7 Baso % (Auto) 0.2 Immature Gran # (Auto) 0.01 Neut # (Auto) 7.13 H Lymph # (Auto) 0.92 L [place] # (Auto) 0.77 H Eos # (Auto) 0.06 Baso # (Auto) 0.02 PT INR APTT PTT Ratio Sample Site POC pH POC pCO2 POC pO2 POC HCO3 POC Total CO2 POC Base Excess ABG pH ABG pCO2 ABG pO2 ABG HCO3 POC ABG O2 Sat ABG O2 Saturation ABG Base Excess Hernando Test Barometric Pressure Oxygen Given O2 Delivery Device POC O2 Rate Minute Ventilation POC FiO2 Tidal Volume PEEP Sodium Potassium Chloride Carbon Dioxide Anion Gap BUN Creatinine Est Cr Clr Drug Dosing Est GFR ( Amer) Est GFR (Non-Af Amer) BUN/Creatinine Ratio Glucose POC Glucose Estimat Average Glucose 128 Hemoglobin A1c 6.1 H Lactate Calcium Phosphorus Magnesium Total Bilirubin AST ALT Alkaline Phosphatase POC Troponin I Troponin I 39.200 H* NT-Pro-B Natriuret Pep Total Protein Albumin Globulin Albumin/Globulin Ratio Procalcitonin Urine Color Urine Appearance Urine pH Ur Specific [place] Urine Protein Urine Glucose (UA) Urine Ketones Urine Blood Urine Nitrite Urine Bilirubin Urine Urobilinogen Ur Leukocyte Esterase Urine WBC (Auto) Urine RBC (Auto) U Hyaline Cast (Auto) U Epithel Cells (Auto) Urine Bacteria (Auto) Urine Yeast Nasal Screen MRSA (PCR) 10/04/18 10/04/18 10/04/18 04:17 04:17 04:21 WBC RBC Hgb Hct MCV MCH MCHC RDW Std Deviation RDW Coeff of Jeremiah Plt Count MPV Immature Gran % (Auto) Neut % (Auto) Lymph % (Auto) [place] % (Auto) Eos % (Auto) Baso % (Auto) Immature Gran # (Auto) Neut # (Auto) Lymph # (Auto) [place] # (Auto) Eos # (Auto) Baso # (Auto) PT 10.7 INR 1.0 APTT 23.9 PTT Ratio 0.9 Sample Site POC pH POC pCO2 POC pO2 POC HCO3 POC Total CO2 POC Base Excess ABG pH ABG pCO2 ABG pO2 ABG HCO3 POC ABG O2 Sat ABG O2 Saturation ABG Base Excess [place] Test Barometric Pressure Oxygen Given O2 Delivery Device POC O2 Rate Minute Ventilation POC FiO2 Tidal Volume PEEP Sodium Potassium Chloride Carbon Dioxide Anion Gap BUN Creatinine Est Cr Clr Drug Dosing Est GFR ( Amer) Est GFR (Non-Af Amer) BUN/Creatinine Ratio Glucose POC Glucose Estimat Average Glucose Hemoglobin A1c Lactate 0.9 Calcium Phosphorus Magnesium Total Bilirubin AST ALT Alkaline Phosphatase POC Troponin I Troponin I NT-Pro-B Natriuret Pep Total Protein Albumin Globulin Albumin/Globulin Ratio Procalcitonin 0.09 Urine Color Urine Appearance Urine pH Ur Specific [place] Urine Protein Urine Glucose (UA) Urine Ketones Urine Blood Urine Nitrite Urine Bilirubin Urine Urobilinogen Ur Leukocyte Esterase Urine WBC (Auto) Urine RBC (Auto) U Hyaline Cast (Auto) U Epithel Cells (Auto) Urine Bacteria (Auto) Urine Yeast Nasal Screen MRSA (PCR) 10/04/18 10/04/18 10/04/18 04:21 05:39 08:03 WBC RBC Hgb Hct MCV MCH MCHC RDW Std Deviation RDW Coeff of Jeremiah Plt Count MPV Immature Gran % (Auto) Neut % (Auto) Lymph % (Auto) [place] % (Auto) Eos % (Auto) Baso % (Auto) Immature Gran # (Auto) Neut # (Auto) Lymph # (Auto) [place] # (Auto) Eos # (Auto) Baso # (Auto) PT INR APTT Cancelled PTT Ratio Cancelled Sample Site R Radial POC pH 7.38 POC pCO2 39 POC pO2 107 H POC HCO3 23 POC Total CO2 24 POC Base Excess -2.0 ABG pH ABG pCO2 ABG pO2 ABG HCO3 POC ABG O2 Sat 98.0 H ABG O2 Saturation ABG Base Excess Hernando Test Pass Barometric Pressure Oxygen Given O2 Delivery Device Ventilator POC O2 Rate 14 Minute Ventilation 9 POC FiO2 35 Tidal Volume 550 PEEP 5 Sodium Potassium Chloride Carbon Dioxide Anion Gap BUN Creatinine Est Cr Clr Drug Dosing Est GFR ( Amer) Est GFR (Non-Af Amer) BUN/Creatinine Ratio Glucose POC Glucose 98 Estimat Average Glucose Hemoglobin A1c Lactate Calcium Phosphorus Magnesium Total Bilirubin AST ALT Alkaline Phosphatase POC Troponin I Troponin I NT-Pro-B Natriuret Pep Total Protein Albumin Globulin Albumin/Globulin Ratio Procalcitonin Urine Color Urine Appearance Urine pH Ur Specific [place] Urine Protein Urine Glucose (UA) Urine Ketones Urine Blood Urine Nitrite Urine Bilirubin Urine Urobilinogen Ur Leukocyte Esterase Urine WBC (Auto) Urine RBC (Auto) U Hyaline Cast (Auto) U Epithel Cells (Auto) Urine Bacteria (Auto) Urine Yeast Nasal Screen MRSA (PCR) Diagnostic Findings CT scan of the chest and x-ray of the chest both reveal pulmonary edema ECG Additional Comments: Sinus rhythm with left bundle branch block
--- NOTE | 2018-10-04 13:19 | Procedure Note ---
Procedure Note Date of Service October 04, 2018 Note Bronchoscopy was done due to helena aspiration, consent obtained from the daughter Shawna over the phone, risk and benefit explained the details, agreed to the procedure. The patient was already intubated with #7-1/2 ET tube. Using a blue adapter, the bronchoscope was able to pass through the blue adapter through the ET tube without any difficulty. The patient was already sedated with the propofol and received 2 additional doses of 20 mg each. The patient received total of 10 mL of 1% lidocaine throughout the entire procedure. The patient monitored in the ICU in bed #5 with OR style of monitoring. After the patient was well sedated, the bronchoscope passed and the findings as follows: 1. The ET tube is 3 cm above the betito. 2. The tracheobronchial tree was noted to have large amount of aspirated material mainly at the right main bronchus extending towards the subsegment of the lateral segment. All suctioned to clear. 3. Specimen was sent for microbiology. 4. No evidence of endobronchial lesion, or endobronchial bleeding. The bronchoscope was removed without any difficulty. The patient tolerated the procedure very well without any complication. Timeout was performed by the nursing staff, appreciate the assistance of respiratory therapy.
--- NOTE | 2018-10-04 15:49 | Hospitalist Progress Note ---
Date of Service October 04, 2018 Assessment & Plan (1) Acute respiratory failure with hypoxia and hypercapnia: 2nd to acute/chronic systolic CHF, NSTEMI, along with aspiration event. Cont vent support; wean as tolerated; defer vent management to critical care attending; appreciate his help. Treat individual components including CHF, CAD, and aspiration. Present on Admission?: Yes (2) Acute on chronic systolic heart failure: Appreciate cardiology consultation. LV dysfunction is due to CAD. Continue IV lasix diuresis. Resume BB when able. Resume entresto when able. Repeat labs in am. Cardiology is considering repeat heart cath in light of NSTEMI. Present on Admission?: Yes (3) NSTEMI (non-ST elevated myocardial infarction): Check an additional troponin to ensure it has peaked. Resume aspirin 81mg via enteric tube. Resume plavix 75mg via enteric tube. Agree with heparin infusion x 48 hours. will look at records to see when last lipids were. Resume BB, statin, entresto when able. Echo report reviewed in detail. cath this admission? defer to cardiology. Present on Admission?: Yes (4) Acute kidney injury superimposed on CKD: 2nd to NSTEMI/acute on chronic CHF --- improving. Diuresing and supportive care. BMP am. (5) Aspiration into airway: Continue IV abx - defer selection to critical care team. Respiratory support. (6) GERD (gastroesophageal reflux disease): PPI. (7) Hypothyroidism: TSH 06/2018 was normal. Cont synthroid. (8) Hyperlipidemia: resume statin when able (9) CKD (chronic kidney disease) stage 3, GFR 30-59 ml/min: BMP in am (10) LBBB (left bundle branch block): chronic (11) Prediabetes: glycemic control per ICU protocol (12) DVT prophylaxis: heparin infusion Subjective patient intubated, sedated during the visit. spoke with ICU attending -- plan is for bronch, then PSV trial, then possible extubation Physical Exam 2 Vital Signs (Past 24 Hours): Last Vital Signs Temp 37 C 10/04/18 08:00 Pulse 77 10/04/18 13:00 Resp 16 10/04/18 11:30 BP 126/58 L 10/04/18 13:00 Pulse Ox 99 10/04/18 13:00 Constitutional: no acute distress intubated, sedated ENMT: ETT and enteric tubes in place Respiratory: Auscultation: lungs clear to auscultation bilaterally and + diminished lung sounds (bases) Cardiovascular: RRR, no murmur, no edema Heart Sounds: normal S1 Vessels : posterior tibial pulses present and dorsalis pedis pulses present; no JVD Gastrointestinal (Abdomen): normal bowel sounds, soft, nontender, no hepatosplenomegaly Results & Data Laboratory Results Laboratory Results - last 24 hr 10/03/18 10/03/18 10/03/18 20:09 20:09 20:09 WBC 15.51 H RBC 4.19 L Hgb 12.2 L Hct 37.8 L MCV 90.2 MCH 29.1 MCHC 32.3 RDW Std Deviation 51.1 H RDW Coeff of Jeremiah 15.6 H Plt Count 193 MPV 10.7 H Immature Gran % (Auto) 0.2 Neut % (Auto) 62.6 Lymph % (Auto) 24.2 [place] % (Auto) 7.7 Eos % (Auto) 4.7 Baso % (Auto) 0.6 Immature Gran # (Auto) 0.03 H Neut # (Auto) 9.72 H Lymph # (Auto) 3.75 H [place] # (Auto) 1.19 H Eos # (Auto) 0.73 H Baso # (Auto) 0.09 PT 10.2 INR 1.0 APTT 23.8 PTT Ratio 0.9 Sample Site POC pH POC pCO2 POC pO2 POC HCO3 POC Total CO2 POC Base Excess ABG pH ABG pCO2 ABG pO2 ABG HCO3 POC ABG O2 Sat ABG O2 Saturation ABG Base Excess Hernando Test Barometric Pressure Oxygen Given O2 Delivery Device POC O2 Rate Minute Ventilation POC FiO2 Tidal Volume PEEP Sodium 141 Potassium 4.7 Chloride 109 H Carbon Dioxide 24 Anion Gap 7.0 BUN 27 H Creatinine 1.50 H Est Cr Clr Drug Dosing Not Reportable Est GFR ( Amer) 47.5 Est GFR (Non-Af Amer) 41.0 BUN/Creatinine Ratio 18.1 Glucose 200 H POC Glucose Estimat Average Glucose Hemoglobin A1c Lactate Calcium 8.5 Phosphorus Magnesium 2.2 Total Bilirubin 0.3 AST 32 ALT 35 Alkaline Phosphatase 73 POC Troponin I Troponin I 0.949 H* NT-Pro-B Natriuret Pep 5424 H Total Protein 7.9 Albumin 3.6 Globulin 4.3 H Albumin/Globulin Ratio 0.8 L Procalcitonin Urine Color Urine Appearance Urine pH Ur Specific [place] Urine Protein Urine Glucose (UA) Urine Ketones Urine Blood Urine Nitrite Urine Bilirubin Urine Urobilinogen Ur Leukocyte Esterase Urine WBC (Auto) Urine RBC (Auto) U Hyaline Cast (Auto) U Epithel Cells (Auto) Urine Bacteria (Auto) Urine Yeast Nasal Screen MRSA (PCR) 10/03/18 10/03/18 10/03/18 20:17 20:24 22:00 WBC RBC Hgb Hct MCV MCH MCHC RDW Std Deviation RDW Coeff of Jeremiah Plt Count MPV Immature Gran % (Auto) Neut % (Auto) Lymph % (Auto) [place] % (Auto) Eos % (Auto) Baso % (Auto) Immature Gran # (Auto) Neut # (Auto) Lymph # (Auto) [place] # (Auto) Eos # (Auto) Baso # (Auto) PT INR APTT PTT Ratio Sample Site POC pH POC pCO2 POC pO2 POC HCO3 POC Total CO2 POC Base Excess ABG pH 7.20 L ABG pCO2 62 H ABG pO2 102 H ABG HCO3 24 POC ABG O2 Sat ABG O2 Saturation 96.7 H ABG Base Excess -5.3 Hernando Test Pos Barometric Pressure 740.8 Oxygen Given 100% O2 Delivery Device POC O2 Rate Minute Ventilation POC FiO2 Tidal Volume PEEP Sodium Potassium Chloride Carbon Dioxide Anion Gap BUN Creatinine Est Cr Clr Drug Dosing Est GFR ( Amer) Est GFR (Non-Af Amer) BUN/Creatinine Ratio Glucose POC Glucose Estimat Average Glucose Hemoglobin A1c Lactate 2.1 H* Calcium Phosphorus Magnesium Total Bilirubin AST ALT Alkaline Phosphatase POC Troponin I 0.76 H Troponin I NT-Pro-B Natriuret Pep Total Protein Albumin Globulin Albumin/Globulin Ratio Procalcitonin Urine Color Urine Appearance Urine pH Ur Specific [place] Urine Protein Urine Glucose (UA) Urine Ketones Urine Blood Urine Nitrite Urine Bilirubin Urine Urobilinogen Ur Leukocyte Esterase Urine WBC (Auto) Urine RBC (Auto) U Hyaline Cast (Auto) U Epithel Cells (Auto) Urine Bacteria (Auto) Urine Yeast Nasal Screen MRSA (PCR) 10/03/18 10/03/18 10/04/18 22:30 23:40 04:08 WBC RBC Hgb Hct MCV MCH MCHC RDW Std Deviation RDW Coeff of Jeremiah Plt Count MPV Immature Gran % (Auto) Neut % (Auto) Lymph % (Auto) [place] % (Auto) Eos % (Auto) Baso % (Auto) Immature Gran # (Auto) Neut # (Auto) Lymph # (Auto) [place] # (Auto) Eos # (Auto) Baso # (Auto) PT INR APTT PTT Ratio Sample Site POC pH POC pCO2 POC pO2 POC HCO3 POC Total CO2 POC Base Excess ABG pH ABG pCO2 ABG pO2 ABG HCO3 POC ABG O2 Sat ABG O2 Saturation ABG Base Excess [place] Test Barometric Pressure Oxygen Given O2 Delivery Device POC O2 Rate Minute Ventilation POC FiO2 Tidal Volume PEEP Sodium 142 Potassium 4.0 Chloride 111 H Carbon Dioxide 25 Anion Gap 6.0 BUN 26 H Creatinine 1.36 Est Cr Clr Drug Dosing 42.0 Est GFR ( Amer) 53.5 Est GFR (Non-Af Amer) 46.1 BUN/Creatinine Ratio 18.9 Glucose 101 H POC Glucose Estimat Average Glucose Hemoglobin A1c Lactate Calcium 7.8 L Phosphorus 4.4 Magnesium 1.9 Total Bilirubin 0.4 AST 147 H ALT 41 Alkaline Phosphatase 55 POC Troponin I Troponin I 37.100 H* NT-Pro-B Natriuret Pep Total Protein 6.3 L D Albumin 2.8 L Globulin 3.5 Albumin/Globulin Ratio 0.8 L Procalcitonin Urine Color Yellow Urine Appearance Cloudy H Urine pH 5.0 Ur Specific [place] 1.015 Urine Protein Trace H Urine Glucose (UA) Negative Urine Ketones Negative Urine Blood 1+ H Urine Nitrite Negative Urine Bilirubin Negative Urine Urobilinogen Negative Ur Leukocyte Esterase 2+ H Urine WBC (Auto) >30 H Urine RBC (Auto) 0-4 U Hyaline Cast (Auto) 10-30 H U Epithel Cells (Auto) 0-5 Urine Bacteria (Auto) Negative Urine Yeast Budding H Nasal Screen MRSA (PCR) Negative 10/04/18 10/04/18 10/04/18 04:17 04:17 04:17 WBC 8.91 RBC 3.63 L Hgb 10.3 L Hct 32.2 L MCV 88.7 MCH 28.4 MCHC 32.0 RDW Std Deviation 50.0 H RDW Coeff of Jeremiah 15.3 H Plt Count 106 L MPV 10.2 Immature Gran % (Auto) 0.1 Neut % (Auto) 80.1 Lymph % (Auto) 10.3 [place] % (Auto) 8.6 Eos % (Auto) 0.7 Baso % (Auto) 0.2 Immature Gran # (Auto) 0.01 Neut # (Auto) 7.13 H Lymph # (Auto) 0.92 L [place] # (Auto) 0.77 H Eos # (Auto) 0.06 Baso # (Auto) 0.02 PT INR APTT PTT Ratio Sample Site POC pH POC pCO2 POC pO2 POC HCO3 POC Total CO2 POC Base Excess ABG pH ABG pCO2 ABG pO2 ABG HCO3 POC ABG O2 Sat ABG O2 Saturation ABG Base Excess [place] Test Barometric Pressure Oxygen Given O2 Delivery Device POC O2 Rate Minute Ventilation POC FiO2 Tidal Volume PEEP Sodium Potassium Chloride Carbon Dioxide Anion Gap BUN Creatinine Est Cr Clr Drug Dosing Est GFR ( Amer) Est GFR (Non-Af Amer) BUN/Creatinine Ratio Glucose POC Glucose Estimat Average Glucose 128 Hemoglobin A1c 6.1 H Lactate Calcium Phosphorus Magnesium Total Bilirubin AST ALT Alkaline Phosphatase POC Troponin I Troponin I 39.200 H* NT-Pro-B Natriuret Pep Total Protein Albumin Globulin Albumin/Globulin Ratio Procalcitonin Urine Color Urine Appearance Urine pH Ur Specific [place] Urine Protein Urine Glucose (UA) Urine Ketones Urine Blood Urine Nitrite Urine Bilirubin Urine Urobilinogen Ur Leukocyte Esterase Urine WBC (Auto) Urine RBC (Auto) U Hyaline Cast (Auto) U Epithel Cells (Auto) Urine Bacteria (Auto) Urine Yeast Nasal Screen MRSA (PCR) 10/04/18 10/04/18 10/04/18 04:17 04:17 04:21 WBC RBC Hgb Hct MCV MCH MCHC RDW Std Deviation RDW Coeff of Jeremiah Plt Count MPV Immature Gran % (Auto) Neut % (Auto) Lymph % (Auto) [place] % (Auto) Eos % (Auto) Baso % (Auto) Immature Gran # (Auto) Neut # (Auto) Lymph # (Auto) [place] # (Auto) Eos # (Auto) Baso # (Auto) PT 10.7 INR 1.0 APTT 23.9 PTT Ratio 0.9 Sample Site POC pH POC pCO2 POC pO2 POC HCO3 POC Total CO2 POC Base Excess ABG pH ABG pCO2 ABG pO2 ABG HCO3 POC ABG O2 Sat ABG O2 Saturation ABG Base Excess [place] Test Barometric Pressure Oxygen Given O2 Delivery Device POC O2 Rate Minute Ventilation POC FiO2 Tidal Volume PEEP Sodium Potassium Chloride Carbon Dioxide Anion Gap BUN Creatinine Est Cr Clr Drug Dosing Est GFR ( Amer) Est GFR (Non-Af Amer) BUN/Creatinine Ratio Glucose POC Glucose Estimat Average Glucose Hemoglobin A1c Lactate 0.9 Calcium Phosphorus Magnesium Total Bilirubin AST ALT Alkaline Phosphatase POC Troponin I Troponin I NT-Pro-B Natriuret Pep Total Protein Albumin Globulin Albumin/Globulin Ratio Procalcitonin 0.09 Urine Color Urine Appearance Urine pH Ur Specific [place] Urine Protein Urine Glucose (UA) Urine Ketones Urine Blood Urine Nitrite Urine Bilirubin Urine Urobilinogen Ur Leukocyte Esterase Urine WBC (Auto) Urine RBC (Auto) U Hyaline Cast (Auto) U Epithel Cells (Auto) Urine Bacteria (Auto) Urine Yeast Nasal Screen MRSA (PCR) 10/04/18 10/04/18 10/04/18 04:21 05:39 08:03 WBC RBC Hgb Hct MCV MCH MCHC RDW Std Deviation RDW Coeff of Jeremiah Plt Count MPV Immature Gran % (Auto) Neut % (Auto) Lymph % (Auto) [place] % (Auto) Eos % (Auto) Baso % (Auto) Immature Gran # (Auto) Neut # (Auto) Lymph # (Auto) [place] # (Auto) Eos # (Auto) Baso # (Auto) PT INR APTT Cancelled PTT Ratio Cancelled Sample Site R Radial POC pH 7.38 POC pCO2 39 POC pO2 107 H POC HCO3 23 POC Total CO2 24 POC Base Excess -2.0 ABG pH ABG pCO2 ABG pO2 ABG HCO3 POC ABG O2 Sat 98.0 H ABG O2 Saturation ABG Base Excess Hernando Test Pass Barometric Pressure Oxygen Given O2 Delivery Device Ventilator POC O2 Rate 14 Minute Ventilation 9 POC FiO2 35 Tidal Volume 550 PEEP 5 Sodium Potassium Chloride Carbon Dioxide Anion Gap BUN Creatinine Est Cr Clr Drug Dosing Est GFR ( Amer) Est GFR (Non-Af Amer) BUN/Creatinine Ratio Glucose POC Glucose 98 Estimat Average Glucose Hemoglobin A1c Lactate Calcium Phosphorus Magnesium Total Bilirubin AST ALT Alkaline Phosphatase POC Troponin I Troponin I NT-Pro-B Natriuret Pep Total Protein Albumin Globulin Albumin/Globulin Ratio Procalcitonin Urine Color Urine Appearance Urine pH Ur Specific [place] Urine Protein Urine Glucose (UA) Urine Ketones Urine Blood Urine Nitrite Urine Bilirubin Urine Urobilinogen Ur Leukocyte Esterase Urine WBC (Auto) Urine RBC (Auto) U Hyaline Cast (Auto) U Epithel Cells (Auto) Urine Bacteria (Auto) Urine Yeast Nasal Screen MRSA (PCR) 10/04/18 10/04/18 10/04/18 10:53 10:53 11:46 WBC RBC Hgb Hct MCV MCH MCHC RDW Std Deviation RDW Coeff of Jeremiah Plt Count MPV Immature Gran % (Auto) Neut % (Auto) Lymph % (Auto) [place] % (Auto) Eos % (Auto) Baso % (Auto) Immature Gran # (Auto) Neut # (Auto) Lymph # (Auto) [place] # (Auto) Eos # (Auto) Baso # (Auto) PT INR APTT PTT Ratio Sample Site POC pH POC pCO2 POC pO2 POC HCO3 POC Total CO2 POC Base Excess ABG pH ABG pCO2 ABG pO2 ABG HCO3 POC ABG O2 Sat ABG O2 Saturation ABG Base Excess [place] Test Barometric Pressure Oxygen Given O2 Delivery Device POC O2 Rate Minute Ventilation POC FiO2 Tidal Volume PEEP Sodium Potassium Chloride Carbon Dioxide Anion Gap BUN Creatinine Est Cr Clr Drug Dosing Est GFR ( Amer) Est GFR (Non-Af Amer) BUN/Creatinine Ratio Glucose POC Glucose 104 H Estimat Average Glucose Hemoglobin A1c Lactate 1.7 Calcium Phosphorus Magnesium Total Bilirubin AST ALT Alkaline Phosphatase POC Troponin I Troponin I NT-Pro-B Natriuret Pep Total Protein Albumin Globulin Albumin/Globulin Ratio Procalcitonin < 0.05 Urine Color Urine Appearance Urine pH Ur Specific [place] Urine Protein Urine Glucose (UA) Urine Ketones Urine Blood Urine Nitrite Urine Bilirubin Urine Urobilinogen Ur Leukocyte Esterase Urine WBC (Auto) Urine RBC (Auto) U Hyaline Cast (Auto) U Epithel Cells (Auto) Urine Bacteria (Auto) Urine Yeast Nasal Screen MRSA (PCR) 10/04/18 15:10 WBC RBC Hgb Hct MCV MCH MCHC RDW Std Deviation RDW Coeff of Jeremiah Plt Count MPV Immature Gran % (Auto) Neut % (Auto) Lymph % (Auto) [place] % (Auto) Eos % (Auto) Baso % (Auto) Immature Gran # (Auto) Neut # (Auto) Lymph # (Auto) [place] # (Auto) Eos # (Auto) Baso # (Auto) PT INR APTT PTT Ratio Sample Site POC pH POC pCO2 POC pO2 POC HCO3 POC Total CO2 POC Base Excess ABG pH ABG pCO2 ABG pO2 ABG HCO3 POC ABG O2 Sat ABG O2 Saturation ABG Base Excess Hern[place] Test Barometric Pressure Oxygen Given O2 Delivery Device POC O2 Rate Minute Ventilation POC FiO2 Tidal Volume PEEP Sodium Potassium Chloride Carbon Dioxide Anion Gap BUN Creatinine Est Cr Clr Drug Dosing Est GFR ( Amer) Est GFR (Non-Af Amer) BUN/Creatinine Ratio Glucose POC Glucose Estimat Average Glucose Hemoglobin A1c Lactate Calcium Phosphorus Magnesium Total Bilirubin AST ALT Alkaline Phosphatase POC Troponin I Troponin I 33.400 H* NT-Pro-B Natriuret Pep Total Protein Albumin Globulin Albumin/Globulin Ratio Procalcitonin Urine Color Urine Appearance Urine pH Ur Specific [place] Urine Protein Urine Glucose (UA) Urine Ketones Urine Blood Urine Nitrite Urine Bilirubin Urine Urobilinogen Ur Leukocyte Esterase Urine WBC (Auto) Urine RBC (Auto) U Hyaline Cast (Auto) U Epithel Cells (Auto) Urine Bacteria (Auto) Urine Yeast Nasal Screen MRSA (PCR) Diagnostic Findings echo - EF 25-30%, wall motion abnormalities _ (1) Aspiration into airway Encounter type: initial encounter Qualified Code(s): T17.908A - Unspecified foreign body in respiratory tract, part unspecified causing other injury, initial encounter (2) GERD (gastroesophageal reflux disease) Esophagitis presence: esophagitis presence not specified Qualified Code(s): K21.9 - Gastro-esophageal reflux disease without esophagitis (3) Hypothyroidism Hypothyroidism type: acquired Qualified Code(s): E03.9 - Hypothyroidism, unspecified (4) Hyperlipidemia Hyperlipidemia type: mixed hyperlipidemia Qualified Code(s): E78.2 - Mixed hyperlipidemia
--- NOTE | 2018-10-05 07:19 | XRay Report ---
XR chest 1V portable CLINICAL HISTORY: 88 years-old Male presenting with f/u. TECHNIQUE: Portable upright AP view of the chest was obtained. COMPARISON: 10/04/2018. FINDINGS: Interval extubation. The nasogastric tube has also been removed. Atherosclerosis of aortic arch. Card iac silhouette moderately enlarged. Pulmonary vascular prominence though slightly decreased from prio r. Persistent bronchial wall cuffing of there is significant decrease in central predominant opacitie s. No new focal opacity. No pleural effusion or pneumothorax. Skinfold noted over the right upper hiro g periphery as on prior. Degenerative changes of the thoracic spine. Numerous overlying external lead s to grade image quality. IMPRESSION: 1. Cardiomegaly with improving pulmonary edema and congestive change. Electronically signed by: Tree Cisse M.D. 10/05/2018 7:17 AM
--- NOTE | 2018-10-05 14:40 | Cardiology Progress Note ---
Date of Service October 05, 2018 Assessment & Plan (1) Acute on chronic congestive heart failure: His pulmonary edema seems to have resolved. He was diuresed fairly aggressively and actually turned around quite rapidly after admission. He was extubated yesterday. He has no symptoms of dyspnea currently. His lung examination is relatively benign. He is scheduled for an additional dose of diuretic this evening which seems reasonable. His potassium slightly low today his renal function trending upwards. It is likely he will not require any additional diuresis after this evening. He was on a p.r.n. dose of diuretic as an outpatient. Now that he is awake and can be interviewed, it seems that there was an element of medical noncompliance leading up to his admission. This may been the etiology of his decompensation. (2) NSTEMI (non-ST elevated myocardial infarction): Biomarkers are trending down. He does have a history of �indigestion�. However, this is longstanding in nature. Did undergo coronary angiography 2 months ago which did not reveal any lesions amenable to intervention. I think it is unlikely that this has changed significantly in that period of time. It is very likely that his elevated biomarkers related to �demand ischemia� from his acute event. I think we can liberalize his activity and monitor his symptoms as an inpatient. He may not require any additional angiography. (3) CAD (coronary artery disease): He is known to have occlusion of the right coronary artery and a large diagonal branch. Certainly will have ischemia with any form stress such as his presenting tachycardia, hypoxia and relative anemia. Continuation of his outpatient regimen to include beta blockade and nitrates as well as dual anti- platelet therapy is recommended. High-dose rosuvastatin could also be re- initiated once he is taking oral medications. Currently on heparin infusion was seems appropriate given his presentation. (4) Ischemic cardiomyopathy: His LV function looked worse on echocardiogram yesterday. However, he was acutely ill and did miss several days of medications. He was on an aggressive medical regimen. Carvedilol has been re-initiated and I think he can have the dose increased. Hopefully we can reinitiate his Entresto tomorrow. Afterwards re-initiation of his nitrates can be performed. (5) LBBB (left bundle branch block): Chronic. No findings consistent with an acute infarct, but given the baseline rhythm interpretation of an acute event would be difficult. QTC was Long on 1 EKG but currently in the normal range given his known conduction disease. Subjective This morning patient claims to be feeling well. He states his breathing is back to baseline. He has not been ambulatory as he still in the intensive care unit. He did report that his daughter recognized some medical noncompliance. It seems that he missed 3 days worth of medications leading up to his admission. Denies any sense of palpitation leading up to his admission. However, he does have chronic �heartburn�. He states that he does have a burning sensation in the precordium almost on a daily basis. This tends to happen in the evening hours and has been longstanding. Physical Exam 2 Vital Signs (Past 24 Hours): Last Vital Signs Temp 36.8 C 10/05/18 08:00 Pulse 79 10/05/18 10:00 Resp 22 10/05/18 10:00 BP 118/62 10/05/18 10:00 Pulse Ox 94 10/05/18 10:00 Physical Exam: The patient is alert and oriented. Mood and affect appeared normal. He answered all questions appropriately. HEENT: Pupils are equal and reactive to light and accommodation. Extraocular movements are intact. The sclerae are anicteric. Neuro: Cranial nerves intact Neck: Patient's neck is supple. He has palpable carotid pulses bilaterally without bruits on auscultation. There is no evidence of jugular venous distention. The thyroid is not enlarged. Lungs: Clear to auscultation bilaterally. Some coarse upper airway sounds. He has good air movement without use of accessory muscles. No rales wheezes or rhonchi. Cardiac: Heart demonstrates a regular rate and rhythm. Normal S1 and S2. No murmurs on examination. Pulses: The patient has palpable radial pulses bilaterally that are equal in intensity Extremities: There was no evidence of hypoperfusion. There is no cyanosis or clubbing. There is no edema. Skin: I did not appreciate any rashes on examination today. Results & Data Laboratory Results Abnormal Lab Results 10/04/18 10/04/18 10/04/18 15:10 16:27 17:40 WBC RBC Hgb Hct MCV MCH MCHC RDW Std Deviation RDW Coeff of Jeremiah Plt Count MPV Immature Gran % (Auto) Neut % (Auto) Lymph % (Auto) [place] % (Auto) Eos % (Auto) Baso % (Auto) Immature Gran # (Auto) Neut # (Auto) Lymph # (Auto) [place] # (Auto) Eos # (Auto) Baso # (Auto) APTT PTT Ratio Sodium Potassium Chloride Carbon Dioxide Anion Gap BUN Creatinine Est Cr Clr Drug Dosing Est GFR ( Amer) Est GFR (Non-Af Amer) BUN/Creatinine Ratio Glucose POC Glucose 103 H Lactate 1.4 Calcium Phosphorus Magnesium Troponin I 33.400 H* Triglycerides Cholesterol LDL Cholesterol, Calc VLDL Cholesterol, Calc HDL Cholesterol Cholesterol/HDL Ratio Fluid Polynuclear WBCs Fld Polynuclear WBCs % Fluid Mononuclear WBCs Fld Mononuclear WBCs % 10/04/18 10/04/18 10/04/18 17:40 21:07 Unknown WBC RBC Hgb Hct MCV MCH MCHC RDW Std Deviation RDW Coeff of Jeremiah Plt Count MPV Immature Gran % (Auto) Neut % (Auto) Lymph % (Auto) [place] % (Auto) Eos % (Auto) Baso % (Auto) Immature Gran # (Auto) Neut # (Auto) Lymph # (Auto) [place] # (Auto) Eos # (Auto) Baso # (Auto) APTT 72.0 H* PTT Ratio 2.7 Sodium Potassium Chloride Carbon Dioxide Anion Gap BUN Creatinine Est Cr Clr Drug Dosing Est GFR ( Amer) Est GFR (Non-Af Amer) BUN/Creatinine Ratio Glucose POC Glucose 131 H Lactate Calcium Phosphorus Magnesium Troponin I Triglycerides Cholesterol LDL Cholesterol, Calc VLDL Cholesterol, Calc HDL Cholesterol Cholesterol/HDL Ratio Fluid Polynuclear WBCs Not Reportable Fld Polynuclear WBCs % 97.0 Fluid Mononuclear WBCs Not Reportable Fld Mononuclear WBCs % 3.0 10/05/18 10/05/18 10/05/18 00:38 04:37 04:37 WBC 7.20 RBC 3.58 L Hgb 10.1 L Hct 31.2 L MCV 87.2 MCH 28.2 MCHC 32.4 RDW Std Deviation 50.0 H RDW Coeff of Jeremiah 15.6 H Plt Count 103 L MPV 10.2 Immature Gran % (Auto) 0.3 Neut % (Auto) 70.0 Lymph % (Auto) 16.8 [place] % (Auto) 10.6 Eos % (Auto) 1.9 Baso % (Auto) 0.4 Immature Gran # (Auto) 0.02 Neut # (Auto) 5.04 Lymph # (Auto) 1.21 [place] # (Auto) 0.76 H Eos # (Auto) 0.14 Baso # (Auto) 0.03 APTT 63.4 H* PTT Ratio 2.3 Sodium 141 Potassium 3.2 L D Chloride 106 Carbon Dioxide 28 Anion Gap 7.0 BUN 27 H Creatinine 1.43 H Est Cr Clr Drug Dosing 39.9 Est GFR ( Amer) 50.3 Est GFR (Non-Af Amer) 43.4 BUN/Creatinine Ratio 18.9 Glucose 110 H POC Glucose Lactate Calcium 8.1 L Phosphorus 3.5 Magnesium 1.7 L Troponin I 16.000 H* Triglycerides 102 Cholesterol 128 LDL Cholesterol, Calc 65 VLDL Cholesterol, Calc 20 HDL Cholesterol 43 Cholesterol/HDL Ratio 3 Fluid Polynuclear WBCs Fld Polynuclear WBCs % Fluid Mononuclear WBCs Fld Mononuclear WBCs % 10/05/18 10/05/18 10/05/18 06:16 07:28 11:26 WBC RBC Hgb Hct MCV MCH MCHC RDW Std Deviation RDW Coeff of Jeremiah Plt Count MPV Immature Gran % (Auto) Neut % (Auto) Lymph % (Auto) [place] % (Auto) Eos % (Auto) Baso % (Auto) Immature Gran # (Auto) Neut # (Auto) Lymph # (Auto) [place] # (Auto) Eos # (Auto) Baso # (Auto) APTT PTT Ratio Sodium Potassium Chloride Carbon Dioxide Anion Gap BUN Creatinine Est Cr Clr Drug Dosing Est GFR ( Amer) Est GFR (Non-Af Amer) BUN/Creatinine Ratio Glucose POC Glucose 112 H 97 99 Lactate Calcium Phosphorus Magnesium Troponin I Triglycerides Cholesterol LDL Cholesterol, Calc VLDL Cholesterol, Calc HDL Cholesterol Cholesterol/HDL Ratio Fluid Polynuclear WBCs Fld Polynuclear WBCs % Fluid Mononuclear WBCs Fld Mononuclear WBCs % ECG Additional Comments: No significant arrhythmia on telemetry
--- NOTE | 2018-10-05 17:18 | Critical Care Progress Note ---
Date of Service October 05, 2018 Assessment & Plan (1) Acute on chronic systolic heart failure: Impression: 1. Non-ST elevation NE, troponin is trending down. Left bundle branch block. 2. Coronary artery disease status post PCI in July 2018 showing 95% occluded RCA. 3. Dilated esophagus on the CAT scan, place the patient at risk for aspiration. Resulted in aspiration after aerophagia from BiPAP. 4. Chemical aspiration rather than infectious aspiration. 5. Acute respiratory failure secondary to pulmonary edema and aspiration. Plan: 1. Continue with diuresis, the patient is responding nicely, he is 2 L negative fluid balance in 24 hours. 2. Follow the results of bronchoscopy specimen. 3. Discontinue sedatives. 4. Replacement of potassium. 5. Chest x-ray reviewed personally. 6. If the cultures are negative from the bronchoscopy, May discontinue antibiotics after day 3. 7. Cardiology input appreciated. 8. Core measures for ICU stay has been met. 9. Disposition plan to the telemetry floor. 10. Advance diet. 11. Case discussed with Dr. Shahid, appreciate his acceptance of this case to telemetry floor. Case discussed with the staff on rounds and details, critical care time spent with the patient was 35 minutes. Discussed with the daughter at the bedside and with the patient, all their questions been answered. Subjective The patient is feeling much better, he denies any chest pain, no shortness of breath, no events overnight, has been off the oxygen, started on oral intake and tolerated well. His diuresis resulted in 2 L negative balance. Physical Exam 2 Vital Signs (Past 24 Hours): Last Vital Signs Temp 36.5 C 10/05/18 16:21 Pulse 72 10/05/18 16:21 Resp 16 10/05/18 16:21 BP 120/65 10/05/18 16:21 Pulse Ox 97 10/05/18 16:21 Physical Exam: Vital signs are stable, S1-S2 regular rate and rhythm, lungs are clear, basilar crackles only, abdomen is benign, no edema. Neurologically he is intact. He is hard of hearing. No skin rash. No oral lesion. Results & Data Laboratory Results Labs were reviewed which showed stable CBC, and BMP, PTT is elevated. Troponin is coming down to 16. Diagnostic Findings Chest x-ray showed improvement in the inflation of the lung, less pulmonary vascular congestion.
--- NOTE | 2018-10-05 19:46 | Hospitalist Progress Note ---
Date of Service October 05, 2018 Assessment & Plan (1) Acute respiratory failure with hypoxia and hypercapnia: 2nd to acute/chronic systolic CHF, NSTEMI, along with aspiration event. Resolved. Completely off all oxygen support. (2) Acute on chronic systolic heart failure: Appreciate cardiology consultation. LV dysfunction is due to CAD. Likely approaching euvolemia. Reduce PM lasix dose tonight to 20mg, then stop lasix. Repeat labs in am. Cont BB. Resume entresto - maybe tomorrow. Cardiology is considering repeat heart cath in light of NSTEMI but uncertain at this time. (3) NSTEMI (non-ST elevated myocardial infarction): No ischemic symptoms at this time. Cont BB, statin, asa, plavix. Heparin drip x 48 hours (stop AM of 10/06). Lipids well controlled on check this am. Resume entresto - possible tomorrow. Echo report reviewed in detail. cath this admission? or medical management. defer to cardiology. (4) Acute kidney injury superimposed on CKD: MERISSA resolved (5) Aspiration into airway: Received 2 days of IV rocephin. s/p bronch with suctioning of copious secretions in the right bronchial system by Dr. Hodge. Cultures from bronch thus far negative. Stop rocephin. Change to omnicef 300 BID and flagyl 500 TID x 5 days then stop abx. (6) GERD (gastroesophageal reflux disease): PPI. (7) Hypothyroidism: TSH 06/2018 was normal. Cont synthroid. (8) Hyperlipidemia: statin lipids well controlled (9) CKD (chronic kidney disease) stage 3, GFR 30-59 ml/min: creatinine stable BMP in am for stability (10) LBBB (left bundle branch block): chronic (11) Prediabetes: glycemic control is excellent (12) Hypokalemia: 2nd to diuresis replace PO, recheck bmp am (13) Hypomagnesemia: 2nd to diuresis mag sulfate 2 grams IV x 1 repeat level in AM (14) DVT prophylaxis: heparin infusion PT, OT mustapha requested daughter updated by phone today transfer to tele from ICU Subjective patient resting comfortably during my visit to him in the ICU laying flat in bed OFF of NC O2 patient denied any chest pain, dyspnea, PND, orthopnea feeling good tele stable overnight I spoke with pt's daughter by phone - she reported he missed all of his meds for 3-4 days prior to admission Constitutional: no fever and no anorexia Respiratory: + cough; no dyspnea, no dyspnea on exertion and no sputum production Cardiovascular: no chest pain, no orthopnea and no paroxysmal nocturnal dyspnea Gastrointestinal: no abdominal pain Physical Exam 2 Vital Signs (Past 24 Hours): Last Vital Signs Temp 36.5 C 10/05/18 16:21 Pulse 72 10/05/18 16:21 Resp 16 10/05/18 16:21 BP 120/65 10/05/18 16:21 Pulse Ox 97 10/05/18 16:21 Constitutional: no acute distress ENMT: external ear and nose normal, oropharynx normal Respiratory: Auscultation: lungs clear to auscultation bilaterally and + diminished lung sounds (bases) Cardiovascular: RRR, no murmur, no edema Heart Sounds: normal S1 and normal S2 Vessels: posterior tibial pulses present and dorsalis pedis pulses present; no JVD (but hepatojugular reflex present) Gastrointestinal (Abdomen): normal bowel sounds, soft, nontender, no hepatosplenomegaly Psychiatric: A+Ox3, euthymic affect Results & Data Laboratory Results Laboratory Results - last 24 hr 10/04/18 10/04/18 10/05/18 21:07 Unknown 00:38 WBC RBC Hgb Hct MCV MCH MCHC RDW Std Deviation RDW Coeff of Jeremiah Plt Count MPV Immature Gran % (Auto) Neut % (Auto) Lymph % (Auto) [place] % (Auto) Eos % (Auto) Baso % (Auto) Immature Gran # (Auto) Neut # (Auto) Lymph # (Auto) [place] # (Auto) Eos # (Auto) Baso # (Auto) APTT 63.4 H* PTT Ratio 2.3 Sodium Potassium Chloride Carbon Dioxide Anion Gap BUN Creatinine Est Cr Clr Drug Dosing Est GFR ( Amer) Est GFR (Non-Af Amer) BUN/Creatinine Ratio Glucose POC Glucose 131 H Calcium Phosphorus Magnesium Troponin I Triglycerides Cholesterol LDL Cholesterol, Calc VLDL Cholesterol, Calc HDL Cholesterol Cholesterol/HDL Ratio Fluid Polynuclear WBCs Not Reportable Fld Polynuclear WBCs % 97.0 Fluid Mononuclear WBCs Not Reportable Fld Mononuclear WBCs % 3.0 10/05/18 10/05/18 10/05/18 04:37 04:37 06:16 WBC 7.20 RBC 3.58 L Hgb 10.1 L Hct 31.2 L MCV 87.2 MCH 28.2 MCHC 32.4 RDW Std Deviation 50.0 H RDW Coeff of Jeremiah 15.6 H Plt Count 103 L MPV 10.2 Immature Gran % (Auto) 0.3 Neut % (Auto) 70.0 Lymph % (Auto) 16.8 [place] % (Auto) 10.6 Eos % (Auto) 1.9 Baso % (Auto) 0.4 Immature Gran # (Auto) 0.02 Neut # (Auto) 5.04 Lymph # (Auto) 1.21 [place] # (Auto) 0.76 H Eos # (Auto) 0.14 Baso # (Auto) 0.03 APTT PTT Ratio Sodium 141 Potassium 3.2 L D Chloride 106 Carbon Dioxide 28 Anion Gap 7.0 BUN 27 H Creatinine 1.43 H Est Cr Clr Drug Dosing 39.9 Est GFR ( Amer) 50.3 Est GFR (Non-Af Amer) 43.4 BUN/Creatinine Ratio 18.9 Glucose 110 H POC Glucose 112 H Calcium 8.1 L Phosphorus 3.5 Magnesium 1.7 L Troponin I 16.000 H* Triglycerides 102 Cholesterol 128 LDL Cholesterol, Calc 65 VLDL Cholesterol, Calc 20 HDL Cholesterol 43 Cholesterol/HDL Ratio 3 Fluid Polynuclear WBCs Fld Polynuclear WBCs % Fluid Mononuclear WBCs Fld Mononuclear WBCs % 10/05/18 10/05/18 07:28 11:26 WBC RBC Hgb Hct MCV MCH MCHC RDW Std Deviation RDW Coeff of Jeremiah Plt Count MPV Immature Gran % (Auto) Neut % (Auto) Lymph % (Auto) [place] % (Auto) Eos % (Auto) Baso % (Auto) Immature Gran # (Auto) Neut # (Auto) Lymph # (Auto) [place] # (Auto) Eos # (Auto) Baso # (Auto) APTT PTT Ratio Sodium Potassium Chloride Carbon Dioxide Anion Gap BUN Creatinine Est Cr Clr Drug Dosing Est GFR ( Amer) Est GFR (Non-Af Amer) BUN/Creatinine Ratio Glucose POC Glucose 97 99 Calcium Phosphorus Magnesium Troponin I Triglycerides Cholesterol LDL Cholesterol, Calc VLDL Cholesterol, Calc HDL Cholesterol Cholesterol/HDL Ratio Fluid Polynuclear WBCs Fld Polynuclear WBCs % Fluid Mononuclear WBCs Fld Mononuclear WBCs % _ (1) Aspiration into airway Encounter type: initial encounter Qualified Code(s): T17.908A - Unspecified foreign body in respiratory tract, part unspecified causing other injury, initial encounter (2) GERD (gastroesophageal reflux disease) Esophagitis presence: esophagitis presence not specified Qualified Code(s): K21.9 - Gastro-esophageal reflux disease without esophagitis (3) Hypothyroidism Hypothyroidism type: acquired Qualified Code(s): E03.9 - Hypothyroidism, unspecified (4) Hyperlipidemia Hyperlipidemia type: mixed hyperlipidemia Qualified Code(s): E78.2 - Mixed hyperlipidemia
--- NOTE | 2018-10-06 09:39 | Cardiology Progress Note ---
Date of Service October 06, 2018 He is feeling better this morning. He denies any shortness of breath. He denies any chest pain chest pressure chest heaviness. Denies any light his dizziness presyncope syncope. He denies any lower extremity edema. Next He notes he did not take his medications at home for 4 days. He notes he was engrossed in a in a possible. He remembered to eat but he did not remember to take his medications. Denies any fevers or chills or sweats or cough. Physical Exam 2 Vital Signs (Past 24 Hours): Last Vital Signs Temp 36.4 C L 10/06/18 08:00 Pulse 76 10/06/18 08:00 Resp 16 10/06/18 08:00 BP 135/56 L 10/06/18 08:00 Pulse Ox 98 10/06/18 08:00 PHYSICAL EXAMINATION: GENERAL: He is awake, alert, oriented x3. HEENT: Moderately reduced carotid upstrokes His sclerae are anicteric. There were no carotid bruits. LUNGS: Clear to auscultation bilaterally no rales rhonchi or wheezing HEART: Regular, rate, and rhythm. No appreciable murmurs, rubs, or gallops ABDOMEN: Soft, non distended. Positive bowel sounds, nontender. EXTREMITIES: No clubbing or cyanosis. brisk right radial pulse, hand warm to touch PSYCHIATRIC: Appeared normal for him. Cath Findings: LM -left main heavily calcified, 20% ostial stenosis with waveform dampening with catheter engagement, 30% distal stenosis at bifurcation. LAD -40-50% ostial stenosis, diffuse mild calcified proximal to mid disease, moderate caliber first diagonal occluded proximally (potentially acute). Mid to distal LAD with mild diffuse disease. Circumflex -large caliber vessel with 30% ostial stenosis, 40-50% mid segment stenosis prior to takeoff of large OM 2. High OM1 and OM 2 without significant disease RCA -dominant vessel, diffuse proximal through mid moderate severe disease, 95% distal RCA stenosis with SONG I flow antegrade flow. Distal vessels also filled via left to right collaterals LVEDP -14 IMPRESSION: 1A. Acute hypoxic respiratory failure 1B. Acute on chronic systolic heart failure. 2. Acute respiratory distress with a history of flash pulmonary edema this admission. 3. Extensive LAD wall motion abnormality with anterior myocardial infarction 06/2018. 4. Prior inferior and inferolateral myocardial infarction. 5. Chronic kidney disease. 6. Left bundle-branch block. 7. Cardiac catheterization 07/28, totally occluded distal RCA with occlusion of a moderate size diagonal branch which is likely the culprit with moderate LAD and circumflex disease for medical therapy 8. Ejection fraction in the range of 25-30% this admission previously within the last month or 2 his EF is greater than 35% He looks much better than the chart would suggest when he was first admitted. He has not hypoxic nor does he have any dyspnea. It sounds like his flash pulmonary edema was related to noncompliance with his medications as he missed 4 days of meds. He did have a CAT scan in June 2018 of his abdomen and pelvis I would ask radiology to review that as they do not comment on his renal arteries just to make sure he does not have significant renal artery stenosis as a cause for his flash pulmonary edema. This is his second bout of flash pulmonary edema in the last 3 months. He is currently on Coreg 6.25 mg twice daily. His outpatient dose was 12-1/2 mg twice daily. I will restart his Entresto at the middle dose (49/51 mg disease. He previously was on diuretics as needed as his volume status was well controlled. He likely will need 20 mg of furosemide p.o. upon discharge and will until we can reassess his volume status as an outpatient. In addition his daughter is going to not only have to keep track of his but keep track of him and his medications. All this was discussed with the patient in detail.
--- NOTE | 2018-10-06 16:10 | Hospitalist Progress Note ---
Date of Service October 06, 2018 Assessment & Plan (1) Acute respiratory failure with hypoxia and hypercapnia: Secondary to acute/chronic systolic CHF, NSTEMI, along with aspiration event from aerophagia secondary to BiPAP. Resolved. Completely off all oxygen support and breathing comfortably. (2) Acute on chronic systolic heart failure: Appreciate cardiology consultation. LV dysfunction is due to CAD. Has now approached euvolemia Lasix has since been stopped but cardiology is recommending likely daily dose of 20 mg upon discharge Cont BB. Resume entresto today as per cardiology No need for cardiac catheterization at this time Repeat echocardiogram limited here shows slight improvement of LVEF to 25-30% Appreciate cardiology consultation (3) NSTEMI (non-ST elevated myocardial infarction): No ischemic symptoms at this time. Cont BB, statin, asa, plavix. Heparin drip x 48 hours -have since been stopped Lipids well controlled here Resumed entresto today Echo report reviewed in detail. (4) Acute kidney injury superimposed on CKD: MERISSA resolved (5) Aspiration into airway: Received 2 days of IV rocephin. s/p bronch with suctioning of copious secretions in the right bronchial system by Dr. Hodge. Cultures from bronch thus far negative. Continue Omnicef 300 BID and flagyl 500 TID x 4 more days then stop abx. (6) GERD (gastroesophageal reflux disease): PPI. (7) Hypothyroidism: TSH 06/2018 was normal. Cont synthroid. (8) Hyperlipidemia: statin lipids well controlled (9) CKD (chronic kidney disease) stage 3, GFR 30-59 ml/min: creatinine stable BMP in am for stability (10) LBBB (left bundle branch block): chronic (11) Prediabetes: glycemic control is excellent (12) Hypokalemia: 2nd to diuresis replace PO, recheck bmp am (13) Hypomagnesemia: 2nd to diuresis Now resolved (14) DVT prophylaxis: Heparin drip discontinued today Start once daily Lovenox SQ PT, OT evals recommending return to home -Disposition-remain on telemetry, possible discharge home tomorrow Subjective Patient feels well and has no complaints. He denies shortness of breath chest pain or abdominal pain. He denies any urinary symptoms. He has been afebrile. Telemetry with normal sinus rhythm, bundle branch block, PVCs with rates in the 70s-90s Review of Systems All systems reviewed & are unremarkable except as noted in HPI & below Physical Exam 2 Vital Signs (Past 24 Hours): Last Vital Signs Temp 36.5 C 10/06/18 15:20 Pulse 69 10/06/18 15:20 Resp 16 10/06/18 15:20 BP 114/63 10/06/18 15:20 Pulse Ox 99 10/06/18 15:20 Constitutional: WD/WN, vitals as above Eyes: PERRL, conjunctivae normal, anicteric sclerae ENMT: external ear and nose normal, oropharynx normal Neck: trachea midline, no thyromegaly Respiratory: normal respiratory effort, lungs clear to auscultation Cardiovascular: RRR, no murmur, no edema Gastrointestinal (Abdomen): normal bowel sounds, soft, nontender, no hepatosplenomegaly Musculoskeletal: Extremities: extremities normal to inspection; no cyanosis and no clubbing Skin: no rashes, warm and dry Neurologic: moves all extremities and awake; no focal motor deficits Psychiatric: A+Ox3, euthymic affect Results & Data Laboratory Results 10/06/18 10/06/18 Range/Units 05:23 05:23 APTT 73.2 H* (21.0-31.0) Seconds PTT Ratio 2.7 Sodium 142 (136-145) mmol/L Potassium 3.4 L (3.5-5.1) mmol/L Chloride 105 (98-107) mmol/L Carbon Dioxide 30 (21-32) mmol/L Anion Gap 7.0 (3-11) BUN 29 H (7-18) mg/dl Creatinine 1.27 (0.6-1.4) mg/dl Est Cr Clr Drug Dosing 41.5 ml/min Est GFR ( Amer) 58.1 Est GFR (Non-Af Amer) 50.1 BUN/Creatinine Ratio 23.1 H (10-20) Glucose 108 H (70-99) mg/dl Calcium 8.2 L (8.5-10.1) mg/dl Magnesium 2.2 (1.8-2.4) mg/dl _ (1) Aspiration into airway Encounter type: initial encounter Qualified Code(s): T17.908A - Unspecified foreign body in respiratory tract, part unspecified causing other injury, initial encounter (2) Hyperlipidemia Hyperlipidemia type: mixed hyperlipidemia Qualified Code(s): E78.2 - Mixed hyperlipidemia (3) Hypothyroidism Hypothyroidism type: acquired Qualified Code(s): E03.9 - Hypothyroidism, unspecified (4) GERD (gastroesophageal reflux disease) Esophagitis presence: esophagitis presence not specified Qualified Code(s): K21.9 - Gastro-esophageal reflux disease without esophagitis
--- NOTE | 2018-10-07 10:05 | Cardiology Progress Note ---
Date of Service October 07, 2018 He is feeling better. He walked the entire length of the hallway without significant dyspnea or lightheadedness. Denies any chest pain or chest pressure. He does have some mild lower extremity edema. He denies any PND or orthopnea. He notes he is not sleeping well in the hospital. He denies any palpitations or fluttering or feeling his heart racing. Physical Exam 2 Vital Signs (Past 24 Hours): Last Vital Signs Temp 36.4 C L 10/07/18 07:55 Pulse 67 10/07/18 07:55 Resp 16 10/07/18 07:55 BP 128/64 10/07/18 07:55 Pulse Ox 99 10/07/18 07:55 PHYSICAL EXAMINATION: GENERAL: He is awake, alert, oriented x3. HEENT: Moderately reduced carotid upstrokes His sclerae are anicteric. There were no carotid bruits. LUNGS: Clear to auscultation bilaterally no rales rhonchi or wheezing HEART: Regular, rate, and rhythm. No appreciable murmurs, rubs, or gallops ABDOMEN: Soft, non distended. Positive bowel sounds, nontender. EXTREMITIES: No clubbing or cyanosis. Mild bilateral lower extremity edema PSYCHIATRIC: Appeared normal for him. Cath Findings from last admission LM -left main heavily calcified, 20% ostial stenosis with waveform dampening with catheter engagement, 30% distal stenosis at bifurcation. LAD -40-50% ostial stenosis, diffuse mild calcified proximal to mid disease, moderate caliber first diagonal occluded proximally (potentially acute). Mid to distal LAD with mild diffuse disease. Circumflex -large caliber vessel with 30% ostial stenosis, 40-50% mid segment stenosis prior to takeoff of large OM 2. High OM1 and OM 2 without significant disease RCA -dominant vessel, diffuse proximal through mid moderate severe disease, 95% distal RCA stenosis with SONG I flow antegrade flow. Distal vessels also filled via left to right collaterals LVEDP -14 IMPRESSION: 1A. Acute hypoxic respiratory failure 1B. Acute on chronic systolic heart failure. 1C. Non-ST elevation myocardial infarction this admission 2. Acute respiratory distress with a history of flash pulmonary edema this admission. 3. Extensive LAD wall motion abnormality with anterior myocardial infarction 06/2018. 4. Prior inferior and inferolateral myocardial infarction. 5. Chronic kidney disease. 6. Left bundle-branch block. 7. Cardiac catheterization 07/28, totally occluded distal RCA with occlusion of a moderate size diagonal branch which is likely the culprit with moderate LAD and circumflex disease for medical therapy 8. Ejection fraction in the range of 25-30% this admission previously within the last month or 2 his EF is greater than 35% He can be discharged from my standpoint on his above-mentioned medications we will try to up titrate his Entresto as an outpatient depending on his creatinine , potassium, and blood pressure. I did restart his Bumex and milligrams daily. As an outpatient we were able to reduce his Bumex dose as he was prerenal and not having heart failure symptoms. Given the fact he has had flash pulmonary edema with another non-ST elevation cardial infarction I would leave him on Bumex and accept some degree of prerenal azotemia as an outpatient. He will be discharged on aspirin and Plavix and carvedilol as well as his Entresto and statin therapy. We will arrange for follow-up in the office in the next 7-10 days with 1 of our physician assistants. He should have a BMP drawn in a week's time to assess the stability of his creatinine and potassium.
--- NOTE | 2018-10-07 12:59 | Discharge Summary ---
Date of Service October 07, 2018 Admission HPI Per Admitting Provider 88-year-old male presented to the emergency department with acute shortness of breath about 1 hour prior to arrival. At the time of this H&P, the patient had been intubated, therefore the history is based upon discussions with the ED staff, daughter, and the notes. From discussion with the daughter, she was notified around 7 PM that the patient had some acute difficulty breathing. He had apparently been doing quite well prior to this, including recent cardiology outpatient appointment noting improved cardiac function. Per the medical notes , the patient has a history of flash pulmonary edema about two months ago. No known acute physical stressors or recent illness. However, he may have had some pain down his left arm this evening. He took some nitroglycerin prior to arrival. Principal Diagnosis Acute on chronic systolic CHF, NSTEMI, aspiration pneumonia with acute hypoxic and hypercapnic respiratory failure Discharge Exam Constitutional WD/WN, vitals as above Eyes PERRL, conjunctivae normal, anicteric sclerae ENMT external ear and nose normal, oropharynx normal Neck trachea midline, no thyromegaly Respiratory normal respiratory effort, lungs clear to auscultation Cardiovascular RRR, no murmur, no edema Gastrointestinal (Abdomen) normal bowel sounds, soft, nontender, no hepatosplenomegaly Musculoskeletal Extremities: extremities normal to inspection; no cyanosis and no clubbing Skin no rashes, warm and dry Neurologic moves all extremities and awake; no focal motor deficits Psychiatric A+Ox3, euthymic affect Discharge Data Allergies Allergy/AdvReac Type Severity Reaction Status Date / Time latex Allergy Intermediate HIVES - Verified 06/25/18 16:07 red itchy skin morphine Allergy Intermediate Itchiness Verified 07/15/18 16:20 Penicillins Allergy Unknown Unknown Verified 07/15/18 16:20 Consultations 10/03/18 21:30 ED Decision to Admit Stat 10/03/18 23:58 Consult Case Management - Discharge Planning Routine Consult Manager Commission Routine 10/04/18 05:45 Consult Cardiology Routine Ordered Studies 10/03/18 22:33 CT chest wo con Stat Chest x-ray x4 Hospital Course (1) Acute respiratory failure with hypoxia and hypercapnia: Secondary to acute/chronic systolic CHF, NSTEMI, along with aspiration event from aerophagia secondary to BiPAP. Resolved. Completely off all oxygen support and breathing comfortably. The day of discharge. (2) Acute on chronic systolic heart failure: Appreciate cardiology consultation. LV dysfunction is due to CAD. Has now approached euvolemia Lasix has since been stopped but cardiology is recommending Bumex 1 mg p.o. daily on discharge Cont Coreg at lower dose of 6.25 mg p.o. twice daily -Continue Entresto and will be titrated up as an outpatient No need for cardiac catheterization at this time Repeat echocardiogram limited here shows slight improvement of LVEF to 25-30% Appreciate cardiology consultation-he will have close follow-up within 7-10 days as an outpatient (3) NSTEMI (non-ST elevated myocardial infarction): No ischemic symptoms at this time. Cont BB, statin, asa, plavix. Heparin drip x 48 hours -and then was discontinued Lipids well controlled here -Isosorbide has been temporarily discontinued for now due to low normal blood pressures-cardiology will possibly restart as an outpatient when they see him (4) Acute kidney injury superimposed on CKD: MERISSA resolved (5) Aspiration into airway: With aspiration pneumonia Received 2 days of IV rocephin. s/p bronch with suctioning of copious secretions in the right bronchial system by Dr. Hodge. Cultures from bronch negative He is still coughing up some sputum on the day of discharge Continue Omnicef 300 BID and flagyl 500 TID x 3 more days then stop abx. (6) GERD (gastroesophageal reflux disease): Continue PPI. (7) Hypothyroidism: TSH 06/2018 was normal. Cont synthroid. (8) Hyperlipidemia: Continue statin lipids well controlled (9) CKD (chronic kidney disease) stage 3, GFR 30-59 ml/min: creatinine stable Follow BMP in 1 week after discharge-prescription given for this (10) LBBB (left bundle branch block): chronic (11) Prediabetes: glycemic control is excellent (12) Hypokalemia: 2nd to diuresis Replaced and resolved (13) Hypomagnesemia: 2nd to diuresis Now resolved (14) DVT prophylaxis: Heparin drip and then Lovenox were provided PT, OT evals recommending return to home -Disposition-stable for discharge to home Total Time Total Time Spent Total Time Spent (In Minutes): Greater than 30 minutes Total Time Includes: Examination of the Patient, Discharge Planning, Medication Reconciliation and Communication With Other Providers (Cardiology, Dr. Flaherty) Discharge Plan Discharge Items Patient Disposition: Home - Self-Care Reason For Visit: PULMONARY EDEMA,ELEVATED TROPONIN Discharge Diagnosis: Acute on chronic systolic CHF, NSTEMI, ventilator dependent respiratory failure with aspiration pneumonitis Condition: Good Discharge Goals: Decrease discomfort, Diagnostic testing, Improve disease control, Improve function, Learn about illness and Therapeutic intervention Activity: Resume your previous activity Lifting: Gradually increase as tolerated Bathing: No limitations Exercise/Sports: Gradually increase as tolerated Non-emergency contact: Primary Care Provider and Medical Biller Call non-emergency contact if: you have any medication questions, your symptoms worsen, your pain is not controlled, your pain is worsening, your pain is unusual for you and your temperature is above 101 Follow-up/Referrals: Bud España MD [Primary Care Provider] - 10/13/18 1:10 pm (Please, follow up at Dr. Ganesh España's office with his associate, Dr. Majano, on SaturdayOctober 13 at 1:10 pm. *If you need to change this appointment, call their office at [phone]. ) Huber Flaherty, [Physician] - (Please, follow up with Dr. Flaherty. His nurse is to call you with appointment details. *If you have any questions, call the office at [phone].) Diet: Low Sodium (2gm) Fluids: 1800ml (7 cups) Other Ambulatory Orders: Basic Metabolic Panel (Routine) Timeframe: 1 Week Location: Determined by Patient Ordered By: Mary Arambula Provider Instructions: You were admitted with an exacerbation of your congestive heart failure likely due to missing her medications for several days prior to admission. You then aspirated and had to be intubated and placed on a ventilator. Because of the strain on your heart, you had another small heart attack. You were treated for these conditions and had improvement. Your medications have been changed and a different water pill called Bumex has been added on. Please follow the medication list closely and remember to take your medications every day as prescribed. Please follow-up with the link wire fabric machine tender PA within 1-2 weeks, and have your blood work checked in 1 week to follow your kidney function. Please finish out the 2 antibiotics for your pneumonia. Please follow-up with your primary care physician as scheduled for you. Call your Primary Care doctor if any of the following symptoms or problems start or get worse: * Shortness of breath or difficulty breathing * Wake up at night short of breath * Chest pain * Cough * Swelling of your hands, feet, or legs * More fatigued or tired with your normal activity * Palpitations - sudden fast heart beats WEIGHT * Weigh yourself every morning after using the bathroom. * Use the same scale. * Wear the same amount of clothing. * Write your weight down on a chart. * Call your Primary Care doctor if you gain more than 2-3 pounds in 1-2 days. MEDICATIONS * Use this discharge instruction sheet for medication instructions. * Take your medications at the time your doctor ordered. * Do not skip a dose of your medicines. * If you miss a dose of medicine, take it as soon as possible, but DO NOT DOUBLE A DOSE. * Read your medicine information when you get home. * Know all of the side effects of your medicine. If in doubt, ask your pharmacist * Call your Primary Care doctor's office if you have any side effects. * Be sure all of your doctors know what medicine and herbs you take (including cold, flu, and herbal medicine). Take the following with you to your follow-up doctor appointments: * Weight Chart * Medication List * List of questions Do not drink excessive alcohol, beer or wine. Prescriptions: New metronidazole 500 mg Tablet 500 mg PO TID Qty: 9 RF: 0 cefdinir 300 mg Capsule 300 mg PO BID Qty: 6 RF: 0 bumetanide 1 mg Tablet 1 mg PO QAM Qty: 30 RF: 0 pantoprazole 40 mg Tablet,Delayed Release (Dr/Ec) 40 mg PO QAM Qty: 30 RF: 0 Continue Nigella Sativa Oil 2,000 mg PO DIRECTED RF: 0 Pectasol Detox Formula 1 dose PO DIRECTED RF: 0 clopidogrel 75 mg tablet 75 mg PO QAM RF: 0 aspirin 81 mg Tablet,Delayed Release (Dr/Ec) 81 mg PO QAM RF: 0 levothyroxine 75 mcg tablet 75 mcg PO QAM RF: 0 nitroglycerin 0.6 mg tablet, sublingual 0.6 mg Sublingual DIRECTED PRN (Reason: Chest Pain) RF: 0 rosuvastatin 20 mg tablet 20 mg PO QAM RF: 0 ybhaadpl-wur-YD-lycopen-lutein [Centrum Silver] 0.4-300-250 mg-mcg-mcg Tablet 1 tab PO QAM RF: 0 sacubitril-valsartan [Entresto] 49-51 mg tablet 1 tab PO BID RF: 0 Discontinued isosorbide mononitrate 60 mg tablet extended release 24 hr 60 mg PO BID RF: 0 furosemide 20 mg tablet 20 mg PO DAILY PRN (Reason: Leg Edema/Weight Gain) RF: 0 Stand-Alone Forms: [facility] Discharge Orders: Discharge Order (Routine); Ordered 10/07/18 Ordered By: Mary Mccollum Admission Data Admit Date/Time: 10/03/18 22:41 Attending Provider: Mary Mccollum Admit Provider: Shorty Mcallister Primary Care Provider: Bud España Other Providers: Augustin Mayo ; Evangelist Hodge ; Nathaniel Mccullough Service: Telemetry Other Pending Studies at Discharge: No
--- NOTE | 2018-11-04 06:02 | Coding Query ---
CODING QUERY To promote full compliance with coding requirements relating to patient care, provider participation is requested in all cases of fingernail sculpturer uncertainty. Please assist us with the question(s) below: Coding Question(s): Patient admitted with shortness of breath. Cardiology followed for NSTEMI. Cardiology progress note 10/05 mentions NSTEMI due to ischemia. DS and other progress notes do not mention NSTEMI with ischemia. Please check below the diagnosis treated during this Inpatient stay. Thanks for your help! RAMIRO Rao [facility] Physician's Response(s): ___x___ NSTEMI __x____ Type 2 (demand ischemi) NH Cannot clinically correlate if Type 2 NH or NSTEMI was treated Other/ Please document: Principal Diagnosis: "�that condition established after study, to be chiefly responsible for occasioning the admission of the patient to the hospital for care." Co-Existing Principal Diagnosis: "�when two or more diagnoses equally meet the criteria for principal diagnosis as determined by the circumstances of admission, diagnostic work up, and/or therapy provided, and the Alphabetic Index, Tabular List, or another coding guideline does not provide sequencing direction, any one of the diagnoses may be sequenced first." "When the physician has documented what appears to be a current diagnosis in the body of the record, but has not included the diagnosis in the final diagnostic statement, the physician should be asked whether the diagnosis should be added." (Source Coding [facility] 2 QTR90. p3-4) ERLIND
== END 2018-10-07 14:28 | disposition home health service (06) | DRG 264 ==
LOC: ED 19:33 → SUATTDRO 22:41 → 1E 22:41 → 2S 10-05 15:59
DX: I21.A1 Myocardial infarction type 2; Z79.02 Long term (current) use of antithrombotics/antiplatelets; Z88.5 Allergy status to narcotic agent; Z66 Do not resuscitate; I13.0 Hypertensive heart and chronic kidney disease with heart failure and stage 1 through stage 4 chronic kidney disease, or unspecified chronic kidney disease; E87.6 Hypokalemia; Z88.0 Allergy status to penicillin; I50.23 Acute on chronic systolic (congestive) heart failure; Z91.19 Patient's noncompliance with other medical treatment and regimen; N17.9 Acute kidney failure, unspecified; R73.03 Prediabetes; J96.01 Acute respiratory failure with hypoxia; Z99.11 Dependence on respirator [ventilator] status; I44.7 Left bundle-branch block, unspecified; Z91.040 Latex allergy status; I25.5 Ischemic cardiomyopathy; I25.10 Atherosclerotic heart disease of native coronary artery without angina pectoris; N18.3 Chronic kidney disease, stage 3 (moderate); E03.9 Hypothyroidism, unspecified; J96.02 Acute respiratory failure with hypercapnia; J69.0 Pneumonitis due to inhalation of food and vomit; E83.42 Hypomagnesemia

== ENCOUNTER 2018-11-01 19:48 | Observation (INO) ==
[2018-11-01 20:13] LABS: Basophils # (auto) 0.04 K/uL (0-0.2); Basophils % (auto) 0.4 %; Eosinophils # (auto) 0.14 K/uL (0-0.5); Eosinophils % (auto) 1.4 %; Hemoglobin 9.8 g/dL (14.0-18.0); Immature Granulocytes # (auto) 0.02 K/uL (0.00-0.02); Immature Granulocytes % (auto) 0.2 %; Lymphocytes # (auto) 1.22 K/uL (1.2-3.4); Lymphocytes % (auto) 12.6 %; Mean Corpuscular Hgb Conc 31.6 g/dL (32-36); Mean Corpuscular Volume 92.5 fL (80-100); Monocytes # (auto) 0.85 K/uL (0.11-0.59); Monocytes % (auto) 8.7 %; Neutrophils # (auto) 7.45 K/uL (1.4-6.5); Neutrophils % (auto) 76.7 %; Platelet Count 178 K/uL (130-400); RDW Standard Deviation 56.3 fL (36.4-46.3); Red Blood Count 3.35 M/uL (4.7-6.1); White Blood Count 9.72 K/uL (4.8-10.8)
[2018-11-01 20:19] LABS: iSTAT Creatinine 2.9 mg/dl (0.6-1.3); iSTAT Hemoglobin 9.5 g/dl (14.0-18.0); iSTAT Ionized Calcium 1.22 mmol/l (1.12-1.32); iSTAT Potassium 3.4 mEq/L (3.3-5.0)
[2018-11-01 20:30] LABS: Alanine Aminotransferase 38 U/L (12-78); Albumin Level 3.6 gm/dl (3.4-5.0); Aspartate Aminotransferase 34 U/L (15-37); BUN Creatinine Ratio 16.4 (10-20); Blood Urea Nitrogen 49 mg/dl (7-18); Calcium 9.4 mg/dl (8.5-10.1); Carbon Dioxide 28 mmol/L (21-32); Chloride 107 mmol/L (98-107); Est GFR (African American) 20.9; Glucose 181 mg/dl (70-99); Magnesium 2.2 mg/dl (1.8-2.4); Potassium 3.4 mmol/L (3.5-5.1); Sodium 144 mmol/L (136-145)
[2018-11-01 20:31] LABS: INR 1.1 (0.9-1.1); Partial Thromboplastin Ratio 0.9; Partial Thromboplastin Time 23.9 Seconds (21.0-31.0); Prothrombin Time 10.9 Seconds (9.0-12.0)
--- NOTE | 2018-11-01 20:31 | Emergency Department Note ---
Entered by Linda Hunter acting as a scribe for ED Provider Note CHIEF COMPLAINT: Shortness of breath HISTORY OF PRESENT ILLNESS: The patient is an 88 year old male who presents to the Emergency Room with c omplaints of constant shortness of breath that started prior to arrival. The patient reports he fell and hit his head. He notes he has neck pain. Per EMS: The patient has been complaining of shortness of breath and found him collapsed in the hallway. They note he was too weak and short of breath to get up. The patient lives at home with hi family. They state he took nitro 10 minutes before they got there. The patient does have history of UT and CAD. Pt denies LOC, headache, fevers, chills, diaphoresis, visual changes, chest pain, nausea, vomiting, abdominal pain, back pain, melena, hematochezia, urinary symptoms, numbness, lymphadenopathy, rash, or other complaints. REVIEW OF SYSTEMS: See HPI for pertinent positives and negatives. A total of ten systems were reviewed and were otherwise negative. PMHx/PSHx: Prediabetes GERD CAD Chronic CHF Hypothyroidism Hyperlipidemia CKD Anemia NSVT HTN Ischemic cardiomyopathy UT SOCIAL HISTORY: Patient lives at home. PHYSICAL EXAM: GENERAL: Awake, alert, tired-appearing, in no distress HENT: Normocephalic. Contusion and abrasion on right forehead. Oropharynx unremarkable. EYES: Pale conjunctiva. Sclera non-icteric. NECK: Inspection normal. Non-tender. Supple. No nuchal rigidity. FROM. No masses. RESPIRATORY: Clear to auscultation. No wheezes. No rales. Normal respiratory effort. CARDIAC: Normal rate. Normal rhythm. No murmurs. No rubs. Extremities warm and well perfused. Pulses equal. No JVD. GI: Soft, non-distended. No tenderness to palpation. No rebound or guarding. No masses. RECTAL: Deferred. MUSCULOSKELETAL: Atraumatic. Chest examination reveals no tenderness. The back is symmetrical on inspection without obvious abnormality. There is no CVA tenderness to palpation. No joint edema. Mild lateral neck discomfort. LOWER EXTREMITIES: Calves are equal size bilaterally and non-tender. Trace edema. No discoloration. NEURO: Normal sensorium. No sensory or motor deficits noted. SKIN: No rash or jaundice noted. EMERGENCY DEPARTMENT COURSE: 1952: The patient was evaluated in room A2, and a complete history and physical examination were performed. 2199: I checked on the patient. 2204: I talked to the oil field caser about getting the patient admitted. 2209: I reviewed the patient's case with Dr. Mayo, [facility] Hospitalist. He will evaluate the patient for further management. MEDICAL DECISION MAKING: Prior records/ancillary studies reviewed. The patient was admitted in September for hypercarbic respiratory failure. Triage Nursing notes reviewed and agree them. Additional history obtained from EMS. The patient's history was concerning for shortness of breath. Differential diagnosis: Etiologies such as pneumonia, COPD, reactive airway disease, CHF, cardiac ischemia, pulmonary embolism, pneumothorax, musculoskeletal, infections, angel rointestinal, as well as others were entertained. Physical examination: As above. Contusion on the forehead noted. The patient was tired and pale. ER treatment provided: Supplemental oxygen Cardiac monitoring On reassessment the patient felt better. Normal saline hydration IV Levaquin Diagnostic interpretation by me: The electrocardiogram was negative for acute ischemic change. The labs revealed a mild anemia with a hemoglobin of 9.5 on i-STAT. Troponin elevated. Chemistry panel reveals acute renal failure. Blood cultures pending. Urine culture pending. Imaging studies: Chest x-ray performed. CT scan of the head and cervical spine performed. No acute trauma noted. Chest x-ray performed concerns for effusion and infiltrate. Consultation: A consultation was placed with the hospitalist, Dr. Augustin Mayo. The case was discussed and diagnostics were reviewed. The patient was evaluated in the ER for further treatment. IMPRESSION: Shortness of breath Elevated troponin Acute renal failure Closed head injury Fall Anemia Pneumonia Weakness PLAN: Admit The scribe's documentation has been prepared under my direction and personally reviewed by me in its entirety. I confirm that the note above accurately refl ects all work, treatment, procedures, and medical decision making performed by me. Impression & Plan Shortness of breath, Anemia, Elevated troponin, Acute renal failure, Closed head injury, Fall, Pneumonia, Weakness Past Med/Surg History Medical History Hypothyroidism LV dysfunction Silent myocardial infarction Systolic CHF Surgical History History of appendectomy History of hip replacement Family History Other Family history non-contributory Social History Preferred Language: Spanish Beliefs That Will Affect Care: None Current Living Situation: Spouse Current Living Situation Comment: Home and [facility] for home care. Feels Safe at Home: Yes Smoking Status: Former smoker Hx Alcohol Use: Yes Hx Substance Use: No Results & Data Vital Signs Vital Signs - 24 hr 11/01/18 19:55 11/01/18 20:31 11/01/18 20:35 Temperature 36.5 C Temperature Source Oral Sepsis Recent Fever Within 48 Hours No Sepsis New/Unexplained Change in Mental Status No Sepsis Action Taken by Nursing No Action Required Pulse Rate 99 H 61 Pulse Rate from SpO2 Sensor 71 Respiratory Rate 12 25 H Blood Pressure 104/55 L 103/52 L Blood Pressure Mean 71 69 Pulse Oximetry 100 100 100 Oxygen Delivery Method Room Air Room Air Room Air 11/01/18 21:07 Temperature Temperature Source Sepsis Recent Fever Within 48 Hours Sepsis New/Unexplained Change in Mental Status Sepsis Action Taken by Nursing Pulse Rate 88 Pulse Rate from SpO2 Sensor 91 H Respiratory Rate 29 H Blood Pressure 94/71 L Blood Pressure Mean 78 Pulse Oximetry 100 Oxygen Delivery Method Room Air Home Medications Current Medication List: was personally reviewed by me Laboratory Data Attestation: I reviewed the patient's lab results. Result diagrams: 11/01/18 19:35 11/01/18 19:35 Lab Results 11/01/18 11/01/18 11/01/18 Range/Units 19:35 19:35 19:35 WBC 9.72 (4.8-10.8) K/uL RBC 3.35 L (4.7-6.1) M/uL Hgb 9.8 L (14.0-18.0) g/dL POC Hgb (14.0-18.0) g/dl Hct 31.0 L (42-52) % POC Hct (42-52) % MCV 92.5 (80-100) fL MCH 29.3 (25-34) pg MCHC 31.6 L (32-36) g/dL RDW Std Deviation 56.3 H (36.4-46.3) fL RDW Coeff of Jeremiah 17.0 H (11.5-14.5) % Plt Count 178 (130-400) K/uL MPV 11.0 H (7.4-10.4) fL Immature Gran % (Auto) 0.2 % Neut % (Auto) 76.7 % Lymph % (Auto) 12.6 % [place] % (Auto) 8.7 % Eos % (Auto) 1.4 % Baso % (Auto) 0.4 % Immature Gran # (Auto) 0.02 (0.00-0.02) K/uL Neut # (Auto) 7.45 H (1.4-6.5) K/uL Lymph # (Auto) 1.22 (1.2-3.4) K/uL [place] # (Auto) 0.85 H (0.11-0.59) K/uL Eos # (Auto) 0.14 (0-0.5) K/uL Baso # (Auto) 0.04 (0-0.2) K/uL PT 10.9 (9.0-12.0) Seconds INR 1.1 (0.9-1.1) APTT 23.9 (21.0-31.0) Seconds PTT Ratio 0.9 VBG pH (7.36-7.41) VBG pCO2 (38-50) mmHg VBG pO2 mmHg VBG HCO3 mmol/L VBG O2 Saturation % VBG Base Excess mEq/L Barometric Pressure mm/Hg POC Sodium (135-144) mEq/L Sodium 144 (136-145) mmol/L POC Potassium (3.3-5.0) mEq/L Potassium 3.4 L (3.5-5.1) mmol/L POC Chloride (101-112) mEq/L Chloride 107 (98-107) mmol/L Carbon Dioxide 28 (21-32) mmol/L POC Total CO2 (24-31) mEq/l Anion Gap 9.0 (3-11) POC Anion Gap (16-25) mmol/L POC BUN (7-18) mg/dl BUN 49 H (7-18) mg/dl Creatinine 2.96 H (0.6-1.4) mg/dl POC Creatinine (0.6-1.3) mg/dl Est Cr Clr Drug Dosing Not Reportable Est GFR ( Amer) 20.9 Est GFR (Non-Af Amer) 18.0 BUN/Creatinine Ratio 16.4 (10-20) Glucose 181 H (70-99) mg/dl POC Glucose (other) (70-99) mg/dl Calcium 9.4 (8.5-10.1) mg/dl POC Ioniz Calcium Carlos (1.12-1.32) mmol/l Magnesium 2.2 (1.8-2.4) mg/dl Total Bilirubin 0.4 (0.2-1) mg/dl AST 34 (15-37) U/L ALT 38 (12-78) U/L Alkaline Phosphatase 76 (45-117) U/L Troponin I 0.279 H* (0-0.045) ng/ml Total Protein 7.4 (6.4-8.2) gm/dl Albumin 3.6 (3.4-5.0) gm/dl Globulin 3.8 (2.5-4.0) gm/dl Albumin/Globulin Ratio 0.9 (0.9-2) Blood Type Antibody Screen 11/01/18 11/01/18 11/01/18 Range/Units 20:06 20:46 20:46 WBC (4.8-10.8) K/uL RBC (4.7-6.1) M/uL Hgb (14.0-18.0) g/dL POC Hgb 9.5 L (14.0-18.0) g/dl Hct (42-52) % POC Hct 28 L (42-52) % MCV (80-100) fL MCH (25-34) pg MCHC (32-36) g/dL RDW Std Deviation (36.4-46.3) fL RDW Coeff of Jeremiah (11.5-14.5) % Plt Count (130-400) K/uL MPV (7.4-10.4) fL Immature Gran % (Auto) % Neut % (Auto) % Lymph % (Auto) % [place] % (Auto) % Eos % (Auto) % Baso % (Auto) % Immature Gran # (Auto) (0.00-0.02) K/uL Neut # (Auto) (1.4-6.5) K/uL Lymph # (Auto) (1.2-3.4) K/uL [place] # (Auto) (0.11-0.59) K/uL Eos # (Auto) (0-0.5) K/uL Baso # (Auto) (0-0.2) K/uL PT (9.0-12.0) Seconds INR (0.9-1.1) APTT (21.0-31.0) Seconds PTT Ratio VBG pH 7.44 H (7.36-7.41) VBG pCO2 45 (38-50) mmHg VBG pO2 28 mmHg VBG HCO3 30 mmol/L VBG O2 Saturation < 60.0 % VBG Base Excess 4.9 mEq/L Barometric Pressure 736.6 mm/Hg POC Sodium 143 (135-144) mEq/L Sodium (136-145) mmol/L POC Potassium 3.4 (3.3-5.0) mEq/L Potassium (3.5-5.1) mmol/L POC Chloride 101 (101-112) mEq/L Chloride (98-107) mmol/L Carbon Dioxide (21-32) mmol/L POC Total CO2 26 (24-31) mEq/l Anion Gap (3-11) POC Anion Gap 20.0 (16-25) mmol/L POC BUN 40 H (7-18) mg/dl BUN (7-18) mg/dl Creatinine (0.6-1.4) mg/dl POC Creatinine 2.9 H (0.6-1.3) mg/dl Est Cr Clr Drug Dosing Est GFR ( Amer) Est GFR (Non-Af Amer) BUN/Creatinine Ratio (10-20) Glucose (70-99) mg/dl POC Glucose (other) 186 H (70-99) mg/dl Calcium (8.5-10.1) mg/dl POC Ioniz Calcium Carlos 1.22 (1.12-1.32) mmol/l Magnesium (1.8-2.4) mg/dl Total Bilirubin (0.2-1) mg/dl AST (15-37) U/L ALT (12-78) U/L Alkaline Phosphatase (45-117) U/L Troponin I (0-0.045) ng/ml Total Protein (6.4-8.2) gm/dl Albumin (3.4-5.0) gm/dl Globulin (2.5-4.0) gm/dl Albumin/Globulin Ratio (0.9-2) Blood Type O Negative Antibody Screen NEGATIVE Imaging Data Radiologist's Impression: Radiology results as stated below per my review and the radiologist's interpretation: XR chest 1V portable CLINICAL HISTORY: Dyspnea COMPARISON STUDY: Chest radiograph October 05, 2018. Chest CT October 03, 2018. FINDINGS: There is no pneumothorax. There are small bilateral pleural fusions. Moderate cardiac megaly is unchanged. Interstitial thickening suggests pulmonary edema. Bibasilar opacities have increased. IMPRESSION: 1. Interstitial thickening suggests mild pulmonary edema. 2. Small bilateral pleural effusions with increasing bibasilar opacities which may reflect pneumonia or atelectasis. Electronically signed by: Butch Souza M.D. 11/01/2018 8:[address] OF THE HEAD WITHOUT CONTRAST CLINICAL HISTORY: fall, right contusion COMPARISON STUDY: Head CT June 25, 2018. TECHNIQUE: Helical axial images of the head were obtained without IV contrast. Automated exposure control was utilized for the study. A dose lowering technique was utilized adhering to the principles of ALARA. FINDINGS: No acute intracranial hemorrhage, midline shift or mass effect is present. Ventricular system is stable. The basilar cisterns are patent. There are no extra-axial collections. White matter hypodensities are unchanged and suggest small vessel disease. There is no calvarial fracture. IMPRESSION: 1. No acute intracranial findings. 2. No calvarial fracture. Electronically signed by: Butch Souza M.D. 11/01/2018 9:[address] OF THE CERVICAL SPINE WITHOUT CONTRAST CLINICAL HISTORY: Fall. COMPARISON STUDY: No previous studies for comparison. TECHNIQUE: Helical axial images of the cervical spine were obtained without IV contrast. Sagittal and coronal reconstructions were viewed. Automated exposure control was utilized for the study. A dose lowering technique was utilized adhering to the principles of ALARA. FINDINGS: Alignment of the cervical spine is anatomic with the exception of slight anterolisthesis of C3 on C4 and C4 on C5. Craniocervical junction is intact. There is no acute fracture. Craniocervical junction is intact. Facet joints are intact. There is moderate multilevel facet arthrosis and degenerative disc disease. Within the upper chest, bilateral pleural effusions are partially imaged. Therefore, these are likely at least moderate in size. IMPRESSION: 1. No acute cervical spine fracture or subluxation. 2. Bilateral pleural effusions partially visualized within the upper chest. These are likely at least moderate in size. Electronically signed by: Butch Souza M.D. 11/01/2018 9:13 PM ECG Data Attestation: I personally reviewed and interpreted this ECG as follows: Indication: SOB/dyspnea Rate (beats per minute): 94 Rhythm: sinus rhythm Findings: + 1st degree AV block and + LBBB; no ST elevation Blood Pressure Blood Pressure Disposition: further management by hospitalist Discharge Plan Visit Data Chief Complaint: Shortness of Breath/Dyspnea ED Provider: Aleksandr Faria Discharge Problem: Shortness of breath, Anemia, Elevated troponin, Acute renal failure, Closed head injury, Fall, Pneumonia, Weakness Patient Disposition: Being Evaluated by Hospitalist Forms Stand Alone Forms: My [facility] Prescriptions Prescriptions: No Action Nigella Sativa Oil 2,000 mg PO DIRECTED RF: 0 Pectasol Detox Formula 1 dose PO DIRECTED RF: 0 clopidogrel 75 mg tablet 75 mg PO QAM RF: 0 aspirin 81 mg Tablet,Delayed Release (Dr/Ec) 81 mg PO QAM RF: 0 levothyroxine 75 mcg tablet 75 mcg PO QAM RF: 0 nitroglycerin 0.6 mg tablet, sublingual 0.6 mg Sublingual DIRECTED PRN (Reason: Chest Pain) RF: 0 rosuvastatin 20 mg tablet 20 mg PO QAM RF: 0 elrplciv-eze-EB-lycopen-lutein [Centrum Silver] 0.4-300-250 mg-mcg-mcg Tablet 1 tab PO QAM RF: 0 sacubitril-valsartan 49-51 mg tablet 1 tab PO BID RF: 0 metronidazole 500 mg Tablet 500 mg PO TID Qty: 9 RF: 0 cefdinir 300 mg Capsule 300 mg PO BID Qty: 6 RF: 0 bumetanide 1 mg Tablet 1 mg PO QAM Qty: 30 RF: 0 carvedilol 12.5 mg tablet 6.25 mg PO BID Qty: 0 RF: 0 pantoprazole 40 mg Tablet,Delayed Release (Dr/Ec) 40 mg PO QAM Qty: 30 RF: 0 Referrals Referrals: Bud España MD [Primary Care Provider] - Discharge Problem: Anemia Qualifiers: Anemia type: unspecified type Qualified Code(s): D64.9 - Anemia, unspecified Acute renal failure Qualifiers: Acute renal failure type: unspecified Qualified Code(s): N17.9 - Acute kidney failure, unspecified Closed head injury Qualifiers: Encounter type: initial encounter Qualified Code(s): S09.90XA - Unspecified injury of head, initial encounter Fall Qualifiers: Encounter type: initial encounter Qualified Code(s): W19.XXXA - Unspecified fall, initial encounter Pneumonia Qualifiers: Pneumonia type: due to unspecified organism Laterality: unspecified laterality Lung location: unspecified part of lung Qualified Code(s): J18.9 - Pneumonia, unspecified organism The scribe's documentation has been prepared under my direction and personally reviewed by me in its entirety. I confirm that the note above accurately reflects all work, treatment, procedures, and medical decision making performed by me.
[2018-11-01 20:38] LABS: Albumin Globulin Ratio 0.9 (0.9-2); Alkaline Phosphatase 76 U/L (45-117); Bilirubin,Total 0.4 mg/dl (0.2-1); Globulin 3.8 gm/dl (2.5-4.0); Total Protein 7.4 gm/dl (6.4-8.2); Troponin I 0.279 ng/ml (0-0.045)
--- NOTE | 2018-11-01 20:38 | XRay Report ---
XR chest 1V portable CLINICAL HISTORY: Dyspnea COMPARISON STUDY: Chest radiograph October 05, 2018. Chest CT October 03, 2018. FINDINGS: There is no pneumothorax. There are small bilateral pleural fusions. Moderate cardiac megal y is unchanged. Interstitial thickening suggests pulmonary edema. Bibasilar opacities have increased. IMPRESSION: 1. Interstitial thickening suggests mild pulmonary edema. 2. Small bilateral pleural effusions with increasing bibasilar opacities which may reflect pneumonia or atelectasis. Electronically signed by: Butch Souza M.D. 11/01/2018 8:37 PM
[2018-11-01 21:00] LABS: Base Excess VBG 4.9 mEq/L; HCO3 VBG 30 mmol/L; PCO2 VBG 45 mmHg (38-50); PO2 VBG 28 mmHg; pH VBG 7.44 (7.36-7.41)
[2018-11-01 21:01] LABS: Oxygen Saturation VBG < 60.0 %
--- NOTE | 2018-11-01 21:09 | CT Scan Report ---
CT OF THE HEAD WITHOUT CONTRAST CLINICAL HISTORY: fall, right contusion COMPARISON STUDY: Head CT June 25, 2018. TECHNIQUE: Helical axial images of the head were obtained without IV contrast. Automated exposure con trol was utilized for the study. A dose lowering technique was utilized adhering to the principles o f ALARA. FINDINGS: No acute intracranial hemorrhage, midline shift or mass effect is present. Ventricular syst em is stable. The basilar cisterns are patent. There are no extra-axial collections. White matter hyp odensities are unchanged and suggest small vessel disease. There is no calvarial fracture. IMPRESSION: 1. No acute intracranial findings. 2. No calvarial fracture. Electronically signed by: Butch Souza M.D. 11/01/2018 9:08 PM
--- NOTE | 2018-11-01 21:14 | CT Scan Report ---
CT OF THE CERVICAL SPINE WITHOUT CONTRAST CLINICAL HISTORY: Fall. COMPARISON STUDY: No previous studies for comparison. TECHNIQUE: Helical axial images of the cervical spine were obtained without IV contrast. Sagittal a nd coronal reconstructions were viewed. Automated exposure control was utilized for the study. A do se lowering technique was utilized adhering to the principles of ALARA. FINDINGS: Alignment of the cervical spine is anatomic with the exception of slight anterolisthesis of C3 on C4 and C4 on C5. Craniocervical junction is intact. There is no acute fracture. Craniocervical junction is intact. Facet joints are intact. There is moderate multilevel facet arthrosis and degene rative disc disease. Within the upper chest, bilateral pleural effusions are partially imaged. Theref ore, these are likely at least moderate in size. IMPRESSION: 1. No acute cervical spine fracture or subluxation. 2. Bilateral pleural effusions partially visualized within the upper chest. These are likely at least moderate in size. Electronically signed by: Butch Souza M.D. 11/01/2018 9:13 PM
[2018-11-01] MEDS ORDERED: SODIUM CHLORIDE 0.9% 1000ML 500 ML IV ONE (21:59)
[2018-11-01] MEDS ORDERED: LEVOFLOXACIN/D5W 750 MG/150 ML BAG IV STA (21:59)
[2018-11-01] MEDS ORDERED: SODIUM CHLORIDE 0.9% 500 ML IV SCH (22:00)
[2018-11-01 22:08] LABS: Appearance Urine Cloudy (Clear); Bacteria Urine Automated Negative (Negative); Bilirubin Urine Negative (Negative); Blood Urine 2+ (Negative); Color Urine Yellow; Epithelial Cell Urine Auto >30 /lpf (0-5); Glucose Urine UA Negative (Negative); Ketones Urine Trace (Negative); Leukocyte Esterase Urine 2+ (Negative); Nitrite Urine Negative (Negative); Protein Urine 1+ (Negative); RBC Urine Automated 0-4 /hpf (0-4); Specific Gravity Urine 1.021 (1.000-1.030); Urobilinogen Urine Negative (Negative); WBC Urine Automated >30 /hpf (0-5)
[2018-11-02] MEDS ORDERED: LINEZOLID 600 MG/300 ML D5W IV SCH (00:45)
[2018-11-02] MEDS ORDERED: LEVOFLOXACIN/D5W 750 MG/150 ML BAG IV SCH (00:45)
[2018-11-02] MEDS ORDERED: LEVOFLOXACIN CONSULT ACTIVE PRN (01:33)
[2018-11-02] MEDS ORDERED: NITROGLYCERIN SL 0.4 MG/TAB TAB SL PRN (01:38)
[2018-11-02] MEDS ORDERED: NITROGLYCERIN 0.6 MG/1 TAB 100 TAB BTL SL PRN (01:38)
[2018-11-02] MEDS ORDERED: CARBOXYMETHYLCELLULOSE GLYCERN OP SCH (01:38)
[2018-11-02] MEDS ORDERED: POLYETHYLENE (MIRALAX) 17 GM PACK PO PRN (01:38)
[2018-11-02] MEDS ORDERED: ACETAMINOPHEN 325 MG TAB PO PRN (01:38)
[2018-11-02] MEDS ORDERED: ONDANSETRON INJ 2 MG/ML 2 ML VIAL IV PRN (01:38)
[2018-11-02] MEDS ORDERED: LINEZOLID 600 MG/300 ML BAG IV SCH ×2 (02:00→14:00)
[2018-11-02] MEDS: CARVEDILOL 6.25 MG TAB PO SCH ×2 (02:09→07:50)
[2018-11-02 06:04] LABS: Basophils # (auto) 0.01 K/uL (0-0.2); Basophils % (auto) 0.2 %; Eosinophils # (auto) 0.06 K/uL (0-0.5); Eosinophils % (auto) 0.9 %; Hematocrit (blood only) 30.4 % (42-52); Hemoglobin 9.4 g/dL (14.0-18.0); Immature Granulocytes # (auto) 0.02 K/uL (0.00-0.02); Immature Granulocytes % (auto) 0.3 %; Lymphocytes # (auto) 0.87 K/uL (1.2-3.4); Lymphocytes % (auto) 13.5 %; Mean Corpuscular Hgb Conc 30.9 g/dL (32-36); Mean Corpuscular Volume 91.8 fL (80-100); Mean Platelet Volume 10.7 fL (7.4-10.4); Monocytes # (auto) 0.48 K/uL (0.11-0.59); Monocytes % (auto) 7.5 %; Neutrophils % (auto) 77.6 %; Platelet Count 150 K/uL (130-400); RDW Standard Deviation 56.8 fL (36.4-46.3); Red Blood Count 3.31 M/uL (4.7-6.1); White Blood Count 6.44 K/uL (4.8-10.8)
[2018-11-02] MEDS ORDERED: LEVOTHYROXINE SODIUM 75 MCG TABLET PO SCH (06:30)
[2018-11-02 06:33] LABS: INR 1.2 (0.9-1.1); Partial Thromboplastin Ratio 0.9; Partial Thromboplastin Time 25.7 Seconds (21.0-31.0); Prothrombin Time 11.8 Seconds (9.0-12.0)
[2018-11-02 06:35] LABS: Albumin Level 3.1 gm/dl (3.4-5.0); BUN Creatinine Ratio 17.7 (10-20); Calcium 8.5 mg/dl (8.5-10.1); Creatinine Clr Calc Pharmacy 19.8 ml/min; Est GFR (African American) 23.8; Est GFR (Non-African American) 20.5; Potassium 3.5 mmol/L (3.5-5.1)
[2018-11-02 06:38] LABS: Albumin Globulin Ratio 0.9 (0.9-2); Bilirubin,Total 0.3 mg/dl (0.2-1); Globulin 3.4 gm/dl (2.5-4.0); Total Protein 6.5 gm/dl (6.4-8.2)
[2018-11-02] MEDS: ALBUT/IPRATROP 3MG/0.5MG NEB 3 ML VIAL NEB SCH ×2 (06:58→11:06)
--- NOTE | 2018-11-02 08:48 | History & Physical Report ---
Date of Service November 02, 2018 Assessment & Plan (1) Pneumonia: Pneumonia involving right lung causing hypoxia and shortness of breath-- Given levofloxacin 750 mg IV in the ED, and will continue. At Zyvox 600 mg IV every 12 hours due to recent hospitalization, avoiding Vanco due to creatinine of 2.96. Duonebs every 4 hours while awake and every 2 hours when necessary. Sputum Gram stain and culture. Present on Admission?: Yes (2) Elevated troponin: Troponin is mildly elevated at 0.279, but is a lowest that is been in the past 3 months, which argues against an acute ischemic event. However, will follow serial troponins Present on Admission?: Yes (3) CAD (coronary artery disease): CAD/hypertension/ischemic cardiomyopathy/left bundle branch blocks/chronic systolic CHF-- Continue carvedilol, clopidogrel, isosorbide mononitrate, aspirin. Will hold Entresto due to acute kidney injury. Present on Admission?: Yes (4) GERD (gastroesophageal reflux disease): Continue pantoprazole 40 mg p.o. daily Present on Admission?: Yes (5) Weakness: (6) Ischemic cardiomyopathy: As noted above Present on Admission?: Yes (7) Acute kidney injury superimposed on CKD: Hold Entresto as noted above. Need to balance acute kidney injury with potential need for diuresis to treat mild CHF. Albumin IV is an option to consider. Present on Admission?: Yes History of Present Illness Chief Complaint: The patient presents to the emergency department with complaint of generalized weakness, with decreased ability to maintain upright position, and fell 3 times recently. Patient also complains of shortness of breath that limits his ability to ambulate as well. Primary Care Provider: Bud España MD The patient is an 88-year-old male who was last admitted at [facility] from 10/03-10/07 for acute respiratory failure requiring intubation and ICU admission. He has continued to feel weak since that time, however had been improving somewhat until the past several days when he developed worsening shortness of breath, generalized weakness and falls as noted. During this time he is also found difficult to keep his oral intake up for both liquids and solids. Allergies Allergy/AdvReac Type Severity Reaction Status Date / Time latex Allergy Intermediate HIVES - Verified 11/01/18 23:03 red itchy skin morphine Allergy Intermediate Itchiness Verified 11/01/18 23:03 Penicillins Allergy Unknown Unknown Verified 11/01/18 23:03 Home Medications Home Medications Medication Instructions Recorded Confirmed Type Centrum Silver 1 tab PO QAM 10/03/18 11/01/18 History aspirin 81 mg PO QAM 10/03/18 11/01/18 History clopidogrel 75 mg PO QAM 10/03/18 11/01/18 History levothyroxine 75 mcg PO QAM 10/03/18 11/01/18 History nitroglycerin 0.6 mg SUBLINGUAL DIRECTED PRN 10/03/18 11/01/18 History rosuvastatin 20 mg PO QAM 10/03/18 11/01/18 History sacubitril-valsartan 1 tab PO BID 10/03/18 11/01/18 History carvedilol 6.25 mg PO BID #0 tab 10/07/18 11/01/18 Rx pantoprazole 40 mg PO QAM #30 tab 10/07/18 11/01/18 Rx bumetanide 1 mg PO 3XWK 11/01/18 11/01/18 History carboxymethylcellulose-glycern 1 drp OPHTHALMIC (EYE) BID 11/01/18 11/01/18 History [Refresh Optive] isosorbide mononitrate 30 mg PO QAM 11/01/18 11/01/18 History omega 7-owe-rdd-fish oil [[place]-3] 1 cap PO DAILY 11/01/18 11/01/18 History ranitidine HCl 150 mg PO BID 11/01/18 11/01/18 History triamcinolone acetonide 1 applic TOPICAL HS 11/01/18 11/01/18 History Past Med/Surg History Medical History Hypothyroidism LV dysfunction Silent myocardial infarction Systolic CHF Surgical History History of appendectomy History of hip replacement Family History Other Family history non-contributory Social History Preferred Language: French Communication Ability Comment: difficult to understand at times Sas Clinical Programmer Required: No Beliefs That Will Affect Care: None Current Living Situation: Spouse Current Living Situation Comment: Home and [facility] for home care. Feels Safe at Home: Yes Safety Concerns: Feels Safe At This Time Smoking Status: Never smoker Hx Alcohol Use: No Hx Substance Use: No Review of Systems The patient denies palpitations, cough, lower extremity swelling, sore throat, fevers, chills, sweats, nausea, vomiting, diarrhea , constipation, abdominal pain, pelvic pain, blood in urine or stool, dysuria, urinary frequency or urgency, loss of consciousness, rash, abnormal bruising or bleeding, focal weakness, numbness or tingling in arms or legs, generalized arthralgias or myalgias, back or neck pain, or night sweats. The review of systems is otherwise negative other than for that already noted above, and at least 10 systems have been reviewed. Physical Exam Vital Signs (Past 24 Hours): Last Vital Signs Temp 36.4 C L 11/02/18 06:59 Pulse 91 H 11/02/18 06:59 Resp 25 H 11/02/18 06:59 BP 107/72 11/02/18 06:59 Pulse Ox 100 11/02/18 06:59 Physical Exam: The patient is awake, alert and oriented 3, looks fatigued and disheveled, normocephalic and atraumatic, lying in bed and in mild intermittent respiratory distress. HEENT--PERRL, EOMI, mucous membranes and oropharynx dry. Neck--supple. No JVD. No bruits. Thyroid normal, trachea midline, no adenopathy. Heart--normal S1 and S2. No murmurs, rubs or gallops. Lungs--coarse breath sounds with wheezes bilaterally Abdomen--normal bowel sounds and soft. Nontender. Nondistended, no hernias or masses, no organomegaly. Extremities--no cyanosis or clubbing. No edema. There are good distal pulses b/l. Dermatologic--normal skin turgor, normal color, no abnormal lymph nodes, no rash. Neurologic--cranial nerves II through XII grossly intact. Rheumatologic--normal range of motion. Psychiatric--normal affect. Results & Data Laboratory Results Laboratory Results WBC 6.44 K/uL (4.8-10.8) 11/02/18 05:49 RBC 3.31 M/uL (4.7-6.1) L 11/02/18 05:49 Hgb 9.4 g/dL (14.0-18.0) L 11/02/18 05:49 POC Hgb 9.5 g/dl (14.0-18.0) L 11/01/18 20:06 Hct 30.4 % (42-52) L 11/02/18 05:49 POC Hct 28 % (42-52) L 11/01/18 20:06 MCV 91.8 fL (80-100) 11/02/18 05:49 MCH 28.4 pg (25-34) 11/02/18 05:49 MCHC 30.9 g/dL (32-36) L 11/02/18 05:49 RDW Std Deviation 56.8 fL (36.4-46.3) H 11/02/18 05:49 RDW Coeff of Jeremiah 17.0 % (11.5-14.5) H 11/02/18 05:49 Plt Count 150 K/uL (130-400) 11/02/18 05:49 MPV 10.7 fL (7.4-10.4) H 11/02/18 05:49 Immature Gran % (Auto) 0.3 % 11/02/18 05:49 Neut % (Auto) 77.6 % 11/02/18 05:49 Lymph % (Auto) 13.5 % 11/02/18 05:49 [place] % (Auto) 7.5 % 11/02/18 05:49 Eos % (Auto) 0.9 % 11/02/18 05:49 Baso % (Auto) 0.2 % 11/02/18 05:49 Immature Gran # (Auto) 0.02 K/uL (0.00-0.02) 11/02/18 05:49 Neut # (Auto) 5.00 K/uL (1.4-6.5) 11/02/18 05:49 Lymph # (Auto) 0.87 K/uL (1.2-3.4) L 11/02/18 05:49 [place] # (Auto) 0.48 K/uL (0.11-0.59) 11/02/18 05:49 Eos # (Auto) 0.06 K/uL (0-0.5) 11/02/18 05:49 Baso # (Auto) 0.01 K/uL (0-0.2) 11/02/18 05:49 PT 11.8 Seconds (9.0-12.0) 11/02/18 05:49 INR 1.2 (0.9-1.1) H 11/02/18 05:49 APTT 25.7 Seconds (21.0-31.0) 11/02/18 05:49 PTT Ratio 0.9 11/02/18 05:49 VBG pH 7.44 (7.36-7.41) H 11/01/18 20:46 VBG pCO2 45 mmHg (38-50) 11/01/18 20:46 VBG pO2 28 mmHg 11/01/18 20:46 VBG HCO3 30 mmol/L 11/01/18 20:46 VBG O2 Saturation < 60.0 % 11/01/18 20:46 VBG Base Excess 4.9 mEq/L 11/01/18 20:46 Barometric Pressure 736.6 mm/Hg 11/01/18 20:46 POC Sodium 143 mEq/L (135-144) 11/01/18 20:06 Sodium 143 mmol/L (136-145) 11/02/18 05:49 POC Potassium 3.4 mEq/L (3.3-5.0) 11/01/18 20:06 Potassium 3.5 mmol/L (3.5-5.1) 11/02/18 05:49 POC Chloride 101 mEq/L (101-112) 11/01/18 20:06 Chloride 108 mmol/L (98-107) H 11/02/18 05:49 Carbon Dioxide 29 mmol/L (21-32) 11/02/18 05:49 POC Total CO2 26 mEq/l (24-31) 11/01/18 20:06 Anion Gap 6.0 (3-11) 11/02/18 05:49 POC Anion Gap 20.0 mmol/L (16-25) 11/01/18 20:06 POC BUN 40 mg/dl (7-18) H 11/01/18 20:06 BUN 47 mg/dl (7-18) H 11/02/18 05:49 Creatinine 2.66 mg/dl (0.6-1.4) H D 11/02/18 05:49 POC Creatinine 2.9 mg/dl (0.6-1.3) H 11/01/18 20:06 Est Cr Clr Drug Dosing 19.8 ml/min 11/02/18 05:49 Est GFR ( Amer) 23.8 11/02/18 05:49 Est GFR (Non-Af Amer) 20.5 11/02/18 05:49 BUN/Creatinine Ratio 17.7 (10-20) 11/02/18 05:49 Glucose 138 mg/dl (70-99) H 11/02/18 05:49 POC Glucose (other) 186 mg/dl (70-99) H 11/01/18 20:06 Calcium 8.5 mg/dl (8.5-10.1) 11/02/18 05:49 POC Ioniz Calcium Carlos 1.22 mmol/l (1.12-1.32) 11/01/18 20:06 Magnesium 2.2 mg/dl (1.8-2.4) 11/01/18 19:35 Total Bilirubin 0.3 mg/dl (0.2-1) 11/02/18 05:49 AST 30 U/L (15-37) 11/02/18 05:49 ALT 32 U/L (12-78) 11/02/18 05:49 Alkaline Phosphatase 80 U/L (45-117) 11/02/18 05:49 Troponin I 0.279 ng/ml (0-0.045) H* 11/01/18 19:35 Total Protein 6.5 gm/dl (6.4-8.2) 11/02/18 05:49 Albumin 3.1 gm/dl (3.4-5.0) L 11/02/18 05:49 Globulin 3.4 gm/dl (2.5-4.0) 11/02/18 05:49 Albumin/Globulin Ratio 0.9 (0.9-2) 11/02/18 05:49 Urine Color Yellow 11/01/18 21:32 Urine Appearance Cloudy (Clear) H 11/01/18 21:32 Urine pH 5.0 (4.5-7.5) 11/01/18 21:32 Ur Specific [place] 1.021 (1.000-1.030) 11/01/18 21:32 Urine Protein 1+ (Negative) H 11/01/18 21:32 Urine Glucose (UA) Negative (Negative) 11/01/18 21:32 Urine Ketones Trace (Negative) H 11/01/18 21:32 Urine Blood 2+ (Negative) H 11/01/18 21:32 Urine Nitrite Negative (Negative) 11/01/18 21:32 Urine Bilirubin Negative (Negative) 11/01/18 21:32 Urine Urobilinogen Negative (Negative) 11/01/18 21:32 Ur Leukocyte Esterase 2+ (Negative) H 11/01/18 21:32 Urine WBC (Auto) >30 /hpf (0-5) H 11/01/18 21:32 Urine RBC (Auto) 0-4 /hpf (0-4) 11/01/18 21:32 U Hyaline Cast (Auto) 1-5 /lpf (0-5) 11/01/18 21:32 U Epithel Cells (Auto) >30 /lpf (0-5) H 11/01/18 21:32 Urine Bacteria (Auto) Negative (Negative) 11/01/18 21:32 Ur Renal Epithelial Cell Not Reportable 11/01/18 21:32 Urine Yeast Budding (None Prsent) H 11/01/18 21:32 Blood Type O Negative 11/01/18 20:46 Antibody Screen NEGATIVE 11/01/18 20:46 Diagnostic Findings [place], [place] [phone] CT Scan Report Patient: TISHA JIN Date: 11/01/18 MR#: [id number]: [address] Acct ID:[id number]: Date: 1930City Zip: [place] [address] Age: 88Location: ED Sex: M Room/Bed: Att Phy: Diagnosis: shortnes of breath Clarita Phy: Bud España MDService Date: 11/01/18 Fam Phy: Interpreting Phy: Butch Souza MD Admit Phy: Ordering Phy: Aleksandr Faria MD cc: ~ CT OF THE HEAD WITHOUT CONTRAST CLINICAL HISTORY: fall, right contusion COMPARISON STUDY: Head CT June 25, 2018. TECHNIQUE: Helical axial images of the head were obtained without IV contrast. Automated exposure control was utilized for the study. A dose lowering technique was utilized adhering to the principles of ALARA. FINDINGS: No acute intracranial hemorrhage, midline shift or mass effect is present. Ventricular system is stable. The basilar cisterns are patent. There are no extra-axial collections. White matter hypodensities are unchanged and suggest small vessel disease. There is no calvarial fracture. IMPRESSION: 1. No acute intracranial findings. 2. No calvarial fracture. Electronically signed by: Butch Souza M.D. 11/01/2018 9:08 PM Dictated: 11/01/182104 Transcribed: 11/01/182104 [place], [place] [phone] XRay Report Patient: TISHA JIN Date: 11/01/18 MR#: [id number]: [address] Acct ID:[id number]: Date: 1930[facility] Zip: [place] [address] Age: 88Location: ED Sex: M Room/Bed: Att Phy: Diagnosis: shortnes of breath Clarita Phy: Bud España, MDService Date: 11/01/18 Fam Phy: Interpreting Phy: Butch Souza MD Admit Phy: Ordering Phy: Aleksandr Faria MD cc: ~ XR chest 1V portable CLINICAL HISTORY: Dyspnea COMPARISON STUDY: Chest radiograph October 05, 2018. Chest CT October 03, 2018. FINDINGS: There is no pneumothorax. There are small bilateral pleural fusions. Moderate cardiac megaly is unchanged. Interstitial thickening suggests pulmonary edema. Bibasilar opacities have increased. IMPRESSION: 1. Interstitial thickening suggests mild pulmonary edema. 2. Small bilateral pleural effusions with increasing bibasilar opacities which may reflect pneumonia or atelectasis. Electronically signed by: Butch Souza M.D. 11/01/2018 8:37 PM Dictated: 11/01/182034 Transcribed: 11/01/182034 [place], [place] [phone] CT Scan Report Patient: TISHA JIN Date: 11/01/18 MR#: [id number]: [address] Acct ID:[id number]: Date: 1930[facility] Zip: [place] [address] Age: 88Location: ED Sex: M Room/Bed: Att Phy: Diagnosis: shortnes of breath Clarita Phy: Bud España, MDService Date: 11/01/18 Fam Phy: Interpreting Phy: Butch Souza MD Admit Phy: Ordering Phy: Aleksandr Faria MD cc: ~ CT OF THE CERVICAL SPINE WITHOUT CONTRAST CLINICAL HISTORY: Fall. COMPARISON STUDY: No previous studies for comparison. TECHNIQUE: Helical axial images of the cervical spine were obtained without IV contrast. Sagittal and coronal reconstructions were viewed. Automated exposure control was utilized for the study. A dose lowering technique was utilized adhering to the principles of ALARA. FINDINGS: Alignment of the cervical spine is anatomic with the exception of slight anterolisthesis of C3 on C4 and C4 on C5. Craniocervical junction is intact. There is no acute fracture. Craniocervical junction is intact. Facet joints are intact. There is moderate multilevel facet arthrosis and degenerative disc disease. Within the upper chest, bilateral pleural effusions are partially imaged. Therefore, these are likely at least moderate in size. IMPRESSION: 1. No acute cervical spine fracture or subluxation. 2. Bilateral pleural effusions partially visualized within the upper chest. These are likely at least moderate in size. Electronically signed by: Butch Souza M.D. 11/01/2018 9:13 PM Dictated: 11/01/182107 Transcribed: 11/01/182107 Code Status & VTE Plan Code Status Full code VTE Prophylaxis Plan VTE Prophylaxis will be ordered: Yes (1) Pneumonia Laterality: unspecified laterality Lung location: unspecified part of lung Pneumonia type: due to unspecified organism Qualified Code(s): J18.9 - Pneumonia, unspecified organism (2) GERD (gastroesophageal reflux disease) Esophagitis presence: esophagitis presence not specified Qualified Code(s): K21.9 - Gastro-esophageal reflux disease without esophagitis
[2018-11-02] MEDS ORDERED: guaiFENesin 600 MG TABCR PO SCH (09:00)
[2018-11-02] MEDS ORDERED: ASPIRIN 81 MG ECTAB PO SCH (09:00)
[2018-11-02] MEDS ORDERED: CLOPIDOGREL BISULFATE 75 MG TAB PO SCH (09:00)
[2018-11-02] MEDS ORDERED: ISOSORBIDE MONO EXTENDED REL 30 MG TABCR PO SCH (09:00)
[2018-11-02] MEDS ORDERED: ROSUVASTATIN CALCIUM 20 MG TAB PO SCH (09:00)
[2018-11-02] MEDS ORDERED: PANTOprazole 40 MG TAB PO SCH (09:00)
[2018-11-02] MEDS ORDERED: HEPARIN SOD 5,000 UNIT/0.5 ML VIAL SQ SCH (09:00)
[2018-11-02] MEDS ORDERED: CEROVITE ADV FORMULA TAB PO SCH (09:00)
[2018-11-02 10:19] LABS: Troponin I 0.317 ng/ml (0-0.045)
[2018-11-02] MEDS ORDERED: CALCIUM CHLORIDE 10% 10 ML SYR IV ONE (12:59)
[2018-11-02] MEDS ORDERED: VASOPRESSIN 20 UNIT/ML VIAL IV ONE (12:59)
[2018-11-02] MEDS ORDERED: SODIUM BICARB 8.4% INJ 50 MEQ/50 ML SYR IV ONE (12:59)
[2018-11-02] MEDS ORDERED: SODIUM CHLORIDE 0.9% 10ML FLUSH IV ONE (12:59)
--- NOTE | 2018-11-02 16:34 | Discharge Summary ---
Date of Service November 02, 2018 Admission HPI Per Admitting Provider The patient is an 88-year-old male who was last admitted at [facility] from 10/03-10/07 for acute respiratory failure requiring intubation and ICU admission. He has continued to feel weak since that time, however had been improving somewhat until the past several days when he developed worsening shortness of breath, generalized weakness and falls as noted. During this time he is also found difficult to keep his oral intake up for both liquids and solids. Principal Diagnosis PEA arrest leading to Discharge Exam Constitutional WD/WN, vitals as above Eyes EOM intact bilaterally; no conjunctival abnormality ENMT external ear and nose normal, oropharynx normal Neck trachea midline, no thyromegaly normal visual inspection Respiratory + labored breathing and + prolonged expiratory phase; no respiratory distress Cardiovascular RRR, no murmur, no edema Gastrointestinal (Abdomen) Inspection/Auscultation: abdomen normal to inspection; abdomen not distended Musculoskeletal no cyanosis or clubbing, extremities motor strength 5/5 Skin no rashes, warm and dry Neurologic moves all extremities and awake Psychiatric Orientation: alert, oriented to person and cooperative Discharge Data Allergies Allergy/AdvReac Type Severity Reaction Status Date / Time latex Allergy Intermediate HIVES - Verified 11/01/18 23:03 red itchy skin morphine Allergy Intermediate Itchiness Verified 11/01/18 23:03 Penicillins Allergy Unknown Unknown Verified 11/01/18 23:03 Consultations 11/01/18 22:15 ED Decision to Admit Stat 11/02/18 01:38 Consult Case Management - Discharge Planning Routine 11/02/18 08:55 Consult Palliative Care Routine 11/02/18 09:08 Consult Infectious Diseases Routine Ordered Studies 11/01/18 20:03 CT cervical spine wo con Stat CT head/brain wo con Stat Hospital Course (1) Ischemic cardiomyopathy: Saw and examined patient in the morning at ~9am. He was in no acute distress, breathing comfortably on his nasal cannula, though still subjectively short of breath. Discussed with him that I thought this was less likely pneumonia, and more likely pulmonary edema from end-stage heart failure (given he had no major weight gain from his baseline). Renal failure possibly due to cardiorenal instead of pre-renal. Discussed that we would need cardiology to see him given my concern for worsening heart failure. At approximately 10:40am, ran to laura [employer] called overhead. Per RN, he became bradycardic and went into PEA arrest. Code in process on my arrival with good quality chest compressions. Proceeded to code patient for approx. 20 minutes with consistent, high-quality CPR, epi, calcium, bicarb. Bag-mask breathing until airway secured with ET tube with color change on colorometer. Each pulse checked showed continued asystole. Bedside ultrasound showed asystole as well with sporadic, ineffective cardiac squeeze. Daughter returned to bedside and requested us to stop code. Time of was 11:01am. Likely cause of was massive GA given his known CAD. Total Time Total Time Spent Total Time Spent (In Minutes): 45 Total Time Includes: Examination of the Patient and Communication With Other Providers Discharge Plan Discharge Items Disposition: Admission Data Admit Date/Time: 11/02/18 00:41 Service: Telemetry Other DC Date/Time DO NOT enter until pt leaves facility: 11/02/18 13:00
[2018-11-02] MEDS ORDERED: TRIAMCINOLONE ACET 0.1% OINT 15 GM TUBE TOP SCH (21:00)
--- NOTE | 2018-11-03 06:32 | Infectious Disease Consult ---
Date of Consultation November 05, 2018 History of Present Illness Attending Physician: William Andres MD Allergies Allergy/AdvReac Type Severity Reaction Status Date / Time latex Allergy Intermediate HIVES - Verified 11/01/18 23:03 red itchy skin morphine Allergy Intermediate Itchiness Verified 11/01/18 23:03 Penicillins Allergy Unknown Unknown Verified 11/01/18 23:03 Home Medications Home Medications Medication Instructions Recorded Confirmed Type Centrum Silver 1 tab PO QAM 10/03/18 11/01/18 History aspirin 81 mg PO QAM 10/03/18 11/01/18 History clopidogrel 75 mg PO QAM 10/03/18 11/01/18 History levothyroxine 75 mcg PO QAM 10/03/18 11/01/18 History nitroglycerin 0.6 mg SUBLINGUAL DIRECTED PRN 10/03/18 11/01/18 History rosuvastatin 20 mg PO QAM 10/03/18 11/01/18 History sacubitril-valsartan 1 tab PO BID 10/03/18 11/01/18 History carvedilol 6.25 mg PO BID #0 tab 10/07/18 11/01/18 Rx pantoprazole 40 mg PO QAM #30 tab 10/07/18 11/01/18 Rx bumetanide 1 mg PO 3XWK 11/01/18 11/01/18 History carboxymethylcellulose-glycern 1 drp OPHTHALMIC (EYE) BID 11/01/18 11/01/18 History [Refresh Optive] isosorbide mononitrate 30 mg PO QAM 11/01/18 11/01/18 History omega 1-ujt-fou-fish oil [[place]-3] 1 cap PO DAILY 11/01/18 11/01/18 History ranitidine HCl 150 mg PO BID 11/01/18 11/01/18 History triamcinolone acetonide 1 applic TOPICAL HS 11/01/18 11/01/18 History Patient History Medical History Hypothyroidism LV dysfunction Silent myocardial infarction Systolic CHF Surgical History History of appendectomy History of hip replacement Family History Other Family history non-contributory Social History Preferred Language: Chinese Communication Ability Comment: difficult to understand at times 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 Feels Safe at Home: Yes Safety Concerns: Feels Safe At This Time Smoking Status: Never smoker Hx Alcohol Use: No Hx Substance Use: No Physical Exam Vital Signs (Past 24 Hours): Last Vital Signs Temp 36.4 C L 11/02/18 06:59 Pulse 80 11/02/18 09:52 Resp 20 11/02/18 09:52 BP 91/60 L 11/02/18 09:52 Pulse Ox 100 11/02/18 09:52 : Anemia Qualifiers: Anemia type: unspecified type Qualified Code(s): D64.9 - Anemia, unspecified Acute renal failure Qualifiers: Acute renal failure type: unspecified Qualified Code(s): N17.9 - Acute kidney failure, unspecified Closed head injury Qualifiers: Encounter type: initial encounter Qualified Code(s): S09.90XA - Unspecified injury of head, initial encounter Fall Qualifiers: Encounter type: initial encounter Qualified Code(s): W19.XXXA - Unspecified fall, initial encounter Pneumonia Qualifiers: Pneumonia type: due to unspecified organism Laterality: unspecified laterality Lung location: unspecified part of lung Qualified Code(s): J18.9 - Pneumonia, unspecified organism
[2018-11-03] MEDS ORDERED: BUMETANIDE 1 MG TAB PO SCH (09:00)
[2018-11-03] MEDS ORDERED: LEVOFLOXACIN/D5W 750 MG/150 ML BAG IV SCH (22:00)
--- NOTE | 2018-11-04 10:09 | Infectious Disease Consult ---
Date of Consultation November 02, 2018 Assessment & Plan (1) Acute kidney injury superimposed on CKD: Infectious disease consultation was requested, but patient had before my arrival at the hospital, so no infectious disease consultation was performed. History of Present Illness Reason for Consultation: Ordered Zyvox Attending Physician: William Andres MD Allergies Allergy/AdvReac Type Severity Reaction Status Date / Time latex Allergy Intermediate HIVES - Verified 11/01/18 23:03 red itchy skin morphine Allergy Intermediate Itchiness Verified 11/01/18 23:03 Penicillins Allergy Unknown Unknown Verified 11/01/18 23:03 Home Medications Home Medications Medication Instructions Recorded Confirmed Type Centrum Silver 1 tab PO QAM 10/03/18 11/01/18 History aspirin 81 mg PO QAM 10/03/18 11/01/18 History clopidogrel 75 mg PO QAM 10/03/18 11/01/18 History levothyroxine 75 mcg PO QAM 10/03/18 11/01/18 History nitroglycerin 0.6 mg SUBLINGUAL DIRECTED PRN 10/03/18 11/01/18 History rosuvastatin 20 mg PO QAM 10/03/18 11/01/18 History sacubitril-valsartan 1 tab PO BID 10/03/18 11/01/18 History carvedilol 6.25 mg PO BID #0 tab 10/07/18 11/01/18 Rx pantoprazole 40 mg PO QAM #30 tab 10/07/18 11/01/18 Rx bumetanide 1 mg PO 3XWK 11/01/18 11/01/18 History carboxymethylcellulose-glycern 1 drp OPHTHALMIC (EYE) BID 11/01/18 11/01/18 History [Refresh Optive] isosorbide mononitrate 30 mg PO QAM 11/01/18 11/01/18 History omega 0-znn-jdf-fish oil [Braymer-3] 1 cap PO DAILY 11/01/18 11/01/18 History ranitidine HCl 150 mg PO BID 11/01/18 11/01/18 History triamcinolone acetonide 1 applic TOPICAL HS 11/01/18 11/01/18 History Patient History Medical History Hypothyroidism LV dysfunction Silent myocardial infarction Systolic CHF Surgical History History of appendectomy History of hip replacement Family History Other Family history non-contributory Social History Preferred Language: Croatian Communication Ability Comment: difficult to understand at times 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 Feels Safe at Home: Yes Safety Concerns: Feels Safe At This Time Smoking Status: Never smoker Hx Alcohol Use: No Hx Substance Use: No Physical Exam Vital Signs (Past 24 Hours): Last Vital Signs Temp 36.4 C L 11/02/18 06:59 Pulse 80 11/02/18 09:52 Resp 20 11/02/18 09:52 BP 91/60 L 11/02/18 09:52 Pulse Ox 100 11/02/18 09:52
== END 2018-11-02 13:00 | disposition expired ==
LOC: 2S 19:48 → ED 19:48 → SUATTDRO 11-02 00:41 → 2S 11-02 01:13